=== PATIENT | male | born 1950 | race Caucasian/White ===

== ENCOUNTER 2019-11-08 23:13 | Emergency (ER) | payer OTHER, BC ==
--- OUTSIDE RECORDS SUMMARY | 2019-11-08 23:17 | XMS REPORT | Summary of Care ---
:1950 Author Name SUNI CORCORAN N.P. Address Unavailable Unavailable , Care Team Providers Name Role Phone SUNI CORCORAN N.P. 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 Refills: 0 Active Allopurinol 100 MG Oral Tablet TAKE 1 TABLET TWICE DAILY. Refills: 0 Active AmLODIPine Besylate 10 MG Oral Tablet TAKE 1 TABLET DAILY FOR BLOOD PRESSURE. Refills: 0 Active 30 Tablet Bottle Fenofibrate 160 MG Oral Tablet TAKE 1 TABLET DAILY. Refills: 0 Active Flecainide Acetate 50 MG Oral Tablet TAKE 1 TABLET TWICE DAILY. Refills: 0 Active Furosemide 40 MG Oral Tablet TAKE 1 TABLET DAILY DIRECTED. Refills: 0 Active Losartan Potassium 100 MG Oral Tablet TAKE 1 TABLET ONCE DAILY. Refills: 0 Active 30 Tablet Bottle MetFORMIN HCl - 500 MG Oral Tablet TAKE 1 TABLET DAILY DIRECTED. Refills: 0 Active Pantoprazole Sodium 40 MG Oral Tablet Delayed Release TAKE 1 TABLET DAILY. Refills: 0 Active 7 Tablet Bottle Potassium Chloride 20 MEQ TBCR TAKE 2 TABLETS DAILY. Refills: 0 Active Rosuvastatin Calcium 10 MG Oral Tablet TAKE 1 TABLET DAILY. Refills: 0 Active Verapamil HCl ER 180 MG Oral Capsule Extended Release 24 Hour TAKE 1 CAPSULE DAILY BEFORE EATING. Refills: 0 Active Xarelto 20 MG Oral Tablet TAKE 1 TABLET DAILY Refills: 0 Active Allergies and Adverse Reactions Name Dates Details No Known Drug Allergies (Allergy) Status: Active Past Medical History Name Dates Details History of diabetes mellitus (V12.29, Z86.39) Status: Resolved History of Excessive bleeding (459.0, R58) Status: Resolved History of gout (V12.29, Z87.39) Status: Resolved History of hypertension (V12.59, Z86.79) Status: Resolved History of kidney stones (V13.01, Z87.442) Status: Resolved Procedures Procedure Dates Details History of colon surgery Completed Immunization Name Dates Details Immunizations not documented Social History Name Dates Details - Status: Name Dates Details Never smoker Vital Signs Date Test Result Details [id number] BP Systolic 168 mm[Hg] Status: Comments: Location: LUE; Position: Sitting BP Diastolic 88 mm[Hg] Status: Comments: Location: LUE; Position: Sitting Height 68 in Status: Weight 314.5 lb Status: Body Mass Index Calculated 47.82 kg/m2 Status: Body Surface Area Calculated 2.48 m2 Status: Heart Rate 72 /min Status: Comments: Location: L Radial; Results Date Description Value Details [id number] [U] XRAY KNEE 3 VWS LEFT [id number] XR KNEE 3 VWS LEFT Images acquired, not reported on this accession number. Plan of Care Name Dates Details Planned Observations Planned Goals not documented Planned Encounters Appointment; SUNI CORCORAN NP On: 24-Jan-2018 9:30 Interventions Provided Labs/Procedures/Imaging[U] XRAY KNEE 3 VWS LEFT [id number]; Done: 25 Oct 2017PlanPatient Education/Instructions: Patient Education Provided Reassurance Counseling Provided - Discussed with Family/Patient Family/Patient given opportunity to ask questions. Family/Patient Verbalized Understanding. Patient/ Parent to call or return with any abnormal changes Orders: Physical Therapy Follow Up: Return to the clinic in 3 months or as needed. Will do PT and follow up in 2-3 months. Instructions Name Dates Details Instructions not documented Encounters Appointment; SUNI CORCORAN NP On: 25-Oct-2017 9:45 Encounter Diagnosis: Problem not documented
--- OUTSIDE RECORDS SUMMARY | 2019-11-08 23:17 | XMS REPORT | Summary of Care ---
:1950 Author Organization [facility] Address [address] [place] [address] Care Team Providers Name Role Phone Rodolfo Gacria Primary Care Provider Reason for Visit Reason Comments Follow-up urinary frequency Encounter Details Date Type Department Care Team Description 09/06/2019 Office Visit [facility] Urology- Angelica Ott Urinary frequency (Primary Dx); [facility] Screening PSA (prostate specific antigen); [address] OAB (overactive bladder) [address] [place] [phone] [place] [id number] Allergies No Known Allergiesdocumented as of this encounter (statuses as of 09/06/2019) Medications Medication Sig Dispensed Refills Start Date End Date Status allopurinol 100 mg Take 100 mg 0 Active tablet by mouth 2 (two) times daily. amlodipine Take 10 mg by 0 Active besylate/benazepri mouth. l (AMLODIPINE-BENAZE PRIL ORAL) Fenofibrate 160 mg Take 160 mg 0 Active tablet by mouth. flecainide 100 mg Take 100 mg 0 Active tablet by mouth 2 (two) times daily. potassium chloride Take 20 mEq 0 Active 10 mEq CR tablet by mouth 2 (two) times daily. rosuvastatin 10 mg Take 10 mg by 0 Active tablet mouth at bedtime. metoprolol Take 50 mg by 0 Active succinate XL 50 mg mouth daily. 24 hr tablet olmesartan 40 mg Take 40 mg by 0 Active tablet mouth daily. folic Take by 0 Active acid/multivit-min/ mouth. lutein (CENTRUM SILVER ORAL) aspirin 81 mg Take 81 mg by 0 Active chewable tablet mouth daily. furosemide 40 mg Take 40 mg by 0 Active tablet mouth daily. metFORMIN 500 mg Take 500 mg 0 Active tablet by mouth 2 (two) times daily with meals. Pantoprazole 40 mg Take 40 mg by 0 Active delayed-release mouth daily. suspension oxybutynin Take 1 tablet 60 tablet 11 09/06/2019 Active chloride 5 mg by mouth 2 tabletIndications: (two) times Urinary frequency, daily. OAB (overactive bladder) oxybutynin XL 5 mg Take 2 30 tablet 2 11/22/2018 Discontinued 24 hr tablets by 0 (Duplicate) tabletIndications: mouth daily. OAB (overactive bladder) documented as of this encounter (statuses as of 09/06/2019) Active Problems No known active problemsdocumented as of this encounter (statuses as of 2019) Social History Tobacco Use Types Packs/Day Years Used Date Former Smoker Quit: 1990 Smokeless Tobacco: Never Used Alcohol Use Drinks/Week oz/Week Comments Yes Sex Assigned at Date Recorded Not on file Job Start Date Occupation Industry Not on file Not on file Not on file Travel History Travel Start Travel End No recent travel history available. documented as of this encounter Last Filed Vital Signs Vital Sign Reading Time Taken Comments Blood Pressure 185/95 09/06/2019 9:26 AM HYDROMETEOROLOGICAL TECHNICIAN Pulse 54 09/06/2019 9:26 AM HYDROMETEOROLOGICAL TECHNICIAN Temperature 37.3 C (99.2 F) 09/06/2019 9:17 AM HYDROMETEOROLOGICAL TECHNICIAN Respiratory Rate 20 09/06/2019 9:17 AM HYDROMETEOROLOGICAL TECHNICIAN Oxygen Saturation 99% 09/06/2019 9:17 AM HYDROMETEOROLOGICAL TECHNICIAN Inhaled Oxygen Concentration - - Weight 107 kg (236 lb) 09/06/2019 9:17 AM HYDROMETEOROLOGICAL TECHNICIAN Height - - Body Mass Index 34.85 11/22/2018 8:46 AM CDT documented in this encounter Progress Notes Angelica Ott FNP - 09/06/2019 9:00 AM CST Visit Type: Clinic Note / History and Physical Referred by: established Chief Complaint: 6 month follow up HPI Bony Santos 68 year old male for 6 month follow up of UI and urgency. He is taking oxybutynin and his symptoms have improved. He is happy with the way he urinates. He had gastric bypass surgery last year and has lost 70 lbs. He needs refill on oxybutynin. PSA 11/2018 - 0.42 Histories Past Medical History: Diagnosis Date Allergic rhinitis Atrial fibrillation Diabetes mellitus Diverticulitis Esophageal reflux Hyperlipidemia Hypertension Kidney stone Past Surgical History: Procedure Laterality Date COLON SURGERY TONSILLECTOMY Family History Problem Relation Age of Onset High cholesterol Father Hypertension Father Heart Father Social History Socioeconomic History Marital status: Spouse name: Not on file Number of children: Not on file Years of education: Not on file Highest education level: Not on file Occupational History Not on file Social Needs Financial resource strain: Not on file Food insecurity: Worry: Not on file Inability: Not on file Transportation needs: Medical: Not on file Non-medical: Not on file Tobacco Use Smoking status: Former Smoker Last attempt to quit: 1990 Years since quittin.0 Smokeless tobacco: Never Used Substance and Sexual Activity Alcohol use: Yes Drug use: Not on file Sexual activity: Not on file Lifestyle Physical activity: Days per week: Not on file Minutes per session: Not on file Stress: Not on file Relationships Social connections: Talks on phone: Not on file Gets together: Not on file Attends pentecostal service: Not on file Active member of club or organization: Not on file Attends meetings of clubs or organizations: Not on file Relationship status: Not on file Intimate partner violence: Fear of current or ex partner: Not on file Emotionally abused: Not on file Physically abused: Not on file Forced sexual activity: Not on file Other Topics Concern Not on file Social History Narrative Not on file Review of Systems Respiratory: Negative. Cardiovascular: Negative. Genitourinary: Negative. Neurological: Negative. Psychiatric/Behavioral: Negative. Physical Exam Constitutional: He is oriented to person, place, and time. He appears well- developed and well-nourished. No distress. Genitourinary: Genitourinary Comments: MIGUEL: prostate normal, benign-chaperoned by Luis Fernando Wellington RN Neurological: He is alert and oriented to person, place, and time. Skin: Skin is warm and dry. Psychiatric: He has a normal mood and affect. BP (!) 187/89 (BP Location: Right arm, Patient Position: Sitting, BP CUFF SIZE: Adult Large) | Pulse 80 | Temp 37.3 C (99.2 F) (Oral) | Resp 20 | Wt 192 lb 3.2 oz (87.2 kg) | SpO2 99% | BMI 28.38 kg/m Laboratory No new labs Radiology No new Radiology Procedure Note None Assessment/Plan Bony Santos 68 year old male with UI and urgency Continue oxybutynin-refill sent to pharmacy PSA today RTC in one year or sooner if needed Surgical Intervention Not applicable. This visit did not involve counseling and coordination that comprised more than 50% of the visit time.Electronically signed by Angelica Ott FNP at 2019 9:32 AM Yue Rankin RN - 09/06/2019 9:00 AM CSTDabushra Santos is a 68 year old male comes to clinic independent in ambulation for follow up urinary frequency. Pt comes alone . Pt in NAD w/ pain reported 0/10. Pt preferred language is Welsh. Pt. denies fall in last 12 months. Allergies and medications reviewed and updated. Pt to monitor BP at home if it remains elevated or he is to become symptomatic he is to contact his PCP or go directly to the ER documented in this encounter Plan of Treatment Name Type Priority Associated Diagnoses Order Schedule PROSTATIC SPECIFIC LAB Routine Screening PSA (prostate Expected: 09/06/2019 , ANTIGEN SCREEN specific antigen) Expires: 09/06/2020 Health Maintenance Due Date Last Done Comments HEPATITIS C (HCV) SCREEN 1950 DTaP,Tdap,and Td Vaccines (1 - Tdap) 1960 COLONOSCOPY 10/29/1999 Zoster Recombinant Vaccine (SHINGRIX) (1 of 2) 10/29/1999 Medicare Wellness Visit 2014 PNEUMOCOCCAL VACCINES 65+ (1 of 2 - PCV13) 2014 INFLUENZA VACCINE (#1) 2019 documented as of this encounter Procedures Procedure Name Priority Date/Time Associated Comments Diagnosis POCT URINALYSIS AUTO Routine 09/06/2019 9:24 AM Urinary frequency Results for this HYDROMETEOROLOGICAL TECHNICIAN procedure are in the results section. documented in this encounter Results POCT URINALYSIS, INSTRUMENT (09/06/2019 9:24 AM HYDROMETEOROLOGICAL TECHNICIAN) POCT U SP GRAV 1.020 1.005 - 1.025 mg/dl POCT PH U 7.0 5 - 8 mg/dl POCT U LEUK EST Negative Negative - Negative POCT U NIT Negative Negative - Negative POCT U PROT 300 Negative - Negative POCT U GLU Negative Negative - Negative POCT U KETONE Trace Negative - Negative POCT U UROBILI 0.2 0.2 - 1 mg/dl POCT U BILI Negative Negative - Negative POCT U BLD Negative Negative - Negative POCT U COLOR yellow POCT U APPEAR clear Specimen Urine - URINE, CLEAN CATCH documented in this encounter Visit Diagnoses Diagnosis Urinary frequency - Primary Screening PSA (prostate specific antigen) Special screening for malignant neoplasm of prostate OAB (overactive bladder) Hypertonicity of bladder documented in this encounter Insurance Payer Benefit Plan / Subscriber ID Effective Phone Address Type Group Dates MEDICARE MEDICARE PART A xxxxxxxxxxx 2014-Pres [phone] [address] Medicare & B ent [id number] [id number] [place] [phone] BCBS OF BCBS [id number] 2014-Pres [phone] Medicare [place] [employer] [place] [phone] [place] [address] (Home) [place] [address] documented as of this encounter"
--- OUTSIDE RECORDS SUMMARY | 2019-11-08 23:17 | XMS REPORT | Summary of Care ---
:1950 Author Organization [facility] - Health Address [address] [place] [address] Care Team Providers Name Role Phone Carmeloheena Rodolfo Torres Primary Care Provider Encounter Details Date Type Department Care Team Description 03/03/2019 Orders Only [facility] Doctor Unassigned, No [address] [facility] [place] [address] [address] [place] [address] Allergies No Known Allergiesdocumented as of this encounter (statuses as of 03/03/2019) Medications Medication Sig Dispensed Refills Start Date End Date Status allopurinol 100 mg Take 100 mg by 0 Active tablet mouth 2 (two) times daily. amlodipine Take 10 mg by 0 Active besylate/benazepril mouth. (AMLODIPINE-BENAZEPRIL ORAL) Fenofibrate 160 mg Take 160 mg by 0 Active tablet mouth. flecainide 100 mg Take 100 mg by 0 Active tablet mouth 2 (two) times daily. potassium chloride 10 Take 20 mEq by 0 Active mEq CR tablet mouth 2 (two) times daily. rosuvastatin 10 mg Take 10 mg by 0 Active tablet mouth at bedtime. metoprolol succinate XL Take 50 mg by 0 Active 50 mg 24 hr tablet mouth daily. olmesartan 40 mg tablet Take 40 mg by 0 Active mouth daily. folic Take by mouth. 0 Active acid/multivit-min/lutei n (CENTRUM SILVER ORAL) aspirin 81 mg chewable Take 81 mg by 0 Active tablet mouth daily. furosemide 40 mg tablet Take 40 mg by 0 Active mouth daily. metFORMIN 500 mg tablet Take 500 mg by 0 Active mouth 2 (two) times daily with meals. Pantoprazole 40 mg Take 40 mg by 0 Active delayed-release mouth daily. suspension oxybutynin XL 5 mg 24 Take 2 tablets by 30 tablet 2 11/22/2018 Active hr tabletIndications: mouth daily. OAB (overactive bladder) documented as of this encounter (statuses as of 03/03/2019) Active Problems Not on filedocumented as of this encounter (statuses as of 03/03/2019) Social History Tobacco Use Types Packs/Day Years [...] of this encounter Last Filed Vital Signs Not on filedocumented in this encounter Plan of Treatment Health Maintenance Due Date Last Done Comments HEPATITIS C (HCV) SCREEN 1950 DTaP,Tdap,and Td Vaccines (1 - Tdap) 1968 COLONOSCOPY 10/29/1999 Zoster Recombinant Vaccine (SHINGRIX) (1 of 2) 10/29/1999 Medicare Wellness Visit 2014 PNEUMOCOCCAL VACCINES 65+ (1 of 2 - PCV13) 2014 INFLUENZA VACCINE 04/09/2019 documented as of this encounter Procedures Procedure Name Priority Date/Time Associated Diagnosis Comments [facility] PATIENT FINANCIAL Routine 03/03/2019 8:41 AM POLICY CDT NO SHOW OR MISSED Routine 03/03/2019 8:40 AM APPOINTMENT POLICY CDT ACKNOWLEDGEMENT documented in this encounter Results Not on filedocumented in this encounter Insurance Payer Benefit Plan / Subscriber ID Effective Phone Address Type Group Dates MEDICARE MEDICARE PART A xxxxxxxxxxx 2014-Pres [phone] [address] Medicare & B ent [id number] [place] [phone] BCBS [place] BCBS [id number] 2014-Pres [phone] Medicare [place] [id number] [place] [address] documented as of this encounter
--- OUTSIDE RECORDS SUMMARY | 2019-11-08 23:17 | XMS REPORT | Summary of Care ---
:1950 Author Organization [facility] Address [address] [place] [address] Care Team Providers Name Role Phone Rodolfo Garcia Primary Care Provider Reason for Visit Reason Comments Follow-up urine frequency (Routine) Status Reason Specialty Diagnoses / Referred By Referred To Procedures Contact Contact Closed URO-UROLOGY / Diagnoses 3 mfu; Poss Cysto Urology Service Julio Alvarado Urology Procedures [place] CYSTOURETHROSCOPY OUTPATIENT ESTB 25 MINUTES FOLLOW-UP VISIT [address] [place] MD Sachin [place] [address] [place] [phone] [place], [place] Phone: [phone] Phone: Encounter Details Date Type Department Care Team Description 03/03/2019 Office Visit [facility] Urology- Julio Alvarado, Urgency incontinence Barrie LERNER (Primary Dx) [facility] [address] [place] [phone] Allergies No Known Allergiesdocumented as of this [...] Sign Reading Time Taken Comments Blood Pressure 166/86 03/03/2019 9:18 AM CDT Pulse 59 03/03/2019 9:18 AM CDT Temperature 36.2 C (97.1 F) 03/03/2019 9:18 AM CDT Respiratory Rate 18 03/03/2019 9:18 AM CDT Oxygen Saturation - - Inhaled Oxygen Concentration - - Weight 141.3 kg (311 lb 8.6 oz) 03/03/2019 9:18 AM CDT Height - - Body Mass Index 46.01 11/22/2018 8:46 AM CDT documented in this encounter Progress Notes Julio Alvarado MD - 03/03/2019 8:30 AM CDT Visit Type: Clinic Note / History and Physical Referred by: established Chief Complaint: UI HPI Patient with UI and urgency but no outlet obstruction. Has had improvement in symptoms with ditropan. Happy with situation currently. Histories Past Medical History: Diagnosis Date Allergic [...] Last attempt to quit: 1990 Years since quittin.5 Smokeless tobacco: Never Used Substance and Sexual Activity Alcohol use: Yes Drug use: Not on file Sexual activity: Not on file Lifestyle Physical activity: Days per week: Not on file Minutes per session: Not on file Stress: Not on file Relationships Social connections: Talks on phone: Not on file Gets together: Not on file Attends synagogue service: Not on file Active member of [...] Narrative Not on file Review of Systems Physical Exam Constitutional: He appears well-developed and well-nourished. Skin: Skin is warm and dry. Nursing note and vitals reviewed. BP (!) 166/86 (BP Location: Left arm, Patient Position: Sitting, BP CUFF SIZE: Adult Large) | Pulse59 | Temp 36.2 C (97.1 F) (Oral) | Resp 18 | Wt 311 lb 8.6 oz (141.3 kg) | BMI 46.01 kg/m Laboratory Radiology No new Radiology Procedure Note Assessment/Plan Patient improved with anticholinergic RTC six months and continue ditropan Reports he is to undergo gastric bypass surgery soon Surgical Intervention Not applicable. This visit did not involve counseling and coordination that comprised more than 50% of the visit time.Electronically signed by Alvarado, Julio Sachin, MD at 2018 9:30 AM Ammy Aviles MA - 03/03/2019 8:30 AM CDTDabushra Santos is a 68 year old male comes to clinic independent in ambulation for urine frequency. Pt comes alone . Pt in NAD w/ pain reported 0/10. Pt preferred language is Venezuelan. Pt. denies fall in last 12 months. Patient denies any urinary issues at this time. Allergies and medications reviewed and updated. documented in this encounter Plan of Treatment Date Type Specialty Care Team Description 09/06/2019 Office Visit Urology Angelica Ott FNP [address] [place] [address] [phone] Health Maintenance Due Date Last Done Comments HEPATITIS C (HCV) SCREEN 1950 DTaP,Tdap,and Td Vaccines (1 - Tdap) 1968 COLONOSCOPY 10/29/1999 Zoster Recombinant Vaccine (SHINGRIX) (1 of 2) 10/29/1999 Medicare Wellness Visit 2014 PNEUMOCOCCAL VACCINES 65+ (1 of 2 - PCV13) 2014 INFLUENZA VACCINE 04/09/2019 documented as of this encounter Results Not on filedocumented in this encounter Visit Diagnoses Diagnosis Urgency incontinence - Primary Urge incontinence documented in this encounter Insurance Payer Benefit Plan / Subscriber ID Effective Phone Address Type Group Dates MEDICARE MEDICARE PART A xxxxxxxxxxx 2014-Pres [phone] [address] Medicare & B ent [phone] [id number] [place] [address] BCBS [place] BCBS [id number] 2014-Pres [phone] Medicare [place] [id number] [place] [address] (Home) [place] [address] documented as of this encounter"
--- OUTSIDE RECORDS SUMMARY | 2019-11-08 23:17 | XMS REPORT ---
:1950 [facility] Address [address] [place] [address] Dr. Jenkins [address] [place] [address] Care Team Providers Name Role Phone Unavailable Unavailable Unavailable Problems This patient has no known problems. Allergies, Adverse Reactions, Alerts This patient has no known allergies or adverse reactions. Medications This patient has no known medications. Encounters Start End Encounter Admission Attending Care Care Encounter Date/Time Date/Time Type Type Clinicians Facility Department ID 2019-06-06 Inpatient [facility] JUANI [id number] 09:39:00 2019-09-19 2019-09-19 Outpatient [facility] CAR [id number] 05:54:00 05:54:00 2019-03-01 2019-03-01 Outpatient [facility] CAR [id number] 06:18:00 06:18:00 2019-02-06 2019-02-06 [id number]:37:00 11:37:00 2019-01-22 2019-01-22 Inpatient E [facility] MED [id number] 11:48:00 09:48:00
--- OUTSIDE RECORDS SUMMARY | 2019-11-08 23:18 | XMS REPORT | Summary of Care ---
:1950 Author Organization [facility] Address [address] [place] [address] Care Team Providers Name Role Phone Rodolfo Garcia Primary Care Provider Reason for Visit Reason Comments Follow-up urinary frequency Encounter Details Date Type Department Care Team Description 09/06/2019 Office Visit [facility] Urology- Angelica Ott Urinary frequency (Primary Dx); [facility] Screening PSA (prostate specific antigen); [address] OAB (overactive bladder) [address] [place] [phone] [place] [id number] Allergies No Known Allergiesdocumented as of this [...] Comments Blood Pressure 185/95 09/06/2019 9:26 AM SENIOR CLINICAL PROJECT MANAGER Pulse 54 09/06/2019 9:26 AM SENIOR CLINICAL PROJECT MANAGER Temperature 37.3 C (99.2 F) 09/06/2019 9:17 AM SENIOR CLINICAL PROJECT MANAGER Respiratory Rate 20 09/06/2019 9:17 AM SENIOR CLINICAL PROJECT MANAGER Oxygen Saturation 99% 09/06/2019 9:17 AM SENIOR CLINICAL PROJECT MANAGER Inhaled Oxygen Concentration - - Weight 107 kg (236 lb) 09/06/2019 9:17 AM SENIOR CLINICAL PROJECT MANAGER Height - - Body Mass Index 34.85 [...] file Gets together: Not on file Attends protestant service: Not on file Active member of [...] pain reported 0/10. Pt preferred language is Serbian. Pt. denies fall in last 12 months. [...] 9:24 AM Urinary frequency Results for this SENIOR CLINICAL PROJECT MANAGER procedure are in the results section. documented in this encounter Results POCT URINALYSIS, INSTRUMENT (09/06/2019 9:24 AM SENIOR CLINICAL PROJECT MANAGER) POCT U SP GRAV 1.020 1.005 - [...] O. BOX Medicare & B ent [id number] [place] [phone] BCBS OF BCBS [id number] 2014-Pres [phone] Medicare [place] [id number] [place] [address] (Home) [place] [address] documented as of this encounter"
--- OUTSIDE RECORDS SUMMARY | 2019-11-08 23:18 | XMS REPORT | Summary of Care ---
:1950 Author Organization [facility] Address [address] [place] [address] Care Team Providers Name Role Phone Rodolfo Garcia Primary Care Provider Reason for Visit Reason Comments Follow-up urinary frequency Encounter Details Date Type Department Care Team Description 09/06/2019 Office Visit [facility] Urology- Angelica Ott Urinary frequency (Primary Dx); [facility] Screening PSA (prostate specific antigen); [address] OAB (overactive bladder) [address] [place] [id number] [place] [id number] Allergies No Known Allergiesdocumented as of this [...] Comments Blood Pressure 185/95 09/06/2019 9:26 AM [facility] Pulse 54 09/06/2019 9:26 AM [facility] Temperature 37.3 C (99.2 F) 09/06/2019 9:17 AM [facility] Respiratory Rate 20 09/06/2019 9:17 AM [facility] Oxygen Saturation 99% 09/06/2019 9:17 AM [facility] Inhaled Oxygen Concentration - - Weight 107 kg (236 lb) 09/06/2019 9:17 AM [facility] Height - - Body Mass Index 34.85 [...] file Gets together: Not on file Attends cheondoism service: Not on file Active member of [...] pain reported 0/10. Pt preferred language is Pashto. Pt. denies fall in last 12 months. Allergies and medications reviewed and updated. Pt to monitor BP at home if it remains elevated or he is to become symptomatic he is to contact his PCP or go directly to the ER documented in this encounter Plan of Treatment Health [...] 9:24 AM Urinary frequency Results for this [facility] procedure are in the results section. documented in this encounter Results PROSTATIC SPECIFIC ANTIGEN SCREEN (09/06/2019 9:47 AM [facility]) PSA 1.06 <=4.00 ng/mL [facility] Specimen Blood Narrative Performed At Biotin has been reported to cause a negative [facility] bias, interpret results relative to patient's use of biotin. Performing Organization Address City/State/Zipcode Phone Number [facility] CLIA: [id number], [address] [place] [address] POCT URINALYSIS, INSTRUMENT (09/06/2019 9:24 AM [facility]) POCT U SP GRAV 1.020 1.005 - [...] O. B[address] Medicare & B ent [id number] [place] [address] BCBS OF BCBS [id number] 2014-Pres [phone] Medicare [place] [employer] ent [phone] [place] [address] (Home) [place] [address] documented as of this encounter"
--- OUTSIDE RECORDS SUMMARY | 2019-11-08 23:18 | XMS REPORT | Summary of Care ---
:1950 Author Organization [facility] Address [address] [place] [address] Care Team Providers Name Role Phone Rodolfo Garcia Primary Care Provider Reason for Visit Reason Comments LAB Encounter Details Date Type Department Care Team Description 09/06/2019 Steaming Cabinet Tender Visit [facility] Angelica Ott FNP [address] [place] [address] Screening PSA Professional [facility], [facility] Lab (prostate specific Building Phlebotomy antigen) Lab Professional [facility] Building [address] [place] [address] [address] [place] [address] Allergies No Known Allergiesdocumented as of this encounter (statuses as of 09/06/2019) Medications Medication Sig Dispensed Refills Start Date End Date Status allopurinol 100 mg Take 100 mg by 0 Active tablet mouth 2 (two) times daily. amlodipine Take 10 mg by 0 Active besylate/benazepril mouth. (AMLODIPINE-BENAZEPRIL ORAL) Fenofibrate 160 mg Take 160 mg by 0 Active tablet mouth. flecainide 100 mg tablet Take 100 mg by 0 Active mouth 2 (two) times daily. potassium chloride [...] daily. folic Take by mouth. 0 Active acid/multivit-min/lutein (CENTRUM SILVER ORAL) aspirin 81 mg chewable Take 81 mg by 0 Active tablet mouth daily. furosemide 40 mg tablet Take 40 mg by 0 Active mouth daily. metFORMIN 500 mg tablet Take 500 mg by 0 Active mouth 2 (two) times daily with meals. Pantoprazole 40 mg Take 40 mg by 0 Active delayed-release mouth daily. suspension documented as of this encounter (statuses as [...] (#1) 2019 documented as of this encounter Results Not on filedocumented in this encounter Visit Diagnoses Diagnosis Screening PSA (prostate specific antigen) Special screening for malignant neoplasm of prostate documented in this encounter Insurance Payer Benefit Plan / Subscriber ID Effective Phone Address Type Group Dates MEDICARE MEDICARE PART A xxxxxxxxxxx 2014-Pres [phone] [address] Medicare & B ent [phone] [id number] [place] [phone] BCBS OF BCBS [id number] 2014-Pres [phone] Medicare [place] [employer] [phone] [place] [address] (Home) [place] [address] documented as of this encounter
[2019-11-09] MEDS ORDERED: LIDOCAINE 1% MPF 5 ML VIAL ONE (00:46)
--- NOTE | 2019-11-09 02:42 | ER ---
Nurse's Notes [facility] Name: Bony Santos Age: 69 yrs Sex: Male : 1950 Arrival Date: 11/08/2019 Time: 23:15 Bed 14 Private MD: Diagnosis: Penile Avulsion Presentation: 11/07 23:28 Chief complaint: Patient states: Reports he was having sex with his and started ea bleeding from his penis. Pt reports being on blood thinners. Coronavirus screen: Patient denies fever greater than 100.4F, cough, shortness of breath, or difficulty breathing. Ebola Screen: No symptoms or risks identified at this time. Initial Sepsis Screen: Does the patient meet any 2 criteria? No. Patient's initial sepsis screen is negative. Does the patient have a suspected source of infection? No. Patient's initial sepsis screen is negative. Risk Assessment: Do you want to hurt yourself or someone else? Patient reports no desire to harm self or others. 23:28 Method Of Arrival: Ambulatory ea 23:28 Acuity: MAVERICK 3 ea Historical: - Allergies: 23:36 No Known Allergies; ea - Home Meds: 23:36 allopurinol 100 mg Oral tab 1 tab 2 times per day [Active]; aspirin 81 mg Oral chew 1 ea tab once daily [Active]; clopidogrel 75 mg oral tab 1 tab once daily [Active]; amiodarone 200 mg Oral tab 1 tab once daily [Active]; olmesartan oral oral 1 tab [Active]; oxybutynin chloride 10 mg Oral tr24 1 tab once daily [Active]; pantoprazole 40 mg oral TbEC 1 tab once daily [Active]; rosuvastatin 10 mg oral tab 1 tab once daily [Active]; - PMHx: 23:36 Prediabetic; Hypertension; Gout; fluid retention; acid reflux; ea - PSHx: 23:36 colon resection; Tonsillectomy; ea - Immunization history:: Adult Immunizations up to date. - Social history:: Smoking status: Patient denies any tobacco usage or history of. Screenin:31 Abuse screen: Denies threats or abuse. Nutritional screening: No deficits noted. ea Tuberculosis screening: No symptoms or risk factors identified. Fall Risk None identified. Assessment: 23:30 General: Appears in no apparent distress. comfortable, Behavior is calm, cooperative, jb4 appropriate for age. Pain: Denies pain. Neuro: Level of Consciousness is awake, alert, obeys commands, Oriented to person, place, time, situation. Cardiovascular: Patient's skin is warm and dry. Respiratory: Airway is patent Respiratory effort is even, unlabored, Respiratory pattern is regular, symmetrical. GI: No signs and/or symptoms were reported involving the gastrointestinal system. : No signs and/or symptoms were reported regarding the genitourinary system. EENT: No signs and/or symptoms were reported regarding the EENT system. Derm: Skin has skin tears on below the head of the penis. Musculoskeletal: Circulation, motion, and sensation intact. Range of motion: intact in all extremities. 11/08 00:00 Reassessment: Patient appears in no apparent distress at this time. Patient and/or jb4 family updated on plan of care and expected duration. Pain level reassessed. Patient is alert, oriented x 3, equal unlabored respirations, skin warm/dry/pink. Surgicel and pressure applied to wound. 00:15 Reassessment: After applying pressure wound still bleeding, applied pressure for 15 jb4 more minutes. 00:30 Reassessment: site of injury continues to bleed after holding pressure provider jb4 notified. 01:00 Reassessment: Patient appears in no apparent distress at this time. Patient and/or jb4 family updated on plan of care and expected duration. Pain level reassessed. Patient is alert, oriented x 3, equal unlabored respirations, skin warm/dry/pink. Provider set up for laceration repair. 01:10 Reassessment: Laceration repair complete. Pt tolerated well, site slightly bleeding, jb4 pressure applied for 5 minutes per providers instructions. 01:15 Reassessment: site continues to slowly bleed. Provider notified. jb4 01:20 Reassessment: Surgicel dressing applied, bleeding has stopped. jb4 01:37 Reassessment: Pt began to bleed again after standing up to urinate. Provider notified, jb4 instructed to hold pressure for 15 minues. 02:29 Reassessment: Patient appears in no apparent distress at this time. Patient and/or jb4 family updated on plan of care and expected duration. Pain level reassessed. Patient is alert, oriented x 3, equal unlabored respirations, skin warm/dry/pink. pt is no longer bleeding provider notified. 02:57 Reassessment: Patient appears in no apparent distress at this time. Patient and/or jb4 family updated on plan of care and expected duration. Pain level reassessed. Patient is alert, oriented x 3, equal unlabored respirations, skin warm/dry/pink. Pt verbalized understanding of d/c and follow up instructions, is no longer bleeding, ambulated out of ED w/ steady gait. d/c'ed home with . Vital Signs: 11/07 23:28 Weight 96.62 kg; Height 5 ft. 8 in. (172.72 cm); ea 23:37 BP 170 / 88; Pulse 51; Resp 18; Temp 98.1(O); Pulse Ox 98% on R/A; Pain 0/10; jb4 11/08 00:30 BP 164 / 105; Pulse 56; Resp 18; Temp 98.8; Pulse Ox 100% ; Pain 5/10; jv1 00:30 BP 171 / 88; Pulse 50; Resp 18; Temp 98.8; Pulse Ox 99% on R/A; jv1 01:45 BP 170 / 106; Pulse 42; Resp 16; Pulse Ox 91% on R/A; jb4 02:30 BP 179 / 85; Pulse 42; Resp 16; Pulse Ox 97% on R/A; jb4 11/07 23:28 Body Mass Index 32.39 (96.62 kg, 172.72 cm) ea ED Course: 11/07 23:15 Patient arrived in ED. cl3 23:19 Wero Villalobos PA is PHCP. jmm 23:19 Miguel Mclean MD is Attending Physician. jmm 23:21 Mahendra Alvarenga RN is Primary Nurse. jd3 23:29 Triage completed. ea 23:31 Patient has correct armband on for positive identification. Bed in low position. Call ea light in reach. Side rails up X2. 23:31 Arm band placed on right wrist. Patient placed in an exam room, on a stretcher, on ea pulse oximetry. 11/08 01:00 Assist provider with laceration repair on head of penis that was 2.5 cm. or less using jb4 Steri-strips. Set up tray. Performed by Wero CASTRO Dressed with Surgicel Patient tolerated well. 02:40 Veronica Matute MD is Referral Physician. tw4 02:57 Patient did not have IV access during this emergency room visit. jb4 Administered Medications: 01:00 Drug: Lidocaine (1 %) 1 application Volume: 5 ml; Route: Infiltration; jb4 01:30 Follow up: Response: No adverse reaction jb4 Outcome: 02:40 Discharge ordered by MD. tw4 02:57 Discharged to home ambulatory, with family. jb4 02:57 Condition: stable 02:57 Discharge instructions given to patient, Instructed on discharge instructions, follow up and referral plans. wound care, Demonstrated understanding of instructions, follow-up care, medications, wound care. 03:00 Patient left the ED. jb4 Signatures: Weor Villalobos PA PA jmm Bryson, James RN RN jb4 Elisabeth Son RN RN Mahendra Byers RN RN jd3 Miguel Mclean MD MD tw4 Jessika Randle RN RN jv1 Justen Mendez cl3 Corrections: (The following items were deleted from the chart) 02:38 04/01 23:44 BP 170 / 88; Pulse 51bpm; Resp 18bpm; Pulse Ox 98% RA; Temp 98.1F Oral; jb4 Pain 0/10; jb4
--- NOTE | 2019-11-09 02:42 | EDPHYS ---
Physician Documentation [facility] Name: Bony Santos Age: 69 yrs Sex: Male : 1950 Arrival Date: 11/08/2019 Time: 23:15 Bed 14 Private MD: ED Physician Miguel Mclean HPI: 11/08 00:09 This 69 yrs old Male presents to ER via Ambulatory with complaints of Penile jmm Injury. 00:09 The patient presents with laceration, that is superficial, of the head of penis. Onset: jmm The symptoms/episode began/occurred acutely, just prior to arrival. Modifying factors: The symptoms are alleviated by nothing, the symptoms are aggravated by nothing. This is a 69 year old male with no chronic medical conditions that presents to the ED with complaints of penile bleeding which occurred just prior to arrival. Patient states this occurred while having intercourse. . Historical: - Allergies: 11/07 23:36 No Known Allergies; ea - Home Meds: 23:36 allopurinol 100 mg Oral tab 1 tab 2 times per day [Active]; aspirin 81 mg Oral chew 1 ea tab once daily [Active]; clopidogrel 75 mg oral tab 1 tab once daily [Active]; amiodarone 200 mg Oral tab 1 tab once daily [Active]; olmesartan oral oral 1 tab [Active]; oxybutynin chloride 10 mg Oral tr24 1 tab once daily [Active]; pantoprazole 40 mg oral TbEC 1 tab once daily [Active]; rosuvastatin 10 mg oral tab 1 tab once daily [Active]; - PMHx: 23:36 Prediabetic; Hypertension; Gout; fluid retention; acid reflux; ea - PSHx: 23:36 colon resection; Tonsillectomy; ea - Immunization history:: Adult Immunizations up to date. - Social history:: Smoking status: Patient denies any tobacco usage or history of. ROS: 11/08 00:09 Constitutional: Negative for fever, chills, and weight loss, Cardiovascular: Negative jmm for chest pain, palpitations, and edema, Respiratory: Negative for shortness of breath, cough, wheezing, and pleuritic chest pain. : Positive for injury, bleeding. All other systems are negative. Exam: 00:09 Constitutional: This is a well developed, well nourished patient who is awake, alert, jmm and in no acute distress. Head/Face: atraumatic. Eyes: EOMI, no conjunctival erythema appreciated ENT: Moist Mucus Membranes Neck: Trachea midline, Supple Chest/axilla: Normal chest wall appearance and motion. Cardiovascular: Regular rate and rhythm. No edema appreciated Respiratory: Normal respirations, no respiratory distress appreciated Abdomen/GI: Non distended, soft Back: Normal ROM 00:09 : a small avulsion is noted to the head of the penis, venous bleeding is appreciated. 00:09 Skin: a small avulsion is noted to the head of the penis. 00:09 Neuro: Orientation: is normal, Mentation: is normal, Memory: is normal. 00:09 Psych: Behavior/mood is pleasant, cooperative. Vital Signs: 11/07 23:28 Weight 96.62 kg; Height 5 ft. 8 in. (172.72 cm); ea 23:37 BP 170 / 88; Pulse 51; Resp 18; Temp 98.1(O); Pulse Ox 98% on R/A; Pain 0/10; jb4 11/08 00:30 BP 164 / 105; Pulse 56; Resp 18; Temp 98.8; Pulse Ox 100% ; Pain 5/10; jv1 00:30 BP 171 / 88; Pulse 50; Resp 18; Temp 98.8; Pulse Ox 99% on R/A; jv1 01:45 BP 170 / 106; Pulse 42; Resp 16; Pulse Ox 91% on R/A; jb4 02:30 BP 179 / 85; Pulse 42; Resp 16; Pulse Ox 97% on R/A; jb4 11/07 23:28 Body Mass Index 32.39 (96.62 kg, 172.72 cm) ea Laceration: 01:08 Wound Repair of .2cm ( 0.1in ) subcutaneous laceration to head of penis. Distal m neuro/vascular/tendon intact. Anesthesia: Local anesthetic administered with 1 mls of 1% lidocaine. Wound prep: Simple cleansing with betadine by me. Skin closed with 1 6-0 Prolene using figure 8. Patient tolerated well. MDM: 11/07 23:27 Patient medically screened. [facility] 11/08 01:19 Data reviewed: vital signs, nurses notes. Counseling: I had a detailed discussion with sachin the patient and/or guardian regarding: the historical points, exam findings, and any diagnostic results supporting the discharge/admit diagnosis, the need for outpatient follow up, to return to the emergency department if symptoms worsen or persist or if there are any questions or concerns that arise at home. Administered Medications: 01:00 Drug: Lidocaine (1 %) 1 application Volume: 5 ml; Route: Infiltration; jb4 01:30 Follow up: Response: No adverse reaction jb4 Disposition: 03:05 Co-signature as Attending Physician, Miguel Mclean MD I agree with the assessment and tw plan of care. Disposition: 11/09/19 02:40 Discharged to Home. Impression: Penile Avulsion. - Condition is Stable. - Discharge Instructions: Laceration Care, Adult. - Medication Reconciliation Form, Thank You Letter, Antibiotic Education, Prescription Opioid Use form. - Follow up: Veronica Matute; When: 2 - 3 days; Reason: Recheck today's complaints, Continuance of care, Re-evaluation by your physician. Signatures: Wero Villalobos PA PA jmm Bryson, James, RN RN jb4 Elisabeth Son RN RN ea Wadley, Terrence, MD MD tw4 Corrections: (The following items were deleted from the chart) 02:08 01:20 Urine Dipstick-Ancillary ordered. [facility] jb4 03:00 02:40 11/09/2019 02:40 Discharged to Home. Impression: Penile Avulsion. Condition is jb4 Stable. Discharge Instructions: Laceration Care, Adult. Forms are Medication Reconciliation Form, Thank You Letter, Antibiotic Education, Prescription Opioid Use. Follow up: Veronica Matute; When: 2 - 3 days; Reason: Recheck today's complaints, Continuance of care, Re-evaluation by your physician. tw4
[2019-11-09 03:09] VITALS: TEMP 98.8
[2019-11-09 03:12] VITALS: BP 179/85; O2SAT 97
== END 2019-11-09 03:00 | disposition home or self-care (01) ==
LOC: ER 23:13
PROC: 0HQAXZZ Repair Inguinal Skin, External Approach (ICD-10-PCS; principal; 2019-11-09)
DX: S31.21XA Laceration without foreign body of penis, initial encounter (principal); I10 Essential (primary) hypertension; R73.03 Prediabetes; Z79.82 Long term (current) use of aspirin
CPT/HCPCS: 99284

== ENCOUNTER 2020-07-05 08:27 | Emergency (ER) | payer OTHER, BC ==
--- OUTSIDE RECORDS SUMMARY | 2020-07-05 08:33 | XMS REPORT | Continuity of Care Document ---
:1950 Author Organization [facility] [employer] Care Team Providers Name Role Phone [facility] [employer] Unavailable Un available Problems Problem Status Onset Classification Date Comments Sourc e Date Reported CAD - PCI CIRCUMFLEX Active MH 020 [facility] [id number], MORBID OBESITY Active MH 019 [facility] DX;ABN STRESS TEST Active M H 019 [facility] RIGHT FOOT PAIN Active MH 019 [facility] SHORTNESS OF BREATH Active MH 019 [facility] NEW ONSET AFIB/FLUTTER Active MH 017 [facility] AFIB W/RVR Active MH 017 [facility] CAD-I25.10 Active MH 015 [facility] Hypertension Active Problem 08/26/2018 [facility] Morbid obesity Active Problem 08/26/2018 Comp Heart Care Coronary Active Problem 08/26/2018 Comp Hear t atherosclerosis of C are [place] vessel Cardiomegaly Active Problem 08/26/2018 [facility] Malignant hypertension Active Problem 09/24/2018 [facility] Peripheral edema Active Problem 09/24/2018 Co mp Heart Care Coronary Active Problem 09/24/2018 Comp Hear t atherosclerosis of C are [place] coronary artery Personal history of Active Problem 09/24/2018 Comp Heart nicotine dependence Care Venous (peripheral) Active Problem 08/26/2018 Comp Heart insufficiency, Care unspecified Venous insufficiency Active Problem 09/24/2018 Comp Heart Care Morbid (severe) Active Problem 09/24/2018 Com p Heart obesity due to excess Care calories Hyperlipidemia, Active Problem 09/24/2018 Com p Heart unspecified Care Essential (primary) Active Problem 09/24/2018 Comp Heart hypertension Care Atherosclerotic heart Active Problem 09/24/2018 Comp Heart disease of [place] Ca re coronary artery with unspecified angina pectoris Cardiac arrhythmia, Active Problem 09/24/2018 Comp Heart unspecified cardiac Care arrhythmia type Chronic diastolic Active Diagnosis 09/24/2018 C omp Heart (congestive) heart C are failure Paroxysmal atrial Active Problem 09/24/2018 C omp Heart fibrillation Care Hypertension Active Problem 09/24/2018 Comp H eart Care Arteriosclerosis of Active Problem 09/24/2018 Comp Heart both carotid arteries Care Hypercholesteremia Active Problem 09/24/2018 Comp Heart Care Body mass index (BMI) Active Problem 09/24/2018 Comp Heart of 40.0-44.9 in adult Care Body mass index (BMI) Active Diagnosis 09/24/2018 Comp Heart of 45.0-49.9 in adult Care Atherosclerotic heart Active Problem 11/07/2015 Comp Heart disease of [place] Ca re coronary artery without angina pectoris Venous insufficiency Active Diagnosis 03/12/2016 Comp Heart (chronic) (peripheral) Care Varicose veins of Active Diagnosis 03/12/2016 C omp Heart unspecified lower Ca re extremities with other complications Edema Active Diagnosis 03/12/2016 Comp Hear t Care Final: Atherosclerotic 05/24/2015 heart disease of [facility] andreafski coronary artery City without angina pectoris Edema of extremity Resolved Problem 06/16/2020 Medical (finding) Group,[facility] Gastroesophageal Resolved Problem 06/16/2020 Medical reflux disease Group , (disorder) [facility] Gout (disorder) Resolved Problem 06/16/2020 Medical Group,[facility] Hypercholesterolemia Resolved Problem 06/16/2020 Medical (disorder) Group,[facility] Hypertensive disorder, Active Problem 06/16/2020 Medical systemic arterial Gr oup, (disorder) [facility] Male urinary stress Resolved Problem 06/16/2020 Medical incontinence (finding) Group,[facility] Morbid obesity Active Problem 06/16/2020 [facility] edical (disorder) Group,[facility] Atrial fibrillation Active Problem 06/16/2020 Medical (disorder) Group,[facility] Bleeds profusely Active Problem 06/16/2020 Medical (finding) Group,[facility] Congestive heart Resolved Problem 06/16/2020 Medical failure (disorder) G co[place],[facility] Coronary Active Problem 06/16/2020 Medica l arteriosclerosis Froylan up, (disorder) [facility] Diastolic heart Active Problem 06/16/2020 Medical failure (disorder) [place],[facility] Prediabetes (finding) Active Problem 06/16/2020 Medical Group,[facility] Sleep apnea (finding) Active Problem 06/16/2020 Medical Group,[facility] ATHSCL HEART DISEASE Active MH OF [place] CORONARY [facility] PAROXYSMAL ATRIAL Active FIBRILLATION [facility] UNSPECIFIED ATRIAL Active M H FIBRILLATION [facility] HEART FAILURE, Active UNSPECIFIED [facility] ILLNESS, UNSPECIFIED Active [facility] Medications Medication Details Route Status Patient Ordering Order Source Instructions Provider Date rivaroxaban 20 See Active MG Oral Tablet Instructions, 2019 [facility] ical [Xarelto] TAKE 1 TABLET BY Group MOUTH EVERY DAY, # 30 tab, 5 Refill(s), Pharmacy: [facility] #[id number], 175.26, cm, 12/11/19 9:38:00 CDT, Height, 93.409, kg, 01/04/20 11:14:00 CDT, Weight olmesartan 20 mg 20 mg = 1 tab, Active oral tablet PO, BID, # 180 2020 Medic al tab, 4 Group Refill(s), Pharmacy: [facility] #[id number] amLODIPine 5 mg 5 mg = 1 tab, Active oral tablet PO, Daily, # [address] [facility] cady tab, 4 Group Refill(s), Pharmacy: [facility] #[id number] rosuvastatin 10 See Active mg oral tablet Instructions, # 2020 M edical 30 tab, Group Refill(s) 5, TAKE 1 TABLET BY MOUTH EVERY DAY, Pharmacy: [facility] #[id number] AMIODarone 200 See Active 10/04/ mg oral tablet Instructions, # 2020 M edical 30 tab, Group Refill(s) 2, TAKE 1 TABLET BY MOUTH EVERY DAY, Pharmacy: [facility] #[id number] clopidogrel 75 75 mg = 1 tab, Active mg oral tablet PO, Daily, # 90 2020 [facility] tab, 3 City Refill(s), Pharmacy: [facility] #[id number] Hydralazine 10 mg, Route: Inactive IVP, Q4H, Dosing 2019 [facility] Weight 107.727, City kg, PRN, Start date: 09/19/19 9:11:00 [employer], Duration: 30 day, Stop date: 10/19/19 9:10:00 CDT, systolic 170 Nitroglycerin 0.4 mg, Route: Inactive SL, Drug form: 2019 [facility], Q5Min, City Dosing Weight 107.727, kg, PRN Chest Pain, Start date: 09/19/19 9:08:00 [employer], Duration: 3 doses or times, Stop date: Limited # of times Bariatric Bariatric Active Multivitamin Multivitamin, 3 2019 Mem orial tab, PO, Daily [facility] ursodiol 300 mg 300 mg = 1 cap, Active oral capsule PO, BID, 0 2019 Medical Refill(s) Group olmesartan 20 mg = 1 tab, PO, Active oral tablet Daily, # 30 tab, 2019 Med ical 0 Refill(s), Group [facility][id number], THE PATIENT NEEDS AN APPOINTMENT WITH DR GRAVES olmesartan 20 mg 20 mg = 1 tab, No Longer oral tablet PO, Daily, # 30 Active 2019 Medi cady tab, 0 Group Refill(s), other carvedilol 6.25 6.25 mg = 1 tab, Active mg oral tablet PO, BID, # 180 2019 [place] dical tab, 0 Group Refill(s), Pharmacy: [facility] #[id number] olmesartan 20 mg 20 mg = 1 tab, No Longer oral tablet PO, Daily, # 30 Active 2019 Medi cady tab, 0 Group Refill(s), [facility][id number] Centrum Silver PO, Daily, 0 Active Men's Refill(s) 2019 Medical Group Vitamin D3 Daily, 0 Active Refill(s) 2019 Medical Group Acetaminophen Notes: Do not Inactive exceed 4 gm/day. 2019 Memoria l (Same as: [facility] Tylenol) Fenofibrate 160 160 mg, 1 tab, No Longer MG Oral Tablet Route: PO, Drug Active 2018 M [facility]orial form: TAB, [facility] Daily, Dosing Weight 129.091, kg, Start date: 06/07/19 9:00:00 CDT, Duration: 30 day, Stop date: 07/06/19 9:00:00 [employer] oxybutynin Notes: (Same as: Inactive Ditropan XL) 2018 [facility] "Do Not Crush" [facility] fenofibrate Notes: (Same as: Inactive Tricor) 2019 [facility] Protonix Notes: For IV Inactive push 2019 [facility] with 10 ml 0.9% sodium chloride and push over 2 minutes. (Same as: Protonix) carvedilol Notes: Give with No Longer food. (Same As: Active 2019 [facility]) [facility] rosuvastatin Notes: (Same As: No Longer Crestor) Active 2019 [facility] Ofirmev Notes: Max No Longer acetaminophen Active 2019 [facility] 4000 mg/day (4 [facility] gm/day). (Same as: Tylenol Extra Strength) Allopurinol Notes: (Same as: No Longer H Zyloprim) Active 2019 [facility] Amiodarone Notes: (Same as: No Longer Cordarone) Active 2019 [facility] Lovenox Notes: (Same as: No Longer Lovenox) Active 2019 [facility] 72 HR Notes: Change No Longer Scopolamine patch every 72 [facility] hours (Same [facility] Transdermal as: Patch Transderm-Scop) pantoprazole 40 40 mg = 1 tab, Active H mg oral enteric PO, Daily, # 30 2019 [facility] coated tablet tab, 1 Refill(s) C ity tramadol 50 mg, PO, Q4H, No Longer hydrochloride 50 PRN Pain Score Active 2019 [facility] MG Oral Tablet 4-6, X 3 day, # C ity 18 tab, 0 Refill(s) Sucralfate 1000 1 gm = 1 tab, Active MG Oral Tablet PO, QID-Before 2019 Me morial [Carafate] Meals, crush and City mix with 5-10mL water, # 56 tab, 0 Refill(s) ondansetron Route: IV, Drug Inactive (ANES) form: INJ, ONCE, 2018 Memoria l Stop date: [facility] 06/06/19 16:07:00 CDT sugammadex Route: IV, Drug Inactive (ANES) form: SOLN, 2018 [facility] ONCE, Stop date: [facility] 06/06/19 16:07:00 CDT Calcium Chloride 1,000 mL, Rate: No Longer 06/06 0.0014 MEQ/ML / 150 ml/hr, Active 2018 Memor ial Potassium Infuse over: 6.7 [facility] Chloride 0.004 hr, Route: IV, MEQ/ML / Sodium Dosing Weight Chloride 0.103 129.091 kg, MEQ/ML / Sodium Total Volume: Lactate 0.028 1,000, Start MEQ/ML date: 06/06/19 Injectable 16:07:00 CDT, Solution Duration: 30 day, Stop date: 07/06/19 16:06:00 [employer], 2.51, m2, 0 tramadol Notes: Not to No Longer hydrochloride 50 exceed Active 2018 Memoria l MG Oral Tablet 400mg/day. (Same City As: [facility]) Dilaudid Notes: Same as No Longer Dilaudid Active 2018 [facility] Labetalol Notes: (Same as: No Longer Normodyne, Active 2018 [facility] Trandate) Push [facility] over 2 minutes Give bolus over 2-3 minutes. Hydralazine Notes: (Same as: No Longer Apresoline) Push Active 2018 Memoria l over 5 minutes [facility] Insulin regular Notes: (Same as: No Longer 06/06 Humulin R) Roll Active 2018 Memoria l in palms of [facility] hands gently; Do not shake vigorously. WASTE: F/P - Black; E - Municipal Trash Bin Stable for 31 days at room temperature Expires in days from Da te Ondansetron Notes: (Same as: No Longer Zofran) Active 2018 [facility] MEDICATION WASTE [facility] Product Size: 4 mg Product Wasted: ___ mg fentaNYL (ANES) Route: IV, Drug Inactive form: INJ, ONCE, 2018 Memoria l Stop date: [facility] 06/06/19 15:32:00 CDT rocuronium Route: IV, Drug Inactive (ANES) form: INJ, ONCE, 2018 Memoria l Stop date: [facility] 06/06/19 15:32:00 CDT ePHEDrine (ANES) Route: IV, Drug Inactive form: INJ, ONCE, 2018 Memoria l Stop date: [facility] 06/06/19 14:36:00 CDT fentaNYL (ANES) Route: IV, Drug Inactive form: INJ, ONCE, 2018 Memoria l Stop date: [facility] 06/06/19 14:25:00 CDT lidocaine (ANES) Route: IV, Drug Inactive form: INJ, ONCE, 2018 Memoria l Stop date: [facility] 06/06/19 14:25:00 CDT propofol (ANES) Route: IV, Drug Inactive form: INJ, ONCE, 2018 Memoria l Stop date: [facility] 06/06/19 14:25:00 CDT rocuronium Route: IV, Drug Inactive (ANES) form: INJ, ONCE, 2018 Memoria l Stop date: [facility] 06/06/19 14:25:00 CDT ceFAZolin (ANES) Route: IV, Drug Inactive form: INJ, ONCE, 2018 Memoria l Stop date: [facility] 06/06/19 14:25:00 CDT acetaminophen Route: IV, Drug Inactive M H (ANES) form: INJ, ONCE, 2018 Memoria l Stop date: [facility] 06/06/19 14:25:00 CDT ondansetron Route: IV, Drug Inactive (ANES) form: INJ, ONCE, 2018 Memoria l Stop date: [facility] 06/06/19 14:25:00 CDT dexamethasone Route: IV, Drug Inactive M H (ANES) form: INJ, ONCE, 2018 Memoria l Stop date: [facility] 06/06/19 14:25:00 CDT famotidine Route: IV, Drug Inactive (ANES) form: INJ, ONCE, 2018 Memoria l Stop date: [facility] 06/06/19 14:25:00 CDT Sodium Chloride 500 mL, 1500 Inactive 0.9% (Bolus) IV ml/hr, Infuse 2018 [place] morial Over: 20 City minutes, Route: IV, 500, Drug form: INJ, ONCE, Dosing Weight 129.091 kg, Start date: 06/06/19 13:54:00 CDT, Stop date: 06/06/19 13:54:00 CDT, 0 Hydralazine Notes: (Same as: Inactive Apresoline) Push 2019 Memoria l over 5 minutes [facility] Labetalol Notes: (Same as: Inactive Normodyne, 2019 [facility] Trandate) Push [facility] over 2 minutes Give bolus over 2-3 minutes. Acetaminophen Notes: Max Inactive acetaminophen 2019 [facility] 4000 mg/day (4 City gm/day). (Same as: Tylenol Extra Strength) Morphine Notes: (Same Inactive as:MORPhine 2019 [facility] Sulfate) [facility] Hydromorphone Notes: Same as Inactive Dilaudid 2019 [facility] Flumazenil Notes: (Same as: Inactive Romazicon) 2019 [facility] Naloxone Notes: Same as Inactive Narcan 2019 [facility] Albuterol 0.83 Notes: SEE RT Inactive MG/ML Inhalant DOCUMENTATION 2019 [facility] orial Solution (Same as: [facility] Proventil) Diphenhydramine Notes: (Same as: Inactive Benadryl) 2019 [facility] Ondansetron Notes: (Same as: Inactive Zofran) 2019 [facility] MEDICATION WASTE City Product Size: 4 mg Product Wasted: ___ mg Promethazine Notes: Do not Inactive give IV push. 2018 [facility] (Same as: [facility] Phenergan) Sodium Chloride Route: IV, Total Inactive 0.9% IV (ANES) Volume: 1,000, 2019 Me morial 1000 mL Start date: [facility] 06/06/19 13:23:00 CDT, Stop date: 06/06/19 14:23:00 CDT ceFAZolin + Notes: (Same As: No Longer H sterile water 30 Ancef, Kefzol) Active 2018 [facility] mL MEDICATION [facility] WASTE Product Size: 1000 mg Product Wasted: ___ mg Nitroglycerin 0.4 mg, Route: Inactive SL, Drug form: 2019 [facility] TAB, Q5Min, [facility] Dosing Weight 136.364, kg, PRN Chest Pain, Start date: 03/01/19 10:37:00 CDT, Duration: 3 doses or times, Stop date: Limited # of times Allopurinol 100 mg, PO, BID, Active 0 Refill(s) 2018 [facility] AMIODarone 200 200 mg = 1 tab, Active H mg oral tablet PO, BID 2019 [facility] Hydralazine 25 mg = 1 tab, No Longer Hydrochloride 25 PO, TID Active 2018 Memoria l MG Oral Tablet [facility] carvedilol 12.5 12.5 mg = 1 tab, Active mg oral tablet PO, Q12H, # 60 2019 [place] morial tab, 0 City Refill(s), Pharmacy: [facility] [id number] amLODIPine 10 mg 10 mg = 1 tab, Active oral tablet PO, Daily, # 30 2019 Alexei rial tab, 0 City Refill(s), Pharmacy: [facility] [id number] AMIODarone 200 400 mg = 2 tab, Active H mg oral tablet PO, TID, # 180 2019 [place] morial tab, 0 City Refill(s), Pharmacy: [facility] [id number] Benzocaine 140 Notes: (Same As: Inactive MG/ML / butamben Cetacaine) 2018 Alexei rial 20 MG/ML / Cetacaine [facility] Tetracaine 20 (benzocaine-tetr MG/ML Mucosal acaine-butamben [place] 14-2-2%) [Cetacaine] Amiodarone 400 mg, Route: Inactive PO, Drug form: 2019 [facility], BID, Dosing [facility] Weight 142, kg, Start date: 01/23/19 17:00:00 CDT, Duration: 30 day, Stop date: 02/22/19 9:00:00 CDT Potassium Notes: (Same as: Inactive Chloride K-Dur 20) "Do 2018 [facility] Not Crush" Give City with food and full glass of water For patients unable to swallow tablet, dissolve in one half glass of water. Allow about 2 minutes for the tablets to disintegrate. Stir before giving to prepare slurry and administer. Please exclude Patient’s with feeding tube less than 14 [place] ([place], J-tube etc) and pediatric and patients. Amiodarone Notes: (Same as: No Longer Cordarone) Active 2019 [facility] carvedilol Notes: Give with Inactive food. (Same As: 2018 [facility]) [facility] Fenofibrate 160 160 mg, 1 tab, No Longer MG Oral Tablet Route: PO, Drug Active 2018 [facility] form: TAB, City Daily, Dosing Weight 144.091, kg, Start date: 01/23/19 9:00:00 CDT, Duration: 30 day, Stop date: 02/21/19 9:00:00 CDT Potassium 40 mEq, Route: Inactive Chloride PO, Drug form: 2018 [facility] ERTAB, Daily, [facility] Dosing Weight 142, kg, Start date: 01/23/19 9:00:00 CDT, Duration: 30 day, Stop date: 02/21/19 9:00:00 CDT Amlodipine Notes: (Same as: No Longer Norvasc) Active 2018 [facility] AMIODarone 900 2 mg/ml. No Longer mg in D5W 500 ml "Recommendation: Active 2018 [facility] IV 900 mg + Use an in-line [facility] Dextrose 5% in filter during Water IV 482 mL administration for continuous infusions to reduce the incidence of phlebitis" (Same as Codarone) MEDICATION WASTE Product Size: 150 mg Product Wasted: ___ mg Acetaminophen Notes: Max Inactive acetaminophen = 2018 [facility] 4000mg/day (4 [facility] gm/day). (Same as: Tylenol) Potassium Notes: Infuse at Inactive Chloride a rate of 10 2018 [facility] mEq/hr. (Same City as: KCL) Digoxin Notes: (Same as: No Longer Lanoxin) Active 2019 [facility] Saline Flush 10 ml, Route: Inactive 0.9% IVP, Drug Form: 2018 [facility] INJ, Dosing City Weight 144.091, kg, Q12H, Start date: 01/22/19 21:00:00 CDT, Duration: 30 day, Stop date: 02/21/19 9:00:00 CDT Furosemide Notes: (Same as: No Longer Lasix) Active 2018 [facility] MEDICATION WASTE City Product Size: 40 mg Product Wasted: ___ mg rosuvastatin Notes: (Same As: No Longer Crestor) Active 2018 [facility] Xarelto Notes: (Same as: No Longer Xarelto) Active 2018 [facility] Administer with [facility] food pantoprazole Notes: Tablet No Longer should not be Active 2018 [facility] chewed or City crushed. (Same as: Protonix) Digoxin Notes: (Same as: Inactive Lanoxin) 2019 [facility] fenofibrate Notes: (Same as: No Longer H Tricor) Active 2018 [facility] Aspirin 81 MG Notes: Do not Inactive Enteric Coated crush or chew. 2019 Me morial Tablet (Same As: [facility] Ecotrin) oxybutynin Notes: (Same as: No Longer Ditropan XL) Active 2018 [facility] "Do Not Crush" [facility] olmesartan 20 mg, 1 tab, No Longer Route: PO, Drug Active 2018 [facility] form: TAB, [facility] Daily, Dosing Weight 144.091, kg, Start date: 01/22/19 15:00:00 CDT, Duration: 30 day, Stop date: 02/21/19 9:00:00 CDT Centrum Notes: (Same No Longer as:Thera-M, Active 2018 [facility] Theragran-M) [facility] WASTE: F/P - Black; E - Municipal Trash Bin Give with food. 24 HR Metoprolol Notes: (Same as: No Longer 01/07 Tartrate 50 MG Toprol XL) May Active 2018 [facility] Extended Release split tab, but [facility] Tablet [Toprol] do not crush. Insulin Lispro Notes: (Same as: No Longer Humalog) Roll in Active 2018 Memoria l palms of hands [facility] gently; Do not shake vigorously. WASTE: F/P - Black; E - Municipal Trash Bin Stable for 28 days at room temperature. Expires in days from Da te Dextrose 50% 12.5 gm, 25 mL, No Longer H Syringe Route: IVP, Drug Active 2018 [facility] Form: INJ, [facility] Dosing Weight 144.091, kg, PRN, PRN Blood Glucose Results, Start date: 01/22/19 13:28:00 CDT, Duration: 30 day, Stop date: 02/21/19 13:27:00 CDT Glucagon 1 mg, Route: IM, No Longer Drug form: Active 2018 [facility] PDR/INJ, PRN, [facility] Dosing Weight 144.091, kg, PRN Blood Glucose Results, Start date: 01/22/19 13:28:00 CDT, Duration: 30 day, Stop date: 02/21/19 13:27:00 CDT Sodium Chloride 25 mL, Route: No Longer 0.9% IV IV, Start date: Active 2018 [facility] 01/22/19 [facility] 12:55:00 CDT, Duration: 30 day, Stop date: 02/21/19 12:54:00 CDT, PRN Line Flush BD Normal Saline Notes: (Same as: No Longer 01/07 Flush BD Posiflush) Active 2018 [facility] Saline Flush 10 ml, Route: Inactive 0.9% IVP, Drug Form: 2019 [facility] INJ, Dosing City Weight 144.091, kg, PRN, PRN Line Flush, Start date: 01/22/19 11:45:00 CDT, Duration: 30 day, Stop date: 02/21/19 11:44:00 CDT Aspirin 81 MG 81 mg = 1 tab, Active Enteric Coated PO, Daily 2018 [facility] Tablet [facility] oxybutynin 10 mg 10 mg = 1 tab, Active oral tablet, PO, Daily 2019 [facility] extended release [facility] Furosemide 40 MG 40 mg = 1 tab, Active Oral Tablet PO, Daily 2019 [facility] pantoprazole 40 40 mg = 1 tab, Active H mg oral enteric PO, Daily 2018 Memori al coated tablet [facility] Fenofibrate 160 160 mg = 1 tab, Active MG Oral Tablet PO, Daily 2019 [facility] olmesartan 40 mg 20 mg = 0.5 tab, Active oral tablet PO, Daily 2019 [facility] [facility] mEq = 1 tab, Active chloride 20 mEq PO, Daily 2019 Memori al oral tablet, [facility] extended release rivaroxaban 20 20 mg = 1 tab, Active MG Oral Tablet PO, QPM 2019 [facility] [Xarel] [facility] Metoprolol 50 mg = 1 tab, No Longer Succinate ER 50 PO, Daily Active 2018 [facility] al mg oral tablet, [facility] extended release rosuvastatin 10 10 mg = 1 tab, Active H mg oral tablet PO, Bedtime 2019 [facility] 500 mg = 1 tab, Active hydrochloride PO, Before 2019 Memoria l 500 MG Oral Dinner [facility] Tablet Lasix Notes: (Same as: Inactive Lasix) 2019 [facility] MEDICATION WASTE [facility] Product Size: 40 mg Product Wasted: ___ mg Diltiazem Notes: (Same as: No Longer Cardizem) Active 2018 [facility] Diltiazem 10 mg, Route: Inactive IVP, ONCE, 2019 [facility] Dosing Weight [facility] 144.091, kg, Priority: STAT, Start date: 01/22/19 11:27:00 CDT, Stop date: 01/22/19 11:27:00 CDT Diltiazem 10 mg, Route: Inactive IVP, ONCE, 2019 [facility] Dosing Weight [facility] 144.091, kg, Priority: STAT, Start date: 01/22/19 10:35:00 CDT, Stop date: 01/22/19 10:35:00 CDT Olmesartan 1 tab(s) orally Active 40 mg orally Woody 08/25/ Comp Medoxomil once a day 2019 [facility] Metoprolol 1 tab(s) orally Active 50 mg orally Woody 07/07/ Comp Succinate ER once a day 2018 [facility] Klor-Con M20 1 tab(s) orally Active 20 mEq orally Woody 04/21/ Comp 2 times a day 2018 [facility] verapamil 1 cap(s) orally Active 180 mg/24 Martin 11/09/ Comp hours orally 2018 [facility] once a day Care Crestor 1 tab(s) orally Active 10 mg orally Martin 06/24/ Comp once a day 2017 [facility] (at bedtime) Care Xarelto 1 tab orally Active 20mg orally Martin 06/16/ Comp with evening 2017 [facility] meal Care verapamil 1 tab(s) orally Active 180 mg/12 Woody 04/02/ Comp hours orally 2017 [facility] once a day Care verapamil 1 cap(s) orally Active 180 mg/24 Martin 04/02/ Comp hours orally 2017 [facility] once a day Care flecainide 1 tab(s) orally Active 50 mg orally Martin 03/15/ Comp every 12 2017 [facility] hours Care flecainide 1 tab(s) orally Active 100 mg orally Woody Comp every 12 2017 [facility] hours Care flecainide 1 tab(s) orally Active 50 mg orally Martin Comp every 12 2017 [facility] hours Care Xarelto 1 tab orally Active 20mg orally Martin Comp with evening 2017 [facility] meal Care verapamil 1 cap(s) orally Active 180 mg/24 Martin 01/05/ Comp hours orally 2017 Heart once a day Care verapamil 24 Notes: Do not Inactive hour extended crush or chew. 2017 Mem orial release (Same As: [place] SR, [employer] SR) "Avoid grapefruit and grapefruit juice" Xarelto Notes: (Same as: Inactive Xarelto) [address] [place] [address] Administer with [facility] food Protonix Notes: Tablet Inactive should not be 2017 [facility] chewed or [facility] crushed. (Same as: Protonix) rivaroxaban 20 20 mg, PO, QPM, Active 12/07/ H MG Oral Tablet # 30 tab, 0 2017 [facility]or ial [Xarelto] Refill(s) [facility] verapamil 180 mg 180 mg, PO, Active oral tablet, Bedtime, # 30 2017 [facility] ial extended release tab, 0 Refill(s) [facility] flecainide 50 mg 50 mg = 1 tab, Active oral tablet PO, Q12H, # 180 2017 Alexei rial tab, 0 Refill(s) [facility] Pravastatin Notes: (Same as: Inactive Pravachol) [address] [place] [address] potassium Notes: (Same as: Inactive chloride K-Dur 20) "Do 2016 [facility] Not Crush" With [facility] food and full glass of water Fenofibrate Notes: Inactive Non-Formulary [address] [place] [address] Drug (Same as: [facility] Tricor) Furosemide Notes: (Same as: Inactive Lasix) December 2016 [facility] cause GI upset. [facility] Give with food or milk. Esomeprazole 40 mg, Route: No Longer PO, Daily, Active 2016 [facility] Dosing Weight [facility] 138.002, kg, Start date: 12/07/16 9:00:00 CDT, Duration: 30 day, Stop date: 01/05/17 9:00:00 CDT Aspirin Notes: Take with Inactive food. 2016 [facility] Allopurinol Notes: (Same as: Inactive Zyloprim) 2016 [facility] Coreg Notes: Give with No Longer food. (Same As: Active 2016 [facility]) [facility] Sodium Chloride 25 mL, Route: No Longer 0.9% IV IV, Start date: Active 2016 [facility] 12/06/16 [facility] 13:02:00 CDT, Duration: 30 day, Stop date: 01/05/17 13:01:00 CDT, PRN Line Flush BD Normal Saline Notes: (Same as: No Longer 11/09 Flush BD Posiflush) Active 2016 [facility] Lovenox Notes: Nurse to No Longer ensure Active 2016 [facility] documentation of [facility] patient education per anticoagulation policy. (Same as: Lovenox) Cardizem Notes: (Same as: No Longer Cardizem) Active 2016 [facility] Before meals [facility] Saline Flush Notes: (Same as: Inactive H 0.9% BD Posiflush) 2016 [facility] pantoprazole Notes: For IV Inactive push 2016 [facility] with 10 ml 0.9% sodium chloride and push over 2 minutes. (Same as: Protonix) metoprolol Notes: (Same as: Inactive extended release Toprol XL) Do [facility] Tylenol Notes: Do not No Longer exceed 4 gm/day. Active 2016 Memoria l (Same as: [facility] Tylenol) Trazodone Notes: (Same As: No Longer Desyrel) Active 2016 [facility] Ondansetron Notes: (Same as: No Longer H Zofran) Active 2016 [facility] Saline Flush Notes: (Same as: Inactive 12/06/ H 0.9% BD Posiflush) 2017 [facility] Amlodipine 10 mg, PO, Active Daily, 0 2017 [facility] Refill(s) [facility] Esomeprazole 40 mg, PO, Active Daily, 0 2017 [facility] Refill(s) [facility] potassium 40 mEq, PO, Active chloride Daily, 0 2016 [facility] Refill(s) [facility] Losartan 100 mg, PO, Active Daily, 0 2017 [facility] Refill(s) [facility] Atenolol 50 mg, PO, No Longer Daily, 0 Active 2017 [facility] Refill(s) [facility] Metformin 500 mg, PO, Active Daily, 0 2016 [facility] Refill(s) [facility] Furosemide 40 mg, PO, Active Daily, 0 2016 [facility] Refill(s) [facility] Fenofibrate 160 mg, PO, Active Daily, 0 2016 [facility] Refill(s) [facility] Centrum PO, Daily, 0 Active Refill(s) 2017 [facility] Aspirin 81 mg, PO, No Longer Daily, 0 Active 2017 [facility] Refill(s) [facility] Allopurinol 200 mg, PO, Active Daily, 0 2017 [facility] Refill(s) [facility] Pravastatin 40 mg, PO, Active Daily, # 30 tab, 2017 Memoria l 0 Refill(s) [facility] fenofibrate 1 tab(s) orally Active 160 mg orally Martin 06/04/ Comp once a day 2016 [facility] K-Tab 1 tab(s) orally Active 20 mEq orally Martin 11/06/ Comp 2 times a day 2016 [facility] Amlodipine 1 tab(s) orally Active 10 mg orally Martin 11/06/ Comp Besylate once a day 2015 [facility] furosemide 1 tab(s) orally Active 40 mg orally Martin 11/06/ Comp once a day 2016 [facility] furosemide 1 tab(s) orally Active 40 mg orally Martin 11/06/ Comp once a day 2016 [facility] Cephalexin 1 cap(s) orally Active 500 mg orally Martin 11/06/ Comp Monohydrate bid 2016 [facility] K-Tab 1 tab(s) orally Active 20 mEq orally Martin 11/06/ Comp 2 times a day 2015 [facility] Amlodipine 1 tab(s) orally Active 10 mg orally Martin 11/06/ Comp Besylate once a day 2015 [facility] allopurinol 1 tab(s) orally Active 100 mg orally Martin 08/15/ Comp BID 2015 [facility] Edarbyclor 1 tab(s) orally Active 40 mg-25 mg Martin 01/10/ Comp orally once a 2014 [facility] day Care Sectral 1 cap(s) orally Active 400 mg orally Martin 06/11/ Comp bid 2013 [facility] NIFEdipine ER 1 tab(s) orally No Longer 60 mg orally Martin 06/11/ Co mp Active q 12 hours 2013 [facility] Pravachol 1 tab(s) orally Active 40 mg orally Martin 06/27/ Comp once a day 2012 [facility] (at bedtime) Care Pravachol 1 tab(s) orally Active 40 mg orally Martin 06/27/ Comp once a day 2012 [facility] (at bedtime) Care clonidine 1 tab(s) orally No Longer 0.1md orally Martin 05/02/ Comp Active tid 2011 [facility] Xarelto TAKE 1 TABLET BY NA Active 20 Martin Comp MOUTH EVERY Heart EVENING Care fenofibrate 1 tab(s) orally Active 160 mg orally Woody Comp once a day [facility] metformin 1 tab(s) orally Active 500 mg orally Woody Comp once a day [facility] aspirin 1 tab(s) orally Active 81 mg orally Woody Comp once a day [facility] losartan 1 tab(s) orally Active 100 mg orally Martin Comp once a day [facility] Nexium 1 cap(s) orally Active 40 mg orally Martin Comp once a day [facility] Centrum Silver 1 tab(s) orally Active Therapeutic Woody Comp Multiple Heart Vitamins with Care Minerals orally once a day allopurinol 1 tab(s) orally Active 100 orally Woody Comp BID [facility] Amlodipine 1 tab(s) orally Active 10 mg orally Woody Comp Besylate once a day [facility] losartan 1 tab(s) orally Active 100 mg orally Woody Comp once a day [facility] Crestor 1 tab(s) orally Active 10 orally Woody Comp once a day Heart (at bedtime) Care Xarelto 1 tab orally Active 20mg orally Woody Comp with evening Heart meal Care furosemide 1 tab(s) orally Active 40 mg orally Woody Comp once a day [facility] pantoprazole 1 tab(s) orally Active 40 mg orally Woody Comp once a day [facility] K-Tab 1 tab(s) orally Active 20 mEq orally Martin Comp 2 times a day [facility] Zyrtec 1 tab(s) orally Active 10 mg orally Martin Comp once a day [facility] Tricor 1 tab(s) orally No Longer 48 mg orally Martin Comp Active once a day [facility] Centrum Silver 1 tab(s) orally Active Therapeutic Martin Comp Multiple Heart Vitamins with Care Minerals orally once a day Tekturna HCT 1 tab(s) orally No Longer 300 mg-12.5 Martin Comp Active mg orally Heart once a day Care allopurinol 1 tab(s) orally Active 100 mg orally Martin Comp BID [facility] aspirin 1 tab(s) orally Active 81 mg orally Martin Comp once a day [facility] lansoprazole 1 tab(s) orally Active 30 mg orally Martin Comp once a day [facility] carvedilol 1 tab(s) orally No Longer 25 mg orally Martin Comp Active 2 times a day [facility] amlodipine 1 tab(s) orally No Longer 10 mg orally Martin Comp Active once a day [facility] Allergies, Adverse Reactions, Alerts Substance Category Reaction Severity Reaction Status Date Comments S ource type Reported N.K.D.A. Adverse Info Not Adverse Active Comp Reaction Available Reaction 9 [facility] Care No Known Assertion Drug MH Medication allergy Memor ial Allergies City Immunizations No Data Provided for This Section Results Order Name Results Value Reference Date Interpretation Comments Krysta rce Range CHEM PANEL Glucose Lvl 105 70 - 99 09/19 [facility] CHEM PANEL BUN 18 7 - 22 09/19 [facility] CHEM PANEL Creatinine 0.92 0.50 - 09/19 Lvl 1.40 /2019 [facility] CHEM PANEL Sodium Lvl 143 135 - 145 09/19 [facility] CHEM PANEL Potassium 3.5 3.5 - 5.1 09/19 Lvl [facility] CHEM PANEL Chloride Lvl 105 95 - 109 09/19 [facility] CHEM PANEL CO2 30 24 - 32 09/19 [facility] CHEM PANEL Calcium Lvl 9.9 8.5 - 10.5 09/19 [facility] CHEM PANEL AGAP 11.5 10.0 - 09/19 MH 20.0 [facility] CHEM PANEL eGFR 84 09/19 Result Comment: The [facility] eGFR is City calculated using the CKD-EPI formula. In most young, healthy individuals the eGFR will be >90 mL/min/1.73m2 . The eGFR declines with age. An eGFR of 60-89 may be normal in some populations, particularly the elderly, for whom the CKD-EPI formula has not been extensively validated. Use of the eGFR is not recommended in the following populations:< br/>
Susi viduals with unstable creatinine concentration s, including patients and those with serious co-morbid conditions.<b r/>
Patie nts with extremes in muscle mass or diet.

The data above are obtained from the National Kidney Disease Education Program (NKDEP) which additionally recommends that when the eGFR is used in patients with extremes of body mass index for purposes of drug dosing, the eGFR should be multiplied by the estimated BMI. HEMATOLOGY PT 13.6 12.0 - 09/19 MH 14.7 [facility] HEMATOLOGY INR 1.04 0.85 - 09/19 MH 1.17 [facility] HEMATOLOGY WBC 6.2 3.7 - 10.4 09/19 [facility] HEMATOLOGY RBC 4.82 4.70 - 09/19 MH 6.10 [facility] HEMATOLOGY Hgb 14.7 14.0 - 09/19 MH 18.0 [facility] HEMATOLOGY Hct 43.9 42.0 - 09/19 MH 54.0 [facility] HEMATOLOGY MCV 91.1 80.0 - 09/19 MH 94.0 [facility] HEMATOLOGY MCH 30.4 27.0 - 02 MH 31.0 [facility] HEMATOLOGY MCHC 33.4 32.0 - 09/19 MH 36.0 [facility] HEMATOLOGY RDW 15.8 11.5 - 09/19 MH 14.5 [facility] HEMATOLOGY Platelet 112 133 - 450 09/19 [facility] HEMATOLOGY MPV 10.1 7.4 - 10.4 09/19 [facility] ELECTROLYTE Sodium Lvl 142 135 - 145 06/07 MH S [facility] ELECTROLYTE Potassium 3.6 3.5 - 5.1 06/07 MH S Lvl /2018 [facility] ELECTROLYTE Chloride Lvl 104 95 - 109 06/07 S [facility] ELECTROLYTE Calcium Lvl 9.3 8.5 - 10.5 06/07 S [facility] ELECTROLYTE Glucose Lvl 103 70 - 99 06/07 [facility] ELECTROLYTE BUN 13 7 - 22 06/07 S [facility] ELECTROLYTE CO2 25 24 - 32 06/07 S [facility] ELECTROLYTE Creatinine 0.78 0.50 - 06/07 MH S Lvl 1.40 /2018 [facility] ELECTROLYTE eGFR 92 06/07 Result MH Comment: [facility] eGFR is City calculated using the CKD-EPI formula. In most young, healthy individuals the eGFR will be >90 mL/min/1.73m2 . The eGFR declines with age. An eGFR of 60-89 may be normal in some populations, particularly the elderly, for whom the CKD-EPI formula has not been extensively validated. Use of the eGFR is not recommended in the following populations:< br/>
Susi viduals with unstable creatinine concentration s, including patients and those with serious co-morbid conditions.<b r/>
Patie nts with extremes in muscle mass or diet.

The data above are obtained from the National Kidney Disease Education Program (NKDEP) which additionally recommends that when the eGFR is used in patients with extremes of body mass index for purposes of drug dosing, the eGFR should be multiplied by the estimated BMI. ELECTROLYTE AGAP 16.6 10.0 - 06/07 MH S 20.0 [facility] HEMATOLOGY WBC 9.5 3.7 - 10.4 06/07 [facility] HEMATOLOGY RBC 4.19 4.70 - 06/07 MH 6.10 [facility] HEMATOLOGY Hgb 13.1 14.0 - 06/07 MH 18.0 [facility] HEMATOLOGY Hct 38.6 42.0 - 06/07 MH 54.0 [facility] HEMATOLOGY MCV 92.0 80.0 - 06/07 MH 94.0 [facility] HEMATOLOGY MCH 31.3 27.0 - 06/07 MH 31.0 [facility] HEMATOLOGY MCHC 34.0 32.0 - 06/07 MH 36.0 [facility] HEMATOLOGY RDW 14.4 11.5 - 06/07 MH 14. [facility] HEMATOLOGY Platelet 145 133 - 450 06/07 [facility] HEMATOLOGY MPV 10.9 7.4 - 10.4 06/07 MH [facility] HEMATOLOGY Segs 88.2 45.0 - 06/07 MH 75.0 [facility] HEMATOLOGY Lymphocytes 6.0 20.0 - 06/07 MH 40.0 [facility] HEMATOLOGY Monocytes 5.7 2.0 - 12.0 06/07 [facility] HEMATOLOGY Basophils 0.1 0.0 - 1.0 06/07 MH [facility] HEMATOLOGY Neutrophils 8.3 1.5 - 8.1 06/07 MH # /2018 [facility] HEMATOLOGY Lymphocytes 0.6 1.0 - 5.5 06/07 MH # [facility] HEMATOLOGY Monocytes # 0.5 0.0 - 0.8 06/07 [facility] BLOOD BANK ABO/Rh O NEG 06/06 RESULTS /2018 [facility] BLOOD BANK Antibody Negative 06/06 RESULTS Scrn (06/06/19 10:38 AM) /[address] [facility] CHEM PANEL Vitamin D, 46.1 30.0 - 06/02 MH 25-OH, Total 100.0 [facility] CHEM PANEL VITAMIN B1 243.6 66.5 - 06/02 Result (THIAMINE) 200.0 Comment: This [facility] l WHOLE BLOOD test was City developed and its performance characteristi cs
determ ined by [facility]. It has not been cleared or
approv ed by the Food and Drug Administratio n.
Perfor med At: [facility] [place]
[address] [place], [place] [id number]<br/ >Kenji Oconnor MD Ph:[phone] ELECTROLYTE Sodium Lvl 142 135 - 145 06/02 S [facility] ELECTROLYTE Potassium 3.8 3.5 - 5.1 06/02 MH S Lvl [facility] ELECTROLYTE Chloride Lvl 106 95 - 109 06/02 S [facility] ELECTROLYTE Calcium Lvl 10.1 8.5 - 10.5 06/02 S [facility] ELECTROLYTE Glucose Lvl 101 70 - 99 06/02 S [facility] ELECTROLYTE BUN 21 7 - 22 06/02 S [facility] ELECTROLYTE CO2 29 24 - 32 06/02 S [facility] ELECTROLYTE Albumin Lvl 4.4 3.5 - 5.0 06/02 [facility] ELECTROLYTE Creatinine 0.97 0.50 - 06/02 S Lvl 1.40 /2018 [facility] ELECTROLYTE ALT 44 0 - 65 06/02 [facility] ELECTROLYTE AST 34 0 - 37 06/02 [facility] ELECTROLYTE eGFR 79 06/02 Comment: [facility] eGFR is City calculated using the CKD-EPI formula. In most young, healthy individuals the eGFR will be >90 mL/min/1.73m2 . The eGFR declines with age. An eGFR of 60-89 may be normal in some populations, particularly the elderly, for whom the CKD-EPI formula has not been extensively validated. Use of the eGFR is not recommended in the following populations:< br/>
Susi viduals with unstable creatinine concentration s, including patients and those with serious co-morbid conditions.<b r/>
Patie nts with extremes in muscle mass or diet.

The data above are obtained from the National Kidney Disease Education Program (NKDEP) which additionally recommends that when the eGFR is used in patients with extremes of body mass index for purposes of drug dosing, the eGFR should be multiplied by the estimated BMI. ELECTROLYTE Total 8.2 6.4 - 8.4 06/02 S [facility] ELECTROLYTE Bili Total 0.6 0.2 - 1.3 06/02 [facility] ELECTROLYTE Alk Phos 62 39 - 136 06/02 [facility] ELECTROLYTE AGAP 10.8 10.0 - 06/02 S 20.0 [facility] ELECTROLYTE B/C Ratio 22 6 - 25 06/02 [facility] ELECTROLYTE Globulin 3.8 2.7 - 4.2 06/02 [facility] ELECTROLYTE A/G Ratio 1.2 0.7 - 1.6 06/02 S [facility] HEMATOLOGY WBC 5.6 3.7 - 10.4 06/02 [facility] HEMATOLOGY RBC 4.59 4.70 - 06/02 MH 6. [facility] HEMATOLOGY Hgb 14.1 14.0 - 06/02 MH 18.0 [facility] HEMATOLOGY Hct 42.5 42.0 - 06/02 MH 54.0 [facility] HEMATOLOGY MCV 92.7 80.0 - 06/02 MH 94.0 /2018 [facility] HEMATOLOGY MCH 30.7 27.0 - 06/02 MH 31.0 /2018 [facility] HEMATOLOGY MCHC 33.1 32.0 - 06/02 MH 36.0 /2018 [facility] HEMATOLOGY RDW 15.1 11.5 - 06/02 MH 14.5 /2018 [facility] HEMATOLOGY Platelet 153 133 - 450 06/02 [facility] HEMATOLOGY MPV 10.5 7.4 - 10.4 06/02 [facility] HEMATOLOGY INR 1.11 0.85 - 06/02 MH 1.17 /2018 [facility] HEMATOLOGY PT 14.1 12.0 - 06/02 MH 14.7 [facility] HEMATOLOGY PTT 31.4 22.9 - 06/02 MH 35.8 [facility] HEMATOLOGY Segs 64.5 45.0 - 06/02 MH 75.0 /2018 [facility] HEMATOLOGY Lymphocytes 21.2 20.0 - 06/02 MH 40.0 [facility] HEMATOLOGY Monocytes 10.6 2.0 - 12.0 06/02 [facility] HEMATOLOGY Eosinophils 2.5 0.0 - 4.0 06/02 [facility] HEMATOLOGY Basophils 1.2 0.0 - 1.0 06/02 [facility] HEMATOLOGY Neutrophils 3.6 1.5 - 8.1 06/02 # /2018 [facility] HEMATOLOGY Lymphocytes 1.2 1.0 - 5.5 06/02 # /2018 [facility] HEMATOLOGY Monocytes # 0.6 0.0 - 0.8 06/02 [facility] HEMATOLOGY Eosinophils 0.1 0.0 - 0.5 06/02 # /2018 [facility] HEMATOLOGY Basophils # 0.1 0.0 - 0.2 06/02 [facility] URINE AND UA Color Yellow Yellow 06/02 STOOL *NA* /2018 [facility] (06/02/19 11:43 AM) [facility] URINE AND UA Turbidity Clear Clear 06/02 STOOL (06/02/19 11:43 AM) /[address] [facility] URINE AND UA Spec Grav 1.009 <=1.030 06/02 STOOL 2019 [facility] URINE AND UA pH 7.0 5.0 - 8.0 06/02 STOOL /2018 [facility] URINE AND UA Protein 30 mg/dL Negative 06/02 STOOL mg/dL /2018 [facility] URINE AND UA Glucose Negative Negative 06/02 STOOL mg/dL mg/dL [facility] URINE AND UA Bili Negative Negative 06/02 STOOL *NA* /2018 [facility] (06/02/19 11:43 AM) [facility] URINE AND UA Blood Negative Negative 06/02 STOOL (06/02/19 11:43 AM) [facility] URINE AND UA Nitrite Negative Negative 06/02 STOOL (06/02/19 11:43 AM) [facility] URINE AND UA Leuk Est Negative Negative 06/02 STOOL (06/02/19 11:43 AM) [facility] URINE AND UA WBC <1 0 - 5 06/02 STOOL [facility] URINE AND UA Bacteria Occasional None Seen 06/02 STOOL /HPF /HPF [facility] URINE AND Micro? Performed 06/02 STOOL *NA* /2018 [facility] (06/02/19 11:43 AM) [facility] URINE AND UA Ketones Negative 06/02 STOOL /2018 [facility] URINE AND UA <=1.0 0.1 - 1.0 06/02 STOOL Urobilinogen mg/dL [facility] ELECTROLYTE Sodium Lvl 143 135 - 145 03/01 S [facility] ELECTROLYTE Chloride Lvl 105 95 - 109 03/01 S [facility] ELECTROLYTE Potassium 4.0 3.5 - 5.1 03/01 S Lvl [facility] ELECTROLYTE Calcium Lvl 9.6 8.5 - 10.5 03/01 MH S [facility] ELECTROLYTE eGFR 70 03/01 Result Comment: [facility] eGFR is City calculated using the CKD-EPI formula. In most young, healthy individuals the eGFR will be >90 mL/min/1.73m2 . The eGFR declines with age. An eGFR of 60-89 may be normal in some populations, particularly the elderly, for whom the CKD-EPI formula has not been extensively validated. Use of the eGFR is not recommended in the following populations:< br/>
Susi viduals with unstable creatinine concentration s, including patients and those with serious co-morbid conditions.<b r/>
Patie nts with extremes in muscle mass or diet.

The data above are obtained from the National Kidney Disease Education Program (NKDEP) which additionally recommends that when the eGFR is used in patients with extremes of body mass index for purposes of drug dosing, the eGFR should be multiplied by the estimated BMI. ELECTROLYTE Creatinine 1.08 0.50 - 03/01 MH S Lvl 1.40 /2018 [facility] ELECTROLYTE Glucose Lvl 143 70 - 99 / MH S /2018 [facility] ELECTROLYTE CO2 29 24 - 32 03/01 MH S /2018 [facility] ELECTROLYTE BUN 16 7 - 22 03/01 MH S /2018 [facility] ELECTROLYTE AGAP 13.0 10.0 - 03/01 MH S 20.0 /2018 [facility] HEMATOLOGY WBC 7.4 3.7 - 10.4 03/01 [facility] HEMATOLOGY RBC 4.49 4.70 - 03/01 MH 6.10 [facility] HEMATOLOGY Hgb 13.4 14.0 - 03/01 MH 18.0 [facility] HEMATOLOGY Hct 41.0 42.0 - 03/01 MH 54.0 [facility] HEMATOLOGY MCHC 32.8 32.0 - 03/01 MH 36.0 [facility] HEMATOLOGY MCV 91.3 80.0 - 03/01 MH 94.0 [facility] HEMATOLOGY MCH 29.9 27.0 - 03/01 MH 31.0 [facility] HEMATOLOGY MPV 11.0 7.4 - 10.4 03/01 [facility] HEMATOLOGY RDW 15.5 11.5 - 03/01 MH 14.5 [facility] HEMATOLOGY Platelet 158 133 - 450 03/01 [facility] HEMATOLOGY PT 13.6 12.0 - 03/01 MH 14.7 [facility] HEMATOLOGY INR 1.06 0.85 - 03/01 MH 1.17 [facility] CHEM PANEL Phosphorus 3.7 2.5 - 4.5 01/24 [facility] CHEM PANEL B/C Ratio 18 6 - 25 01/24 [facility] CHEM PANEL A/G Ratio 0.8 0.7 - 1.6 01/24 [facility] CHEM PANEL Globulin 3.9 2.7 - 4.2 01/24 [facility] CHEM PANEL eGFR 70 01/24 Result Comment: [facility] eGFR is City calculated using the CKD-EPI formula. In most young, healthy individuals the eGFR will be >90 mL/min/1.73m2 . The eGFR declines with age. An eGFR of 60-89 may be normal in some populations, particularly the elderly, for whom the CKD-EPI formula has not been extensively validated. Use of the eGFR is not recommended in the following populations:< br/>
Susi viduals with unstable creatinine concentration s, including patients and those with serious co-morbid conditions.<b r/>
Patie nts with extremes in muscle mass or diet.

The data above are obtained from the National Kidney Disease Education Program (NKDEP) which additionally recommends that when the eGFR is used in patients with extremes of body mass index for purposes of drug dosing, the eGFR should be multiplied by the estimated BMI. CHEM PANEL ALT 41 0 - 65 01/24 [facility] CHEM PANEL Creatinine 1.08 0.50 - 01/24 MH Lvl 1.40 /2018 [facility] CHEM PANEL Alk Phos 54 39 - 136 01/24 [facility] CHEM PANEL AST 48 0 - 37 01/24 [facility] CHEM PANEL Total 7.2 6.4 - 8.4 01/24 MH Protein [facility] CHEM PANEL Bili Total 1.1 0.2 - 1.3 01/24 [facility] CHEM PANEL Sodium Lvl 140 135 - 145 01/24 [facility] CHEM PANEL AGAP 10.6 10.0 - 01/24 MH 20.0 [facility] CHEM PANEL Potassium 4.6 3.5 - 5.1 01/24 MH Lvl /2018 [facility] CHEM PANEL Chloride Lvl 102 95 - 109 01/24 [facility] CHEM PANEL Calcium Lvl 9.4 8.5 - 10.5 01/24 [facility] CHEM PANEL Albumin Lvl 3.3 3.5 - 5.0 01/24 [facility] CHEM PANEL CO2 32 24 - 32 01/24 [facility] CHEM PANEL BUN 19 7 - 22 01/24 [facility] CHEM PANEL Glucose Lvl 161 70 - 99 01/24 [facility] CHEM PANEL Magnesium 2.0 1.8 - 2.4 01/24 MH Lvl /2018 [facility] HEMATOLOGY MCHC 32.6 32.0 - 01/24 MH 36.0 [facility] HEMATOLOGY MCH 29.8 27.0 - 0618 31.0 [facility] HEMATOLOGY Platelet 171 133 - 450 01/24 /2018 [facility] HEMATOLOGY RDW 15.1 11.5 - 01/24 MH 14.5 /2018 [facility] HEMATOLOGY MCV 91.4 80.0 - 01/24 94.0 [facility] HEMATOLOGY MPV 10.3 7.4 - 10.4 01/24 [facility] HEMATOLOGY RBC 4.52 4.70 - 01/24 MH 6.10 [facility] HEMATOLOGY WBC 8.0 3.7 - 10.4 01/24 [facility] HEMATOLOGY Hct 41.3 42.0 - 01/24 MH 54.0 [facility] HEMATOLOGY Hgb 13.5 14.0 - 01/24 MH 18.0 [facility] HEMATOLOGY Neutrophils 5.2 1.5 - 8.1 01/24 /2018 [facility] HEMATOLOGY Basophils 0.9 0.0 - 1.0 01/24 [facility] HEMATOLOGY Eosinophils 4.4 0.0 - 4.0 01/24 [facility] HEMATOLOGY Monocytes 10.9 2.0 - 12.0 01/24 [facility] HEMATOLOGY Basophils # 0.1 0.0 - 0.2 01/24 [facility] HEMATOLOGY Lymphocytes 1.5 1.0 - 5.5 01/24 /2018 [facility] HEMATOLOGY Eosinophils 0.4 0.0 - 0.5 01/24 /2018 [facility] HEMATOLOGY Monocytes # 0.9 0.0 - 0.8 01/24 [facility] HEMATOLOGY Lymphocytes 18.4 20.0 - 01/24 40.0 [facility] HEMATOLOGY Segs 65.4 45.0 - 01/24 75.0 [facility] CHEM PANEL B/C Ratio 16 6 - 25 01/23 [facility] CHEM PANEL AGAP 11.4 10.0 - 01/23 MH 20.0 [facility] CHEM PANEL A/G Ratio 0.9 0.7 - 1.6 01/23 [facility] CHEM PANEL Globulin 3.8 2.7 - 4.2 01/23 [facility] CHEM PANEL BUN 15 7 - 22 01/23 [facility] CHEM PANEL Albumin Lvl 3.5 3.5 - 5.0 01/23 [facility] CHEM PANEL Calcium Lvl 9.0 8.5 - 10.5 01/23 [facility] CHEM PANEL eGFR 83 01/23 Result Comment: [facility] eGFR is City calculated using the CKD-EPI formula. In most young, healthy individuals the eGFR will be >90 mL/min/1.73m2 . The eGFR declines with age. An eGFR of 60-89 may be normal in some populations, particularly the elderly, for whom the CKD-EPI formula has not been extensively validated. Use of the eGFR is not recommended in the following populations:< br/>
Susi viduals with unstable creatinine concentration s, including patients and those with serious co-morbid conditions.<b r/>
Patie nts with extremes in muscle mass or diet.

The data above are obtained from the National Kidney Disease Education Program (NKDEP) which additionally recommends that when the eGFR is used in patients with extremes of body mass index for purposes of drug dosing, the eGFR should be multiplied by the estimated BMI. CHEM PANEL Bili Total 1.0 0.2 - 1.3 01/23 [facility] CHEM PANEL Creatinine 0.94 0.50 - 01/23 Lvl 1.40 [facility] CHEM PANEL Sodium Lvl 143 135 - 145 01/23 [facility] CHEM PANEL Potassium 3.4 3.5 - 5.1 01/23 MH Lvl /2018 [facility] CHEM PANEL Chloride Lvl 103 95 - 109 01/23 [facility] CHEM PANEL Glucose Lvl 125 70 - 99 01/23 [facility] CHEM PANEL CO2 32 24 - 32 01/23 [facility] CHEM PANEL ALT 41 0 - 65 01/23 [facility] CHEM PANEL AST 45 0 - 37 01/23 [facility] CHEM PANEL Alk Phos 56 39 - 136 01/23 [facility] CHEM PANEL Total 7.3 6.4 - 8.4 01/23 [facility] CHEM PANEL Magnesium 1.8 1.8 - 2.4 01/23 MH Lvl /2018 [facility] CHEM PANEL Phosphorus 2.8 2.5 - 4.5 01/23 [facility] HEMATOLOGY WBC 8.0 3.7 - 10.4 01/23 [facility] HEMATOLOGY Hgb 13.2 14.0 - 01/23 MH 18.0 /2018 [facility] HEMATOLOGY MCV 91.4 80.0 - 01/23 MH 94.0 [facility] HEMATOLOGY RBC 4.42 4.70 - 01/23 MH 6.10 [facility] HEMATOLOGY Hct 40.4 42.0 - 01/23 MH 54.0 /2018 [facility] HEMATOLOGY MCH 29.9 27.0 - 01/23 MH 31.0 [facility] HEMATOLOGY Platelet 156 133 - 450 01/23 /2018 [facility] HEMATOLOGY RDW 14.6 11.5 - 01/23 MH 14.5 /2018 [facility] HEMATOLOGY MCHC 32.7 32.0 - 01/23 MH 36.0 [facility] HEMATOLOGY MPV 11.5 7.4 - 10.4 01/23 /2018 [facility] HEMATOLOGY Monocytes 10.0 2.0 - 12.0 01/23 /2018 [facility] HEMATOLOGY Basophils 0.5 0.0 - 1.0 01/23 /2018 [facility] HEMATOLOGY Eosinophils 3.5 0.0 - 4.0 01/23 /2018 [facility] HEMATOLOGY Neutrophils 5.4 1.5 - 8.1 01/23 # /2018 [facility] HEMATOLOGY Monocytes # 0.8 0.0 - 0.8 01/23 /2018 [facility] HEMATOLOGY Lymphocytes 1.5 1.0 - 5.5 01/23 # /2018 [facility] HEMATOLOGY Eosinophils 0.3 0.0 - 0.5 01/23 # /2019 [facility] HEMATOLOGY Lymphocytes 18.7 20.0 - 01/23 40.0 [facility] HEMATOLOGY Segs 67.3 45.0 - 01/23 75.0 [facility] CARDIAC BNP 322 <=100 01/22 ENZYMES pg/mL /2018 [facility] CARDIAC Troponin-I 0.02 0.00 - 01/22 ENZYMES 0.40 [facility] CHEM PANEL Procalcitoni <0.05 0.00 - 01/22 n Lvl ng/mL 0.10 [facility] SPECIAL Hgb A1C 7.6 <=5.6 % 01/22 CHEMISTRY /2018 [facility] CARDIAC BNP 433 <=100 01/22 ENZYMES pg/mL /2018 [facility] CARDIAC Troponin-I 0.02 0.00 - 01/22 ENZYMES 0.40 [facility] CARDIAC Total CK 154 12 - 191 01/22 [facility] CHEM PANEL ALT 42 0 - 65 01/22 [facility] CHEM PANEL Alk Phos 63 39 - 136 01/22 [facility] CHEM PANEL eGFR 78 01/22 [facility] Comment: [facility] eGFR is City calculated using the CKD-EPI formula. In most young, healthy individuals the eGFR will be >90 mL/min/1.73m2 . The eGFR declines with age. An eGFR of 60-89 may be normal in some populations, particularly the elderly, for whom the CKD-EPI formula has not been extensively validated. Use of the eGFR is not recommended in the following populations:< br/>
Susi viduals with unstable creatinine concentration s, including patients and those with serious co-morbid conditions.<b r/>
Patie nts with extremes in muscle mass or diet.

The data above are obtained from the National Kidney Disease Education Program (NKDEP) which additionally recommends that when the eGFR is used in patients with extremes of body mass index for purposes of drug dosing, the eGFR should be multiplied by the estimated BMI. CHEM PANEL Creatinine 0.99 0.50 - 01/22 Lvl 1.40 /2018 [facility] CHEM PANEL AST 42 0 - 37 01/22 [facility] CHEM PANEL Bili Total 0.7 0.2 - 1.3 01/22 [facility] CHEM PANEL Total 7.7 6.4 - 8.4 01/22 [facility] CHEM PANEL BUN 17 7 - 22 01/22 [facility] CHEM PANEL CO2 29 24 - 32 01/22 [facility] CHEM PANEL Calcium Lvl 9.2 8.5 - 10.5 01/22 [facility] CHEM PANEL Albumin Lvl 3.7 3.5 - 5.0 01/22 [facility] CHEM PANEL Sodium Lvl 144 135 - 145 01/22 [facility] CHEM PANEL Chloride Lvl 109 95 - 109 01/22 [facility] CHEM PANEL Potassium 4.3 3.5 - 5.1 01/22 Lvl /2018 [facility] CHEM PANEL Glucose Lvl 151 70 - 99 01/22 [facility] CHEM PANEL B/C Ratio 17 6 - 25 01/22 [facility] CHEM PANEL A/G Ratio 0.9 0.7 - 1.6 01/22 /2018 [facility] CHEM PANEL Globulin 4.0 2.7 - 4.2 01/22 /2018 [facility] CHEM PANEL AGAP 10.3 10.0 - 01/22 MH 20.0 /2018 [facility] HEMATOLOGY PTT 36.9 22.9 - 01/22 MH 35.8 /2019 [facility] HEMATOLOGY PT 18.6 12.0 - 01/22 MH 14.7 /2018 [facility] HEMATOLOGY INR 1.59 0.85 - 01/22 MH 1.17 /2018 [facility] HEMATOLOGY MCH 29.7 27.0 - 01/22 MH 31.0 /2018 [facility] HEMATOLOGY MCHC 32.5 32.0 - 01/22 MH 36.0 /2018 [facility] HEMATOLOGY MCV 91.3 80.0 - 01/22 MH 94.0 /2018 [facility] HEMATOLOGY Hct 41.4 42.0 - 01/22 MH 54.0 /2018 [facility] HEMATOLOGY RBC 4.53 4.70 - 01/22 MH 6.10 /2018 [facility] HEMATOLOGY Hgb 13.5 14.0 - 01/22 MH 18.0 /2018 [facility] HEMATOLOGY WBC 7.7 3.7 - 10.4 01/22 /2018 [facility] HEMATOLOGY Platelet 167 133 - 450 01/22 /2018 [facility] MPV 11.2 7.4 - 10.4 01/22 [facility] HEMATOLOGY RDW 14.9 11.5 - 01/22 MH 14.5 [facility] Lymphocytes 1.2 1.0 - 5.5 01/22 MH # /2019 [facility] HEMATOLOGY Basophils # 0.1 0.0 - 0.2 01/22 [facility] HEMATOLOGY Monocytes # 0.8 0.0 - 0.8 01/22 [facility] HEMATOLOGY Eosinophils 0.1 0.0 - 0.5 01/22 # /2019 [facility] HEMATOLOGY Neutrophils 5.5 1.5 - 8.1 01/22 # /2018 [facility] HEMATOLOGY Basophils 1.1 0.0 - 1.0 01/22 [facility] HEMATOLOGY Eosinophils 1.6 0.0 - 4.0 01/22 [facility] HEMATOLOGY Lymphocytes 15.0 20.0 - 01/22 MH 40.0 /2019 [facility] HEMATOLOGY Monocytes 10.3 2.0 - 12.0 01/22 [facility] HEMATOLOGY Segs 72.0 45.0 - 06 MH 75.0 /2019 [facility] CARDIAC CK MB 2.3 0.5 - 3.6 30 MH ENZYMES /2016 [facility] CARDIAC CK MB Index 1.0 0.0 - 2.5 30 MH ENZYMES /2016 [facility] CARDIAC Troponin-I 0.02 0.00 - 30 MH ENZYMES 0.40 [facility] CARDIAC Total CK 232 12 - 191 12/06 MH ENZYMES /2016 [facility] CARDIAC CK MB Index 0.8 0.0 - 2.5 0430 MH ENZYMES /2017 [facility] CARDIAC CK MB 2.0 0.5 - 3.6 30 MH ENZYMES /2016 [facility] CARDIAC Troponin-I 0.02 0.00 - 12/06 MH ENZYMES 0.40 [facility] CARDIAC Total CK 255 12 - 191 12/06 MH ENZYMES /2016 [facility] CHEM PANEL Magnesium 2.2 1.8 - 2.4 12/06 MH Lvl /2016 [facility] CHEM PANEL Phosphorus 2.8 2.5 - 4.5 12/06 [facility] ELECTROLYTE AGAP 13.3 10.0 - 12/06 MH S 20.0 [facility] ELECTROLYTE eGFR 92 12/06 Result MH S Comment: [facility] eGFR is City calculated using the CKD-EPI formula. In most young, healthy individuals the eGFR will be >90 mL/min/1.73m2 . The eGFR declines with age. An eGFR of 60-89 may be normal in some populations, particularly the elderly, for whom the CKD-EPI formula has not been extensively validated. Use of the eGFR is not recommended in the following populations:< br/>
Susi viduals with unstable creatinine concentration s, including patients and those with serious co-morbid conditions.<b r/>
Patie nts with extremes in muscle mass or diet.

The data above are obtained from the National Kidney Disease Education Program (NKDEP) which additionally recommends that when the eGFR is used in patients with extremes of body mass index for purposes of drug dosing, the eGFR should be multiplied by the estimated BMI. ELECTROLYTE Creatinine 0.80 0.50 - 0430 MH S Lvl 1.40 [facility] ELECTROLYTE Glucose Lvl 102 70 - 99 04/30 MH S [facility] ELECTROLYTE BUN 15 7 - 22 12/06 MH S [facility] ELECTROLYTE Sodium Lvl 145 135 - 145 12/06 MH S [facility] ELECTROLYTE Chloride Lvl 107 95 - 109 12/06 MH S [facility] ELECTROLYTE Potassium 4.3 3.5 - 5.1 12/06 MH S Lv /2016 [facility] ELECTROLYTE Calcium Lvl 9.3 8.5 - 10.5 12/06 MH S [facility] ELECTROLYTE CO2 29 24 - 32 12/06 MH S [facility] HEMATOLOGY WBC 6.9 3.7 - 10.4 12/06 [facility] HEMATOLOGY RBC 4.50 4.70 - 12/06 MH 6.10 [facility] HEMATOLOGY RDW 14.5 11.5 - 12/06 MH 14. [facility] HEMATOLOGY Hgb 13.8 14.0 - 12/06 MH 18.0 [facility] HEMATOLOGY Platelet 137 133 - 450 12/06 [facility] HEMATOLOGY MPV 10.9 7.4 - 10.4 12/06 [facility] HEMATOLOGY Hct 41.3 42.0 - 12/06 MH 54.0 /2016 [facility] HEMATOLOGY MCV 91.8 80.0 - 12/06 MH 94.0 /2016 [facility] HEMATOLOGY MCH 30.6 27.0 - 12/06 MH 31.0 [facility] HEMATOLOGY MCHC 33.3 32.0 - 12/06 MH 36.0 /2016 [facility] HEMATOLOGY INR 1.03 0.85 - 12/06 MH 1.17 /2016 [facility] HEMATOLOGY PTT 34.0 22.9 - 12/06 MH 35.8 /2016 [facility] HEMATOLOGY PT 13.7 12.0 - 12/06 MH 14.7 [facility] HEMATOLOGY Segs 50.4 45.0 - 12/06 MH 75.0 /2016 [facility] HEMATOLOGY Lymphocytes 34.5 20.0 - 12/06 MH 40.0 [facility] HEMATOLOGY Lymphocytes 2.4 1.0 - 5.5 12/06 MH # /2016 [facility] HEMATOLOGY Eosinophils 4.1 0.0 - 4.0 12/06 [facility] HEMATOLOGY Basophils 0.9 0.0 - 1.0 12/06 [facility] HEMATOLOGY Segs-Bands # 3.5 1.5 - 8.1 12/06 [facility] HEMATOLOGY Monocytes 10.1 2.0 - 12.0 12/06 [facility] HEMATOLOGY Basophils # 0.1 0.0 - 0.2 12/06 [facility] HEMATOLOGY Monocytes # 0.7 0.0 - 0.8 12/06 [facility] HEMATOLOGY Eosinophils 0.3 0.0 - 0.5 12/06 MH # /2017 [facility] LIPIDS HDL 31 >=61 mg/dL 12/06 [facility] LIPIDS Chol 196 <=199 12/06 mg/dL [facility] LIPIDS Trig 220 <=149 12/06 mg/dL [facility] LIPIDS VLDL 44 12/06 [facility] LIPIDS LDL 121 <=99 mg/dL 12/06 (Calculated) [facility] LIPIDS CHD Risk 6.32 4.00 - 12/06 MH 7. [facility] Pathology Reports No Data Provided for This Section Diagnostic Reports Report Value Date Source Chest 2 views DX EXAMINATION: Chest, 2 view, frontal and lateral 06/02/2019 [facility] HISTORY: Cough; FINDINGS: Frontal and latera l views of the chest are submitted for interpretation compared to 01/22/2019. The cardiomediastinal silhou ette is within normal limits. There are no pleural effusions or pneumothorax. The lungs are clear without focal pneumonic consolidation or pulmonary edema. 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 IMPRESSION: 1. No radiographic evidence of acute cardiopulmo nary disease. Foot series DX EXAM: Ankle 3 views DX, Foot series DX 9 [facility] DATE: 02/06/2019 12:20 CDT. INDICATION: Pain and swelling. COMPARISON: None available. TECHNIQUE: 3 views of the right ankle and foot. FINDINGS: * The bones appear demineralized. * No acute fracture or malalignment is identifi ed. * The ankle mortise is congruent. * * Moderate plantar and Achilles calcaneal enthe sophytes. * Mild degenerative changes about the 1st TMT a nd 1st MTP joints. * Diffuse soft tissue swelling is present. * No subcutaneous gas or radiopaque foreign bod y is detected. IMPRESSION: 1. RIGHT ankle and foot sof t tissue swelling without acute fracture or malalignment. 2. Suspected osteopenia. Ankle 3 views DX EXAM: Ankle 3 views DX, Foot series DX 02/07/20 19 [facility] DATE: 02/06/2019 12:20 CDT. INDICATION: Pain and swelling. COMPARISON: None available. TECHNIQUE: 3 views of the right ankle and foot. FINDINGS: * The bones appear demineralized. * No acute fracture or malalignment is identifi ed. * The ankle mortise is congruent. * * Moderate plantar and Achilles calcaneal enthe sophytes. * Mild degenerative changes about the 1st TMT a nd 1st MTP joints. * Diffuse soft tissue swelling is present. * No subcutaneous gas or radiopaque foreign bod y is detected. IMPRESSION: 1. RIGHT ankle and foot sof t tissue swelling without acute fracture or malalignment. 2. Suspected osteopenia. Ext Lower Venous Ext Lower Venous Doppler Unilat US 2018 12:16 CDT 02/06/2019 [facility] Doppler Unilat US HISTORY/INDICATIONS:68 years Male - pain and swelling worse in the last 10 days TECHNIQUE: Grayscale and Dop pler ultrasound with color and waveform analysis of the venous system of the right lower extremity was performed with compression and augmentation. COMPARISON: None FINDINGS: The deep veins are compressi ble and show good augmentation of flow and no evidence of acute or chronic clot. IMPRESSION: No evidence of deep venous thrombosis. [id number] Chest 2 views DX EXAM: 01/22/2019 [facility] y Chest x-ray, 2 view(s). CLINICAL HX: Shortness of breath. Age: 68 years. Gender: Male. COMPARISON: Chest x-ray: 12/06/2016. FINDINGS: Support apparatus: None. Cardiac silhouette: Borderline enlarged. Mediastinum: -- Isabella: Bronchial wall thickening. -- Other: None. Lungs: -- Consolidation: Negative. -- Pleural effusion: Mild right pleural effusio n. -- Pneumothorax: Negative. -- Other: Mild right lower lung interstitial th ickening. Bones: Osteopenia. Thoracic kyphosis. Other: None. IMPRESSION: 1. Bronchial wall thickening which can be seen with bronchitis/bronchiolitis, scarring, and mild interstitial edema. 2. Mild right lower lung int erstitial thickening. This may relate to the above process or represent superimposed atypical infectious process. 3. Mild right pleural effusion. Chest 2 views DX Exam: Chest X-ray 2 views : 12/06/2016 [facility] CLINICAL HISTORY: Chest pain. Comparison: None. Findings: PA and lateral views of the chest are obtained. The heart size is normal. Ca lcification is noted in the aortic arch.. The lungs are clear without consolidation or effusion. No acute bony abnormality. Pulmonary vascularity is normal. Impression: No active disease . Consultation Notes No Data Provided for This Section Discharge Summaries No Data Provided for This Section History and Physicals No Data Provided for This Section Vital Signs Vital Sign Value Date Comments Source Systolic (mm Hg) 136 06/13/2020 [facility] Diastolic (mm Hg) 78 06/13/[facility] Heart Rate 48 06/13/2020 [facility] Height 175.26 cm 06/13/2020 [facility] Weight 87.727 06/13/2020 [facility] BMI Calculated 28.56 06/13/[facility] Systolic (mm Hg) 136 01/04/2020 [facility] Diastolic (mm Hg) 84 01/04/2020 [facility] Weight 93.409 01/04/2020 [facility] Height 175.26 cm 12/08/2019 [facility] Weight 93.636 12/08/2019 [facility] BMI Calculated 30.48 12/08/2019 [facility] Systolic (mm Hg) 152 10/05/2019 [facility] Diastolic (mm Hg) 84 10/05[facility] Heart Rate 52 10/05/2019 [facility] Height 175.26 cm 10/05/2019 [facility] Weight 102.784 10/05/2019 [facility] BMI Calculated 33.46 10/05/2019 [facility] Height 175.26 cm 09[facility] Weight 107.727 [facility] BMI Calculated 35.07 [facility] Systolic (mm Hg) 162 09/11/2019 [facility] Diastolic (mm Hg) 95 09/11/[facility] Heart Rate 50 09/11/2019 [facility] Height 175.26 cm 09/11/2019 [facility] Weight 107.727 09/11/2019 [facility] BMI Calculated 35.07 09/11/2019 [facility] Systolic (mm Hg) 152 09/07/2019 [facility] Diastolic (mm Hg) 84 09/07/2019 [facility] Weight 107.841 09/07/2019 [facility] Systolic (mm Hg) 170 07/26/2019 [facility] Diastolic (mm Hg) 88 07/26/[facility] Heart Rate 50 07/26/2019 [facility] Height 175.26 cm 07/26/2019 [facility] Weight 113.352 07/26/2019 [facility] BMI Calculated 36.9 07/26/2019 [facility] Temperature Oral (F) 98.3 F 06/07/2019 [facility] Heart Rate 56 06/07[facility]2019 [facility] Respitory Rate 18 06/07/2019 [facility] Systolic (mm Hg) 159 06/07/2019 [facility] Diastolic (mm Hg) 77 06/07/2019 [facility] Temperature Oral (F) 97.5 F 06/07/2019 [facility] Heart Rate 54 06/07/2019 [facility] Respitory Rate 18 06/07/2019 [facility] Systolic (mm Hg) 160 06/07/2019 [facility] Diastolic (mm Hg) 75 06/07/2019 [facility] Temperature Oral (F) 98.0 F 06/07/2019 [facility] Heart Rate 61 06/07/2019 [facility] Respitory Rate 18 06/07/2019 [facility] Systolic (mm Hg) 159 06/07/2019 [facility] Diastolic (mm Hg) 69 06/07/2019 [facility] Height 170.18 cm 06/02/2019 [facility] Weight 129.091 06/02[facility]2019 [facility] BMI Calculated 44.57 06/02/2019 [facility] BMI Calculated 44.4 02/27/2019 [facility] Weight 136.364 02[facility]27/2019 [facility] Height 175.26 cm 02/27/2019 [facility] Height 175.26 cm 02/06/2019 [facility] Temperature Oral (F) 98.2 F 02/06/2019 [facility] Respitory Rate 19 02/06/2019 [facility] Heart Rate 58 02/06/2019 [facility] Weight 137.727 02/06/2019 [facility] BMI Calculated 44.84 02/06/2019 [facility] Systolic (mm Hg) 187 02/06/2019 [facility] Diastolic (mm Hg) 90 02/06/2019 [facility] Respitory Rate 21 01/24/2019 [facility] Systolic (mm Hg) 117 01/24/2019 [facility] Diastolic (mm Hg) 95 01/24/2019 [facility] Systolic (mm Hg) 133 01/24/2019 [facility] Diastolic (mm Hg) 81 01/24/2019 [facility] Respitory Rate 17 01/24/2019 [facility] Respitory Rate 16 01/24/2019 [facility] Systolic (mm Hg) 140 01/24/2019 [facility] Diastolic (mm Hg) 74 01/24/2019 [facility] Temperature Oral (F) 98.3 F 01/23/2019 [facility] Temperature Oral (F) 97.6 F 01/23/2019 [facility] Temperature Oral (F) 98.3 F 01/23/2019 [facility] BMI Calculated 47.6 01/22/2019 [facility] Weight 142 01/22/[facility] Height 172.72 cm 01/22/2019 [facility] Weight 144.091 01/22/2019 [facility] Height 172.72 cm 01/22/2019 [facility] BMI Calculated 48.3 01/22/2019 [facility] Heart Rate 74 01/22/2019 [facility] Diastolic (mm Hg) 80 08/25/2018 [facility] Systolic (mm Hg) 150 08/25/2018 [facility] Weight 309.4 08/25/2018 [facility] Height 69 08/25/2018 [facility] Diastolic (mm Hg) 82 07/07/2018 [facility] Systolic (mm Hg) 158 07/07/2018 [facility] Weight 316.6 07/07/2018 [facility] Height 69 07/07/2018 [facility] Diastolic (mm Hg) 90 01/10/2018 [facility] Systolic (mm Hg) 140 01/10/2018 [facility] Weight 312 01/10/2018 [facility] Height 69 01/10/2018 [facility] Diastolic (mm Hg) 88 12/16/2017 [facility] Systolic (mm Hg) 134 12/16/2017 [facility] Weight 313.0 12/16/2017 [facility] Height 69 12/16/2017 [facility] Diastolic (mm Hg) 90 06/17/2017 [facility] Systolic (mm Hg) 140 06/17/2017 [facility] Weight 301.0 06/17/2017 [facility] Height 69 06/17/2017 [facility] Systolic (mm Hg) 136 12/07/2016 [facility] Diastolic (mm Hg) 77 12/07/2016 [facility] Respitory Rate 19 12/07/2016 [facility] Temperature Oral (F) 97.9 F 12/07/2016 [facility] Heart Rate 64 12/07/2016 [facility] Heart Rate 60 12/07/2016 [facility] Respitory Rate 19 12/07/2016 [facility] Systolic (mm Hg) 152 12/07/2016 [facility] Diastolic (mm Hg) 87 12/07/2016 [facility] Temperature Oral (F) 98 F 12/07/2016 [facility] Respitory Rate 18 12/07/2016 [facility] Systolic (mm Hg) 137 12/07/2016 [facility] Diastolic (mm Hg) 80 12/07/2016 [facility] Heart Rate 60 12/07/2016 [facility] Temperature Oral (F) 97.5 F 12/07/2016 [facility] BMI Calculated 44.93 12/06/2016 [facility] Weight 138.002 12/06/2016 [facility] Height 175.26 cm 12/06/2016 [facility] Diastolic (mm Hg) 80 06/11/2016 [facility] Systolic (mm Hg) 130 06/11/2016 [facility] Weight 310 06/11/2016 [facility] Height 69 06/11/2016 [facility] Diastolic (mm Hg) 80 12/12/2015 [facility] Systolic (mm Hg) 120 12/12/2015 [facility] Weight 317.4 12/12/2015 [facility] Height 69 12/12/2015 [facility] Diastolic (mm Hg) 80 11/18/2015 [facility] Systolic (mm Hg) 138 11/18/2015 [facility] Weight 314.8 11/18/2015 [facility] Height 69 11/18/2015 [facility] Diastolic (mm Hg) 72 11/07/2015 [facility] Systolic (mm Hg) 122 11/07/2015 [facility] Weight 322.4 11/07/2015 [facility] Height 69 11/07/2015 [facility] Height 175.26 cm 05/21/2015 [facility] Weight 143.182 [facility] BMI Calculated 46.61 05/21/2015 [facility] Diastolic (mm Hg) 98 01/10/2015 [facility] Systolic (mm Hg) 150 01/10/2015 [facility] Weight 311.6 01/10/2015 [facility] Height 69 01/10/2015 [facility] Diastolic (mm Hg) 88 06/11/2014 [facility] Systolic (mm Hg) 160 06/11/2014 [facility] Weight 313.4 06/11/2014 [facility] Height 69 06/11/2014 [facility] Encounters Location Location Encounter Encounter Reason Attending ADM [place] Stat us Source Details Type Number For Provider Date Date Visit Comprehensi Unknown [id number] 06/11 06/11 [id number]-[id number] Care 17b Comprehensi Unknown [id number] 06/11 06/11 [facility] 58-5n4w-v39 [facility] 7-28f6r6m92 Care 1fa Comprehensi Unknown [id number] 06/11 06/11 [facility] 14-40ae-929 /2013 [facility] 3-480f778p3 Care a74 Comprehensi Unknown [id number] 06/11 06/11 [facility] 04-4649-a25 /2013 [facility] 2-i44w05dk4 Care ba8 Comprehensi Unknown [id number] 06/11 06/11 [facility] 1d-4254-8e3 /2013 [facility] b-f7a6elw34 Care 529 Comprehensi Unknown [id number] 06/11 06/11 [facility] 06-5n83-mfm /2013 [facility] 9-3kd5e7728 Care dcc Comprehensi Unknown [id number] 06/11 06/11 [facility] e2-9u3s-172 /2013 [facility] e-g3w4039op Care 2a6 Comprehensi Unknown [id number] 06/11 06/11 [facility] 62-42fa-a51 /2013 [facility] 1-84ytv1b9b Care 677 Comprehensi Unknown [id number] 06/11 06/11 [facility] dc-433c-873 /2013 [facility] c-7hodo5yf1 Care 668 Comprehensi Unknown [id number] 06/11 06/11 [facility] fd-485b-be4 /2013 [facility] 7-0tmm0x512 Care 723 Comprehensi Unknown [id number] 06/11 06/11 [facility] 21-4788-890 /2013 [facility] 6-8l3aa26x3 Care 332 Comprehensi Unknown [id number] 06/11 06/11 [facility] 06-25l2-f54 /2013 [facility] 6-u0e026w5w Care 6d0 Comprehensi Unknown [id number] 06/11 06/11 [facility] 6a-09w7-j4u /2013 [facility] a-7q250qu56 Care 866 Comprehensi Unknown [id number] 06/11 06/11 [facility] 76-424c-987 /2013 [facility] a-55037a7mq Care 7f7 Comprehensi Unknown [id number] 06/11 06/11 [facility] 25-46ff-9fb /2013 [facility] b-0aad842a1 Care 5ba Comprehensi Unknown [id number] 06/11 06/11 [facility] 2c-46eb-b4e /2013 [facility] a-9933sv9g7 Care cf6 Comprehensi Unknown [id number] 06/11 06/11 [facility] d7-3gg0-wp0 /2013 [facility] 9-26m679i60 Care 906 Comprehensi Unknown [id number] 06/11 06/11 [facility] 43-47u4-63z /2013 [facility] d-4158n341r Care 4bd Comprehensi 2013 [facility] [id number] 07/10 07/10 [facility] 05-4300-b2d /2013 [facility] 6-ht2qv8794 Care 88f Comprehensi 2013 [facility] [id number] 07/10 07/10 [facility] c3-75g8-19h /2013 [facility] 7-8qj2p3973 Care 4ca Comprehensi 2013 [facility] [id number] 07/10 07/10 [facility] 41-4936-94a /2013 [facility] 2-5i2k4u2j5 Care 308 Comprehensi 2013 [facility] [id number] 07/10 07/10 [facility] 60-00v3-8uw /2013 [facility] c-ck683427u Care 62b Comprehensi 2013 [facility] [id number] 07/10 07/10 [facility] 88-18n0-756 /2013 [facility] e-[id number] Care 6da Comprehensi 2013 [facility] [id number] 07/10 07/10 [facility] 3e-4854-af3 /2013 [facility] 8-jw23i00l4 Care bf4 Comprehensi 2013 [facility] [id number] 07/10 07/10 [facility] e7-49ab-a4c /2013 [facility] c-7je21q1u5 Care 9d6 Comprehensi 2013 [facility] [id number] 07/10 07/10 [facility] 4e-3z8b-d7g /2013 [facility] 2-u9ul4y5or Care dominic Comprehensi 2013 [facility] [id number] 07/10 07/10 [facility] 05-486c-82a /2013 [facility] f-uy60yb198 Care ecb Comprehensi 2013 [facility] [id number] 07/10 07/10 [facility] ad-77j3-w75 /2013 [facility] 4-q4s6n7g1t Care 720 Comprehensi 2013 [facility] [id number] 07/10 07/10 [facility] 43-4aad-800 /2013 [facility] 8-3ie4ev24v Care 948 Comprehensi 2013 [facility] [id number] 07/10 07/10 [facility] 8e-416b-a56 [facility] 0-13p562lug Care e93 Comprehensi 2013 [facility] [id number] 07/10 07/10 [facility] b1-2d4b-039 [facility] 9-71o4n0719 Care 722 Comprehensi 2013 [facility] [id number] 07/10 07/10 [facility] 99-60m3-7t3 [facility] 0-[id number] Care f94 Comprehensi 2013 [facility] [id number] 07/10 07/10 [facility] 7b-477d-a87 [facility] 6-5zw4ocw1a Care e0f Comprehensi 2013 [facility] [id number] 07/10 07/10 [facility] 42-4s03-d73 [facility] c-5121451g0 Care b07 Comprehensi 2013 [facility] [id number] 07/10 07/10 [facility] ac-45bd-969 /2013 [facility] 5-e8xzf6m57 Care 6e0 Comprehensi 2013 [facility] [id number] 07/10 07/10 [facility] 6f-4145-845 /2013 [facility] c-99qd8r0pr Care 967 Comprehensi 2013 [facility] [id number] 07/10 07/10 [facility] f3-476b-95b /2013 [facility] 3-20v1mmmc1 Care 7ae Comprehensi 1 month [id number] 07/11 07/11 [facility] follow up 3a-4132-8dd /2013 [facility] 7-m7u1ya60z Care 5d6 Comprehensi 1 month [id number] 07/11 07/11 [facility] 20-89v6-0t9 /2013 [facility] 9-60u2ili8x Care c31 Comprehensi 1 month [id number] 07/11 07/11 [facility] 60-5qn4-wm5 [facility] 9-3u2634g7m Care 510 Comprehensi 1 month [id number] 07/11 07/11 [facility] e2-0m66-t19 [facility] 9-e3678a539 Care 3a7 Comprehensi 1 month [id number] 07/11 07/11 [facility] follow [facility] 08-40ea-885 [facility] 9-12rhl4cfw Care aziza Comprehensi 1 month [id number] 07/11 07/11 [facility] follow [facility] 22-5z68-1o5 [facility] e-745q9y3s7 Care 110 Comprehensi 1 month [id number] 07/11 07/11 [facility] follow [facility] 9e-4cad-aad [facility] 9-694332goz Care 74e Comprehensi 1 month [id number] 07/11 07/11 [facility] 88-469e-bc5 [facility] 8-6174g8a8s Care bf0 Comprehensi 1 month [id number] 07/11 07/11 [facility] 20-68a4-hn2 [facility] 8-69l628093 Care 453 Comprehensi 1 month [id number] 07/11 07/11 [facility] 13-42ca-84e /2013 [facility] 1-6rv6911de Care 263 Comprehensi 1 month [id number] 07/11 07/11 [facility] follow [facility] 7d-6vg2-e83 [facility] 8-30a993347 Care 391 Comprehensi 1 month [id number] 07/11 07/11 [facility] 7d-409c-9e1 [facility] 1-5f0yg689g Care c70 Comprehensi 1 month [id number] 07/11 07/11 [facility] follow [facility] a2-465f-a06 /2013 [facility] 7-pb55mvew6 Care c36 Comprehensi 1 month [id number] 07/11 07/11 [facility] follow [facility] db-4961-8bd /2013 [facility] 7-5z583055w Care 6e2 Comprehensi 1 month [id number] 07/11 07/11 [facility] b1-79h9-qh4 /2013 [facility] 9-ef8oitf3x Care 8dd Comprehensi 1 month [id number] 07/11 07/11 [facility] 8c-1m75-kf7 [facility] 5-9x483l281 Care 14c Comprehensi 1 month [id number] 07/11 07/11 [facility] c8-8t3h-300 /2013 [facility] 9-5pn153zg0 Care 80b Comprehensi Refills [id number] 12/18 12/18 [facility] f2-418c-b08 /2014 [facility] 7-3e26pj333 Care 708 Comprehensi Refills [id number] 12/18 12/18 [facility] 6b-402b-9d1 /2014 [facility] 1-01365139q Care 1ff Comprehensi Refills [id number] 12/18 12/18 [facility] 2b-4n7i-d98 /2014 [facility] 4-6b985jk42 Care b6f Comprehensi Refills [id number] 12/18 12/18 [facility] f3-4833-8d8 /2014 [facility] 1-6xoe2v712 Care 42c Comprehensi Refills [id number]-ad 12/18 12/18 [facility] 0e-4536-b0c /2014 [facility] 3-cz53spj76 Care eca Comprehensi Refills [id number] 12/18 12/18 [facility] bc-48bb-990 /2014 [facility] d-68nz6g721 Care 699 Comprehensi Refills [id number] 12/18 12/18 [facility] 82-97s6-nb7 /2014 [facility] 7-22279k605 Care d11 Comprehensi Refills [id number] 12/18 12/18 [facility] a8-44ce-95e /2014 [facility] 3-5qlfr2v70 Care 13e Comprehensi Refills [id number] 12/18 12/18 [facility] 5b-4465-845 /2014 [facility] e-1ba7ju5y5 Care 961 Comprehensi Refills [id number] 12/18 12/18 [facility] aa-2ty1-922 /2014 [facility] 6-78877mae6 Care fff Comprehensi Refills [id number] 12/18 12/18 [facility] 2c-4524-90a /2014 [facility] e-51067h58q Care 06b Comprehensi Refills [id number] 12/18 12/18 [facility] b4-14o8-k90 /2014 [facility] f-15whfh537 Care b95 Comprehensi Refills [id number] 12/18 12/18 [facility] 31-4baf-bdd /2014 [facility] 7-3z301894z Care 4b0 Comprehensi Refills [id number] 12/18 12/18 [facility] 6d-2i14-s92 /2014 [facility] 7-853tq533z Care f7f Comprehensi Refills [id number] 12/18 12/18 [facility] 9f-445e-b22 /2014 [facility] d-63uw2i5fy Care c25 Comprehensi Refills [id number] 12/18 12/18 [facility] 0c-1bm3-578 /2014 [facility] 2-770062q94 Care 7af Comprehensi Refills [id number] 12/18 12/18 [facility] 09-413b-8a0 /2014 [facility] 7-3o13k517n Care e52 Comprehensi Unknown [id number] 01/10 01/10 [facility] c4-1l48-jb1 /2014 [facility] 2-29b0rm3rx Care bd5 Comprehensi Unknown [id number] 01/10 01/10 [facility] a8-39o4-e1q /2014 [facility] f-925k8738n Care c6a Comprehensi Unknown [id number] 01/10 01/10 [facility] 7d-5y17-hsm /2014 [facility] 9-4320ww923 Care 36b Comprehensi Unknown [id number] 01/10 01/10 [facility] ed-4053-b8e /2014 [facility] 9-n13x86057 Care 254 Comprehensi Unknown [id number] 01/10 01/10 [facility] 5a-5b95-tg1 /2014 [facility] 9-26357jj94 Care 1f7 Comprehensi Unknown [id number] 01/10 01/10 [facility] 82-9w5y-6g8 /2014 [facility] 6-k150pl6th Care 84f Comprehensi Unknown [id number] 01/10 01/10 [facility] ee-36a8-76y /2014 [facility] d-9m1555su3 Care ddd Comprehensi Unknown [id number] 01/10 01/10 [facility] de-4acb-b06 /2014 [facility] c-lmmh7684f Care bbb Comprehensi Unknown [id number] 01/10 01/10 [facility] 9a-5tm4-w46 /2014 [facility] e-4647zp81o Care 690 Comprehensi Unknown [id number] 01/10 01/10 [facility] 8e-22d8-v2q /2014 [facility] 5-5119lt997 Care f7f Comprehensi Unknown [id number] 06/04 06/04 [facility] aa-5d08-t68 /2014 [facility] 4-2pb7j23g7 Care 0b9 Comprehensi Unknown [id number] 01/10 01/10 [facility] f3-41ad-897 /2014 [facility] 2-3441w24s8 Care 225 Comprehensi Unknown [id number] 01/10 01/10 [facility] 30-482b-ad8 /2014 [facility] 9-8fes25919 Care 419 Comprehensi Unknown [id number] 01/10 01/10 [facility] 5c-4811-a3f /2014 [facility] 9-8r793j34z Care 951 Comprehensi Labs [id number] 01/16 01/16 [facility] 79-460a-8a /2014 [facility] 6-nz7593b86 Care e97 Comprehensi Labs [id number] 01/16 01/16 [facility] a8-8t0o-4z5 /2014 [facility] 9-r3cky0079 Care 58b Comprehensi Labs [id number] 01/16 01/16 [facility] 8c-4411-bfe /2014 [facility] 3-96r399dl1 Care ayanna Comprehensi Labs [id number]-36 01/16 01/16 [facility] 61-4275-896 /2014 [facility] 8-5zuh68ts3 Care 458 Comprehensi Labs [id number] 01/16 01/16 [facility] f1-481c-803 /2014 [facility] f-79b882t16 Care 38a Comprehensi Labs [id number] 01/16 01/16 [facility] af-422a-af /2014 [facility] 8-d33lk9029 Care edf Comprehensi Labs [id number] 01/16 01/16 [facility] 4d-6bf5-699 /2014 [facility] 6-40sb785a9 Care 715 Comprehensi Labs [id number]-k8 01/16 01/16 [facility] dc-56z3-434 /2014 [facility] 3-996322dn5 Care adb Comprehensi Labs [id number]-05 01/16 01/16 [facility] aa-42de-b57 /2014 [facility] 4-6488bc0u7 Care 9f1 Comprehensi Labs [id number] 01/16 01/16 [facility] b1-4152-a44 /2014 [facility] f-6k7mme3yg Care 6e0 Comprehensi Labs [id number] 01/16 01/16 [facility] 0c-4196-83f /2014 [facility] 9-0t3415tdy Care f13 Comprehensi Labs [id number] 01/16 01/16 [facility] 75-1ez9-v37 [facility] 1-apow4751e Care 5c8 Comprehensi Labs [id number] 01/16 01/16 [facility] 51-2o7g-6b6 [facility] e-xgn30662a Care 68a Comprehensi Unknown [id number] 01/16 01/16 [facility] d6-17g6-43m /2014 [facility] 3-0400lo764 Care e6a Comprehensi Unknown [id number] 01/16 01/16 [facility] 8d-41de-a8b /2014 [facility] 3-382z44f0c Care 5e0 Comprehensi Unknown [id number] 01/16 01/16 [facility] 6e-7bq9-fnt /2014 [facility] 2-b7987i72c Care ea3 Comprehensi Unknown [id number] 01/16 01/16 [facility] f2-41ca-854 /2014 [facility] f-ki71154lj Care a2c Comprehensi Unknown [id number] 01/16 01/16 [facility] ec-49bd-b3d /2014 [facility] 7-q3zg6sk20 Care f98 Comprehensi Unknown [id number] 01/16 01/16 [facility] 53-3p2j-ha6 /2014 [facility] 3-72r1jlg40 Care 7e9 Comprehensi Unknown [id number]-qt 01/16 01/16 [facility] 63-2g83-p21 /2014 [facility] e-k19uc121j Care 34a Comprehensi Unknown [id number] 01/16 01/16 [facility] c0-47de-aef /2014 [facility] 3-auobyw6p5 Care 13f Comprehensi Unknown [id number] 01/16 01/16 [facility] 6a-8q17-cy8 /2014 [facility] 9-71qq675a4 Care 470 Comprehensi Unknown [id number] 01/16 01/16 [facility] 75-5kf2-t09 /2014 [facility] 4-j2ix9336m Care 080 Comprehensi Unknown [id number] 01/16 01/16 [facility] 6a-48r7-85u /2014 [facility] 7-9147a7a68 Care e13 Comprehensi Unknown [id number] 01/16 01/16 [facility] 86-8za5-7h3 /2014 [facility] 6-8d7583jf2 Care 170 Comprehensi Unknown [id number] 01/16 01/16 [facility] c4-4435-9c7 /2014 [facility] 5-2980xs392 Care f23 Comprehensi Labs [id number] 01/16 01/16 [facility] e0-1o56-43y /2014 [facility] 6-3v98z1a3c Care cbe Comprehensi Labs [id number]-8i 01/16 01/16 [facility] e2-6c72-nuc /2014 [facility] a-0q7795720 Care 6b5 Comprehensi Labs [id number] 01/16 01/16 [facility] 52-4ddd-a4e /2014 [facility] 6-g8630m221 Care 6f3 Comprehensi Labs [id number]-9w 01/16 01/16 [facility] 6e-5j9f-i0z /2014 [facility] d-ak34c9049 Care cbb Comprehensi Unknown [id number] 01/17 01/17 [facility] 9e-43ca-9c3 /2014 [facility] f-0qt0l5549 Care 3b6 Comprehensi Unknown [id number] 01/17 01/17 [facility] 19-4bbd-9fd /2014 [facility] 9-775r86i9j Care 68a Comprehensi Unknown [id number] 01/17 01/17 [facility] 39-4097-b2e /2014 [facility] 7-zq7c3a7es Care d77 Comprehensi Unknown [id number] 01/17 01/17 [facility] bf-5xb7-3l5 /2014 [facility] a-72575nn6c Care 23c Comprehensi Unknown [id number] 01/18 01/18 [facility] db-6rv2-n5x /2014 [facility] 8-48id07955 Care 7f7 Comprehensi Unknown [id number] 01/18 01/18 [facility] 08-435c-abd /2014 [facility] f-5b8c5c944 Care c65 Comprehensi Unknown [id number] 01/18 01/18 [facility] 4e-08k0-6cu /2014 [facility] 0-g55917s0i Care 545 Comprehensi Unknown [id number] 01/18 01/18 [facility] 39-4311-911 /2014 [facility] 0-ro555q6bc Care 7e3 Comprehensi Unknown [id number]-28 01/18 01/18 [facility] 89-4635-90d /2014 [facility] e-n8q9n3234 Care 803 Comprehensi Unknown [id number] 01/18 01/18 [facility] 9c-0a77-eqz /2014 [facility] 8-[id number] Care 479 Comprehensi Unknown [id number] 01/18 01/18 [facility] a8-87d0-625 /2014 [facility] b-opi481wao Care 90f Comprehensi Unknown [id number] 01/18 01/18 [facility] e6-46dd-bf7 /2014 [facility] 5-576zv54w6 Care f2d Comprehensi Unknown [id number] 01/18 01/18 [facility] 89-45bd-b8c /2014 [facility] a-gbp12bunj Care add Comprehensi Unknown [id number] 01/18 01/18 [facility] 72-22l9-s57 /2014 [facility] 5-951j3xqsz Care 649 Comprehensi Unknown [id number] 01/18 01/18 [facility] 43-4758-99f /2014 [facility] e-94dn80gg2 Care 1a4 Comprehensi Unknown [id number] 01/18 01/18 [facility] d1-41ab-9bb /2014 [facility] a-52701s0y0 Care b77 Comprehensi Unknown [id number] 01/18 01/18 [facility] e3-46fe-846 /2014 [facility] f-9z2523l1v Care 713 Comprehensi Unknown [id number] 01/18 01/18 [facility] 92-4764-91e /2014 [facility] 0-pafw13e57 Care 160 Comprehensi Unknown [id number] 01/18 01/18 [facility] 9c-4324-b50 /2014 [facility] 7-p11p7wa4q Care 08b Comprehensi Unknown [id number] 01/18 01/18 [facility] af-4002-a48 /2014 [facility] 3-062914o2c Care c0b Comprehensi Unknown [id number] 01/18 01/18 [facility] 6e-25i6-2l6 [facility] b-g8v34qq22 Care 515 Comprehensi Echo [id number] 01/24 01/24 [facility] 9b-6e7f-4ps /2014 [facility] 3-b062oa85y Care 840 Comprehensi Echo [id number]-bf 01/24 01/24 [facility] 20-4344-a6f /2014 [facility] f-2hw623o0y Care 9b0 Comprehensi Echo [id number] 01/24 01/24 [facility] fd-2lv2-bc5 /2014 [facility] c-517d0ax95 Care 461 Comprehensi Echo [id number] 01/24 01/24 [facility] c8-498b-95a /2014 [facility] 1-d5y03l1y4 Care cf4 Comprehensi Echo [id number] 01/24 01/24 [facility] d7-4854-87c /2014 [facility] [id number] Care 430 Comprehensi Echo [id number] 01/24 01/24 [facility] 34-4ddf-b9f /2014 [facility] 7-8t2o088g2 Care b84 Comprehensi Echo [id number] 01/24 01/24 [facility] e4-4bda-858 /2014 [facility] 3-e4xb34164 Care 850 Comprehensi Echo [id number] 01/24 01/24 [facility] 91-49db-manpreet /2014 [facility] e-n7h5p9eqb Care a9c Comprehensi Echo [id number] 01/24 01/24 [facility] b2-0f3o-mv5 /2014 [facility] e-6j2e4073b Care 9a0 Comprehensi Echo [id number] 01/24 01/24 [facility] 48-46ba-908 /2014 [facility] a-2m026uhy9 Care 2e7 Comprehensi Echo [id number] 01/24 01/24 [facility] 30-4255-b6c /2014 [facility] 0-165oyry5g Care aa4 Comprehensi Echo [id number] 01/24 01/24 [facility] fc-4747-967 /2014 [facility] 5-9qyv516h7 Care d57 Comprehensi Echo [id number] 01/24 01/24 [facility] 17-3w2t-72v /2014 [facility] 5-72bddbacc Care 091 Comprehensi Echo [id number]-f7 01/24 01/24 [facility] ve [facility] d8-4m91-h7b /2014 [facility]-ln00eem88 Care f36 Comprehensi Echo [id number] 01/24 01/24 [facility] ve [facility] 6c-423d-a64 /2014 [facility] 0-9h0e1k208 Care 534 Comprehensi Unknown [id number]-70 05/09 05/09 [facility] 5e-4bdb-a2e /2014 [facility] 3-818f83n64 Care 0ad Comprehensi Unknown sd83q78z-0z 05/09 05/09 [facility] 85-47dd-8ee /2014 [facility] 1-2s38a62l4 Care 8d1 Comprehensi Unknown [id number]-iw 05/09 05/09 [facility] 5b-4k59-5qx /2014 [facility] 1-c4xd32152 Care 34b Comprehensi Unknown 66g218p7-1y 05/09 05/09 [facility] e2-4r93-h4m /2014 [facility] 3-81zr36gz2 Care 73d Comprehensi Unknown v65rpu43-93 05/09 05/09 [facility] 39-429c-8d7 /2014 [facility] 9-43792q1u8 Care 42b Comprehensi Unknown 4393w8y2-td 05/09 05/09 [facility] 7e-431c-bb1 /2014 [facility] 5-9710f1z6m Care a49 Comprehensi Unknown [id number] 05/09 05/09 [facility] d6-5d16-bs6 /2014 [facility] 9-g4r074433 Care b2f Comprehensi Unknown t04ti0w2-ea 05/09 05/09 [facility] 14-4266-92b /2014 [facility] e-4791452k7 Care 717 Comprehensi Unknown d9872wtj-29 05/09 05/09 [facility] 23-4fbe-b68 /2014 [facility] 8-83r30s4ye Care 4e3 Comprehensi Unknown 8z5i009t-25 05/09 05/09 [facility] 74-4efe-bf8 /2014 [facility] 5-3m394sq95 Care 548 Comprehensi Unknown [id number] 05/09 05/09 [facility] cf-00f8-372 /2014 [facility] 5-559492a72 Care 8ea Comprehensi Unknown [id number] 05/09 05/09 [facility] 99-8l2b-0m1 /2014 [facility] 1-98ghvg8la Care 00c Comprehensi Unknown 15pz7r77-34 05/09 05/09 [facility] f6-4792-95d /2014 [facility] 5-6a36pr7b4 Care d1c Comprehensi Nuc 6045j022-3g 05/17 05/17 [facility] 0c-19e0-8oe /2014 [facility] 3-1402a48g5 Care ac1 Comprehensi Nuc h68n167f-4g 05/17 05/17 [facility] e8-4def-8ce /2014 [facility] c-o7xx456mq Care 142 Comprehensi Nuc f116ol10-hn 05/17 05/17 [facility] d5-43aa-8dc /2014 [facility] b-d1h68in4b Care 8f9 Comprehensi Nuc m7247n48-83 05/17 05/17 [facility] 24-4764-b89 /2014 [facility] 1-ouq483wi9 Care 45f Comprehensi Nuc d3x5c478-j1 05/17 05/17 [facility] 10-3ys8-179 /2014 [facility] 9-5o5c89884 Care 68b Comprehensi Nuc 5w26s851-qd 05/17 05/17 [facility] 45-4774-b8b /2014 [facility] f-aa6072479 Care 0db Comprehensi Nuc 09y5xi76-9j 05/17 05/17 [facility] 5f-4914-852 /2014 [facility] 0-sv5z116at Care 690 Comprehensi Nuc 1959447p-8c 05/17 05/17 [facility] 94-4619-aae /2014 [facility] 8-h9k4pva5q Care 3ad Comprehensi Nuc 11o8ty59-80 05/17 05/17 [facility] 00-3bq7-818 /2014 [facility] 6-aorvx4129 Care 78c Comprehensi Nuc 44805k1w-65 05/17 05/17 [facility] 03-434c-a6c /2014 [facility] c-f487yscy2 Care e1d Comprehensi Nuc c6882481-8l 05/17 05/17 [facility] 78-0ct7-j2v /2014 [facility] b-88g1jr435 Care b25 Comprehensi Nuc twim9kz3-wu 05/17 05/17 [facility] c9-4492-a80 /2014 [facility] 3-b8nvos61y Care 49f Comprehensi Nuc 426b535c-9c 05/17 05/17 [facility] 52-4476-907 /2014 [facility] 3-d4i428wos Care 134 [facility] Outpatient [id number] Saji Martin 05/21 05/22 Jun 0 /2014 [facility] Comprehensi Re: 395d8r65-1b 05/24 05/24 [facility] Cardiolite c5-40ca-afb /2014 [facility] 3-29wul50va Care b7f Comprehensi Re: p3mp0b08-47 05/24 05/24 [facility] Cardiolite af-4607-935 /2014 [facility] 1-r5i319j01 Care 3f6 Comprehensi Re: [id number]-j7 05/24 05/24 [facility] Cardiolite f5-4tb5-5j2 /2014 [facility] a-78a055l84 Care 3b0 Comprehensi Re: 1m41o77p-77 05/24 05/24 [facility] Cardiolite fe-49bc-97d /2014 [facility] 9-330m449c2 Care 24c Comprehensi Re: v761v2ib-o9 05/24 05/24 [facility] Cardiolite ef-51d0-vax /2014 [facility] 1-820izi1uj Care 323 Comprehensi Re: l121kg29-5w 05/24 05/24 [facility] Cardiolite 19-0k5b-n6q /2014 [facility] 1-05lpt7930 Care 6ea Comprehensi Re: 56304f08-77 05/24 05/24 [facility] Cardiolite 88-4504-9d5 /2014 [facility] b-zkup2n0g3 Care c5d Comprehensi Re: 5u17382l-13 05/24 05/24 [facility] Cardiolite 0a-4128-8e9 /2014 [facility] b-0177aaffc Care e52 Comprehensi Re: 0he1x5ci-01 05/24 05/24 [facility] Cardiolite cd-2bw2-p7s /2014 [facility] 2-td778l92q Care d6b Comprehensi Re: 45e70a45-n8 05/24 05/24 [facility] Cardiolite 80-4653-a4d /2014 [facility] 9-672fi709b Care 9f2 Comprehensi Re: ev21766e-u6 05/24 05/24 [facility] Cardiolite 4d-45bd-a70 /2014 [facility] 0-637a51c34 Care 415 Comprehensi Re: 7x68928b-s2 05/24 05/24 [facility] Cardiolite 76-80h4-b16 /2014 [facility] 0-i5kohi96o Care 505 Comprehensi Re: 0868a68g-70 05/24 05/24 [facility] Cardiolite 07-5x03-657 /2014 [facility] 4-r23f7085o Care bdd Comprehensi Acebutatolo 4a50tcf0-b3 07/25 07/25 [facility] l refill 2b-4bdd-8d0 /2014 [facility] 2-65140lu3h Care ffe Comprehensi Acebutatolo 977g98o8-0b 07/25 07/25 [facility] ve [facility] l refill 33-4092-a5e /2014 [facility] 0-074c49200 Care b5b Comprehensi Acebutatolo j496b810-v6 07/25 07/25 [facility] ve [facility] l refill 0e-49d3-o8t /2014 [facility] a-pv283218g Care dc0 Comprehensi Acebutatolo f9c476n1-56 07/25 07/25 Comp ve [facility] l refill ed-7es4-c0u /2014 [facility] 7-ap556g096 Care 396 Comprehensi Acebutatolo o8295c84-16 07/25 07/25 [facility] ve [facility] l refill 16-35v9-95k /2014 [facility] 5-082973332 Care 727 Comprehensi Acebutatolo 97tx8lh5-uu 07/25 07/25 Comp ve Heart l refill 8b-4190-a53 /2014 [facility] 2-5f747v506 Care 678 Comprehensi Acebutatolo 2zuiw096-77 07/25 07/25 Comp ve [facility] l refill 82-4714-805 /2014 [facility] 7-9x8h77qn3 Care 926 Comprehensi Acebutatolo 2yx4oo18-it 07/25 07/25 Comp ve [facility] l refill 01-4ecf-aea /2014 [facility] 0-s5eq22039 Care bf2 Comprehensi Acebutatolo ml7x4r45-91 07/25 07/25 [facility] ve [facility] l refill 1d-4b1n-a60 /2014 [facility] 9-1y36j38c6 Care 9f9 Comprehensi Acebutatolo 111p1s4i-01 07/25 07/25 [facility] ve [facility] l refill fd-0s7f-r80 /2014 [facility] 8-e2sgww0f0 Care 4cd Comprehensi Acebutatolo l02615d1-r9 07/25 07/25 Comp ve [facility] l refill a5-493e-8ba /2014 [facility] e-y2s17517e Care d8e Comprehensi Acebutatolo 14o0xge4-6x 07/25 07/25 Comp ve [facility] l refill ad-38f8-y0j /2014 [facility] d-35543542l Care 0a1 Comprehensi Acebutatolo 4x274e45-38 07/25 07/25 Comp ve Heart l refill 0f-1y5s-z00 /2014 [facility] d-ap0z48m49 Care dbe Comprehensi MEDICARE 9x0re8bk-81 11/05 11/05 [facility] 2016 75-438f-a9b /2015 [facility] b-1d22r4157 Care 899 Comprehensi MEDICARE 83r43l59-71 11/05 11/05 [facility] 2016 30-6rb3-57z /2015 [facility] b-m313z8hb1 Care 894 Comprehensi MEDICARE [id number] 11/05 11/05 [facility] 2016 f3-18o0-sf9 /2015 [facility] e-0wuwf1432 Care f42 Comprehensi MEDICARE 2196g31x-an 11/05 11/05 [facility] 2016 30-4517-93d /2015 [facility] f-94oc397ac Care a13 Comprehensi MEDICARE a5on7p65-0b 11/05 11/05 [facility] 2016 da-431f-8ba /2015 [facility] e-32x27cw6r Care ceb Comprehensi MEDICARE [id number] 11/05 11/05 [facility] 2016 5a-2q35-ihr /2015 [facility] 2-p97li5068 Care 613 Comprehensi MEDICARE [id number] 11/05 11/05 [facility] 2016 73-496b-b2b /2015 [facility] c-29nm7624h Care 9bd Comprehensi MEDICARE [id number] 11/05 11/05 [facility] 2016 59-4ecf-b39 /2015 [facility] d-50go7g7os Care 5ba Comprehensi MEDICARE [id number] 11/05 11/05 [facility] 2016 8f-9e60-i08 /2015 [facility] 1-k3t3n567m Care abf Comprehensi MEDICARE [id number] 11/05 11/05 [facility] ve [facility] 2016 ad-5vi9-sc2 /2015 [facility] c-3cvz25030 Care 9fc Comprehensi MEDICARE [id number]-x1 11/05 11/05 [facility] 2016 32-442a-80b /2015 [facility] 3-14609x77z Care cb4 Comprehensi MEDICARE [id number] 11/05 11/05 [facility] 2016 fe-4767-91a /2015 [facility] 8-k4l2579oc Care 405 Comprehensi Unknown a566u3s0-p6 11/06 11/06 [facility] ad-3q08-z20 /2015 [facility] 1-428v85q14 Care ac3 Comprehensi Unknown 887s27f1-a4 11/06 11/06 [facility] a8-8q84-z7l /2015 [facility] 5-7bpw5g5dz Care 4d2 Comprehensi Unknown w337v67p-av 11/06 11/06 [facility] 8e-427f-8cf /2015 [facility] 1-e9h370t39 Care b17 Comprehensi Unknown 84p8s6a7-81 11/06 11/06 [facility] 54-3r40-4e9 /2015 [facility] 4-825f876w0 Care 22b Comprehensi Unknown ak53l74b-15 11/06 11/06 [facility] 3a-484e-bb0 /2015 [facility] a-17r782500 Care e94 Comprehensi Unknown 5jx9b1q6-27 11/06 11/06 [facility] 10-99w8-y1k /2015 [facility] 2-219824yjx Care 98a Comprehensi Unknown zx495d18-t6 11/06 11/06 [facility] b0-4bad-9a9 /2015 [facility] 6-8tm3j80ra Care 732 Comprehensi Unknown 8ytz62hh-t6 11/06 11/06 [facility] 2d-406e-8e5 /2015 [facility] f-x4qr3wog5 Care 2d4 Comprehensi Unknown 1c6749ph-o4 11/06 11/06 [facility] ve [facility] 53-45ba-93a /2015 [facility] c-jbg507o63 Care d64 Comprehensi Unknown 8v5g504x-17 11/06 11/06 [facility] dd-24g1-t8z /2015 [facility] 2-52o4yezy9 Care d56 Comprehensi BCBS a677zb36-57 11/14 11/14 [facility] SECONDARY cf-8r8m-y29 /2015 [facility] TO MEDICARE 9-8qo883bkc Care PLAN F 0ef Comprehensi BCBS 77un75hv-l2 11/14 11/14 [facility] SECONDARY 30-49fa-a70 /2015 [facility] TO [facility]ICARE 7-126xc042k Care PLAN F bf2 Comprehensi BCBS 3i1b8397-83 11/14 11/14 [facility] SECONDARY b7-0e4y-84u /2015 [facility] TO MEDICARE a-c8t2o844u Care PLAN F b70 Comprehensi BCBS 6q7303m0-2u 11/14 11/14 [facility] SECONDARY 1a-4532-89d /2015 [facility] TO MEDICARE 1-n0t41411n Care PLAN F 7e8 Comprehensi BCBS 7vok0f49-r3 11/14 11/14 [facility] SECONDARY 28-44ed-84a /2015 [facility] TO MEDICARE 7-1v208b72j Care PLAN F a6d Comprehensi BCBS x5od08la-d1 11/14 11/14 [facility] SECONDARY 52-417a-a0a /2015 [facility] TO MEDICARE 5-2d2w5233x Care PLAN F 082 Comprehensi BCBS v7j354e1-d4 11/14 11/14 [facility] SECONDARY bb-4bdb-a3f /2015 [facility] TO MEDICARE 7-26pm6n886 Care PLAN F 34c Comprehensi BCBS 882695m8-10 11/14 11/14 [facility] SECONDARY e6-1cz8-ws6 /2015 [facility] TO MEDICARE f-87h63l8cr Care PLAN F 5bd Comprehensi BCBS [id number] 11/14 11/14 [facility] SECONDARY 59-47ca-a1a /2015 [facility] TO MEDICARE b-dyd3btk2q Care PLAN F a72 Comprehensi BCBS 34v05766-t1 11/14 11/14 [facility] SECONDARY 5c-495e-9ea /2015 [facility] TO MEDICARE 3-c1pz2t780 Care PLAN F 6a3 Comprehensi BCBS 3d65dr2r-37 11/14 11/14 [facility] SECONDARY ea-3j6v-925 /2015 [facility] TO MEDICARE e-z2115q27z Care PLAN F 6a8 Comprehensi Unknown 1qp2t8o7-61 11/17 11/17 [facility] d0-4162-81e /2015 [facility] 4-4x115d2j0 Care dc6 Comprehensi Unknown 71r76cqk-k0 11/17 11/17 [facility] 3c-0j08-4z9 /2015 [facility] a-i6774s10e Care 74c Comprehensi Unknown 71t113rl-6o 11/17 11/17 [facility] b9-1k7w-a97 /2015 [facility] d-65jh56wmk Care a11 Comprehensi Unknown 945j4055-71 11/17 11/17 [facility] b0-30u4-0j1 /2015 [facility] 5-f4m2mk586 Care 173 Comprehensi Unknown j04gz064-b5 11/17 11/17 [facility] 52-436f-8d1 [facility] c-bs288y505 Care d02 Comprehensi Unknown 406n94j2-tm 11/17 11/17 [facility] 5d-49de-8e6 /2015 [facility] 1-z5ali6y21 Care 8ac Comprehensi re: labs 655n8s23-w3 12/02 12/02 [facility] ve [facility] b0-4add-bc1 /2015 [facility] f-7kl3i069o Care 479 Comprehensi re: labs zbrcb2t0-z0 12/02 12/02 [facility] ve [facility] 71-418a-947 /2015 [facility] a-7cy91829m Care e37 Comprehensi re: labs n39k4i6l-f3 12/02 12/02 [facility] 02-8q29-6i3 /2015 [facility] b-e72548261 Care 142 Comprehensi re: labs o0684bp0-b3 12/02 12/02 [facility] ve [facility] f2-0pa8-672 /2015 [facility] 7-ptc4862ob Care 64c Comprehensi re: labs 0963735m-64 12/02 12/02 [facility] 8d-6z83-209 /2015 [facility] 0-xg5jfs563 Care d34 Comprehensi re: labs 08u667k3-8o 12/02 12/02 [facility] ve [facility] c6-40bc-8b0 /2015 [facility] 7-48a0y851c Care f8e Comprehensi re: labs o67896l8-1j 12/02 12/02 [facility] 08-18i2-b9a /2015 [facility] 8-c2801nja9 Care 355 Comprehensi re: labs 52c715r5-97 12/02 12/02 [facility] ve [facility] bd-4785-aeb /2015 [facility] b-ih865169d Care 4a1 Comprehensi re: labs 64ah6603-06 12/02 12/02 [facility] 6a-484a-995 /2015 [facility] d-329426o4p Care e36 Comprehensi 2015 215w3s3a-37 12/10 12/10 [facility] MEDICARE e1-430a-9ab /2015 [facility] 2-46d62gc28 Care 02c Comprehensi 2015 b5p27436-6v 12/10 12/10 [facility] MEDICARE db-401f-950 /2015 [facility] 1-0z9j2y343 Care 74c Comprehensi 2015 dik9v9a6-04 12/10 12/10 [facility] MEDICARE d6-436a-8d4 /2015 [facility] f-a80pw8294 Care e7e Comprehensi 2015 32rm0043-05 12/10 12/10 [facility] MEDICARE 98-1rb9-n12 /2015 [facility] e-766k1n9iq Care 5a2 Comprehensi 2015 i0313j31-06 12/10 12/10 [facility] MEDICARE d5-4bfa-8ff /2015 [facility] e-3339x3x31 Care 3b2 Comprehensi 2015 418z9379-5p 12/10 12/10 [facility] MEDICARE 92-6n2l-5g7 /2015 [facility] a-ngm6j3gn5 Care 54f Comprehensi 2015 168ih1cr-02 12/10 12/10 [facility] MEDICARE ab-400e-841 /2015 [facility] 3-20mqjeo2m Care 66a Comprehensi 2015 8nk36wlb-2x 12/10 12/10 [facility] MEDICARE 1e-4748-85c /2015 [facility] 1-07y90de91 Care 6e6 Comprehensi Unknown 4zp2sh86-gk 12/11 12/11 [facility] 3e-449c-822 /2015 [facility] c-060umc1cd Care f98 Comprehensi Unknown xl52mb7n-44 12/11 12/11 [facility] 04-4k68-n50 /2015 [facility] e-8k3u7po98 Care 83a Comprehensi Unknown zv3kn083-w5 12/11 12/11 [facility] ae-47bd-ae2 /2015 [facility] 5-l3j96068f Care 78b Comprehensi Unknown 2zx7a33o-0g 12/11 12/11 [facility] 66-7w67-isn /2015 [facility] 2-592ikpj93 Care 8df Comprehensi Unknown 905a78n7-38 12/11 12/11 [facility] 53-45ad-8b5 /2015 [facility] b-t3o7ra2ii Care 7c4 Comprehensi Unknown 77c9892w-i9 12/11 12/11 [facility] e5-4314-a23 /2015 [facility] c-65ep29dv4 Care 8b7 Comprehensi Unknown 74o42793-12 12/11 12/11 [facility] f4-03x7-2j6 [facility] 3-tdd469366 Care fec Comprehensi Unknown 3ihiea3g-1i 06/04 06/04 [facility] 18-4394-8a [facility] f-vh1sdi95t Care f9b Comprehensi Unknown u8ep72td-3n 06/04 06/04 [facility] ae-64x4-831 /2015 [facility] 1-3m6rck59u Care 948 Comprehensi Unknown xp2io77f-j4 06/04 06/04 [facility] 39-49db-94d /2015 [facility] 5-la6r70254 Care 173 Comprehensi Unknown 71133dv7-nz 06/04 06/04 [facility] 5f-80u1-1qr /2015 [facility] 5-7405489f5 Care e95 Comprehensi Unknown 96ff2n5r-x6 06/04 06/04 [facility] 31-4599-bfe /2015 [facility] c-f44z41a7w Care 60e Comprehensi 2015 o715r74y-w0 06/10 06/10 [facility] MEDICARE 8a-412f-995 /2015 [facility] 1-95j8fp3q8 Care f98 Comprehensi 2015 v14116s5-w4 06/10 06/10 [facility] MEDICARE fb-3s94-16j /2015 [facility] 7-7vc1528z1 Care 4dd Comprehensi 2015 57984c5c-66 06/10 06/10 [facility] MEDICARE e4-4013-900 /2015 [facility] 2-343n5v0lb Care ee3 Comprehensi 2015 7959p724-28 06/10 06/10 [facility] MEDICARE 4d-405f-88a /2015 [facility] 2-m85864tji Care 7bb Comprehensi Unknown 1m009384-8r 06/11 06/11 [facility] ve [facility] 7f-460d-a63 /2015 [facility] 4-096s5t905 Care a3c Comprehensi Unknown c0k44090-1w 06/11 06/11 [facility] b0-47eb-930 /2015 [facility] 0-t50631on0 Care 466 Comprehensi Unknown k331t9q3-i6 06/11 06/11 [facility] 1b-4097-a7a /2015 [facility] b-jcc83c44s Care c74 Comprehensi Refills 7z872z62-9r 08/07 08/07 [facility] 9c-6cf9-7gx /2015 [facility] 8-93479pwry Care 2fb Comprehensi Refills h92ula46-75 08/07 08/07 [facility] fe-1j19-6u9 /2015 [facility] c-6d46s548s Care c1e Comprehensi RE: high 1159084f-83 08/25 08/25 Comp ve Heart calcium/med 7a-410d-989 /2016 [facility] ication 0-620810t8u Car e 854 [facility] Inpatient [id number] Jennifer 12/06 12/07 AXEL [place] 9 Saravia /[address] [facility] Inpatient [id number] Juan 01/22 01/24 AXEL Rodriguez /2018 [facility] Emergency [id number] Ebelechukwu 02/06 02/06 AXEL [place] 2 Nelida /2018 [facility] Bedded [id number] Jass 03/01 03/01 AXEL [place] Outpatient 3 Woody /2018 [facility] Outpatient [id number] Luis 03/13 [facility] 1 [facility] [id number] Luis 03/13 [facility] 0 Prim [facility] Outpatient [id number] Jass 03/13 Active [facility] 3 Woody [facility] Ambulatory [id number] Domo 03/13 03/13 MH Comprehensi Pre-Reg 2 Brown /2018 [facility] Outpatient [id number] Jass 03/13 03/14 M H Comprehensi 3 Woody /[address] 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 DINING 03/15 [facility] e [facility] 4 VISIT [facility] Outpatient [id number] Luis 05/10 [facility] 5 Prim [facility] Outpatient [id number] Luis 05/15 [facility] 6 Prim [facility] Outpatient [id number] Luis 06/02 Active M [facility] 7 Prim [facility] Inpatient [id number] Luis 06/06 06/08 [facility] 4 Prim [facility] Outpatient [id number] Luis 06/12 Active [facility] 8 Prim [facility] Outpatient [id number] Jass 07/26 Active M [facility] 1 Woody [facility] Outpatient [id number] Jass 07/26 07/27 M H Comprehensi 1 Woody /[address] [facility] cady ve Heart Group [facility] Outpatient [id number] 08/15 Active M [facility] Outpatient [id number] 08/15 08/16 [facility] Outpatient [id number] Jass 09/07 Active [facility] 2 Woody [facility] Outpatient [id number] Jass 09/07 09/08 M H Comprehensi 2 Woody /2019 Medi cady ve Heart Group [facility] Outpatient [id number] Luis 09/11 Active M [facility] 0 Prim Jun Outpatient [id number] Luis 09/11 09/12 M [facility] 0 Primomo /2020 [id number] Jass 09/19 09/19 Jun Outpatient 5 Woody /2019 [facility] Between [id number] 10/04 10/05 MH Comprehensi Visit Medic al ve Heart Group Care [facility] Outpatient [id number] Jass 10/05 Active M [facility] 4 Woody /2020 [facility] Outpatient [id number] Jass 10/05 10/06 M H Comprehensi 4 Woody /2019 Medi cady ve Heart Group Care [facility] Between [id number] 11/06 11/07 MH Comprehensi Visit Medic al ve Heart Group Care [facility] Outpatient [id number] Luis 12/10 Active M [facility] 6 Primomo /2019 [facility] Outpatient [id number] Luis 12/10 Active M [facility] 3 Primomo /2019 Jun Outpatient [id number] Luis 12/10 12/11 M H Physicians 6 Primomo /2019 Medic al Bariatric Group Surgery Ambulatory [id number] Luis 12/10 12/10 M [facility]icians Pre-Reg 3 Primomo /2019 Medi cady Bariatric Group Surgery Between [id number] 12/21 12/22 Physicians Visit Medica l Bariatric Group Surgery Outpatient [id number] Jass 01/03 [facility] [id number] Jass 01/03 01/04 M H Comprehensi 5 Woody /2019 Medi cady ve Heart Group Care [facility] Between [id number] 03/18 03/19 Comprehensi Visit Medic al ve Heart Group Care [facility] Outpatient [id number] Jass 06/13 Active M [facility] 7 Woody /2019 [facility] Outpatient [id number] Jass 06/13 06/14 M H Comprehensi 7 Woody /2019 Medi cady ve Heart Group Care [facility] Outpatient [id number] Jass 12/10 Active M [facility] 8 Woody /2020 Jun Procedures Procedure Code Date Perfomer Comments Source Cardiac [id number] Medical catheterization, left Froylan up, heart [facility] Cardioversion [id number] Medical Group,[facility] Colon operation [id number] Medica l Group,[facility] Tonsillectomy [id number] Medical Group,[facility]es[id number] Gastric [id number] Dr. Ohara Medical bypass<sup>1</sup> Group, [facility] Lithotripsy [id number] Medical Group,[facility] Assessment and Plan Assessment and Plan Date Source Extracted from:Title: PCI Note 09/19/2019 [facility] Author: Jass Graves MD Date: 09/19/19 Coronary Angiogram with Percutaneous Coronary Intervention Patient name: HEIDI RUELAS Patient : 1950 Pre-Procedure Diagnosis: known severe di sease of the mid segment of the left circumflex coronary artery Post-Procedure Diagnosis: same, s/p successful PCI Procedure performed: - Percutaneous coronary intervention of the mid LCX Reset Merchandiser: Jass Lopes M.D. Family Lawyer: none Anesthesia: local lidocaine Sedation: moderate sedation Duration of Sedation: 60 minutes Reversal Agents Used: none Other Medications: none Specimens: none Estimated Blood Loss: 50 cc Grafts/Implants: Synergy 4.0x20 mm, mid LCX Contrast volume: 150 cc Complications: none Patient Condition: stable Procedure Narrative: The patient was evaluated and examined p rior to the procedure. The indications and rationale for the procedure were reviewed, and expected outcomes, benefits, and risks were discussed in detail. All que stions were answered to the satisfaction of the patient and any attendant family members, who agreed to proceed with coronary angiography and intervention. After transfer to the cardiac screedman/laborer, the patient was prepared and draped in the usual sterile fashion. Local anesthesia with 2% lidocaine was administered over the planned vascular access site, the r ight radial artery. Arterial access was obtained using the modified Seldinger technique, and a 6 [place] sheath was placed without difficulty. A cocktail of verapamil 2.5 mg and nitroglycerin 300 mcg was administered through the sheath. Hepari n 8000 units were given IV. He had already been administered chewable aspirin 325 mg and clopidogrel 600 mg. A 6 Fr XB3.5 guiding catheter was advanc ed over the 0.035" wire into the ascending aorta. This wire was removed and the catheter was aspirated to ensure no air was in the system. The catheter was t hen flushed in the usual manner. The tacos ding catheter was then seated into the left main ostium. Then a 0.014" Choice Floppy coronary wir e was inserted into the guiding catheter and advanced into the coronary artery and across the target lesion. Angiography revealed no significant trauma or co mplication from wire crossing. Then an E merge 3.0x20 mm balloon was advanced over the wire to the LCX, but there was a sharp bend in the proximal LCX, that prevented the balloon from advancing to the ta rget lesion, and started to kick the tacos de catheter out. Thus, a 6 FR Guideliner was advanced over the balloon to the proximal LCX. With this additional support, the balloon was able to reach the target lesion, where it was inflated. The ball oon was then removed from the body over the wire and a Synergy 4.0x20 mm stent was advanced to the lesion and deployed uneventfully. Post PCI angiography revealed adequate s tent expansion with no evidence of dissection or distal embolization. There was RADHA III flow distally. At this point the intervention was deemed successful and t he procedure completed. The wire and bal loon were removed from the coronary artery. The catheter was disengaged from the left main and removed from the body over a J wire. The sheath was aspirated and f lushed. A TR band was applied while the sheath was removed to achieve hemostasis. The patient was transferred to the holding area in stable condition. Post Procedure Findings: - Excellent results of PCI of the mid LCX - No evidence of complications Pre-Op RADHA Flow Grade: III Post-Op RADHA Flow Grade: III Plan: - triple therapy for at least one month with aspirin, plavix , Xarelto - will back off to plavix, Xarelto thereafter - home later today Extracted from:Title: Surgery Note 06/08/2019 [facility] Author: Dwight Reaagn (Fellow) DO Date: 06/07/19 69M s/p laparoscopic lizzy-en-y g astric bypass, intraoperative endoscopy; POD1 - advance to full liquids, monitor for toleration - continue IV hydration - convert to PO pain medication regimen: Tylenol and PRN Tr amadol - Zofran, Phenergan PRN - pertinent home meds resumed - continue OOB, ambulation and incentive spirometry - VTE ppx: Lovenox, SCDs; continue to h old home Xarelto, ASA 81 for one more day Anticipate discharge to home later today pending diet carlos ation Discussed with attending, Dr. Ohara Addendum by Luis Ohara MD on 06/07/2019 11:04 CDT No events. Tolerating diet Pain controll ed. Ambulating well. Abd soft, ND, appr TTP, wounds c/d/i. Cont protocol. Extracted from:Title: Coronary Angiography 03/01/2019 [facility] Author: Jass Graves MD Date: 03/01/19 Coronary Angiogram with FFR Patient name: HEIDI RUELAS Pre-Procedure Diagnosis: positive nuclea r stress test; multiple CAD risk factors - hypertension, hyperlipidemia, diabetes, family history of CAD; pre-operative evaluation prior to bariatric surgery Post-Procedure Diagnosis: severe two ves loulou coronary artery disease of the left circumflex coronary artery and right coronary artery; intermediate CAD of the left anterior descending coronary artery, negative by FFR Procedure performed: - Selective coronary angiogram of the left and right coronar y arteries - FFR of the proximal LAD Reset Merchandiser: Jass Lopes M.D. Family Lawyer: none Anesthesia: local lidocaine Sedation: moderate sedation (versed 3 mg) Specimens: none Estimated Blood Loss: 50 cc Grafts/Implants: none Constrast volume: 150 cc Complications: none Patient Condition: stable Procedure Narrative: The patient was evaluated and examined p rior to the procedure. The indications and rationale for the procedure were reviewed, and expected outcomes, benefits, and risks were discussed in detail. All que stions were answered to the satisfaction of the patient and any attendant family members, who agreed to proceed with coronary angiography and intervention. After transfer to the cardiac screedman/laborer, the patient was prepared and draped in the usual sterile fashion. Local anesthesia with 2% lidocaine was administered over the planned vascular access site, the r ight radial artery. Anatomic landmarks w ere evaluated using palpation and fluoroscopy. Arterial access was obtained using the modified Seldinger technique, and a 6 [place] sheath was placed without difficulty. A 5 Fr Augusta catheter was advanced over a soft-tip guide wire to the level of the ascending aorta where it was used to engage the left main coronary artery (LMCA). Contrast injections in multiple angula jessica views demonstrated the anatomy of th e left coronary artery (LCA) to our satisfaction. This catheter was then disengaged from the left main and used to engage the ostium of the right coronary artery (RCA). Contrast injections in multiple a ngulated views demonstrated the RCA anatomy to our satisfaction. This catheter was then withdrawn over the soft-tip guide wire, and removed from the body. Coronary Anatomy Left main: mild plaquing LAD: 40% proximal stenosis LCX: 80% mid LCX stenosis; large 4.0 mm, dominant RCA: small non-dominant vessel with a tu bular 80% stenosis of the proximal RCA, and a 90% stenosis of the mid RCA just beyond the RV marginal branch; the RCA distal to marginal is a 2.0 mm vessel, and is non-dominant, supplying a small territory After carefully reviewing the images and critically considering them within the context of the patient's medical presentation as well as alternative approaches for therapy including surgical revasc ularization and medical therapy, the dec ision was made to proceed with FFR of the LAD. Anticoagulation with heparin was initiated. A 6 Fr XB3.5 guiding catheter was advanc ed over the 0.035" wire into the ascending aorta. This wire was removed and the catheter was aspirated to ensure no air was in the system. The catheter was t hen flushed in the usual manner. The tacos ding catheter was then seated into the left main ostium. Then a 0.014" [place] pressure wi re was inserted into the guiding catheter and into the left main coronary artery where equalization of pressures was performed. The was then advanced beyond the lesion of interest in the LAD. An ad enosine infusion was begun at 140 mcg/kg/min. The infusion was continued for three minutes. The quyen FFR value was recorded at 0.94. A pullback confirmed no drif t. The wire was removed from the cathete r. The catheter was then removed from the body over a J wire. The sheath was aspirated and flushed. A TR band was applied as the sheath was removed, to achieve hemostasis. Post Procedure Findings: Coronary Anatomy Left main: mild plaquing LAD: 40% proximal stenosis; FFR 0.94 LCX: 80% mid LCX stenosis; large 4.0 mm, dominant RCA: small non-dominant vessel with a tu bular 80% stenosis of the proximal RCA, and a 90% stenosis of the mid RCA just beyond the RV marginal branch; the RCA distal to marginal is a 2.0 mm vessel, and is non-dominant, supplying a small territory Plan: - will discuss case with the patient's b ariatric surgeon; his coronary disease is stable in appearance, with no critical lesions, and is not located in a proximal location, that would make me concerned for his safety to undergo surgery - I will plan on staging his PCI of the left circumflex coronary artery until his bariatric surgery evaluation has been completed; if he is a candidate, I will plan on doing it after his operation; if lito chan is not felt to be a candidate for surg alecia, I will move forward with staged PCI Extracted from:Title: Cardiology Progress Note 01/24/2019 [facility] Author: Jass Graves MD Date: 01/24/19 Cardiology Progress Note Date of Visit: 01/24/2019 08:20 Patient Name: HEIDI RUELAS Date of : 1950 00:00 Admit Date: 01/22/2019 09:48 Chief Complaint: Follow-up for AF, HF, HTN Interval History: remains in rate controlled AF on amio drip ; BP improved Review of Systems: CV: no chest pain, no edema, + palpitations Resp: + shortness of breath, no coughing, no wheezing Vitals Tmp(F) Pulse BP RR SpO2 FIO2 01/24 06:00 ---- 60 137/97 14 92 --- 01/24 05:33 ---- 76 134/72 20 94 --- 01/24 04:00 97.7 57 134/86 14 94 --- 01/24 03:00 ---- 68 136/76 18 94 --- 01/24 02:00 ---- 62 136/87 15 91 --- 24 Hr Tmax: 98.3F (36.83c) at 01/23 16:0 0 Vital Signs are the last 5 in the past 48 hours. Physical Exam: General appearance: no acute distress Neck: no JVD Lungs: clear to auscultation bilaterally; no use of accessor y muscles CV: irregularly irregular rhythm; no murmurs, rubs or gallop s Abd: soft, no tenderness or masses Ext: no edema Laboratory Data: Labs (Last four charted values) WBC 8.0 (JESUS 18) 8.0 (JESUS 17) 7.7 (JESUS 16) Hgb L 13.5 (JESUS 1 8) L 13.2 (JESUS 17) L 13.5 (JESUS 16) Hct L 41.3 (JESUS 1 8) L 40.4 (JESUS 17) L 41.4 (JESUS 16) Plt 171 (JESUS 18) 156 (JESUS 17) 167 (JESUS 16) Na 140 (JESUS 18) 143 (JESUS 17) 144 (JESUS 16) K 4.6 (JESUS 18) L 3.4 (J UN 17) 4.3 (JESUS 16) CO2 32 (JESUS 18) 32 (JESUS 17) 29 (JESUS 16) Cl 102 (JESUS 18) 103 (JESUS 17) 109 (JESUS 16) Cr 1.08 (JESUS 18) 0.94 (JESUS 17) 0.99 (JESUS 16) BUN 19 (JESUS 18) 15 (JESUS 17) 17 (JESUS 16) Glucose Random H 161 (JU N 18) H 125 (JESUS 17) H 151 (JESUS 16) Mg 2.0 (JESUS 18) 1.8 (JESUS 17) Phos 3.7 (JESUS 18) 2.8 (JESUS 17) Ca 9.4 (JESUS 18) 9.0 (JESUS 17) 9.2 (JESUS 16) PT H 18.6 (JESUS 16) INR H 1.59 (JESUS 16) PTT H 36.9 (JESUS 16) Troponin 0.02 (JESUS 16) 0.02 (JESUS 16) Total CK 154 (JESUS 16) ASSESSMENT/PLAN: 68 YO M with morbid obesity, paroxysmal atrial fibrillation, diastolic heart failure and hypertension, who is admitted with atrial fibrillation with rapid ventricular response and resultant decompensation of diastolic heart failure # AF with RVR - transition to PO amiodarone tonight; continue amio drip to day - DAYRON/DCCV this AM - appreciate input from Dr. Schuler # Diastolic HF - continue IV lasix, aggressive KCl repletion # Hypertension - continue olmesartan, amlodipine, carvedilol - will add hydralazine if BP remains uncontrolled Extracted from:Title: HPI18 Author: Bry Dubois MD Date: 01/22/19 Impression and Plan CHF exacerbation possibly secondary to f rom diastolic dysfunction due to A. fib with RVR A. fib with RVR Rule out infectious process, less likely, check procalcitoni n History of gout Hypertension Hypercholesterolemia Diabetes Obesity Check procalcitonin level Try to wean off Cardizem drip Continue his home metoprolol, consider increasing it at this point Continue Xarelto for anticoagulation Monitor ins and outs closely Daily weights Cardiology consultation Echocardiogram Repeat x-ray after diuresis Continue IV diuresis with 40 mg IV Lasix every 12 hours Monitor electro lites and renal function DVT prophylaxis patient is already on Xarelto Extracted from:Title: History and Physical 12/07/2016 [facility] Author: Francois Galdamez MD Date: 12/06/16 Assessment/Plan Atrial fibrillation with rapid ventricular response Admit to telemetry Informatics Analyst- Dr. Sarkar Beta blockers Monitor BP and rhythm Cardiac enzymes Hypercholesteremia Hypertension Plan of Care No Data Provided for This Section Social History Social History Date Source Social History TypeResponse 01/04/2020 [facility] Alcohol Past, Type margaritas. Frequency: 1-2 t imes per month. 1 Drinks/Episode average. 1.00 Drinks/Episode maximum. Last use: December 2018. Started age 17 Years. Previous treatment: None. Alcohol use inte rferes with work or home: No. Drinks mo re than intended: No. Others hurt by drinking: No. Ready to change: No. Household alcohol concerns: No. Substance Abuse Use: None. Smoking Status Former smoker; Ready to change: Yes; Con cerns about tobacco use in household: No; Exposure to Tobacco Smoke None; Cigarette Smoking Last 365 Days No; Reg Smoking Cessation Counseling Yes entered on: 06/13/20 Social History TypeResponse 09/07/2019 [facility] Alcohol Current, Type margaritas. Frequency: 1- 2 times per month. 1 Drinks/Episode average. 1.00 Drinks/Episode maximum. Last use: December 2018. Started age 17 Years. Previous treatment: None. Alcohol use i nterferes with work or home: No. Drinks more than intended: No. Others hurt by drinking: No. Ready to change: No. Household alcohol concerns: No. Substance Abuse Use: None. Smoking Status Former smoker; Ready to change: Yes; Con cerns about tobacco use in household: No; Exposure to Tobacco Smoke None; Cigarette Smoking Last 365 Days No; Reg Smoking Cessation Counseling Yes entered on: 09/15/19 Social History ElementQualifiersDate Reported 06/11/2016 [facility] Caffeine: yes. frequency: 6 cups per day Jun 11, 2016 Tobacco Use: no. Smoking Status: former smoker Jun 11, 2016 Alcohol: socially. Jun 11, 2016 Family History No Data Provided for This Section Advance Directives No Data Provided for This Section Functional Status No Data Provided for This Section
--- OUTSIDE RECORDS SUMMARY | 2020-07-05 08:34 | XMS REPORT | Summary of Care ---
:1950 Author Organization [facility] Address [address] [place] [address] [address] [place] [address]- Encounter [facility] [employer]_[id number](FIN) [id number] Date(s): 06/13/20 - 06/13/[address], [address] [place] [address]- [phone] Discharge Disposition: Home or Self Care Attending Physician: Jass Ramírez MD Vital Signs Most recent to oldest [Reference Range]: 1 Height 175.26 cm (06/13/20 10:49 AM) Blood Pressure [90-140/60-90 mmHg] 136/78 mmHg (06/13/20 10:49 AM) Peripheral Pulse Rate [60-100 bpm] 48 bpm *LOW* (06/13/20 10:49 AM) Weight 87.727 kg (06/13/20 10:49 AM) Body Mass Index 28.56 m2 (06/13/20 10:49 AM) Problem List Condition Effective Dates Status Health Status Informant Atrial fibrillation(Confirmed) Active Excessive bleeding(Confirmed) Active CHF (congestive heart Resolved failure)(Confirmed) CAD (coronary artery Active disease)(Confirmed) Diastolic heart failure(Confirmed) Active Edema extremities(Confirmed) Resolved GERD (gastroesophageal reflux Resolved disease)(Confirmed) Gout(Confirmed) Resolved Hypercholesteremia(Confirmed) Resolved Hypertension(Confirmed) Active Urinary incontinence, male, Resolved stress(Confirmed) Morbid obesity due to excess Active calories(Confirmed) Morbid obesity(Confirmed) Active Prediabetes(Confirmed) Active Sleep apnea(Confirmed) Active Allergies, Adverse Reactions, Alerts No Known Allergies Medications No Known Medications Results No data available for this section Immunizations No data available for this section Procedures Procedure Date Related Diagnosis Body Site Status Cardiac catheterization, left heart Completed Cardioversion Completed Colon operation Completed Gastric bypass1 Completed Lithotripsy Completed Tonsillectomy Completed Transesophageal echocardiogram Completed 1Dr. Primomo Social History Social History Type Response Alcohol Past, Type margaritas. Freq uency: 1-2 times per month. 1 Drinks/Episode average. 1.0 0 Drinks/Episode maximum. Last use: December 2018. Started age 17 Y ears. Previous treatment: None. Alcohol use interferes with work or home: No. Drinks more than intended: No. Others hurt b y drinking: No. Ready to change: No. Household alcohol concerns: No. Substance Abuse Use: None. Smoking Status Former smoker; Ready to reddy ge: Yes; Concerns about tobacco use in household: No; Exposure to Tobacco Smoke None; Cigarette Smoking Last 365 Days No; Reg Smoking Cessation Counseling Yes entered on: 06/13/20 Assessment and Plan No data available for this section
--- OUTSIDE RECORDS SUMMARY | 2020-07-05 08:37 | XMS REPORT | Continuity of Care Document ---
:1950 Author Organization [facility] t Address [address] [place] [address] Care Team Providers Name Role Phone Ashley Graves Attending Clinician Javier Ohara Attending Clinician Tayler LERNER Attending Clinician Ene Avalos Attending Clinician Ap Og Attending Clinician Raman Krause Attending Clinician Luiz Rodriguez Attending Clinician NILO Attending Clinician Unavailable Manjit Attending Clinician Ene Martin Attending Clinician Javier Ohara Admitting Clinician Luiz Rodriguez Admitting Clinician Manjit Admitting Clinician Problems Condition Condition Condition Status Onset Resolution Last Treating Co mments Source Name Details Category Date Date Treatment Clinician Date CAD - PCI Diagnosis Active 2019-09-19 Memoria CIRCUMFLEX 1-30 05:54:00 l CAD - 00:00: Jun PCI 00 CIRCUMFLEX Active 09/07/2019 [facility] [id number], Diagnosis Active 2018-082019-06-16 Mem oria MORBID 0-22 22:12:00 l OBESITY [id number], 00:00: [place] MORBID 00 OBESITY Active 05/30/2019 [facility] DX;ABN Diagnosis Active 2019-03-01 Mem oria STRESS 7-19 06:29:00 l TEST DX;ABN 00:00: [place] STRESS 00 TEST Active 02/24/2019 [facility] RIGHT FOOT Diagnosis Active 2019-03-22 Memoria PAIN 7-01 15:14:00 l RIGHT 00:00: Jun FOOT PAIN 00 Active 02/06/2019 [facility] SHORTNESS Diagnosis Active 2019-01-24 Memoria OF BREATH 6-16 09:31:00 l 00:00: Jun SHORTNESS 00 OF BREATH Active 01/22/2019 [facility] NEW ONSET Diagnosis Active 2016-12-05 Memoria AFIB/FLUTT - 23:52:00 l ER NEW 00:00: [place] ONSET 00 AFIB/FLUTT ER Active 7 [facility] AFIB W/RVR Diagnosis Active 2016-12-16 Memoria 4 21:56:00 l AFIB 00:00: [place] W/RVR 00 Active 12/05/2016 [facility] CAD-I25.10 Diagnosis Active 2014-082015-05-21 Memoria 0-02 09:19:00 l 00:00: Jun CAD-I25.10 00 Active 05/10/2015 [facility] History of History of Problem Resolve [facility] diabetes diabetes d ity of mellitus mellitus [place] [facility] History of History of Problem Resolve [facility] Excessive Excessive d ity of bleeding bleeding [place] [facility] History of History of Problem Resolve [facility] gout gout d ity of [place] [facility] History of History of Problem Resolve [facility] hypertensi hypertensi d it y of on on [place] [facility] History of History of Problem Resolve [facility] kidney kidney d ity of stones stones [place] [facility] Left knee Left knee Problem Active Uni vers pain pain ity of [place] [facility] Chondromal Chondromal Problem Active U nivers acia of acia of ity of knee, left knee, left [place] [facility] BMI BMI Problem Active [facility] 45.0-49.9, 45.0-49.9, it y of adult adult [place] [facility] Patellofem Patellofem Problem Active U nivers oral oral [place] of disorder, [place] [facility] Final: Problem 2015-05-24 Memor ia Atheroscle 04:22:07 l rotic Final: Jun heart Athe[place] disease of rotic [place] heart coronary disease of artery [place] without coronary angina artery pectoris without angina pectoris 05/24/2015 [facility] Edema of Problem Resolve 2020-06-16 Me moria extremity d 01:06:19 l (finding) Edema of Her patel extremity (finding) Resolved Problem 06/16/2020 [facility] Gastroesop Problem Resolve 2020-06-16 Memoria hageal d 01:06:19 l reflux Jun disease Gastroesop (disorder) hageal reflux disease (disorder) Resolved Problem 06/16/2020 [facility] Gout Problem Resolve 2020-06-16 Alexei elmira (disorder) d 01:06:19 l Gout Jun (disorder) Resolved Problem 06/16/2020 [facility] Hyperchole Problem Resolve 2020-06-16 Memoria sterolemia d 01:06:19 l (disorder) Tobias n Hyperchole sterolemia (disorder) Resolved Problem 06/16/2020 [facility] Male Problem Resolve 2020-06-16 Alexei elmira urinary d 01:06:19 l stress Male Jun incontinen urinary ce stress (finding) incontinen ce (finding) Resolved Problem 06/16/2020 [facility] Congestive Problem Resolve 2020-06-16 Memoria heart d 01:06:19 l failure [place] (disorder) Congestive heart failure (disorder) Resolved Problem 06/16/2020 [facility] Hypertensi Problem Active 2018-08-26 M emoria on 03:07:19 l Jun Hypertensi on Active Problem 9 [facility] Morbid Problem Active 2018-08-26 Memor ia obesity 03:07:19 l Morbid Jun obesity Active Problem 08/26/2018 [facility] Coronary Problem Active 2018-08-26 Mem oria atheroscle 03:07:19 l rosis of Coronary Herm melinda [place] atheroscle vessel rosis of [place] vessel Active Problem 08/26/2018 [facility] Cardiomega Problem Active 2018-08-26 M emoria ly 03:07:19 l Jun Cardiomega ly Active Problem 9 [facility] Malignant Problem Active 2018-09-24 Me moria hypertensi 03:03:14 l on Jun Malignant hypertensi on Active Problem 9 [facility] Peripheral Problem Active 2018-09-24 M emoria edema 03:03:14 l [place] Peripheral edema Active Problem 09/24/2018 [facility] Coronary Problem Active 2018-09-24 Mem oria atheroscle 03:03:14 l rosis of Coronary Herm melinda [place] atheroscle coronary rosis of artery [place] coronary artery Active Problem 09/24/2018 [facility] Personal Problem Active 2018-09-24 Mem oria history of 03:03:14 l nicotine Personal Herm melinda dependence history of nicotine dependence Active Problem 09/24/2018 [facility] Venous Problem Active 2018-08-26 Memor ia (periphera 03:07:19 l l) Venous Jun insufficie (periphera ncy, l) unspecifie insufficie d ncy, unspecifie d Active Problem 08/26/2018 [facility] Venous Problem Active 2018-09-24 Memor ia insufficie 03:03:14 l ncy Venous Jun insufficie ncy Active Problem 09/24/2018 [facility] Morbid Problem Active 2018-09-24 Memor ia (severe) 03:03:14 l obesity Morbid Jun due to (severe) excess obesity calories due to excess calories Active Problem 09/24/2018 [facility] Hyperlipid Problem Active 2018-09-24 M emoriene emia, 03:03:14 l unspecifie Tboias n d Hyperlipid emia, unspecifie d Active Problem 09/24/2018 [facility] Atheroscle Problem Active 2018-09-24 M geeriene rotic 03:03:14 l heart [place] disease of Atheroscle [place] rotic coronary heart artery disease of with [place] unspecifie coronary d angina artery pectoris with unspecifie d angina pectoris Active Problem 09/24/2018 [facility] Cardiac Problem Active 2018-09-24 Alexei elmira arrhythmia 03:03:14 l , Cardiac [place] unspecifie arrhythmia d cardiac , arrhythmia unspecifie type d cardiac arrhythmia type Active Problem 09/24/2018 [facility] Chronic Diagnosis Active 2018-09-24 Me moria diastolic 03:03:14 l (congestiv Chronic Her patel e) heart diastolic failure (congestiv e) heart failure Active Diagnosis 09/24/2018 [facility] Paroxysmal Problem Active 2018-09-24 M emoria atrial 03:03:14 l fibrillati Tobias n on Paroxysmal atrial fibrillati on Active Problem 9 [facility] Arterioscl Problem Active 2018-09-24 M emoria erosis of 03:03:14 l both Jun carotid Arterioscl arteries erosis of both carotid arteries Active Problem 09/24/2018 [facility] Hyperchole Problem Active 2018-09-24 M emoria steremia 03:03:14 l [place] Hyperchole steremia Active Problem 09/24/2018 [facility] Body mass Problem Active 2018-09-24 Me moria index 03:03:14 l (BMI) of Body [place] 40.0-44.9 mass index in adult (BMI) of 40.0-44.9 in adult Active Problem 09/24/2018 [facility] Body mass Diagnosis Active 2018-09-24 Memoria index 03:03:14 l (BMI) of Body Jun 45.0-49.9 mass index in adult (BMI) of 45.0-49.9 in adult Active Diagnosis 09/24/2018 [facility] Atheroscle Problem Active 2015-11-07 M emoria rotic 03:20:51 l heart [place] disease of Atheroscle [place] rotic coronary heart artery disease of without [place] angina coronary pectoris artery without angina pectoris Active Problem 11/07/2015 [facility] Venous Diagnosis Active 2016-03-12 Mem oria insufficie 02:41:46 l ncy Venous [place] (chronic) insufficie (periphera ncy l) (chronic) (periphera l) Active Diagnosis 03/12/2016 [facility] Varicose Diagnosis Active 2016-03-12 M emoria veins of 02:41:46 l unspecifie Varicose He rmann d lower veins of extremitie unspecifie s with d lower other extremitie complicati s with ons other complicati ons Active Diagnosis 03/12/2016 [facility] Edema Diagnosis Active 2016-03-12 Mem oria 02:41:46 l Edema [place] Active Diagnosis 03/12/2016 [facility] Hypertensi Problem Active 2020-06-16 M emoria ve 01:06:19 l disorder, Jun systemic Hypertensi arterial ve (disorder) disorder, systemic arterial (disorder) Active Problem 06/16/2020 [facility] Morbid Problem Active 2020-06-16 Memor ia obesity 01:06:19 l (disorder) Morbid Herm melinda obesity (disorder) Active Problem 06/16/2020 [facility] Atrial Problem Active 2020-06-16 Memor ia fibrillati 01:06:19 l on Atrial Jun (disorder) fibrillati on (disorder) Active Problem 06/16/2020 [facility] Bleeds Problem Active 2020-06-16 Memor ia profusely 01:06:19 l (finding) Bleeds Terri nn profusely (finding) Active Problem 06/16/2020 [facility] Coronary Problem Active 2020-06-16 Mem oria arterioscl 01:06:19 l erosis Coronary Tobias n (disorder) arterioscl erosis (disorder) Active Problem 06/16/2020 [facility] Diastolic Problem Active 2020-06-16 Me moria heart 01:06:19 l failure Jun (disorder) Diastolic heart failure (disorder) Active Problem 06/16/2020 [facility] Prediabete Problem Active 2020-06-16 M emoria s 01:06:19 l (finding) [place] Prediabete s (finding) Active Problem 06/16/2020 [facility] Sleep Problem Active 2020-06-16 Memor ia apnea 01:06:19 l (finding) Sleep Tobias n apnea (finding) Active Problem 06/16/2020 [facility] ATHSCL Diagnosis Active 2015-05-21 Mem oria HEART 09:19:00 l DISEASE OF ATHSCL Herm melinda [place] [facility] CORONARY DISEASE OF [place] CORONARY Active [facility] PAROXYSMAL Diagnosis Active 2016-12-16 Memoria ATRIAL 21:56:00 l FIBRILLATI Tobias n ON PAROXYSMAL ATRIAL FIBRILLATI ON Active [facility] UNSPECIFIE Diagnosis Active 2019-01-24 Memoria D ATRIAL 09:31:00 l FIBRILLATI Tobias n ON UNSPECIFIE D ATRIAL FIBRILLATI ON Active [facility] HEART Diagnosis Active 2019-01-24 Mem oria FAILURE, 09:31:00 l UNSPECIFIE HEART Terri nn D FAILURE, UNSPECIFIE D Active [facility] ILLNESS, Diagnosis Active 2019-06-16 M emoria UNSPECIFIE 22:12:00 l D ILLNESS, Tobias n UNSPECIFIE D Active [facility] Allergies, Adverse Reactions, Alerts Allergy Allergy Status Severity Reaction(s) Onset Inactive Treating Comm ents Source Name Type Date Date Clinician Jas Mark Active Info Not Alexei emlira Available 1-17 l 00:00: Jun 00 No Known No Known Active Memori a Medicati Medicati l on on Jun Allergangelica Petersen s s Social History Social Habit Start Date Stop Date Quantity Comments Source Social History 2019-09-07 2019-09-07 [facility] H ermann 17:27:55 17:27:55 Caffeine: 2016-06-11 2016-06-11 [facility] Terri nn 00:00:00 00:00:00 Smoking Status Start Date Stop Date Source Never smoker [facility] Medications Ordered Filled Start Stop Current Ordering Indication Dosage Frequency Signature Comments Components Source Medication Medication Date Date Medication? Clinician (SIG) Name Name rivaroxaban Yes See Memori a 20 MG Oral 8-10 Instructio l Tablet 17:56: ns, TAKE 1 Terri nn [Xarelto] 00 TABLET BY MOUTH EVERY DAY, # 30 tab, 5 Refill(s), Pharmacy: [facility] #[id number], 175.26, cm, 12/11/19 9:38:00 CDT, Height, 93.409, kg, 01/04/20 11:14:00 CDT, Weight olmesartan 2019-0 Yes 20 mg = 1 Me moria 20 mg oral 5-28 tab, PO, l tablet 19:39: BID, # 180 Terri nn 00 tab, 4 Refill(s), Pharmacy: [facility] #[id number] amLODIPine 2019-0 Yes 5 mg = 1 Mem oria 5 mg oral 5-28 tab, PO, l tablet 19:39: Daily, # [place] 00 90 tab, 4 Refill(s), Pharmacy: [facility] #[id number] rosuvastati 2019- Yes See Memori a n 10 mg 3-31 Instructio l oral tablet 17:51: ns, # 30 He rmann 41 tab, Refill(s) 5, TAKE 1 TABLET BY MOUTH EVERY DAY, Pharmacy: [facility] #[id number] AMIODarone 2019-0 Yes See Memoria 200 mg oral 2-26 Instructio l tablet 17:46: ns, # 30 [place] 58 tab, Refill(s) 2, TAKE 1 TABLET BY MOUTH EVERY DAY, Pharmacy: [facility][id number] clopidogrel 2019- Yes 75 mg = 1 M emoria 75 mg oral 2-11 tab, PO, l tablet 17:41: Daily, # [place] 00 90 tab, 3 Refill(s), [id number] Hydralazine 2019- No 10 mg, Alexei elmira 09-19 Route: l 15:11: IVP, Q4H, [place] 00 Dosing Weight 107.727, kg, PRN, Start date: 09/19/19 9:11:00 RADIOLOGY TECHNICIAN, Duration: 30 day, Stop date: 10/19/19 9:10:00 CDT, systolic 170 Nitroglycer No 0.4 mg, Mem oria in 09-19 Route: SL, l 15:08: Drug form: Jun 00 TAB, Q5Min, Dosing Weight 107.727, kg, PRN Chest Pain, Start date: 09/19/19 9:08:00 RADIOLOGY TECHNICIAN, Duration: 3 doses or times, Stop date: Limited # of times Bariatric 2019-0 Yes Bariatric Mem oria Multivitami 2-07 Multivitam l n 18:16: in, 3 tab, Jun 00 PO, Daily ursodiol Yes 300 mg = 1 Mem oria 300 mg oral 1-30 cap, PO, l capsule 17:21: BID, 0 Jun 00 Refill(s) olmesartan 2018-08 Yes = 1 tab, Mem oria 20 mg oral 2-19 PO, Daily, l tablet 23:01: # 30 tab, Tobias n 12 0 Refill(s), [id number], THE PATIENT NEEDS AN APPOINTMEN T WITH DR GRAVES olmesartan 2018- No 20 mg = 1 Me moria 20 mg oral 2-19 tab, PO, l tablet 01:28: Daily, # [place] 00 30 tab, 0 Refill(s), other carvedilol 2018-08 Yes 6.25 mg = Me moria 6.25 mg 2-19 1 tab, PO, l oral tablet 00:32: BID, # 180 00 tab, 0 Refill(s), [id number] olmesartan 2018-08 No 20 mg = 1 Me moria 20 mg oral 2-19 tab, PO, l tablet 00:32: Daily, # [place] 00 30 tab, 0 Refill(s), Pharmacy: [facility] #[id number] Centrum 2018-08 Yes PO, Daily, Alexei elmira Silver 2-18 0 l Men's 20:29: Refill(s) Vitamin D3 2018-08 Yes Daily, 0 Mem oria 2-18 Refill(s) l 20:29: Acetaminoph 2018-08 No Notes: Do M emoria en 0-30 not exceed l 21:07: 4 gm/day. (Same as: Tylenol) Fenofibrate 2018-08 No 160 mg, 1 M emoria 160 MG Oral 0-30 tab, l Tablet 14:00: Route: PO, Terri Drug form: TAB, Daily, Dosing Weight 129.091, kg, Start date: 06/07/19 9:00:00 CDT, Duration: 30 day, Stop date: 07/06/19 9:00:00 RADIOLOGY TECHNICIAN oxybutynin 2018-08 No Notes: Memor ia 0-30 (Same as: l 14:00: Ditropan XL) "Do Not Crush" fenofibrate 2018-08 No Notes: Alexei elmira 0-30 (Same as: l 14:00: Tricor) Protonix 2018-08 No Notes: For Mem oria 0-30 IV push l 14:00: reconstitu te with 10 ml 0.9% sodium chloride and push over 2 minutes. (Same as: Protonix) carvedilol 2018-08 No Notes: Memor ia 0-30 Give with l 02:00: food. (Same As: Coreg) rosuvastati 2018-08 No Notes: Alexei elmira n 0-30 (Same As: l 02:00: Crestor) Ofirmev 2018-08 No Notes: Max Alexei elmira 0-29 acetaminop l 23:00: hen 4000 00 mg/day (4 gm/day). (Same as: Tylenol Extra Strength) Allopurinol 2018-08 No Notes: Alexei elmira 0-29 (Same as: l 22:00: Zyloprim) Amiodarone 2018-08 No Notes: Memor ia 0-29 (Same as: l 22:00: Cordarone) Lovenox 2018-08 No Notes: Memoria 0-29 (Same as: l 22:00: Lovenox) 72 HR 2018-08 No Notes: Memoria Scopolamine 0-29 Change l 0.0139 22:00: patch Jun MG/HR 00 every 72 Transdermal hours Patch (Same as: Transderm- Scop) pantoprazol 2018-08 Yes 40 mg = 1 M emoria e 40 mg 0-29 tab, PO, l oral 21:10: Daily, # Jun enteric 00 30 tab, 1 coated Refill(s) tablet tramadol 2018-08 No 50 mg, PO, Mem oria hydrochlori 0-29 Q4H, PRN l de 50 MG 21:10: Pain Score Her patel Oral Tablet 00 4-6, X 3 day, # 18 tab, 0 Refill(s) Sucralfate 2018-08 Yes 1 gm = 1 Mem oria 1000 MG 0-29 tab, PO, l Oral Tablet 21:10: QID-Before Jun [Carafate] 00 Meals, crush and mix with 5-10mL water, # 56 tab, 0 Refill(s) ondansetron 2018-08 No Route: IV, Memoria (ANES) 0-29 Drug form: l 21:07: INJ, ONCE, Jun 00 Stop date: 06/06/19 16:07:00 CDT sugammadex 2018-08 No Route: IV, M emoria (ANES) 0-29 Drug form: l 21:07: SOLN, Jun 00 ONCE, Stop date: 06/06/19 16:07:00 CDT Calcium 2018-08 No 1,000 mL, Memor ia Chloride 0-29 Rate: 150 l 0.0014 21:07: ml/hr, MEQ/ML / 00 Infuse Potassium over: 6.7 Chloride hr, Route: 0.004 IV, Dosing MEQ/ML / Weight Sodium 129.091 Chloride kg, Total 0.103 Volume: MEQ/ML / 1,000, Sodium Start Lactate date: 0.028 06/06/19 MEQ/ML 16:07:00 Injectable CDT, Solution Duration: 30 day, Stop date: 07/06/19 16:06:00 RADIOLOGY TECHNICIAN, 2.51, m2, 0 tramadol 2018-08 No Notes: Not Mem oria hydrochlori 0-29 to exceed l de 50 MG 21:07: 400mg/day. Her patel Oral Tablet 00 (Same As: Ultram) Dilaudid 2018-08 No Notes: Memoria 0-29 Same as l 21:07: Dilaudid Jun 00 Labetalol 2018-08 No Notes: Memori a 0-29 (Same as: l 21:07: Normodyne, [place] 00 Trandate) Push over 2 minutes Give bolus over 2-3 minutes. Hydralazine 2018-08 No Notes: Alexei elmira 0-29 (Same as: l 21:07: Apresoline [place] 00 ) Push over 5 minutes Insulin 2018-08 No Notes: Memoria regular 0-29 (Same as: l 21:07: Humulin R) Roll in palms of hands gently; Do not shake vigorously . WASTE: F/P - Black; E - Municipal Trash Bin Stable for 31 days at room temperatur e Expires in days from ____Date Ondansetron 2018-08 No Notes: Alexei elmira 0-29 (Same as: l 21:07: Zofran) MEDICATION WASTE Product Size: 4 mg Product Wasted: ___ mg fentaNYL 2018-08 No Route: IV, Mem oria (ANES) 0-29 Drug form: l 20:32: INJ, ONCE, Stop date: 06/06/19 15:32:00 CDT rocuronium 2018-08 No Route: IV, M emoria (ANES) 0-29 Drug form: l 20:32: INJ, ONCE, Stop date: 06/06/19 15:32:00 CDT ePHEDrine 2018-08 No Route: IV, Me moria (ANES) 0-29 Drug form: l 19:36: INJ, ONCE, Stop date: 06/06/19 14:36:00 CDT fentaNYL 2018-08 No Route: IV, Mem oria (ANES) 0-29 Drug form: l 19:25: INJ, ONCE, Stop date: 06/06/19 14:25:00 CDT lidocaine 2018-08 No Route: IV, Me moria (ANES) 0-29 Drug form: l 19:25: INJ, ONCE, Stop date: 06/06/19 14:25:00 CDT propofol 2018-08 No Route: IV, Mem oria (ANES) 0-29 Drug form: l 19:25: INJ, ONCE, Stop date: 06/06/19 14:25:00 CDT rocuronium 2018-08 No Route: IV, M emoria (ANES) 0-29 Drug form: l 19:25: INJ, ONCE, Stop date: 06/06/19 14:25:00 CDT ceFAZolin 2018-08 No Route: IV, Me moria (ANES) 0-29 Drug form: l 19:25: INJ, ONCE, Stop date: 06/06/19 14:25:00 CDT acetaminoph 2018-08 No Route: IV, Memoria en (ANES) 0- Drug form: l 19:25: INJ, ONCE, Stop date: 06/06/19 14:25:00 CDT ondansetron 2018-08 No Route: IV, Memoria (ANES) 0-29 Drug form: l 19:25: INJ, ONCE, Stop date: 06/06/19 14:25:00 CDT dexamethaso 2018-08 No Route: IV, Memoria ne (ANES) 0-29 Drug form: l 19:25: INJ, ONCE, Stop date: 06/06/19 14:25:00 CDT famotidine 2018-08 No Route: IV, M emoria (ANES) 0-29 Drug form: l 19:25: INJ, ONCE, Stop date: 06/06/19 14:25:00 CDT Sodium 2018-08 No 500 mL, Memoria Chloride 0-29 1500 l 0.9% 18:54: ml/hr, Jun (Bolus) IV 00 Infuse Over: 20 minutes, Route: IV, 500, Drug form: INJ, ONCE, Dosing Weight 129.091 kg, Start date: 06/06/19 13:54:00 CDT, Stop date: 06/06/19 13:54:00 CDT, 0 Hydralazine 2018-08 No Notes: Alexei elmira 0-29 (Same as: l 18:54: Apresoline Ujn ) Push over 5 minutes Labetalol 2018-08 No Notes: Memori a 0-29 (Same as: l 18:54: Normodyne, Jun Trandate) Push over 2 minutes Give bolus over 2-3 minutes. Acetaminoph 2018-08 No Notes: Max Memoria en 0-29 acetaminop l 18:54: hen 4000 Jun 00 mg/day (4 gm/day). (Same as: Tylenol Extra Strength) Morphine 2018-08 No Notes: Memoria 0-29 (Same l 18:54: as:MORPhin Jun 00 e Sulfate) Hydromorpho 2018-08 No Notes: Alexei elmira ne 0-29 Same as l 18:54: Dilaudid [place] 00 Flumazenil 2018-08 No Notes: Memor ia 0-29 (Same as: l 18:54: Romazicon) Naloxone 2018-08 No Notes: Memoria 0-29 Same as l 18:54: Narcan Albuterol 2018-08 No Notes: SEE Me moria 0.83 MG/ML 0-29 RT l Inhalant 18:54: DOCUMENTAT Her patel Solution 00 ION (Same as: Proventil) Diphenhydra 2018-08 No Notes: Alexei elmira mine 0-29 (Same as: l 18:54: Benadryl) [place] 00 Ondansetron 2018-08 No Notes: Alexei elmira 0-29 (Same as: l 18:54: Zofran) MEDICATION WASTE Product Size: 4 mg Product Wasted: ___ mg Promethazin 2018-08 No Notes: Do M emoria e 0-29 not give l 18:54: IV push. Jun 00 (Same as: Phenergan) Sodium 2018-08 No Route: IV, Memor ia Chloride 0-29 Total l 0.9% IV 18:23: Volume: Jun (ANES) 1000 00 1,000, mL Start date: 06/06/19 13:23:00 CDT, Stop date: 06/06/19 14:23:00 CDT ceFAZolin + 2018-08 No Notes: Alexei elmira sterile 0-29 (Same As: l water 30 mL 03:00: Ancef, Herm melinda 00 Kefzol) MEDICATION WASTE Product Size: 1000 mg Product Wasted: ___ mg Nitroglycer No 0.4 mg, Mem oria in 03-01 Route: SL, l 15:37: Drug form: [place] 00 TAB, Q5Min, Dosing Weight 136.364, kg, PRN Chest Pain, Start date: 03/01/19 10:37:00 CDT, Duration: 3 doses or times, Stop date: Limited # of times Allopurinol Yes 100 mg, Mem oria 24 PO, BID, 0 l 12:22: Refill(s) [place] 00 AMIODarone Yes 200 mg = 1 M emoria 200 mg oral 7-22 tab, PO, l tablet 18:03: BID [place] 00 Hydralazine No 25 mg = 1 M emoria Hydrochlori 7-22 tab, PO, l de 25 MG 16:46: TID [place] Oral Tablet 00 carvedilol Yes 12.5 mg = Me moria 12.5 mg 6-18 1 tab, PO, l oral tablet 19:34: Q12H, # 60 [place] 00 tab, 0 Refill(s), [facility] amLODIPine Yes 10 mg = 1 Me moria 10 mg oral 6-18 tab, PO, l tablet 19:34: Daily, # [place] 00 30 tab, 0 Refill(s), [facility] AMIODarone Yes 400 mg = 2 M emoria 200 mg oral 6-18 tab, PO, l tablet 19:34: TID, # 180 Terri nn 00 tab, 0 Refill(s), [facility] Benzocaine No Notes: Memor ia 140 MG/ML / 18 (Same As: l butamben 20 16:00: Cetacaine) MG/ML / 00 Cetacaine Tetracaine (benzocain 20 MG/ML e-tetracai Mucosal ne-butambe [place] n 14-2-2%) [Cetacaine] Amiodarone No 400 mg, Alexei elmira 6-17 Route: PO, l 22:00: Drug form: TAB, BID, Dosing Weight 142, kg, Start date: 01/23/19 17:00:00 CDT, Duration: 30 day, Stop date: 02/22/19 9:00:00 CDT Potassium No Notes: Memori a Chloride 01-23 (Same as: l 21:56: K-Dur 20) "Do Not Crush" Give with food and full glass of water For patients unable to swallow tablet, dissolve in one half glass of water. Allow about 2 minutes for the tablets to disintegra te. Stir before giving to prepare slurry and administer . Please exclude Patient s with feeding tube less than 14 [place] (Dobhoff, J-tube etc) and pediatric and patients. Amiodarone No Notes: Memor ia 6-17 (Same as: l 14:16: Cordarone) carvedilol No Notes: Memor ia 6-17 Give with l 14:00: food. (Same As: Coreg) Fenofibrate No 160 mg, 1 M emoria 160 MG Oral -17 tab, l Tablet 14:00: Route: PO, Terri Drug form: TAB, Daily, Dosing Weight 144.091, kg, Start date: 01/23/19 9:00:00 CDT, Duration: 30 day, Stop date: 02/21/19 9:00:00 CDT Potassium No 40 mEq, Memor ia Chloride 01-23 Route: PO, l 14:00: Drug form: ERTAB, Daily, Dosing Weight 142, kg, Start date: 01/23/19 9:00:00 CDT, Duration: 30 day, Stop date: 02/21/19 9:00:00 CDT Amlodipine No Notes: Memor ia 6-17 (Same as: l 14:00: Norvasc) AMIODarone No 2 mg/ml. Me moria 900 mg in 01-23 "Recommend l D5W 500 ml 13:22: ation: Use H ermann IV 900 mg + 00 an in-line Dextrose 5% filter in Water IV during 482 mL administra tion for continuous infusions to reduce the incidence of phlebitis" (Same as Codarone) MEDICATION WASTE Product Size: 150 mg Product Wasted: ___ mg Acetaminoph No Notes: Max Memoria en 01-23 acetaminop l 11:32: hen = [place] 00 4000mg/day (4 gm/day). (Same as: Tylenol) Potassium No Notes: Memori a Chloride 01-23 Infuse at l 11:00: a rate of 10 mEq/hr. (Same as: KCL) Digoxin No Notes: Memoria -17 (Same as: l 04:00: Lanoxin) Saline No 10 ml, Memoria Flush 0.9% 01-23 Route: l 02:00: IVP, Drug Form: INJ, Dosing Weight 144.091, kg, Q12H, Start date: 01/22/19 21:00:00 CDT, Duration: 30 day, Stop date: 02/21/19 9:00:00 CDT Furosemide No Notes: Memor ia 01-23 (Same as: l 02:00: Lasix) MEDICATION WASTE Product Size: 40 mg Product Wasted: ___ mg rosuvastati No Notes: Alexei elmira n -17 (Same As: l 02:00: Crestor) Xarelto No Notes: Memoria 6-16 (Same as: l 22:00: Xarelto) Administer with food pantoprazol No Notes: Alexei elmira e 6-16 Tablet l 21:30: should not Jun 00 be chewed or crushed. (Same as: Protonix) Digoxin No Notes: Memoria 6-16 (Same as: l 21:27: Lanoxin) [place] 00 fenofibrate No Notes: Alexei elmira 6-16 (Same as: l 20:00: Tricor) [place] 00 Aspirin 81 No Notes: Do Me moria MG Enteric 6-16 not crush l Coated 20:00: or chew. [place] Tablet 00 (Same As: Ecotrin) oxybutynin No Notes: Memor ia 6-16 (Same as: l 20:00: Ditropan [place] 00 XL) "Do Not Crush" olmesartan No 20 mg, 1 Mem oria 6-16 tab, l 20:00: Route: PO, Jun 00 Drug form: TAB, Daily, Dosing Weight 144.091, kg, Start date: 01/22/19 15:00:00 CDT, Duration: 30 day, Stop date: 02/21/19 9:00:00 CDT Centrum No Notes: Memoria 6-16 (Same l 20:00: as:Thera-M Jun 00 , Theragran- M) WASTE: F/P - Black; E - Municipal Trash Bin Give with food. 24 HR No Notes: Memoria Metoprolol 6-16 (Same as: l Tartrate 50 20:00: Toprol XL) Jun MG Extended May split Release tab, but Tablet do not [Toprol] crush. Insulin No Notes: [facility]oria Lispro 6-16 (Same as: l 18:28: Humalog) 00 Roll in palms of hands gently; Do not shake vigorously . WASTE: F/P - Black; E - Municipal Trash Bin Stable for 28 days at room temperatur e. Expires in days from ____Date Dextrose 2018- No 12.5 gm, Memor ia 50% Syringe 6-16 25 mL, l 18:28: Route: [place] 00 IVP, Drug Form: INJ, Dosing Weight 144.091, kg, PRN, PRN Blood Glucose Results, Start date: 01/22/19 13:28:00 CDT, Duration: 30 day, Stop date: 02/21/19 13:27:00 CDT Glucagon No 1 mg, Memoria 6-16 Route: IM, l 18:28: Drug form: PDR/INJ, PRN, Dosing Weight 144.091, kg, PRN Blood Glucose Results, Start date: 01/22/19 13:28:00 CDT, Duration: 30 day, Stop date: 02/21/19 13:27:00 CDT Sodium 2019-0 No 25 mL, Memoria Chloride 01-22 Route: IV, l 0.9% IV 17:55: Start date: 01/22/19 12:55:00 CDT, Duration: 30 day, Stop date: 02/21/19 12:54:00 CDT, PRN Line Flush BD Normal No Notes: Memori a Saline 01-22 (Same as: l Flush 17:55: BD Posiflush) Saline No 10 ml, [facility] Flush 0.9% 01-22 Route: l 16:45: IVP, Drug Form: INJ, Dosing Weight 144.091, kg, PRN, PRN Line Flush, Start date: 01/22/19 11:45:00 CDT, Duration: 30 day, Stop date: 02/21/19 11:44:00 CDT Aspirin 81 2018-0 Yes 81 mg = 1 Me moria MG Enteric 6-16 tab, PO, l Coated 16:37: Daily [place] Tablet 00 oxybutynin Yes 10 mg = 1 Me moria 10 mg oral 6-16 tab, PO, l tablet, 16:37: Daily Jun extended 00 release Furosemide Yes 40 mg = 1 Me moria 40 MG Oral 6-16 tab, PO, l Tablet 16:37: Daily Jun 00 pantoprazol 0 Yes 40 mg = 1 M emoria e 40 mg 6-16 tab, PO, l oral 16:37: Daily [place] enteric 00 coated tablet Fenofibrate Yes 160 mg = 1 Memoria 160 MG Oral 6-16 tab, PO, l Tablet 16:37: Daily Jun 00 olmesartan 0 Yes 20 mg = Alexei elmira 40 mg oral 6-16 0.5 tab, l tablet 16:36: PO, Daily Tobias n 00 potassium Yes 20 mEq = 1 Me moria chloride 20 6-16 tab, PO, l mEq oral 16:36: Daily Jun tablet, 00 extended release rivaroxaban Yes 20 mg = 1 M emoria 20 MG Oral 6-16 tab, PO, l Tablet 16:35: QPM [Xarelto] Metoprolol No 50 mg = 1 Me moria Succinate 6-16 tab, PO, l ER 50 mg 16:35: Daily [place] oral 00 tablet, extended release rosuvastati Yes 10 mg = 1 M emoria n 10 mg 6-16 tab, PO, l oral tablet 16:35: Bedtime Her patel Metformin Yes 500 mg = 1 Me moria hydrochlori 6-16 tab, PO, l de 500 MG 16:35: Before Tobias n Oral Tablet 00 Dinner Lasix No Notes: Memoria -16 (Same as: l 16:28: Lasix) MEDICATION WASTE Product Size: 40 mg Product Wasted: ___ mg Diltiazem No Notes: Memori a 16 (Same as: l 16:28: Cardizem) Diltiazem No 10 mg, Memori a 6-16 Route: l 16:27: IVP, ONCE, Dosing Weight 144.091, kg, Priority: STAT, Start date: 01/22/19 11:27:00 CDT, Stop date: 01/22/19 11:27:00 CDT Diltiazem No 10 mg, Memori a 16 Route: l 15:35: IVP, ONCE, Dosing Weight 144.091, kg, Priority: STAT, Start date: 01/22/19 10:35:00 CDT, Stop date: 01/22/19 10:35:00 CDT fenofibrate Yes Jass 1 tab(s) M emoria 2-16 [place] l 03:03: metformin Yes Jass 1 tab(s) Mem oria 2-16 [place] l 03:03: aspirin 0 Yes Jass 1 tab(s) [facility] ia 2-16 [place] l 03:03: Jun 14 Centrum 2019-0 Yes Jass 1 tab(s) [facility] ia Silver 2-16 [place] l 03:03: 14 Amlodipine 2019-0 Yes Jass 1 tab(s) Me moria Besylate 2-16 [place] l 03:03: Jun 14 losartan 2019-0 Yes Jass 1 tab(s) Alexei elmira 2-16 [place] l 03:03: 14 Crestor 2019-0 Yes Jass 1 tab(s) [facility] ia 2-16 [place] l 03:03: 14 Xarelto 2019-0 Yes Jass 1 tab Memoria 2-16 [place] l 03:03: 14 furosemide 2019-0 Yes Jass 1 tab(s) Me moria 2-16 [place] l 03:03: pantoprazol 2019-0 Yes Jass 1 tab(s) M emoria e 2-16 [place] l 03:03: Olmesartan 2019-0 Yes Jass 1 tab(s) Me moria Medoxomil 1-17 [place] l 00:00: [place] 00 allopurinol 2018- Yes Jass 1 tab(s) M emoria 2-07 [place] l 03:14: 11 Metoprolol 2017-08 Yes Jass 1 tab(s) Me moria Succinate 1-29 [place] l ER 00:00: [place] 00 K-Tab 2018-0 Yes Saji 1 tab(s) Memoria 9-14 [place] l 02:04: Jun 20 Klor-Con 20180 Yes Jass 1 tab(s) Alexei elmira M20 9-13 [place] l 00:00: [place] 00 verapamil 2018-0 Yes Saji 1 cap(s) Alexei elmira 4-03 Martin l 00:00: Jun 00 losartan 2017 Yes Saji 1 tab(s) Memor ia 1-18 [place] l 03:04: Jun 35 Nexium 2017 Yes Saji 1 cap(s) Memoria 1-18 [place] l 03:04: Jun 35 Crestor 2016-08 Yes Saji 1 tab(s) Memori a 1-16 [place] l 00:00: Jun 00 Xarelto 2016-08 Yes Saji 1 tab Memoria 1-08 [place] l 00:00: Jun 00 verapamil Yes Jass 1 tab(s) Mem oria 8-25 [place] l 00:00: verapamil Yes Saji 1 cap(s) Alexei elmira 8-25 [place] l 00:00: [place] 00 Xarelto Yes Saji TAKE 1 Memoria 8-08 [place] TABLET BY l 02:02: MOUTH [place] 59 EVERY EVENING flecainide Yes Saji 1 tab(s) Mem oria 8-07 [place] l 00:00: Jun 00 flecainide Yes Jass 1 tab(s) Me moria 8-07 [place] l 00:00: flecainide Yes Saji 1 tab(s) Mem oria 8-07 [place] l 00:00: [place] 00 Xarelto Yes Saji 1 tab Memoria 5-30 Martin l 00:00: verapamil Yes Saji 1 cap(s) Alexei elmira 5-30 Martin l 00:00: verapamil No Notes: Do Mem oria 24 hour 02 not crush l extended 02:00: or chew. Terri nn release 00 (Same As: Calan SR, Isoptin SR) "Avoid grapefruit and grapefruit juice" Xarelto No Notes: Memoria 5-01 (Same as: l 22:00: Xarelto) Jun 00 Administer with food Protonix No Notes: Memoria 5-01 Tablet l 21:30: should not [place] 00 be chewed or crushed. (Same as: Protonix) rivaroxaban Yes 20 mg, PO, Memoria 20 MG Oral 5-01 QPM, # 30 l Tablet 14:35: tab, 0 Jun [Xarelto] 00 Refill(s) verapamil Yes 180 mg, Memor ia 180 mg oral 5-01 PO, l tablet, 14:35: Bedtime, # Herm melinda extended 00 30 tab, 0 release Refill(s) flecainide Yes 50 mg = 1 Me moria 50 mg oral 5-01 tab, PO, l tablet 14:35: Q12H, # Jun 00 180 tab, 0 Refill(s) Pravastatin No Notes: Alexei elmira 5-01 (Same as: l 14:00: Pravachol) potassium No Notes: Memori a chloride 5-01 (Same as: l 14:00: K-Dur 20) "Do Not Crush" With food and full glass of water Fenofibrate No Notes: Alexei elmira 5-01 Non-Formul l 14:00: elise [facility] (Same as: Tricor) Furosemide No Notes: Memor ia - (Same as: l 14:00: Lasix) May cause GI upset. Give with food or milk. Esomeprazol No 40 mg, Alexei elmira e 5- Route: PO, l 14:00: Daily, Dosing Weight 138.002, kg, Start date: 12/07/16 9:00:00 CDT, Duration: 30 day, Stop date: 01/05/17 9:00:00 CDT Aspirin No Notes: Memoria 5-01 Take with l 14:00: food. Allopurinol No Notes: Alexei elmira 5- (Same as: l 14:00: Zyloprim) Coreg No Notes: Memoria 5-01 Give with l 02:00: food. (Same As: Coreg) Sodium No 25 mL, Memoria Chloride 30 Route: IV, l 0.9% IV 18:02: Start date: 12/06/16 13:02:00 CDT, Duration: 30 day, Stop date: 01/05/17 13:01:00 CDT, PRN Line Flush BD Normal No Notes: Memori a Saline -30 (Same as: l Flush 18:02: BD Posiflush) Lovenox No Notes: Memoria 4-30 Nurse to l 17:00: ensure documentat ion of patient education per anticoagul ation policy. (Same as: Lovenox) Cardizem No Notes: Memoria 4-30 (Same as: l 17:00: Cardizem) Before meals Saline No Notes: Memoria Flush 0.9% 4-30 (Same as: l 14:00: BD Posiflush) pantoprazol No Notes: For Memoria e 4-30 IV push l 14:00: reconstitu te with 10 ml 0.9% sodium chloride and push over 2 minutes. (Same as: Protonix) metoprolol No Notes: Memor ia extended 4-30 (Same as: l release 14:00: Toprol XL) Do Not Crush Tylenol No Notes: Do Memor ia 4-30 not exceed l 06:09: 4 gm/day. (Same as: Tylenol) Trazodone No Notes: Memori a 4-30 (Same As: l 06:08: Desyrel) Ondansetron No Notes: Alexei elmira 4-30 (Same as: l 06:07: Zofran) Saline No Notes: Memoria Flush 0.9% 4-30 (Same as: l 06:07: BD Posiflush) Amlodipine Yes 10 mg, PO, M emoria 4-30 Daily, 0 l 03:48: Refill(s) Esomeprazol Yes 40 mg, PO, Memoria e 4-30 Daily, 0 l 03:48: Refill(s) potassium Yes 40 mEq, Memor ia chloride 4-30 PO, Daily, l 03:48: 0 Refill(s) Losartan Yes 100 mg, Memori a 4-30 PO, Daily, l 03:48: 0 Refill(s) Atenolol No 50 mg, PO, Mem oria 4-30 Daily, 0 l 03:48: Refill(s) Metformin Yes 500 mg, Memor ia 4-30 PO, Daily, l 03:48: 0 Refill(s) Furosemide Yes 40 mg, PO, M emoria 4-30 Daily, 0 l 03:48: Refill(s) Fenofibrate 20170 Yes 160 mg, Mem oria 4-30 PO, Daily, l 03:48: 0 Refill(s) Centrum 20170 Yes PO, Daily, Alexei elmira 4-30 0 l 03:48: Refill(s) Aspirin 0 No 81 mg, PO, Alexei elmira 4-30 Daily, 0 l 03:48: Refill(s) Allopurinol Yes 200 mg, Mem oria 4-30 PO, Daily, l 03:48: 0 Refill(s) Pravastatin 2017 Yes 40 mg, PO, Memoria 4-30 Daily, # l 03:48: 30 tab, 0 Refill(s) Zyrtec 2015-08 Yes Saji 1 tab(s) Memoria 1-08 Martin l 03:24: Centrum 2015-08 Yes Saji 1 tab(s) Memori a Silver 1-08 Martin l 03:24: aspirin 2015-08 Yes Saji 1 tab(s) Memori a 1-08 Martin l 03:24: lansoprazol 2015-08 Yes Saji 1 tab(s) Me moria e 1-08 Martin l 03:24: fenofibrate 2015-08 Yes Saji 1 tab(s) Me moria 0-27 Martin l 00:00: K-Tab 2016-0 Yes Saji 1 tab(s) Memoria 3-31 Martin l 00:00: Amlodipine 2016-0 Yes Saji 1 tab(s) Mem oria Besylate 3-31 Martin l 00:00: furosemide 2016-0 Yes Saji 1 tab(s) Mem oria 3-31 Martin l 00:00: furosemide 2016-0 Yes Saji 1 tab(s) Mem oria 3-31 [place] l 00:00: Cephalexin 2016-0 Yes Saji 1 cap(s) Mem oria Monohydrate 3-31 Martin l 00:00: K-Tab 2016-0 Yes Saji 1 tab(s) Memoria 3-31 [place] l 00:00: [place] 00 Amlodipine 2016-0 Yes Saji 1 tab(s) Mem oria Besylate 3-31 Martin l 00:00: allopurinol Yes Saji 1 tab(s) Me moria 1-07 Martin l 00:00: Tricor 0 No Saji 1 tab(s) Memoria 7-15 Martin l 02:25: Tekturna No Saji 1 tab(s) Memor ia HCT 7-15 Martin l 02:25: allopurinol Yes Saji 1 tab(s) Me moria 7-15 Martin l 02:25: Edarbyclor Yes Saji 1 tab(s) Mem oria 6-04 Martin l 00:00: carvedilol 2013-08 No Saji 1 tab(s) Mem oria 2-25 Martin l 03:34: amlodipine 2013-08 No Saji 1 tab(s) Mem oria 2-25 Martin l 03:34: Sectral 2013-08 Yes [place] 1 cap(s) Memor ia 1-03 Martin l 00:00: NIFEdipine 2013-08 No Saji 1 tab(s) Mem oria ER 1-03 Martin l 00:00: Pravachol 2012-08 Yes Saji 1 tab(s) Alexei elmira 1-19 Martin l 00:00: Pravachol 2012-08 Yes Saji 1 tab(s) Alexei elmira 1-19 Martin l 00:00: clonidine 0 No Saji 1 tab(s) Alexei elmira 9-24 Martin l 00:00: Aspirin Aspirin Yes QD TAKE 1 [facility] Adult Low Adult Low TABLET ity of Strength 81 Strength 81 DAILY [place] MG Oral MG Oral DIRECTED. Phys ici Tablet Tablet ans Delayed Delayed Release Release Allopurinol Allopurinol Yes Q0.5D TAKE 1 [facility] 100 MG Oral 100 MG Oral TABLET ity of Tablet Tablet TWICE [place] DAILY. Physici ans AmLODIPine AmLODIPine Yes QD TAKE 1 U nivers Besylate 10 Besylate 10 TABLET ity of MG Oral MG Oral DAILY [place] Tablet Tablet BLOOD Physici PRESSURE. ans Fenofibrate Fenofibrate Yes 1 QD TAKE 1 [facility] 160 MG Oral 160 MG Oral TABLET ity of Tablet Tablet DAILY. [place] [facility] ans Flecainide Flecainide Yes Q0.5D TAKE 1 [facility] Acetate 50 Acetate 50 TABLET i ty of MG Oral MG Oral TWICE [place] Tablet Tablet DAILY. Physici ans Furosemide Furosemide Yes QD TAKE 1 U nivers 40 MG Oral 40 MG Oral TABLET i ty of Tablet Tablet DAILY [place] DIRECTED. Physici ans Losartan Losartan Yes QD TAKE 1 Unive rs Potassium Potassium TABLET ity of 100 MG Oral 100 MG Oral ONCE [place] Tablet Tablet DAILY. Physici ans MetFORMIN MetFORMIN Yes QD TAKE 1 Uni vers HCl - 500 HCl - 500 TABLET ity of MG Oral MG Oral DAILY [place] Tablet Tablet DIRECTED. Physic i ans Pantoprazol Pantoprazol Yes 1 QD TAKE 1 Univers e Sodium 40 e Sodium 40 TABLET ity of MG Oral MG Oral DAILY. [place] Tablet Tablet Physici Delayed Delayed ans Release Release Potassium Potassium Yes QD TAKE 2 Uni vers Chloride 20 Chloride 20 TABLETS ity of MEQ TBCR MEQ TBCR DAILY. [place] [facility] ans Rosuvastati Rosuvastati Yes 1 QD TAKE 1 [facility] n Calcium n Calcium TABLET ity of 10 MG Oral 10 MG Oral DAILY. [place] Tablet Tablet Physici ans Verapamil Verapamil Yes 1 QD TAKE 1 Uni vers HCl ER 180 HCl ER 180 CAPSULE ity of MG Oral MG Oral DAILY [place] Capsule Capsule BEFORE Physici Extended Extended EATING. ans Release 24 Release 24 Hour Hour Xarelto 20 Xarelto 20 Yes 1 QD TAKE 1 U nivers MG Oral MG Oral TABLET ity of Tablet Tablet DAILY [place] Physici ans Vital Signs Vital Name Observation Time Observation Value Comments Source Systolic (mm Hg) 2020-06-13 [facility] rmann 16:49:00 Diastolic (mm Hg) 2020-06-13 [facility] 16:49:00 [facility]13 [facility] Weight 2020-06-13 [facility] n 16:49:00 BMI Calculated 2020-06-13 [facility] 16:49:00 Systolic (mm Hg) 2020-01-04 [facility] rmann 16:14:00 Diastolic (mm Hg) 2020-01-04 [place] ermann 16:14:00 [facility] Height 2019-12-08 175.26 cm [facility] n 20:40:00 Weight 2019-12-08 [facility] 20:40:00 BMI Calculated 2019-12-08 [facility] 20:40:00 Systolic (mm Hg) 2019-10-05 [facility] 18:06:00 Diastolic (mm Hg) 2019-10-05 [facility] 18:06:00 Heart Rate 2019-10-05 [facility] n 18:06:00 Height 2019-10-05 175.26 cm [facility] n 18:06:00 Weight 2019-10-05 [facility] n 18:06:00 BMI Calculated 2019-10-05 [facility] 18:06:00 Height 2019-09-15 175.26 cm [facility] n 19:39:00 Weight 2019-09-15 [facility] n 19:39:00 BMI Calculated 2019-09-15 [facility] 19:39:00 Systolic (mm Hg) 2019-09-11 [facility] 15:34:00 Diastolic (mm Hg) 2019-09-11 [facility] 15:34:00 Heart Rate 2019-09-11 [facility] n 15:34:00 Height 2019-09-11 175.26 cm [facility] n 15:34:00 Weight 2019-09-11 [facility] n 15:34:00 BMI Calculated 2019-09-11 [facility] 15:34:00 Systolic (mm Hg) 2019-09-07 [facility] 17:08:00 Diastolic (mm Hg) 2019-09-07 [facility] 17:08:00 Weight 2019-09-07 [facility] n 17:08:00 Systolic (mm Hg) 2019-07-26 [facility] 20:23:00 Diastolic (mm Hg) 2019-07-26 [facility] 20:23:00 Heart Rate 2019-07-26 [facility] n 20:23:00 Height 2019-07-26 175.26 cm [facility] n 20:23:00 Weight 2019-07-26 [facility] n 20:23:00 BMI Calculated 2019-07-26 [facility] 20:23:00 Temperature Oral 2019-06-07 98.3 F [facility] (F) 21:18:00 Heart Rate 2019-06-07 [facility] n 21:18:00 Respitory Rate 2019-06-07 [facility] 21:18:00 Systolic (mm Hg) 2019-06-07 [facility] 21:18:00 Diastolic (mm Hg) 2019-06-07 [facility] 21:18:00 Temperature Oral 2019-06-07 97.5 F [facility] (F) 17:18:00 Heart Rate 2019-06-07 [facility] n 17:18:00 Respitory Rate 2019-06-07 [facility] 17:18:00 Systolic (mm Hg) 2019-06-07 [facility] 17:18:00 Diastolic (mm Hg) 2019-06-07 [facility] 17:18:00 Temperature Oral 2019-06-07 98.0 F [facility] (F) 11:18:00 Heart Rate 2019-06-07 [facility] n 11:18:00 Respitory Rate 2019-06-07 [facility] 11:18:00 Systolic (mm Hg) 2019-06-07 [facility] 11:18:00 Diastolic (mm Hg) 2019-06-07 [facility] 11:18:00 Height 2019-06-02 170.18 cm [facility] n 16:22:00 Weight 2019-06-02 [facility] 16:22:00 BMI Calculated 2019-06-02 [facility] 16:22:00 BMI Calculated 2019-02-27 [facility] 19:21:00 Weight 2019-02-27 [facility] n 19:21:00 Height 2019-02-27 175.26 cm [facility] n 19:21:00 Height 2019-02-06 175.26 cm [facility] n 17:12:00 Temperature Oral 2019-02-06 98.2 F [facility] rmann (F) 17:12:00 Respitory Rate 2019-02-06 [facility] 17:12:00 Heart Rate 2019-02-06 [facility] n 17:12:00 Weight 2019-02-06 [facility] n 17:12:00 BMI Calculated 2019-02-06 [facility] 17:12:00 Systolic (mm Hg) 2019-02-06 [facility] 17:12:00 Diastolic (mm Hg) 2019-02-06 [facility] 17:12:00 Respitory Rate 2019-01-24 [facility] 17:00:00 Systolic (mm Hg) 2019-01-24 [facility] 17:00:00 Diastolic (mm Hg) 2019-01-24 [facility] 17:00:00 Systolic (mm Hg) 2019-01-24 [facility] 15:00:00 Diastolic (mm Hg) 2019-01-24 [facility] 15:00:00 Respitory Rate 2019-01-24 [facility] 15:00:00 Respitory Rate 2019-01-24 [facility] 13:00:00 Systolic (mm Hg) 2019-01-24 [facility] 13:00:00 Diastolic (mm Hg) 2019-01-24 [facility] 13:00:00 Temperature Oral 2019-01-23 98.3 F [facility] (F) 21:00:00 Temperature Oral 2019-01-23 97.6 F [facility] (F) 17:00:00 Temperature Oral 2019-01-23 98.3 F [facility] (F) 13:00:00 BMI Calculated 2019-01-22 [facility] 18:34:00 Weight 2019-01-22 [facility] n 18:34:00 Height 2019-01-22 172.72 cm [facility] n 18:34:00 Weight 2019-01-22 [facility] n 14:54:00 Height 2019-01-22 172.72 cm [facility] n 14:54:00 BMI Calculated 2019-01-22 [facility] 14:54:00 Heart Rate 2019-01-22 [facility] n 14:54:00 Diastolic (mm Hg) 2018-08-25 [facility] 16:30:00 Systolic (mm Hg) 2018-08-25 [facility] 16:30:00 Weight 2018-08-25 [facility] n 16:30:00 Height 2018-08-25 [facility] 16:30:00 Diastolic (mm Hg) 2018-07-07 [facility] 16:30:00 Systolic (mm Hg) 2018-07-07 [facility] 16:30:00 Weight 2018-07-07 [facility] n 16:30:00 Height 2018-07-07 [facility] n 16:30:00 Diastolic (mm Hg) 2018-01-10 [facility] 19:40:00 Systolic (mm Hg) 2018-01-10 [facility] 19:40:00 Weight 2018-01-10 [facility] n 19:40:00 Height 2018-01-10 [facility] 19:40:00 Diastolic (mm Hg) 2017-12-16 [facility] 15:20:00 Systolic (mm Hg) 2017-12-16 [facility] 15:20:00 Weight 2017-12-16 [facility] n 15:20:00 Height 2017-12-16 [facility] 15:20:00 BP Systolic 2017-10-25 168 mm[Hg] Location: [facility] 10:09:00 Position: [place] [facility] Sitting BP Diastolic 2017-10-25 88 mm[Hg] Location: [facility] 10:09:00 Position: [place] [facility] Sitting Height 2017-10-25 68 [in_us] [facility] 10:09:00 [place] Physician s Weight 2017-10-25 314.5 [lb_av] [facility] 10:09:00 [place] Physician s Body Mass Index 2017-10-25 47.82 kg/m2 [facility] Calculated 10:09:00 [place] Physician s Heart Rate 2017-10-25 72 /min Location: [facility] [place] 10:09:00 Radial; [place] [facility]ician s Diastolic (mm Hg) 2017-06-17 [facility] 16:30:00 Systolic (mm Hg) 2017-06-17 [facility] 16:30:00 Weight 2017-06-17 [facility] n 16:30:00 Height 2017-06-17 [facility] 16:30:00 Systolic (mm Hg) 2016-12-07 [facility] 16:50:00 Diastolic (mm Hg) 2016-12-07 [facility] 16:50:00 Respitory Rate 2016-12-07 [facility] 16:50:00 Temperature Oral 2016-12-07 97.9 F [facility] (F) 16:50:00 Heart Rate 2016-12-07 [facility] n 16:50:00 Heart Rate 2016-12-07 [facility] n 12:47:00 Respitory Rate 2016-12-07 [facility] 12:47:00 Systolic (mm Hg) 2016-12-07 [facility] 12:47:00 Diastolic (mm Hg) 2016-12-07 [facility] 12:47:00 Temperature Oral 2016-12-07 98 F [facility] (F) 12:47:00 Respitory Rate 2016-12-07 [facility] 09:18:00 Systolic (mm Hg) 2016-12-07 [facility] 09:18:00 Diastolic (mm Hg) 2016-12-07 [facility] 09:18:00 Heart Rate 2016-12-07 [facility] n 09:18:00 Temperature Oral 2016-12-07 97.5 F [facility] (F) 09:18:00 BMI Calculated 2016-12-06 [facility] 03:50:00 Weight 2016-12-06 [facility] n 03:50:00 Height 2016-12-06 175.26 cm [facility] n 03:50:00 Diastolic (mm Hg) 2016-06-11 [facility] 15:30:00 Systolic (mm Hg) 2016-06-11 [facility] 15:30:00 Weight 2016-06-11 [facility] n 15:30:00 Height 2016-06-11 [facility] 15:30:00 Diastolic (mm Hg) 2015-12-12 [facility] 14:00:00 Systolic (mm Hg) 2015-12-12 [facility] 14:00:00 Weight 2015-12-12 [facility] n 14:00:00 Height 2015-12-12 [facility] 14:00:00 Diastolic (mm Hg) 2015-11-18 [facility] 16:30:00 Systolic (mm Hg) 2015-11-18 [facility] 16:30:00 Weight 2015-11-18 [facility] n 16:30:00 Height 2015-11-18 [facility] 16:30:00 Diastolic (mm Hg) 2015-11-07 [facility] 15:00:00 Systolic (mm Hg) 2015-11-07 [facility] 15:00:00 Weight 2015-11-07 [facility] n 15:00:00 Height 2015-11-07 [facility] n 15:00:00 Height 2015-05-21 175.26 cm [facility] n 18:26:00 Weight 2015-05-21 [facility] 18:26:00 BMI Calculated 2015-05-21 [facility] 18:26:00 Diastolic (mm Hg) 2015-01-10 [facility] 15:00:00 Systolic (mm Hg) 2015-01-10 [facility] 15:00:00 Weight 2015-01-10 [facility] 15:00:00 Height 2015-01-10 [facility] 15:00:00 Diastolic (mm Hg) 2014-06-11 [facility] 21:30:00 Systolic (mm Hg) 2014-06-11 [facility] 21:30:00 Weight 2014-06-11 [facility] 21:30:00 Height 2014-06-11 [facility] 21:30:00 Procedures Procedure Date / Time Performing Clinician Source Performed [U] XRAY KNEE 3 VWS LEFT 2017-10-25 00:00:00 [facility] [id number] Physicians Cardiac catheterization, [facility] [place] left heart Cardioversion [facility] [place] [facility] T[facility] Transesophageal [facility] echocardiogram Gastric bypass<sup>1</sup> [facility] Lithotripsy [facility] Jun Encounters Start End Encounter Admission Attending Care Care Encounter Source Date/Time Date/Time Type Type Clinicians Facility Department ID 2019-06-[address] [facility] [id number] [facility] 09:39:00 l [facility] 2020-06-13 2020-06-13 [facility] [place], [facility] [id number] 11:00:00 23:59:59 Jass Ramirez 17 2020-03-18 2020-03-19 Outpatient [facility] [id number] 12:56:18 12:56:18 11 2020-01-04 2020-01-04 Out[facility] [place], [facility] [id number] 11:00:00 23:59:59 Jass Ramirez 15 2019-12-22 2019-12-23 Outpatient [facility] [id number] 08:48:13 08:48:13 10 2019-12-11 2019-12-11 Outpatient [place], [facility] [id number] 10:45:00 23:59:59 Luis Herrera 2019-12-11 2019-12-11 Outpatient Primomo, [facility] [id number] 13:00:00 13:00:00 Luis Herrear 2019-11-13 2019-11-13 Telemedici Tayler, [facility] [id number] 07:56:08 08:26:08 ne Visit Oscar Sood [id number] [place] [id number] [id number] [address] 2019-11-07 2019-11-08 Outpatient [facility] [id number] 12:51:38 12:51:38 09 2019-10-05 2019-10-05 Outpatient [place], [facility] [id number] 10:45:00 23:59:59 Jass Schwab 2019-10-04 2019-10-05 Outpatient [facility] [id number] 11:46:50 11:46:50 08 2019-09-19 2019-09-19 Outpatient [place], [facility] [id number] 05:54:00 15:25:00 Jass Ramirez 2019-09-19 2019-09-[address] [facility] [id number] Memoria 05:54:00 05:54:[address] [facility] 2019-09-11 2019-09-11 Outpatient Primomo, [facility] [id number] 10:00:00 23:59:59 Luis Herrera 2019-09-07 2019-09-07 Outpatient [place], [facility] [id number] 11:15:00 23:59:59 Jass Ramirez 2019-09-06 2019-09-06 Office [facility], [facility] [id number] 08:51:33 09:26:49 Visit Angelica Romo [place] [id number] [place] [id number] [facility] [phone] [address] 2019-08-15 2019-08-15 Outpatient [facility] [id number] 09:00:00 23:59:59 09 2019-07-26 2019-07-26 Outpatient [place], [facility] [id number] 14:30:00 23:59:59 Jass Ramirez 2019-06-06 2019-06-07 Outpatient Primomo, [facility] [id number] 09:39:00 20:00:00 Luis Herrera 2019-03-13 2019-03-13 Outpatient [place], [facility] [id number] 14:00:00 23:59:59 Jass Stephen 2019-03-13 2019-03-13 Outpatient Brown, [facility] [id number] 14:00:00 14:00:00 Domo De Souza 2019-03-01 2019-03-01 Outpatient Darrell, [facility] [id number] 06:18:00 13:29:00 Jass Stephen 2019-03-01 2019-03-[address] [facility] [id number] Mem[facility] 06:18:00 06:18:00 [facility] 2019-02-06 2019-02-06 Outpatient Nelida, [facility] [id number] 11:37:42 17:49:00 Ebelechukwu 02 Raman 2019-02-06 2019-02-06 Emergency E [facility] [id number] Memoria 11:37:00 11:37:00 [facility] 2019-01-22 2019-01-24 Outpatient Jennifer, [facility] [id number] 09:48:29 16:41:00 Juanfélix Dee 2019-01-22 2019-01-[address] [facility] [id number] Mem[facility] 11:48:00 09:48:00 [facility] 2018-08-29 2018-08-29 Outpatient Comprehen Comprehensi 7 [id number] eClinic 11:41:00 11:41:00 [facility] 2018-08-26 2018-08-26 Outpatient Comprehen Comprehensi 7 [id number] eClinic 13:50:00 13:50:00 [facility] 2018-08-25 2018-08-25 Outpatient Comprehen Comprehensi 7 [id number] eClinic 10:30:00 10:30:00 [facility] 2018-07-22 2018-07-22 Outpatient Comprehen Comprehensi 7 [id number] eClinic 13:22:00 13:22:00 [facility] 2018-07-07 2018-07-07 Outpatient Comprehen Comprehensi 7 [id number] eClinic 10:30:00 10:30:00 [facility] 2018-06-03 2018-06-03 Outpatient Comprehen Comprehensi 7 [id number] eClinic 13:00:00 13:00:00 [facility] 2018-04-13 2018-04-13 Outpatient Comprehen Comprehensi 7 [id number] eClinic 17:46:00 17:46:00 [facility] 2018-01-10 2018-01-10 Outpatient Comprehen Comprehensi 6 [id number] eClinic 14:40:00 14:40:00 [facility] 2017-12-21 2017-12-21 Outpatient Comprehen Comprehensi 6 [id number] eClinic 09:55:00 09:55:00 [facility] 2017-12-16 2017-12-16 Outpatient Comprehen Comprehensi 6 [id number] eClinic 10:20:00 10:20:00 [facility] 2017-12-13 2017-12-13 Outpatient Comprehen Comprehensi 6 [id number] eClinic 16:53:00 16:53:00 [facility] 2017-11-29 2017-11-29 Outpatient Comprehen Comprehensi 6 [id number] eClinic 13:34:00 13:34:00 [facility] 2017-11-09 2017-11-09 Outpatient Comprehen Comprehensi 6 [id number] eClinic 16:33:00 16:33:00 [facility] or [facility] 2017-10-25 2017-10-25 [facility] [id number] [facility] 09:45:00 09:45:00 t; [facility] Physi ci ans 2017-08-27 2017-08-27 Outpatient Comprehen Comprehensi 6 [id number] eClinic 08:24:00 08:24:00 [facility] 2017-07-21 2017-07-21 Outpatient Comprehen Comprehensi 6 [id number] eClinic 17:22:00 17:22:00 [facility] 2017-06-24 2017-06-24 Outpatient Comprehen Comprehensi 6 [id number] eClinic 13:33:00 13:33:00 [facility] 2017-06-17 2017-06-17 Outpatient Comprehen Comprehensi 5 [id number] eClinic 10:30:00 10:30:00 [facility] 2017-06-16 2017-06-16 Outpatient Comprehen Comprehensi 6 [id number] eClinic 16:07:00 16:07:00 [facility] 2017-03-15 2017-03-15 Outpatient Comprehen Comprehensi 5 [id number] eClinic 17:18:00 17:18:00 [facility] 2017-03-04 2017-03-04 Outpatient Comprehen Comprehensi 5 [id number] eClinic 09:19:00 09:19:00 [facility] 2017-01-08 2017-01-08 Out[place] [id number] eClinic 08:23:00 08:23:00 [facility] 2017-01-07 2017-01-07 Outpatient [place] [id number] eClinic 17:59:00 17:59:00 [facility] 2016-12-31 2016-12-31 Outpatient Comprehen Comprehensi 5 [id number] eClinic 16:50:00 16:50:00 [facility] 2016-12-15 2016-12-15 Outpatient Comprehen Comprehensi 5 [id number] eClinic 15:29:00 15:29:00 [facility] 2016-12-07 2016-12-07 Outpatient Comprehen Comprehensi 5 [id number] eClinic 13:57:00 13:57:00 [facility] 2016-12-06 2016-12-07 Outpatient Saravia, [facility] [id number] 11:01:00 12:42:00 Jennifer 19 2016-12-07 2016-12-07 Outpatient Comprehen Comprehensi 5 [id number] eClinic 10:39:00 10:39:00 [facility] 2016-08-25 2016-08-25 Outpatient Comprehen Comprehensi 5 [id number] eClinic 15:44:00 15:44:00 [facility] PA Care PA 2016-08-07 2016-08-07 Outpatient Comprehen Comprehensi 5 [id number] eClinic 13:32:00 13:32:00 [facility] PA Care PA 2016-06-11 2016-06-11 Outpatient Comprehen Comprehensi 4 [id number] eClinic 09:30:00 09:30:00 [facility] Care PA 2016-06-10 2016-06-10 Outpatient Comprehen Comprehensi 5 [id number] eClinic 08:56:00 08:56:00 [facility] Care PA 2016-06-04 2016-06-04 Outpatient Comprehen Comprehensi 5 [id number] eClinic 16:45:00 16:45:00 [facility] Care PA 2015-12-12 2015-12-12 Outpatient Comprehen Comprehensi [id number] eClinic 09:00:00 09:00:00 [facility] Care PA 2015-12-11 2015-12-11 Outpatient Comprehen Comprehensi 4 [id number] eClinic 13:33:00 13:33:00 [facility] Care PA 2015-12-03 2015-12-03 Outpatient Comprehen Comprehensi 4 [id number] eClinic 09:48:00 09:48:00 [facility] Care PA 2015-11-18 2015-11-18 Outpatient Comprehen Comprehensi 4 [id number] eClinic 11:30:00 11:30:00 [facility] Care PA 2015-11-15 2015-11-15 Outpatient Comprehen Comprehensi 4 [id number] eClinic 10:48:00 10:48:00 [facility] PA Care PA 2015-11-07 2015-11-07 Outpatient Comprehen Comprehensi 3 [id number] eClinic 10:00:00 10:00:00 [facility] PA Care PA 2015-11-06 2015-11-06 Outpatient Comprehen Comprehensi 4 [id number] eClinic 17:20:00 17:20:00 [facility] PA Care PA 2015-07-25 2015-07-25 Outpatient Comprehen Comprehensi 4 [id number] eClinic 16:32:00 16:32:00 [facility] Care PA 2015-05-21 2015-05-21 Outpatient Mario, [facility] [id number] 08:40:00 23:59:00 Demarcus 00 2015-01-18 2015-01-18 Outpatient Comprehen Comprehensi 3 [id number] eClinic 09:58:00 09:58:00 [facility] PA Care PA 2015-01-16 2015-01-16 Outpatient Comprehen Comprehensi 3 [id number] eClinic 18:09:00 18:09:00 [facility] PA Care PA 2015-01-16 2015-01-16 Outpatient Comprehen Comprehensi 3 [id number] eClinic 17:20:00 17:20:00 [facility] PA Care PA 2015-01-10 2015-01-10 Outpatient Comprehen Comprehensi 3 [id number] eClinic 10:00:00 10:00:00 [facility] Care PA 2014-07-10 2014-07-10 Outpatient Comprehen Comprehensi 3 [id number] eClinic 15:21:00 15:21:00 [facility] Care PA 2014-06-11 2014-06-11 Outpatient Comprehen Comprehensi 3 [id number] eClinic 15:30:00 15:30:00 [facility] Care PA Results Test Description Test Time Test Comments Results Result Comments Source CHEM PANEL 2019-09-19 105 [facility] 12:[facility]:00 CHEM PANEL 2019-09-19 18 [facility] 12:25:00 CHEM PANEL 2019-09-19 0.92 [facility] 12:25:00 CHEM PANEL 2019-09-19 143 [facility] 12:25:00 CHEM PANEL 2019-09-19 3.5 [facility] 12:25:00 CHEM PANEL 2019-09-19 105 [facility] 12:25:00 CHEM PANEL 2019-09-19 30 [facility] 12:25:00 CHEM PANEL 2019-09-19 9.9 [facility] 12:25:00 CHEM PANEL 2019-09-19 11.5 [facility] 12:25:00 CHEM PANEL 2019-09-19 84 [facility] 12:25:00 HEMATOLOGY 2019-09-19 12:25:00 Test Item Value Reference Range Interpretation Comme nts PT (test code = PT) 13.6 s 12.0-14.7 [facility] EhjvkzbFXKYPRTQKO1872-51-92 12:25:00 Test Item Value Reference Range Interpretation Comments INR (test code = INR) 1.04 1 0.85-1.17 [facility] CwvuwuwQKLGMFQZTY0693-72-45 12:25:006.2[facility] 2019-09-19 12:25:004.82[facility] NudndntMQIEAVVWGP8332-25-50 12:25:0014.7[facility] XwmtktrHZGERYLWPW9940-85-04 12:25:0043.9[facility] AvrydsiCGLMLBHJUH8537-93-07 12:25:0091.1[facility] AkfleiaFVGHWLPQVZ6418-33-13 12:25:00 Test Item Value Reference Range Interpretation Comments MCH (test code = MCH) 30.4 pg 27.0-31.0 [facility] TqmzjeuEXZYBTSUPR3937-74-57 12:25:0033.4[facility]annHEMATOLOGY 2019-09-19 12:25:0015.8[facility] MjnjfuqGUPWYZXCWJ9537-27-32 12:25:75335Dkygyfsy LdyqpbqVLIFGTMDXQ9465-48-47 12:25:0010.1[facility] NkxckyuFCYZCTMSITJE8834-69-13 09:35:53784Qpsuxybp WgivksvZSVCQNRBSIDF3466-39-62 09:35:003.6[facility] Jun RLDZKKCQUXBP8334-96-47 09:35:71198Ruggnhcv TmzhfteLTTGYDCMPJUI7218-85-20 09:35:009.3[facility] IozpuuqQELQYENMFWJS2374-71-68 09:35:48310Vroyjrgw [place] WFFMXEATNUED4645-73-27 09:35:0013[facility] MmrjijzMFOBEKCILELN0706-08-23 09:35:00 25[facility] EjhoyilSYYEHQNBTOQK2814-67-67 09:35:000.78[facility] Jun TEPHUEWSFEEO0164-90-80 09:35:0092[facility] TmoqjfdGLYYKQXRIOXF8775-41-99 09:35:00 16.6[facility] RywnblwDGLMDDDDSG2657-31-52 09:35:009.5[facility]annHEMATOLOGY 2019-06-07 09:35:004.19[facility] WjdixigPHIAEHLQTM1106-82-96 09:35:0013.1[facility] SgoutirQKSCKUTGAK2080-24-17 09:35:0038.6[facility] TtirsupCPBPMAGFYX7124-57-31 09:35:0092.0[facility] YuinvpxNDZGWQHACV2987-22-03 09:35:00 Test Item Value Reference Range Interpretation Comments MCH (test code = MCH) 31.3 pg 27.0-31.0 [facility] UdjutkbLVDWVQACAE9191-63-41 09:35:0034.0[facility]annHEMATOLOGY 2019-06-07 09:35:0014.4[facility] AibksjrVYQZYTXLKI2973-98-55 09:35:33765Azndjurs KeitbekNSYXQXJOJA4278-93-16 09:35:0010.9[facility] RbxdsepGWWNHZLHAA1089-03-01 09:35:0088.2[facility] UcqxscbQZEFDHMHGA4004-97-18 09:35:006.0[facility] Jun KFYLTRRZWS6480-57-70 09:35:005.7[facility] UnojcctYMNWIBGQUZ1115-31-66 09:35:000.1 [facility] PzpbdkrGHQJNTWUGN0659-81-29 09:35:008.3[facility]annHEMATOLOGY 2019-06-07 09:35:000.6[facility] UvwlvslUHEDJQTDBN2148-58-19 09:35:000.5[facility]annBLOOD BANK NAMZPDP8731-27-82 15:38:00Negative (06/06/19 10:38 AM)[facility]annCHEM BENDW0800-39-51 16:43:0046.1[facility] HermannCHEM ZCBQO6124-68-90 16:43:43514.6[facility] QnrbejxJFXUKDIVEPHS4466-90-90 16:43:60611Taqavles Jun DDJLFPITOBNC7972-28-83 16:43:003.8[facility] CilkqsmLVGPNZRBSWYY4194-22-07 16:43:34025Eezxcfzw KvxawfwALUGLYWUDBLQ3945-61-66 16:43:0010.1[facility] Jun FTTDZUPXQRKV6506-18-47 16:43:23794Dsrknbnt XqcrjnxLKPNIPYGNQGW6150-49-86 16:43:0021[facility] PajtddeNKGNXOZBIYMK5387-24-46 16:43:0029[facility] Jun TWKIKNVKZBQM8819-37-66 16:43:004.4[facility] IwpdugvUFEVYFASYTDP8326-67-37 16:43:000.97[facility] HfgxghoQJPPILTHSVKB8022-55-01 16:43:0044[facility] [place] XMNOEAYEMPFZ7653-85-26 16:43:0034[facility] ExohcmiPWGUPVVDKXTA8196-11-43 16:43:00 79[facility] JswgcvcHTRJKZUAGSPE0457-92-26 16:43:008.2[facility] HermannELECTROLYTES 2019-06-02 16:43:000.6[facility] UliukywNTUACJPCSKVC1908-02-55 16:43:0062[facility] JpymdptEPSNIGVSMEYY6657-17-71 16:43:0010.8[facility] VuaemntDAKIDNMGNNUV1327-92-68 16:43:00 Test Item Value Reference Range Interpretation Comments B/C Ratio (test code = B/C Ratio) 22 1 01-31 [facility] PhoegvdSHWTINEXJZSN4182-46-16 16:43:003.8[facility] HermannELECTROLYTES 2019-06-02 16:43:00 Test Item Value Reference Range Interpretation Comments A/G Ratio (test code = A/G Ratio) 1.2 1 0.7-1.6 [facility] IjxsjlfLMAENRQOHH2151-10-75 16:43:005.6[facility]annHEMATOLOGY 2019-06-02 16:43:004.59[facility] XvvsfesPQSEMQHCIS2488-85-09 16:43:0014.1[facility] DeztrrmRRNYKWWYPD6040-97-01 16:43:0042.5[facility] EvyarsjRTXVHXVIIB4211-10-30 16:43:0092.7[facility] EvsggyxUOREZRNRTJ5929-60-15 16:43:00 Test Item Value Reference Range Interpretation Comments MCH (test code = MCH) 30.7 pg 27.0-31.0 [facility] FrdqwpiZTKOYRXITQ2138-72-12 16:43:0033.1[facility]annHEMATOLOGY 2019-06-02 16:43:0015.1[facility] EfuazzfEFIRWZMGLJ7883-05-59 16:43:66443Bvilpzvg JtunrtxURAKWOKOTN6963-06-78 16:43:0010.5[facility] WdwtuucNMBSSXBKAJ1966-94-22 16:43:00 Test Item Value Reference Range Interpretation Comments INR (test code = INR) 1.11 1 0.85-1.17 [facility] EbypelwIUYVSBMKYG8997-50-08 16:43:00 Test Item Value Reference Range Interpretation Comments PT (test code = PT) 14.1 s 12.0-14.7 [facility] KqmpmatVMUIKOTZYA2369-29-16 16:43:00 Test Item Value Reference Range Interpretation Comments PTT (test code = PTT) 31.4 s 22.9-35.8 [facility] VawfxvdJFHUFJQDAS2925-06-58 16:43:0064.5[facility]annHEMATOLOGY 2019-06-02 16:43:0021.2[facility] JyvcfanOQGRYQFXHT7497-86-07 16:43:0010.6[facility] SazlvomXZWAMEWIVF7554-88-43 16:43:002.5[facility] PefpesiRJAPWWJQBO7923-55-26 16:43:001.2[facility] AyptidqYNIDVYQJKM8657-90-08 16:43:003.6[facility] [place] GUOSHPFLSD1739-41-68 16:43:001.2[facility] PtftjjvGAUJTEWUTZ4805-47-02 16:43:000.6 [facility] TbrajodEPOOMHTAEB8653-02-39 16:43:000.1[facility]annHEMATOLOGY 2019-06-02 16:43:000.1[facility]annURINE AND MKZRN2054-39-89 16:43:00Yellow *NA*(06/02/19 11:43 AM)[facility] KUARC0584-31-03 16:43:00Clear (06/02/19 11:43 AM)[facility] BOYXM9540-48-02 16:43:00 Test Item Value Reference Range Interpretation Comments UA Spec Grav (test code = UA Spec 1.009 1 Grav) [facility] SHWYR5656-50-64 16:43:00 Test Item Value Reference Range Interpretation Comments UA pH (test code = UA pH) 7.0 1 5.0-8.0 [facility] AWIJP5217-48-98 16:43:00Negative *NA*(06/02/19 11:43 AM)[facility] JOMYC3729-31-85 16:43:00Negative (06/02/19 11:43 AM)[facility] DLPUB2654-38-55 16:43:00Negative (06/02/19 11:43 AM)[facility] FXDDC1153-02-01 16:43:00Negative (06/02/19 11:43 AM)[facility] CQBEE2585-69-00 16:43:00<1[facility] UBSZS7844-93-90 16:43:00Performed *NA*(06/02/19 11:43 AM)[facility] Jun ESWUWLLYSFEZ7820-92-74 11:45:00705Fqqywcmi JgkyacjFEALWIFZHWYP2572-17-14 11:45:44356Ucwmphnk UsgotdkCTPBFNWVDFGF5993-18-75 11:45:004.0[facility] Jun EYRRMDHPOFLN7843-48-91 11:45:009.6[facility] LacwlbzIZDYQXIIGVTY1258-17-21 11:45:0070[facility] YyicdfaSOLPPACEYRAP6045-30-51 11:45:001.08[facility] [place] WXFHUMLCGIRP2993-18-62 11:45:87767Eweqtuua QzvnpdgYLKRGMGNVZCN8012-01-92 11:45:0029[facility] WkljgxcYSCEWNESCZKK6663-72-48 11:45:0016[facility] [place] UXYXBSBSCUFV3314-19-61 11:45:0013.0[facility] BrbbsjyZAASFUCQRV3082-44-55 11:45:00 7.4[facility] ZuplitkVGEZTWZVSS8855-18-72 11:45:004.49[facility]annHEMATOLOGY 2019-03-01 11:45:0013.4[facility] BuoyzkrWHBEFGXHZS0759-78-18 11:45:0041.0[facility] NcfpbtzBVJQXLFILY7471-51-23 11:45:0032.8[facility] YhvjjdgFSYKVSWEGC1763-74-44 11:45:0091.3[facility] NbfqddaGGGRGKCNOA2542-45-35 11:45:00 Test Item Value Reference Range Interpretation Comments MCH (test code = MCH) 29.9 pg 27.0-31.0 [facility] KazwniiGSCKGBQZZK3957-76-36 11:45:0011.0[facility]annHEMATOLOGY 2019-03-01 11:45:0015.5[facility] FirrcpoBNDOACNRMY9228-78-38 11:45:69723Pancovgz LueapukLJTDMYVCXD1748-71-07 11:45:00 Test Item Value Reference Range Interpretation Comments PT (test code = PT) 13.6 s 12.0-14.7 [facility] MqqntqeZIIWCNHIHL8829-66-89 11:45:00 Test Item Value Reference Range Interpretation Comments INR (test code = INR) 1.06 1 0.85-1.17 [facility] HermannCHEM OLBZM7590-62-12 08:00:003.7[facility] HermannCHEM PANEL 2019-01-24 08:00:00 Test Item Value Reference Range Interpretation Comments B/C Ratio (test code = B/C Ratio) 18 1 6-25 [facility] HermannCHEM ECNKL6635-75-86 08:00:00 Test Item Value Reference Range Interpretation Comments A/G Ratio (test code = A/G Ratio) 0.8 1 0.7-1.6 [facility]annCHEM GQRLF9831-03-88 08:00:003.9[facility] HermannCHEM PANEL 2019-01-24 08:00:0070[facility] HermannCHEM SSGNF2104-04-88 08:00:0041[facility] HermannCHEM FBBRI9295-74-58 08:00:001.08[facility] HermannCHEM ZSTVQ3563-13-56 08:00:0054[facility] HermannCHEM VTYRA5747-04-71 08:00:0048[facility] HermannCHEM ROSCN0397-40-96 08:00:007.2[facility] HermannCHEM WRRXE0166-30-32 08:00:001.1 [facility]annCHEM YQKQK1209-39-74 08:00:54276Lflnjwem HermannCHEM PANEL 2019-01-24 08:00:0010.6[facility] HermannCHEM DLFNU0325-22-53 08:00:004.6[facility] HermannCHEM QVPZN5519-53-15 08:00:76031Wtfqmqfu HermannCHEM HNIPK3473-12-73 08:00:009.4[facility] HermannCHEM APOWY5895-97-34 08:00:003.3[facility] HermannCHEM XVQPO1377-24-09 08:00:0032[facility] HermannCHEM NWNDA1017-14-61 08:00:0019 [facility] HermannCHEM BJNCY1610-70-68 08:00:53759Pinycvru HermannCHEM PANEL 2019-01-24 08:00:002.0[facility] HohknlsUURKNLQESK7616-24-01 08:00:0032.6[facility] FrtdpnzXKLUOVSXNW0281-12-06 08:00:00 Test Item Value Reference Range Interpretation Comments MCH (test code = MCH) 29.8 pg 27.0-31.0 [facility] LxdtlysCZCDKLENLT6815-65-37 08:00:23780Ljblxqdx HermannHEMATOLOGY 2019-01-24 08:00:0015.1[facility] FbdijtuAVFGHEYXLS5877-18-90 08:00:0091.4[facility] LzwknxvZNRKGLZPNN8510-61-94 08:00:0010.3[facility] LfzklanDTPMFTCMHF1976-93-78 08:00:004.52[facility] XyfktovECHXCZMQKX6284-05-23 08:00:008.0[facility] Jun TVCRYPQGHC7428-75-55 08:00:0041.3[facility] VkksyzrUCUEAQILUL4384-46-23 08:00:00 13.5[facility] SnwsnpmAWKYTBHTGH2155-46-19 08:00:005.2[facility] HermannHEMATOLOGY 2019-01-24 08:00:000.9[facility] MedpvhzKRRZTYXAPU0015-92-75 08:00:004.4[facility] JdaumqfQXCFQVBAGW3026-10-12 08:00:0010.9[facility] WkdmfajBDUKUIZVPT1530-27-09 08:00:000.1[facility] YmdaxihUDZTMWEHDY7382-70-17 08:00:001.5[facility] Jun BEGRTTYMME3393-19-11 08:00:000.4[facility] DwwrnlzFCTIVVJWNO2705-67-73 08:00:000.9 [facility] NkhcevkIRTUPFNUMA4876-83-63 08:00:0018.4[facility] HermannHEMATOLOGY 2019-01-24 08:00:0065.4[facility] HermannCHEM GFBOM6437-68-80 08:47:00 Test Item Value Reference Range Interpretation Comments B/C Ratio (test code = B/C Ratio) 16 1 6-25 [facility] HermannCHEM LZYEG9890-49-27 08:47:0011.4[facility] HermannCHEM PANEL 2019-01-23 08:47:00 Test Item Value Reference Range Interpretation Comments A/G Ratio (test code = A/G Ratio) 0.9 1 0.7-1.6 [facility] HermannCHEM ZZXGZ5734-35-43 08:47:003.8[facility] HermannCHEM PANEL 2019-01-23 08:47:0015[facility] HermannCHEM BUNOA0091-07-32 08:47:003.5[facility] HermannCHEM QVYXV1409-54-13 08:47:009.0[facility] HermannCHEM QDUVI2927-63-25 08:47:0083[facility] HermannCHEM BIKNY3544-75-76 08:47:001.0[facility] HermannCHEM BECJF5730-59-53 08:47:000.94[facility]annCHEM VEJPQ0490-26-98 08:47:72237 [facility] XBGBL1890-91-99 08:47:003.4[facility]annCHEM PANEL 2019-01-23 08:47:79220Ukumjotm HermannCHEM PBIGQ0467-45-12 08:47:10838Gmbswtye HermannCHEM FZVKZ5012-31-57 08:47:0032[facility]annCHEM BBVTF7014-91-04 08:47:0041[facility]annCHEM FHYZW3076-07-29 08:47:0045[facility]annCHEM EXVIQ3339-36-27 08:47:0056[facility]annCHEM BRZNF6645-81-61 08:47:007.3 [facility]CHE[facility] RBSPB2778-19-58 08:47:001.8[facility]annCHEM PANEL 2019-01-23 08:47:002.8[facility] VvvdrhbXNQBJAVWPM0609-26-01 08:47:008.0[facility] KfvhzctQKQMWZZCKK0583-61-59 08:47:0013.2[facility] RyruojfZZHHKKVJHJ9273-14-92 08:47:0091.4[facility] SzywuiwJODLBMOJYS0622-75-21 08:47:004.42[facility] Jun BWNMRINTGY6879-04-17 08:47:0040.4[facility] MtavnpkJTWWJZGPBR5006-22-84 08:47:00 Test Item Value Reference Range Interpretation Comments MCH (test code = MCH) 29.9 pg 27.0-31.0 [facility] HujuxdjQENGEASAZB4442-28-25 08:47:90958Jmvknhwg HermannHEMATOLOGY 2019-01-23 08:47:0014.6[facility] SdlexslOUJXZBTALO7684-45-60 08:47:0032.7[facility] OmydqhzWDVHUDRGIU9799-97-85 08:47:0011.5[facility] LystuzoWUFTNDZLDR2670-03-91 08:47:0010.0[facility] FlujohrMCGYYROGWE2509-00-17 08:47:000.5[facility] Jun YTXKLVOZNL0570-17-37 08:47:003.5[facility] CowssfhZJQXRSOJMP9777-97-44 08:47:005.4 [facility] FowbdziLXJBWFEJRY5942-10-19 08:47:000.8[facility] HermannHEMATOLOGY 2019-01-23 08:47:001.5[facility] TnciiogNDVFSNEDEA9125-52-84 08:47:000.3[facility] UotzqmsWTXXQSMVSS7443-61-88 08:47:0018.7[facility] HgagxkbIYCKDMKMJZ0852-61-58 08:47:0067.3[facility] HermannCARDIAC GWBVTVB3262-45-58 20:17:08431Garywvgx HermannCARDIAC ZUNQGRD2954-26-67 20:15:000.02[facility] HermannSPECIAL CHEMISTRY 2019-01-22 15:47:007.6[facility] HermannCARDIAC SHDRNCD0636-20-08 15:44:35183 [facility]annCARDIAC GZUDYAN1235-36-87 15:44:000.02[facility] HermannCARDIAC CYOTQAN6331-79-61 15:44:02706Zcgtytmf HermannCHEM KOYWS6416-62-79 15:44:0042 [facility]annCHEM EDLAQ9552-12-75 15:44:0063[facility]annCHEM PANEL 2019-01-22 15:44:0078[facility]annCHEM LRYCR8223-34-93 15:44:000.99[facility]annCHEM VPCWD6739-65-85 15:44:0042[facility]annCHEM QERJO3622-15-88 15:44:000.7[facility]annCHEM QQSND4260-88-95 15:44:007.7[facility]annCHEM YEARW1764-12-40 15:44:0017[facility]annCHEM KAUHR1172-29-38 15:44:0029 [facility]annCHE[facility] CWWIT4090-70-34 15:44:009.2[facility]annCHEM PANEL 2019-01-22 15:44:003.7[facility]annCHEM AGQJZ2744-54-17 15:44:48798Oyrolgcy HermannCHEM ABMOD9999-64-09 15:44:70181Vzcygznl HermannCHEM GCHMP2905-52-46 15:44:004.3[facility]annCHEM ASOTU5507-31-03 15:44:08744Sjapyrrd HermannCHEM IDJRX5290-04-55 15:44:00 Test Item Value Reference Range Interpretation Comments B/C Ratio (test code = B/C Ratio) 17 1 6-25 [facility] HermannCHEM EPRWX1453-95-02 15:44:00 Test Item Value Reference Range Interpretation Comments A/G Ratio (test code = A/G Ratio) 0.9 1 0.7-1.6 [facility] HermannCHEM DGTIB6690-21-75 15:44:004.0[facility]annCHEM PANEL 2019-01-22 15:44:0010.3[facility] AcphgywNKHFSUMNDR8602-83-00 15:44:00 Test Item Value Reference Range Interpretation Comments PTT (test code = PTT) 36.9 s 22.9-35.8 [facility] XuchujrHGWHTLZEAZ8325-81-16 15:44:00 Test Item Value Reference Range Interpretation Comments PT (test code = PT) 18.6 s 12.0-14.7 [facility] QzwokmrQYSUNEJRLZ5570-78-60 15:44:00 Test Item Value Reference Range Interpretation Comments INR (test code = INR) 1.59 1 0.85-1.17 [facility] ZszkqblQKYQVWXDRY0899-16-32 15:44:00 Test Item Value Reference Range Interpretation Comments MCH (test code = MCH) 29.7 pg 27.0-31.0 [facility] SsbvtirDBLAMCLTKO5631-34-81 15:44:0032.5[facility] HermannHEMATOLOGY 2019-01-22 15:44:0091.3[facility] YoimniwKIKBTQJJLJ0931-14-93 15:44:0041.4[facility] KgzqchtINXMTNIPZR7059-25-62 15:44:004.53[facility] StsgduhPKIZXQRENQ7463-60-03 15:44:0013.5[facility] DqclvaoJOFWYKOYAE5833-00-28 15:44:007.7[facility] KCAIPMBUQQ1429-89-96 15:44:47075Rggpdnpe SlvuweeGTHZNODIIJ4202-23-99 15:44:00 11.2[facility] XzvskoeZDSOXHIKOB2122-10-81 15:44:0014.9[facility] HermannHEMATOLOGY 2019-01-22 15:44:001.2[facility] QdzomfcKAEIHZFRIB1220-76-07 15:44:000.1[facility] QjolaxmAWIXONJQGU4779-82-18 15:44:000.8[facility] ArqiwstZUXPKUQSYX1000-11-06 15:44:000.1[facility] FypdetlMXCNTSPFKC1950-49-04 15:44:005.5[facility] ZOSTIZOEAH4436-37-94 15:44:001.1[facility] ZwketlaPRNBWEKQVP0710-02-90 15:44:001.6 [facility] DnqpgojMKXUCCWYYF5409-00-10 15:44:0015.0[facility]ann[facility]MATOLOGY 2019-01-22 15:44:0010.3[facility] YjxmlgdQAMBHNGDCP9997-62-80 15:44:0072.0[facility][U] XRAY KNEE 3 VWS LEFT [id number] 10:12:00Images acquired, not reported on this accession number.[facility] ENZYMES 2016-12-06 10:14:002.3[facility]annCARDIAC YOEVMDE6751-41-62 10:14:001.0 [facility]annCARD[facility]AC WPHOQUL1017-66-33 10:14:000.02[facility]annCARDIAC BKLGQOI5461-70-83 10:14:94112Tygouajp HermannCARDIAC PQLKWKJ1194-94-68 07:00:00 0.8[facility]annCARDIAC KWYICXO8706-41-41 07:00:002.0[facility]annCARDIAC CSNBMXT5586-23-89 07:00:000.02[facility]annCARDIAC PGXODLI2043-15-06 07:00:00 255[facility] HermannCHEM PXUKN0983-62-27 07:00:002.2[facility]annCHEM PANEL 2016-12-06 07:00:002.8[facility] UjfpzicAOSHWRZDYQNN6480-96-81 07:00:0013.3 [facility] OoppyqrMGFWZUIVZPMX7709-02-74 07:00:0092[facility]annELECTROLYTES 2016-12-06 07:00:000.80[facility] OkevbrxDUFFTAEWMOAL4958-65-86 07:00:37991 [facility] VmohoedAQUOVVEPEJOX6833-43-72 07:00:0015[facility]annELECTROLYTES 2016-12-06 07:00:11978Pliyxpao IcychgoIQRFVTLRIWJQ7390-82-36 07:00:46231Ktvgovtz TrryatvNLDUGFVFXQVR0361-82-13 07:00:004.3[facility] VylytngIDGNRGUKWKRN4885-38-01 07:00:009.3[facility] HxekromBBSEPWPQDVAR8591-88-20 07:00:0029[facility] Jun SLVEWQKYPZ1154-96-04 07:00:006.9[facility] GttshydJYYCOFHLEW0834-17-77 07:00:00 4.50[facility] NtaszyoKMSVOMZPJM4830-55-69 07:00:0014.5[facility]annHEMATOLOGY 2016-12-06 07:00:0013.8[facility] VbsrysfXCBUSHQTOZ5543-11-49 07:00:65662Ihuripos EforspmIICOAYIWNJ8718-16-11 07:00:0010.9[facility] UstcxjnXTUIKNRFQH2798-21-50 07:00:0041.3[facility] XeinbasYOUHAXPDMJ8364-70-88 07:00:0091.8[facility] TFXIGOUEXV3225-01-83 07:00:00 Test Item Value Reference Range Interpretation Comments MCH (test code = MCH) 30.6 pg 27.0-31.0 [facility] LcztcfoYMVGMPGBOF9753-25-81 07:00:0033.3[facility]annHEMATOLOGY 2016-12-06 07:00:001.03[facility] OculfpxQQXNFHHQIU0229-69-50 07:00:00 Test Item Value Reference Range Interpretation Comments PTT (test code = PTT) 34.0 s 22.9-35.8 [facility] MqcrabzPCQTIFIGJV5064-19-09 07:00:00 Test Item Value Reference Range Interpretation Comments PT (test code = PT) 13.7 s 12.0-14.7 [facility] XfjatvjJZVGRRXHWV0612-63-88 07:00:0050.4[facility]annHEMATOLOGY 2016-12-06 07:00:0034.5[facility] BfepgsnLJUCMHRPPB6982-75-52 07:00:002.4[facility] XuuudtnCSKFTIEIFP5894-39-18 07:00:004.1[facility] UqlqilfIJMTMECOKG3411-01-51 07:00:000.9[facility] NslbbpdEVXSUKVFIE0293-22-78 07:00:003.5[facility] Jun FURWPDWPGZ1736-90-55 07:00:0010.1[facility] CbgoxqaBLGQKPACWO4810-93-77 07:00:00 0.1[facility] PebljlsIPJJFHLOVX8843-82-59 07:00:000.7[facility]annHEMATOLOGY 2016-12-06 07:00:000.3[facility] IwscmdmXVEKNI9439-92-97 07:00:0031[facility] KpfhhauWSDIDT9329-00-36 07:00:68668Easnboft ZcxutkqRIFCID8946-06-72 07:00:97933 [facility] AnqnhzqDALKNQ2955-93-96 07:00:0044[facility] TyunryyUTXSKW5664-88-67 07:00:89191Ymortyke BbcuygoUZIISA9830-41-60 07:00:006.32[facility]
[2020-07-05] MEDS ORDERED: TETANUS & DIPHTHERIA TOX,ADULT 0.5 ML VIAL ONE (09:17)
--- NOTE | 2020-07-05 09:26 | EDPHYS ---
Physician Documentation [facility] Name: Bony Santos Age: 69 yrs Sex: Male : 1950 Arrival Date: 07/05/2020 Time: 08:28 Bed 5 Private MD: ED Physician Sharmaine Morejon HPI: 07/05 09:22 This 69 yrs old Male presents to ER via Ambulatory with complaints of Fall ma2 Injury, Laceration. 09:22 Details of fall: The patient fell from an upright position. Onset: The symptoms/episode ma2 began/occurred suddenly, gradually, 1 hour(s) ago. Severity of symptoms: At their worst the symptoms were mild, in the emergency department the symptoms are unchanged. The patient has not experienced similar symptoms in the past. Historical: - Allergies: 08:48 No Known Allergies; iw - PMHx: 08:48 acid reflux; fluid retention; Hypertension; Gout; Prediabetic; Atrial Fib; iw - PSHx: 08:48 colon resection; Tonsillectomy; Knee surgery; bariatric surgery; Heart stents; iw - Immunization history:: Adult Immunizations Last tetanus immunization: unknown. - Social history:: Smoking status: Patient/guardian denies using tobacco, but has a distant history of tobacco abuse, Patient/guardian denies using alcohol, street drugs, The patient lives with family. - Family history:: not pertinent. ROS: 09:22 Constitutional: Negative for fever, chills, and weight loss. ma2 09:22 All other systems are negative. Exam: 09:22 Constitutional: This is a well developed, well nourished patient who is awake, alert, ma2 and in no acute distress. Head/Face: Normocephalic, atraumatic. Eyes: Pupils equal round and reactive to light, extra-ocular motions intact. Lids and lashes normal. Conjunctiva and sclera are non-icteric and not injected. Cornea within normal limits. Periorbital areas with no swelling, redness, or edema. ENT: Nares patent. No nasal discharge, no septal abnormalities noted. Tympanic membranes are normal and external auditory canals are clear. Oropharynx with no redness, swelling, or masses, exudates, or evidence of obstruction, uvula midline. Mucous membranes moist. Neck: Trachea midline, no thyromegaly or masses palpated, and no cervical lymphadenopathy. Supple, full range of motion without nuchal rigidity, or vertebral point tenderness. No Meningismus. Chest/axilla: Normal chest wall appearance and motion. Nontender with no deformity. No lesions are appreciated. Cardiovascular: Regular rate and rhythm with a normal S1 and S2. No gallops, murmurs, or rubs. Normal PMI, no JVD. No pulse deficits. Respiratory: Lungs have equal breath sounds bilaterally, clear to auscultation and percussion. No rales, rhonchi or wheezes noted. No increased work of breathing, no retractions or nasal flaring. Abdomen/GI: Soft, non-tender, with normal bowel sounds. No distension or tympany. No guarding or rebound. No evidence of tenderness throughout. Back: No spinal tenderness. No costovertebral tenderness. Full range of motion. Skin: Warm, dry with normal turgor. Normal color with no rashes, no lesions, and no evidence of cellulitis. MS/ Extremity: has left elbow abrasion and right wrist abrasions, no active bleeding all joints are wnl, able to fully range it. Pulses equal, no cyanosis. Neurovascular intact. Full, normal range of motion. Neuro: Awake and alert, GCS 15, oriented to person, place, time, and situation. Cranial nerves II-XII grossly intact. Motor strength 5/5 in all extremities. Sensory grossly intact. Cerebellar exam normal. Normal gait. Vital Signs: 08:45 BP 154 / 74; Pulse 54; Resp 16; Temp 98.3; Pulse Ox 99% on R/A; Weight 86.18 kg; Height iw 5 ft. 9 in. (175.26 cm); Pain 3/10; 09:46 BP 135 / 71; Pulse 47; Resp 16 S; Pulse Ox 99% on R/A; ec1 08:45 Body Mass Index 28.06 (86.18 kg, 175.26 cm) iw MDM: 08:45 Patient medically screened. ma2 09:22 Differential diagnosis: abrasion, contusion, sprain, strain. Data reviewed: vital dc2 signs, nurses notes. Counseling: I had a detailed discussion with the patient and/or guardian regarding: the historical points, exam findings, and any diagnostic results supporting the discharge/admit diagnosis, the presence of at least one elevated blood pressure reading (>120/80) during this emergency department visit, the need for outpatient follow up. Response to treatment: the patient's symptoms have markedly improved after treatment. 07/05 08:48 Order name: Dressing - Wound; Complete Time: 08:50 ma2 Administered Medications: 09:08 Drug: Tetanus-Diphtheria Toxoid Adult 0.5 ml {Encoding Clerk: JoinMe@. Exp: ec1 09/28/2022. Lot #: [id number]. } Route: IM; Site: right deltoid; 09:46 Follow up: Response: No adverse reaction ec1 Disposition: 07/05/20 09:25 Discharged to Home. Impression: Abrasion of forearm, Abrasion of right wrist. - Condition is Stable. - Discharge Instructions: Abrasion, Cehc-gj-Invj, How to Change Your Dressing, Mouv-to-Qjxx. - Medication Reconciliation Form, Thank You Letter, Antibiotic Education, Prescription Opioid Use form. - Follow up: Private Physician; When: Tomorrow; Reason: Continuance of care. Signatures: Lizy Denton, RN RN iw Sharmaine Morejon MD MD dc2 Dulce Gomez RN RN ec1 Corrections: (The following items were deleted from the chart) 09:48 09:25 07/05/2020 09:25 Discharged to Home. Impression: Abrasion of forearm; Abrasion of ec1 right wrist. Condition is Stable. Forms are Medication Reconciliation Form, Thank You Letter, Antibiotic Education, Prescription Opioid Use. Follow up: Private Physician; When: Tomorrow; Reason: Continuance of care. ma2
--- NOTE | 2020-07-05 09:26 | ER ---
Nurse's Notes [facility] Name: Bony Santos Age: 69 yrs Sex: Male : 1950 Arrival Date: 07/05/2020 Time: 08:28 Bed 5 Private MD: Diagnosis: Abrasion of forearm;Abrasion of right wrist Presentation: 07/05 08:45 Chief complaint: Patient states: tri[place], skin tear iw to left elbow and right palm of hand, did not hit head, is on xarelto , was worried about having the wound cleaned, bleeding has stopped. Coronavirus screen: At this time, the client does not indicate any symptoms associated with coronavirus-19. Ebola Screen: Patient negative for fever greater than or equal to 101.5 degrees Fahrenheit, and additional compatible Ebola Virus Disease symptoms Patient denies exposure to infectious person. Patient denies travel to an Ebola-affected area in the 21 days before illness onset. No symptoms or risks identified at this time. Initial Sepsis Screen: Does the patient meet any 2 criteria? No. Patient's initial sepsis screen is negative. Does the patient have a suspected source of infection? No. Patient's initial sepsis screen is negative. Risk Assessment: Do you want to hurt yourself or someone else? Patient reports no desire to harm self or others. Onset of symptoms was July 05, 2020. 08:45 Method Of Arrival: Ambulatory iw 08:45 Acuity: MAVERICK 4 iw Historical: - Allergies: 08:48 No Known Allergies; iw - PMHx: 08:48 acid reflux; fluid retention; Hypertension; Gout; Prediabetic; Atrial Fib; iw - PSHx: 08:48 colon resection; Tonsillectomy; Knee surgery; bariatric surgery; Heart stents; iw - Immunization history:: Adult Immunizations Last tetanus immunization: unknown. - Social history:: Smoking status: Patient/guardian denies using tobacco, but has a distant history of tobacco abuse, Patient/guardian denies using alcohol, street drugs, The patient lives with family. - Family history:: not pertinent. Screenin:12 Abuse screen: Denies threats or abuse. Denies injuries from another. Nutritional ec1 screening: No deficits noted. Tuberculosis screening: No symptoms or risk factors identified. Fall Risk Assessment: 09:09 General: Appears in no apparent distress. comfortable, Behavior is calm, cooperative. ec1 Pain: Complains of pain in right wrist, left elbow Pain does not radiate. Pain currently is 1 out of 10 on a pain scale. Pain began 30 min ago. Is intermittent. Neuro: No deficits noted. Cardiovascular: Patient's skin is warm and dry. Respiratory: Airway is patent Respiratory effort is even, unlabored. GI: No deficits noted. : No deficits noted. EENT: No deficits noted. Derm: Skin is thin, has skin tears on noted approx 1 cm by 1 cm irregular abrasion to right wrist. Noted approx 6 cm by 2.5 cm skin tear to left forearm/ elbow area. Bleeding controlled and dressings applied. Musculoskeletal: Range of motion: intact in all extremities. Vital Signs: 08:45 BP 154 / 74; Pulse 54; Resp 16; Temp 98.3; Pulse Ox 99% on R/A; Weight 86.18 kg; Height iw 5 ft. 9 in. (175.26 cm); Pain 3/10; 09:46 BP 135 / 71; Pulse 47; Resp 16 S; Pulse Ox 99% on R/A; ec1 08:45 Body Mass Index 28.06 (86.18 kg, 175.26 cm) iw ED Course: 08:28 Patient arrived in ED. ds1 08:45 Sharmaine Morejon MD is Attending Physician. ma2 08:47 Triage completed. iw 08:48 Arm band placed on. iw 08:49 Emely Batista, RN is Primary Nurse. hb 09:13 Patient has correct armband on for positive identification. ec1 09:46 No provider procedures requiring assistance completed. Patient did not have IV access ec1 during this emergency room visit. Administered Medications: 09:08 Drug: Tetanus-Diphtheria Toxoid Adult 0.5 ml {Double Cutter: [employer]. Exp: ec1 09/28/2022. Lot #: [id number]. } Route: IM; Site: right deltoid; 09:46 Follow up: Response: No adverse reaction ec1 Outcome: 09:25 Discharge ordered by . ma2 09:46 Discharged to home ambulatory, with family. ec1 09:46 Condition: good 09:46 Discharge instructions given to patient, family, Instructed on discharge instructions, follow up and referral plans. wound care, s/s of infection Demonstrated understanding of instructions, follow-up care, medications, wound care. 09:48 Patient left the ED. ec1 Signatures: Aretha Jarrett ds1 Lizy Denton RN RN iw Emely Batista RN RN Sharmaine Hamilton MD MD wi2 Dulce Gomez RN RN ec1
== END 2020-07-05 09:48 | disposition home or self-care (01) ==
LOC: ER 08:27
DX: S60.811A Abrasion of right wrist, initial encounter (principal); W01.0XXA Fall on same level from slipping, tripping and stumbling without subsequent striking against object, initial encounter; Y93.01 Activity, walking, marching and hiking; Y92.59 Other trade areas as the place of occurrence of the external cause; Z23 Encounter for immunization; I10 Essential (primary) hypertension; I48.91 Unspecified atrial fibrillation; Z79.01 Long term (current) use of anticoagulants; Z95.818 Presence of other cardiac implants and grafts
CPT/HCPCS: 90471; 90714; 99283

== ENCOUNTER 2020-10-10 15:36 | Emergency (ER) | payer BC, OTHER ==
--- OUTSIDE RECORDS SUMMARY | 2020-10-10 15:42 | XMS REPORT | Continuity of Care Document ---
:1950 Author Organization [facility] t Address [address] [place] [address] Care Team Providers Name Role Phone CO19 Attending Clinician Unavailable 2, Lab Attending Clinician Unavailable Clarissa Avalos Attending Clinician Ashley Graves Attending Clinician Javier Ohara Attending Clinician Ap Og Attending Clinician Raman Krause Attending Clinician Luiz Rodriguez Attending Clinician NILO Attending Clinician Unavailable Manjit Attending Clinician Clarissa Martin Attending Clinician Javier Ohara Admitting Clinician Luiz Rodriguez Admitting Clinician Manjit Admitting Clinician Problems Condition Condition Condition Status Onset Resolution Last Treating Co mments Source Name Details Category Date Date Treatment Clinician Date CAD - PCI Diagnosis Active 2019-09-19 Memoria CIRCUMFLEX 1-30 05:54:00 l CAD - 00:00: Hyder PCI 00 CIRCUMFLEX Active 09/07/2019 [facility] [id number], Diagnosis Active 2018-082019-06-16 Mem oria MORBID 0- 22:12:00 l OBESITY [id number], 00:00: Jun MORBID 00 OBESITY Active 05/30/2019 [facility] DX;ABN Diagnosis Active 2019-03-01 Mem oria STRESS - 06:29:00 l TEST DX;ABN 00:00: Hyder STRESS 00 TEST Active 02/24/2019 [facility] RIGHT FOOT Diagnosis Active 2019-03-22 Memoria PAIN 7- 15:14:00 l RIGHT 00:00: Hyder FOOT PAIN 00 Active 02/06/2019 [facility] SHORTNESS Diagnosis Active 2019-01-24 Memoria OF BREATH 6-16 09:31:00 l 00:00: Hyder SHORTNESS 00 OF BREATH Active 01/22/2019 [facility] NEW ONSET Diagnosis Active 2016-12-05 Memoria AFIB/FLUTT 12-05 23:52:00 l ER NEW 00:00: Jun ONSET 00 AFIB/FLUTT ER Active 7 [facility] AFIB W/RVR Diagnosis Active 2016-12-16 Memoria 12-05 21:56:00 l AFIB 00:00: Hyder W/RVR 00 Active 12/05/2016 [facility] CAD-I25.10 Diagnosis Active 2014-082015-05-21 Memoria 0-02 09:19:00 l 00:00: Hyder CAD-I25.10 00 Active 05/10/2015 [facility] Final: Problem 2015-05-24 Memor ia Atheroscle 04:22:07 l rotic Final: Jun heart Atheroscle disease of rotic [place] heart coronary disease of artery [place] without coronary angina artery pectoris without angina pectoris 05/24/2015 [facility] Edema of Problem Resolve 2020-09-05 Me moria extremity d 22:38:49 l (finding) Edema of Her patel extremity (finding) Resolved Problem 09/05/2020 [facility] Gastroesop Problem Resolve 2020-09-05 Memoria hageal d 22:38:49 l reflux Jun disease Gastroesop (disorder) hageal reflux disease (disorder) Resolved Problem 09/05/2020 [facility] Gout Problem Resolve 2020-09-05 Alexei elmira (disorder) d 22:38:49 l Gout Hyder (disorder) Resolved Problem 09/05/2020 [facility] Hyperchole Problem Resolve 2020-09-05 Memoria sterolemia d 22:38:49 l (disorder) Tobias n Hyperchole sterolemia (disorder) Resolved Problem 09/05/2020 [facility] Male Problem Resolve 2020-09-05 Alexei elmira urinary d 22:38:49 l stress Male Jun incontinen urinary ce stress (finding) incontinen ce (finding) Resolved Problem 09/05/2020 [facility] Congestive Problem Resolve 2020-09-05 Memoria heart d 22:38:49 l failure Hyder (disorder) Congestive heart failure (disorder) Resolved Problem 09/05/2020 [facility] Hypertensi Problem Active 2018-08-26 M emoria on 03:07:19 l Jun Hypertensi on Active Problem 9 [facility] Morbid Problem Active 2018-08-26 Memor ia obesity 03:07:19 l Morbid Jun obesity Active Problem 08/26/2018 [facility] Coronary Problem Active 2018-08-26 Mem oria atheroscle 03:07:19 l rosis of Coronary Herm melinda [place] atheroscle vessel rosis of [place] vessel Active Problem 08/26/2018 [facility] Cardiomega Problem Active 2018-08-26 M emoria ly 03:07:19 l Jun Cardiomega ly Active Problem 9 [facility] Malignant Problem Active 2018-09-24 Me moria hypertensi 03:03:14 l on Jun Malignant hypertensi on Active Problem 9 [facility] Peripheral Problem Active 2018-09-24 M emoria edema 03:03:14 l Hyder Peripheral edema Active Problem 09/24/2018 [facility] Coronary Problem Active 2018-09-24 Mem oria atheroscle 03:03:14 l rosis of Coronary Herm melinda [place] atheroscle coronary rosis of artery [place] coronary artery Active Problem 09/24/2018 [facility] [...] Memor ia insufficie 03:03:14 l ncy Venous Hyder insufficie ncy Active Problem 09/24/2018 [facility] Hyperlipid Problem Active 2018-09-24 M emoria emia, 03:03:14 l unspecifie Tobias n d Hyperlipid emia, unspecifie d Active Problem 09/24/2018 [facility] Atheroscle Problem Active 2018-09-24 M emoria rotic 03:03:14 l heart Jun disease of Atheroscle [place] rotic coronary heart artery disease of with [place] unspecifie coronary d angina artery pectoris with unspecifie d angina pectoris Active Problem 09/24/2018 [facility] Cardiac Problem Active 2018-09-24 Alexei elmira arrhythmia 03:03:14 l , Cardiac Hyder unspecifie arrhythmia d cardiac , arrhythmia unspecifie [...] M emoria erosis of 03:03:14 l both Hyder carotid Arterioscl arteries erosis of both carotid arteries Active Problem 09/24/2018 [facility] Hyperchole Problem Active 2018-09-24 M emoria steremia 03:03:14 l Hyder Hyperchole steremia Active Problem 09/24/2018 [facility] Body mass Problem Active 2018-09-24 Me moria index 03:03:14 l (BMI) of Body Hyder 40.0-44.9 mass index in adult (BMI) of 40.0-44.9 in adult Active Problem 09/24/2018 [facility] Atheroscle Problem Active 2015-11-07 M emoria rotic 03:20:51 l heart Jun disease of Atheroscle [place] rotic coronary heart artery disease of without [place] angina coronary pectoris artery without angina pectoris Active Problem 11/07/2015 [facility] Venous Diagnosis Active 2016-03-12 Mem oria insufficie 02:41:46 l ncy Venous Hyder (chronic) insufficie (periphera ncy l) (chronic) (periphera l) Active Diagnosis 03/12/2016 [facility] Varicose Diagnosis Active 2016-03-12 M emoria veins of 02:41:46 l unspecifie Varicose He rmann d lower veins of extremitie unspecifie s with d lower other extremitie complicati s with ons other complicati ons Active Diagnosis 03/12/2016 [facility] Edema Diagnosis Active 2016-03-12 Mem oria 02:41:46 l Edema Hyder Active Diagnosis 03/12/2016 [facility] Hypertensi Problem Active 2020-09-05 M emoria ve 22:38:49 l disorder, Hyder systemic Hypertensi arterial ve (disorder) disorder, systemic arterial (disorder) Active Problem 09/05/2020 [facility] Morbid Problem Active 2020-09-05 Memor ia obesity 22:38:49 l (disorder) Morbid Herm melinda obesity (disorder) Active Problem 09/05/2020 [facility] Atrial Problem Active 2020-09-05 Memor ia fibrillati 22:38:49 l on Atrial Hyder (disorder) fibrillati on (disorder) Active Problem 09/05/2020 [facility] Bleeds Problem Active 2020-09-05 Memor ia profusely 22:38:49 l (finding) Bleeds Terri nn profusely (finding) Active Problem 09/05/2020 [facility] Coronary Problem Active 2020-09-05 Mem oria arterioscl 22:38:49 l erosis Coronary Tobias n (disorder) arterioscl erosis (disorder) Active Problem 09/05/2020 [facility] Diastolic Problem Active 2020-09-05 Me moria heart 22:38:49 l failure Jun (disorder) Diastolic heart failure (disorder) Active Problem 09/05/2020 [facility] Prediabete Problem Active 2020-09-05 M emoria s 22:38:49 l (finding) Hyder Prediabete s (finding) Active Problem 09/05/2020 [facility] Sleep Problem Active 2020-09-05 Memor ia apnea 22:38:49 l (finding) Sleep Tobias n apnea (finding) Active Problem 09/05/2020 [facility] ATHSCL Diagnosis Active 2015-05-21 Mem oria HEART 09:19:00 l DISEASE OF ATHSCL Herm melinda [place] HEART CORONARY DISEASE OF [place] CORONARY Active [facility] PAROXYSMAL Diagnosis Active 2016-12-16 Memoria ATRIAL 21:56:00 l FIBRILLATI Tobias n ON PAROXYSMAL ATRIAL FIBRILLATI ON Active [facility] UNSPECIFIE Diagnosis Active 2019-01-24 Memoria D ATRIAL 09:31:00 l FIBRILLATI Tobias n ON UNSPECIFIE D ATRIAL FIBRILLATI ON Active [facility] HEART Diagnosis Active 2019-01-24 Mem oria FAILURE, 09:31:00 l UNSPECIFIE HEART Terri nn D FAILURE, UNSPECIFIE D Active [facility] ILLNESS, Diagnosis Active 2019-06-16 M emoria UNSPECIFIE 22:12:00 l D ILLNESS, Tobias n UNSPECIFIE D Active [facility] BMI BMI Problem Active Univers 45.0-49.9, 45.0-49.9, it y of adult adult [place] [facility] Obesity, Obesity, Problem Active Unive rs morbid morbid ity of [place] [facility] Patellofem Patellofem Problem Active U nivers oral oral [place], [place] ans Encounter Encounter Problem Active Uni vers for for [place] administ[place] tion of tion of Physici COVID-19 COVID-19 ans vaccine vaccine History of History of Problem Resolve Univers [...] left knee[place] [facility] Allergies, Adverse Reactions, Alerts Allergy Allergy Status Severity Reaction(s) Onset Inactive Treating Comm ents Source Name Type Date Date Clinician Jas NCm Active Info Not Alexei elmira Available 1-17 l 00:00: Hyder 00 No Known No Known Active Memori a Medicati Medicati l on on Jun Allergie Allergie s s Social History Social Habit Start Date Stop Date Quantity Comments Source Social History 2020-01-04 2020-01-04 [facility] H ermann 16:19:38 16:19:38 Caffeine: 2016-06-11 2016-06-11 [facility] Terri nn 00:00:00 00:00:00 Smoking Status Start Date Stop Date Source Never smoked tobacco (finding) [facility] Medications Ordered Filled Start Stop Current Ordering Indication Dosage Frequency Signature Comments Components Source Medication Medication Date Date Medication? Clinician (SIG) Name Name clopidogrel Yes See Memori a 75 mg oral 1-25 Instructio l tablet 16:34: ns, TAKE 1 Terri nn 00 TABLET BY MOUTH DAILY, # 90 tab, 3 Refill(s), Pharmacy: [facility] #[id number], 175.26, cm, 06/13/20 10:49:00 [employer], Height, 87.727, kg, 06/13/20 10:49:00 [employer], Weight rivaroxaban Yes See Memori a 20 MG Oral 8-10 Instructio l Tablet 17:56: ns, TAKE 1 Terri nn [Xarelto] 00 TABLET BY MOUTH EVERY DAY, # 30 tab, 5 Refill(s), Pharmacy: [facility] #[id number], 175.26, cm, 12/11/19 9:38:00 CDT, Height, 93.409, kg, 01/04/20 11:14:00 CDT, Weight olmesartan 2019-0 Yes 20 mg = 1 Me moria 20 mg oral 5-28 tab, PO, l tablet 19:39: BID, # 180 Terri nn 00 tab, 4 Refill(s), Pharmacy: [facility] #[id number] amLODIPine 2019-0 Yes 5 mg = 1 Mem oria 5 mg oral 5-28 tab, PO, l tablet 19:39: Daily, # Jun 00 90 tab, 4 Refill(s), Pharmacy: [facility] #[id number] rosuvastati 2019- Yes See Memori a n 10 mg 3-31 Instructio l oral tablet 17:51: ns, # 30 He rmann 41 tab, Refill(s) 5, TAKE 1 TABLET BY MOUTH EVERY DAY, Pharmacy: [facility] #[id number] AMIODarone 2019- Yes See Memoria 200 mg oral 2- Instructio l tablet 17:46: ns, # 30 Jun 58 tab, Refill(s) 2, TAKE 1 TABLET BY MOUTH EVERY DAY, Pharmacy: [facility] #[id number] clopidogrel Yes 75 mg = 1 M emoria 75 mg oral 2-11 tab, PO, l tablet 17:41: Daily, # Hyder 00 90 tab, 3 Refill(s), Pharmacy: [facility] #[id number] Hydralazine No 10 mg, Alexei elmira 09-19 Route: l 15:11: IVP, Q4H, Jun 00 Dosing Weight 107.727, kg, PRN, Start date: 09/19/19 9:11:00 [employer], Duration: 30 day, Stop date: 10/19/19 9:10:00 CDT, systolic 170 Nitroglycer No 0.4 mg, Mem oria in 09-19 Route: SL, l 15:08: Drug form: Hyder 00 TAB, Q5Min, Dosing Weight 107.727, kg, PRN Chest Pain, Start date: 09/19/19 9:08:00 [employer], Duration: 3 doses or times, Stop date: Limited # of times Bariatric 2019-0 Yes Bariatric Mem oria Multivitami 2-07 Multivitam l n 18:16: in, 3 tab, Jun 00 PO, Daily ursodiol 2019-0 Yes 300 mg = 1 Mem oria 300 mg oral 1-30 cap, PO, l capsule 17:21: BID, 0 Jun 00 Refill(s) olmesartan 2018-08 Yes = 1 tab, Mem oria 20 mg oral 2-19 PO, Daily, l tablet 23:01: # 30 tab, Tobias n 12 0 Refill(s), [id number], THE PATIENT NEEDS AN APPOINTMEN T WITH DR GRAVES olmesartan 2018-08 No 20 mg = 1 Me moria 20 mg oral 2-19 tab, PO, l tablet 01:28: Daily, # Jun 00 30 tab, 0 Refill(s), other carvedilol 2018-08 Yes 6.25 mg = Me moria 6.25 mg 2-19 1 tab, PO, l oral tablet 00:32: BID, # 180 00 tab, 0 Refill(s), Pharmacy: [facility] #[id number] olmesartan 2018-08 No 20 mg = 1 Me moria 20 mg oral 2-19 tab, PO, l tablet 00:32: Daily, # Hyder 00 30 tab, 0 Refill(s), Pharmacy: [facility] #[id number] Centrum 2018-08 Yes PO, Daily, Alexei elmira Silver 2-18 0 l Men's 20:29: Refill(s) Vitamin D3 2018-08 Yes Daily, 0 Mem oria 2-18 Refill(s) l 20:29: Acetaminoph 2018-08 No Notes: Do M emoria en 0-30 not exceed l 21:07: 4 gm/day. (Same as: Tylenol) Fenofibrate 2018-08 No 160 mg, 1 M emoria 160 MG Oral 0-30 tab, l Tablet 14:00: Route: PO, Drug form: TAB, Daily, Dosing Weight 129.091, kg, Start date: 06/07/19 9:00:00 CDT, Duration: 30 day, Stop date: 07/06/19 9:00:00 [employer] oxybutynin 2018-08 No Notes: Memor ia 0-30 [...] ia 0-30 Give with l 02:00: food. Jun 00 (Same As: Coreg) rosuvastati 2018-08 No Notes: Alexei elmira n 0-30 (Same As: l 02:00: Crestor) Jun 00 Ofirmev 2018-08 No Notes: Max Alexei elmira 0-29 acetaminop l 23:00: hen 4000 Hyder 00 mg/day (4 gm/day). (Same as: Tylenol Extra Strength) Allopurinol 2018-08 No Notes: Alexei elmira 0-29 (Same as: l 22:00: Zyloprim) Hyder 00 Amiodarone 2018-08 No Notes: Memor ia 0-29 (Same as: l 22:00: Cordarone) Hyder 00 Lovenox 2018-08 No Notes: Memoria 0-29 (Same as: l 22:00: Lovenox) Jun 00 72 HR 2018-08 No Notes: Memoria Scopolamine [...] 0-29 Drug form: l 21:07: INJ, ONCE, 00 Stop date: 06/06/19 16:07:00 CDT sugammadex 2018-08 No Route: IV, M emoria (ANES) 0-29 Drug form: l 21:07: SOLN, Hyder 00 ONCE, Stop date: 06/06/19 16:07:00 CDT [...] Duration: 30 day, Stop date: 07/06/19 16:06:00 [employer], 2.51, m2, 0 tramadol 2018-08 No Notes: Not Mem oria hydrochlori 0-29 to exceed l de 50 MG 21:07: 400mg/day. Her patel Oral Tablet 00 (Same As: Ultram) Dilaudid 2018-08 No Notes: Memoria 0-29 Same as l 21:07: Dilaudid Hyder 00 Labetalol 2018-08 No Notes: Memori a 0-29 (Same as: l 21:07: Normodyne, Hyder 00 Trandate) Push over 2 minutes Give bolus over 2-3 minutes. Hydralazine 2018-08 No Notes: Alexei elmira 0-29 (Same as: l 21:07: Apresoline Hyder ) Push over 5 minutes Insulin 2018-08 No Notes: Memoria regular 0-29 (Same as: l 21:07: Humulin R) Jun 00 Roll in palms of hands gently; Do not shake vigorously . WASTE: F/P - Black; E - Municipal Trash Bin Stable for 31 days at room temperatur e Expires in days from ____Date Ondansetron 2018-08 No Notes: Alexei elmira 0-29 (Same as: l 21:07: Zofran) Jun MEDICATION WASTE Product Size: 4 mg Product Wasted: ___ mg fentaNYL 2018-08 No Route: IV, Mem oria (ANES) 0-29 Drug form: l 20:32: INJ, ONCE, Jun 00 Stop date: 06/06/19 15:32:00 CDT rocuronium 2018-08 [...] 2018-08 No Route: IV, Memoria en (ANES) 0-29 Drug form: l 19:25: INJ, ONCE, Stop date: 06/06/19 14:25:00 CDT ondansetron 2018-08 No Route: IV, Memoria (ANES) 0-29 Drug form: l 19:25: INJ, ONCE, Stop date: 06/06/19 14:25:00 CDT dexamethaso 2018-08 No Route: IV, Memoria ne (ANES) 0- Drug form: l 19:25: INJ, ONCE, Stop date: 06/06/19 14:25:00 CDT famotidine 2018-08 No Route: IV, M emoria (ANES) 0-29 Drug form: l 19:25: INJ, ONCE, Jun 00 Stop date: 06/06/19 14:25:00 CDT Sodium 2018-08 No 500 mL, Memoria Chloride 0-29 1500 l 0.9% 18:54: ml/hr, Jun (Bolus) IV 00 Infuse Over: 20 minutes, Route: IV, 500, Drug form: INJ, ONCE, Dosing Weight 129.091 kg, Start date: 06/06/19 13:54:00 CDT, Stop date: 06/06/19 13:54:00 CDT, 0 Hydralazine 2018-08 No Notes: Alexei elmira 0-29 (Same as: l 18:54: Apresoline Jun 00 ) Push over 5 minutes Labetalol 2018-08 No Notes: Memori a 0-29 (Same as: l 18:54: Normodyne, Hyder 00 Trandate) Push over 2 minutes Give bolus over 2-3 minutes. Acetaminoph 2018-08 No Notes: Max Memoria en 0-29 acetaminop l 18:54: hen 4000 Hyder 00 mg/day (4 gm/day). (Same as: Tylenol Extra Strength) Morphine 2018-08 No Notes: Memoria 0-29 (Same l 18:54: as:MORPhin Jun 00 e Sulfate) Hydromorpho 2018-08 No Notes: Alexei elmira ne 0-29 Same as l 18:54: Dilaudid Flumazenil 2018-08 No Notes: Memor ia 0-29 (Same as: l 18:54: Romazicon) Naloxone 2018-08 No Notes: Memoria 0-29 Same as l 18:54: Narcan Jun 00 Albuterol 2018-08 No Notes: SEE Me moria 0.83 MG/ML 0-29 RT l Inhalant 18:54: DOCUMENTAT Her patel Solution 00 ION (Same as: Proventil) Diphenhydra 2018-08 No Notes: Alexei elmira mine 0-29 (Same as: l 18:54: Benadryl) Ondansetron 2018-08 No Notes: Alexei elmira 0-29 (Same as: l 18:54: Zofran) MEDICATION WASTE Product Size: 4 mg Product Wasted: ___ mg Promethazin 2018-08 No Notes: Do M emoria e 0-29 not give l 18:54: IV push. Hyder 00 (Same as: Phenergan) Sodium 2018-08 No Route: IV, Memor ia Chloride 0-29 Total l 0.9% IV 18:23: Volume: Hyder (ANES) 1000 00 1,000, mL Start date: 06/06/19 13:23:00 CDT, Stop date: 06/06/19 14:23:00 CDT ceFAZolin + 2018-08 No Notes: Alexei elmira sterile 0-29 (Same As: l water 30 mL 03:00: Ancef, Herm melinda 00 Kefzol) MEDICATION WASTE Product Size: 1000 mg Product Wasted: ___ mg Nitroglycer No 0.4 mg, Mem oria in 03-01 Route: SL, l 15:37: Drug form: Jun 00 TAB, Q5Min, Dosing Weight 136.364, kg, PRN Chest Pain, Start date: 03/01/19 10:37:00 CDT, Duration: 3 doses or times, Stop date: Limited # of times Allopurinol Yes 100 mg, Mem oria 724 PO, BID, 0 l 12:22: Refill(s) AMIODarone Yes 200 mg = 1 M emoria 200 mg oral 7-22 tab, PO, l tablet 18:03: BID Hyder 00 Hydralazine No 25 mg = 1 M emoria Hydrochlori 7-22 tab, PO, l de 25 MG 16:46: TID Jun Oral Tablet 00 carvedilol Yes 12.5 mg = Me moria 12.5 mg 6-18 1 tab, PO, l oral tablet 19:34: Q12H, # 60 Hyder 00 tab, 0 Refill(s), Pharmacy: [facility] amLODIPine Yes 10 mg = 1 Me moria 10 mg oral 6-18 tab, PO, l tablet 19:34: Daily, # Jun 00 30 tab, 0 Refill(s), Pharmacy: [facility] [id number] AMIODarone Yes 400 mg = 2 M emoria 200 mg oral 6-18 tab, PO, l tablet 19:34: TID, # 180 Terri tab, 0 Refill(s), Pharmacy: [facility] [id number] Benzocaine No Notes: Memor ia 140 MG/ML / -18 (Same As: l butamben 20 16:00: Cetacaine) Hyder MG/ML / 00 Cetacaine Tetracaine (benzocain 20 MG/ML e-tetracai Mucosal ne-butambe [place] n 14-2-2%) [Cetacaine] Amiodarone No 400 mg, Alexei elmira 6-17 Route: PO, l 22:00: Drug form: Jun 00 TAB, BID, Dosing Weight 142, kg, Start date: 01/23/19 17:00:00 CDT, Duration: 30 day, Stop date: 02/22/19 9:00:00 CDT Potassium No Notes: Memori a Chloride -17 (Same as: l 21:56: K-Dur 20) "Do Not Crush" Give with food and full glass of water For patients unable to swallow tablet, dissolve in one half glass of water. Allow about 2 minutes for the tablets to disintegra te. Stir before giving to prepare slurry and administer . Please exclude Patient s with feeding tube less than 14 Tamazight (Dobhoff, J-tube etc) and pediatric and patients. Amiodarone No Notes: Memor ia 6-17 (Same as: l 14:16: Cordarone) carvedilol No Notes: Memor ia 6-17 Give with l 14:00: food. (Same As: Coreg) Fenofibrate No 160 mg, 1 M emoria 160 MG Oral 6-17 tab, l Tablet 14:00: Route: PO, Terri 00 Drug form: TAB, Daily, Dosing Weight 144.091, kg, Start date: 01/23/19 9:00:00 CDT, Duration: 30 day, Stop date: 02/21/19 9:00:00 CDT Potassium No 40 mEq, Memor ia Chloride 6-17 Route: PO, l 14:00: Drug form: ERTAB, Daily, Dosing Weight 142, kg, Start date: 01/23/19 9:00:00 CDT, Duration: 30 day, Stop date: 02/21/19 9:00:00 CDT Amlodipine No Notes: Memor ia 01-23 (Same as: l 14:00: Norvasc) AMIODarone No [...] en 01-23 acetaminop l 11:32: hen = 4000mg/day (4 gm/day). (Same as: Tylenol) Potassium No Notes: Memori a Chloride 01-23 Infuse at l 11:00: a rate of Hyder 00 10 mEq/hr. (Same as: KCL) Digoxin No Notes: Memoria 01-23 (Same as: l 04:00: Lanoxin) Saline No [...] mg rosuvastati No Notes: Alexei elmira n 01-23 (Same As: l 02:00: Crestor) Xarelto No Notes: Memoria 6-16 (Same as: l 22:00: Xarelto) Administer with food pantoprazol No Notes: Alexei elmira e 6-16 Tablet l 21:30: should not 00 be chewed or crushed. (Same as: Protonix) Digoxin No Notes: Memoria 6-16 (Same as: l 21:27: Lanoxin) fenofibrate No Notes: Alexei elmira 6-16 (Same as: l 20:00: Tricor) Aspirin 81 No Notes: Do Me moria MG Enteric 6-16 not crush l Coated 20:00: or chew. Jun Tablet 00 (Same As: Ecotrin) oxybutynin No Notes: Memor ia 6-16 (Same as: l 20:00: Ditropan 00 XL) "Do Not Crush" olmesartan No 20 mg, 1 Mem oria 6-16 tab, l 20:00: Route: PO, Drug form: TAB, Daily, Dosing Weight 144.091, kg, Start date: 01/22/19 15:00:00 CDT, Duration: 30 day, Stop date: 02/21/19 9:00:00 CDT Centrum No Notes: Memoria 6-16 (Same l 20:00: as:Thera-M , Theragran- M) WASTE: F/P - Black; E - Municipal Trash Bin Give with food. 24 HR No Notes: Memoria Metoprolol 6-16 (Same as: l Tartrate 50 20:00: Toprol XL) Jun MG Extended May split Release tab, but Tablet do not [Toprol] crush. Insulin No Notes: Memoria Lispro 6-16 (Same as: l 18:28: Humalog) Roll in palms of hands gently; Do not shake vigorously . WASTE: F/P - Black; E - Municipal Trash Bin Stable for 28 days at room temperatur e. Expires in days from ____Date Dextrose No 12.5 gm, Memor ia 50% Syringe 6-16 25 mL, l 18:28: Route: IVP, Drug Form: INJ, Dosing Weight 144.091, kg, PRN, PRN Blood Glucose Results, Start date: 01/22/19 13:28:00 CDT, Duration: 30 day, Stop date: 02/21/19 13:27:00 CDT Glucagon 2019-0 No 1 mg, Memoria 6-16 Route: IM, [...] 12:54:00 CDT, PRN Line Flush BD Normal 2018-0 No Notes: Memori a Saline -16 (Same as: l Flush 17:55: BD Posiflush) Saline 2018-0 No 10 ml, Memoria Flush 0.9% 16 Route: l 16:45: IVP, Drug Form: INJ, Dosing Weight 144.091, kg, PRN, PRN Line Flush, Start date: 01/22/19 11:45:00 CDT, Duration: 30 day, Stop date: 02/21/19 11:44:00 CDT Aspirin 81 2019-0 Yes 81 mg = 1 Me moria MG Enteric 6-16 tab, PO, l Coated 16:37: Daily Jun Tablet 00 oxybutynin 2018-0 Yes 10 mg = 1 Me moria 10 mg oral 6-16 tab, PO, l tablet, 16:37: Daily Hyder extended 00 release Furosemide 2018-0 Yes 40 mg = 1 Me moria 40 MG Oral 6-16 tab, PO, l Tablet 16:37: Daily Hyder 00 pantoprazol 2018-0 Yes 40 mg = 1 M emoria e 40 mg 6-16 tab, PO, l oral 16:37: Daily Hyder enteric 00 coated tablet Fenofibrate 2018-0 Yes 160 mg = 1 Memoria 160 MG Oral 6-16 tab, PO, l Tablet 16:37: Daily Jun 00 olmesartan Yes 20 mg = Alexei elmira 40 mg oral 6-16 0.5 tab, l tablet 16:36: PO, Daily Tobias n 00 potassium Yes 20 mEq = 1 Me moria chloride 20 6-16 tab, PO, l mEq oral 16:36: Daily Hyder tablet, 00 extended release rivaroxaban Yes 20 mg = 1 M emoria 20 MG Oral 6-16 tab, PO, l Tablet 16:35: QPM Hyder [Xarelto] Metoprolol No 50 mg = 1 Me moria Succinate 6-16 tab, PO, l ER 50 mg 16:35: Daily Jun oral 00 tablet, extended release rosuvastati Yes 10 mg = 1 M emoria n 10 mg 6-16 tab, PO, l oral tablet 16:35: Bedtime Her patel Metformin Yes 500 mg = 1 Me moria hydrochlori 6-16 tab, PO, l de 500 MG 16:35: Before Tobias n Oral Tablet 00 Dinner Lasix No Notes: Memoria 6-16 (Same as: l 16:28: Lasix) MEDICATION WASTE Product Size: 40 mg Product Wasted: ___ mg Diltiazem No Notes: Memori a 6-16 (Same as: l 16:28: Cardizem) Diltiazem No 10 mg, Memori a 6-16 Route: l 16:27: IVP, ONCE, Dosing Weight 144.091, kg, Priority: STAT, Start date: 01/22/19 11:27:00 CDT, Stop date: 01/22/19 11:27:00 CDT Diltiazem No 10 mg, Memori a 6-16 Route: l 15:35: IVP, ONCE, Dosing Weight 144.091, kg, Priority: STAT, Start date: 01/22/19 10:35:00 CDT, Stop date: 01/22/19 10:35:00 CDT fenofibrate Yes Jass 1 tab(s) M emoria 2-16 [place] l 03:03: Jun 14 metformin 2019-0 Yes Jass 1 tab(s) Mem oria 2-16 [place] l 03:03: Jun 14 aspirin 2019-0 Yes Jass 1 tab(s) Memor ia 2-16 [place] l 03:03: Hyder 14 Centrum 2019-0 Yes Jass 1 tab(s) Memor ia Silver 2-16 [place] l 03:03: Jun 14 Amlodipine 2019-0 Yes Jass 1 tab(s) Me moria Besylate 2-16 [place] l 03:03: Jun 14 losartan 2019-0 Yes Jass 1 tab(s) Alexei elmira 2-16 [place] l 03:03: Jun Crestor 2019-0 Yes Jass 1 tab(s) Memor ia 2-16 [place] l 03:03: Jun Xarelto 2019-0 Yes Jass 1 tab Memoria 2-16 [place] l 03:03: Jun furosemide 2019-0 Yes Jass 1 tab(s) Me moria 2-16 [place] l 03:03: Jun pantoprazol 2019-0 Yes Jass 1 tab(s) M emoria e 2-16 [place] l 03:03: Jun Olmesartan 2019-0 Yes Jass 1 tab(s) Me moria Medoxomil 1-17 [place] l 00:00: Hyder 00 allopurinol 2018- Yes Jass 1 tab(s) M emoria 2-07 [place] l 03:14: Jun 11 Metoprolol 2018- Yes Jass 1 tab(s) Me moria Succinate 1-29 [place] l ER 00:00: Hyder 00 K-Tab 2018-0 Yes Saji 1 tab(s) Memoria 9-14 [place] l 02:04: Jun 20 Klor-Con 2018-0 Yes Jass 1 tab(s) Alexei elmira M20 9-13 [place] l 00:00: Jun 00 verapamil 2018-0 Yes Saji 1 cap(s) Alexei elmira 4-03 [place] l 00:00: Hyder 00 losartan 2017- Yes Saji 1 tab(s) Memor ia 1-18 [place] l 03:04: 35 Nexium 2017- Yes Saji 1 cap(s) Memoria 1-18 [place] l 03:04: 35 Crestor 2017- Yes Saji 1 tab(s) Memori a 1-16 [place] l 00:00: Xarelto 2017-1 Yes Saji 1 tab Memoria 1-08 [place] l 00:00: verapamil 2017-0 Yes Jass 1 tab(s) Mem oria 8-25 [place] l 00:00: verapamil 2017-0 Yes Saji 1 cap(s) Alexei elmira 8-25 [place] l 00:00: Xarelto 0 Yes Saji TAKE 1 Memoria 8-08 [place] TABLET BY l 02:02: MOUTH Hyder 59 EVERY EVENING flecainide 0 Yes Saji 1 tab(s) Mem oria 8-07 [place] l 00:00: flecainide 2017-0 Yes Jass 1 tab(s) Me moria 8-07 [place] l 00:00: flecainide 2017-0 Yes Saji 1 tab(s) Mem oria 8-07 [place] l 00:00: Xarelto 0 Yes Saji 1 tab Memoria 5-30 [place] l 00:00: verapamil 2017-0 Yes Saji 1 cap(s) Alexei elmira 5-30 [place] l 00:00: verapamil 20170 No Notes: Do Mem oria 24 hour 02 not crush l extended 02:00: or chew. Terri nn 00 (Same As: Calan SR, Isoptin SR) "Avoid grapefruit and grapefruit juice" Xarelto No Notes: Memoria 5-01 (Same as: l 22:00: Xarelto) Hyder 00 Administer with food Protonix No Notes: Memoria 5-01 Tablet l 21:30: should not be chewed or crushed. (Same as: Protonix) rivaroxaban 2017 Yes 20 mg, PO, Memoria 20 MG Oral 5-01 QPM, # 30 l Tablet 14:35: tab, 0 Hyder [Xarelto] 00 Refill(s) verapamil 2017-0 Yes 180 mg, Memor ia 180 mg oral 5-01 PO, l tablet, 14:35: Bedtime, # Herm melinda extended 00 30 tab, 0 release Refill(s) flecainide Yes 50 mg = 1 Me moria 50 mg oral 5-01 tab, PO, l tablet 14:35: Q12H, # Jun 00 180 tab, 0 Refill(s) Pravastatin No Notes: Alexei elmira 5- (Same as: l 14:00: Pravachol) potassium No Notes: Memori a chloride 5- (Same as: l 14:00: K-Dur 20) "Do [...] Coreg) Sodium No 25 mL, Memoria Chloride 12-06 Route: IV, l 0.9% IV 18:02: Start date: 12/06/16 13:02:00 CDT, Duration: 30 day, Stop date: 01/05/17 13:01:00 CDT, PRN Line Flush BD Normal No Notes: Memori a Saline 30 (Same as: l Flush 18:02: BD Posiflush) [...] 4-30 Daily, 0 l 03:48: Refill(s) Metformin 2017-0 Yes 500 mg, Memor ia 4-30 PO, Daily, l 03:48: 0 Refill(s) Furosemide 20170 Yes 40 mg, PO, M emoria 4-30 Daily, 0 l 03:48: Refill(s) Fenofibrate 20170 Yes 160 mg, Mem oria 4-30 PO, Daily, l 03:48: 0 Refill(s) Centrum 20170 Yes PO, Daily, Alexei elmira 4-30 0 l 03:48: Refill(s) Aspirin 20170 No 81 mg, PO, Alexei elmira 4-30 Daily, 0 l 03:48: Refill(s) Allopurinol 0 Yes 200 mg, Mem oria 4-30 PO, Daily, l 03:48: 0 Refill(s) Pravastatin 20170 Yes 40 mg, PO, Memoria 4-30 Daily, [...] moria e 1-08 [place] l 03:24: fenofibrate 1 Yes Saji 1 tab(s) Me moria 0-27 [place] l 00:00: K-Tab 2016-0 Yes Saji 1 tab(s) Memoria 3-31 [place] l 00:00: Amlodipine 2016-0 Yes Saji 1 tab(s) Mem oria Besylate 3-31 [place] l 00:00: furosemide 2016-0 Yes Saji 1 tab(s) Mem oria 3-31 [place] l 00:00: furosemide 2016-0 Yes Saji 1 tab(s) Mem oria 3-31 [place] l 00:00: Cephalexin 0 Yes Saji 1 cap(s) Mem oria Monohydrate 3-31 [place] l 00:00: K-Tab 0 Yes Saji 1 tab(s) Memoria 3-31 [place] l 00:00: Amlodipine Yes Saji 1 tab(s) Mem oria Besylate [...] Oral TABLET ity of Tablet Tablet TWICE [place] DAILY. Physici ans amLODIPine amLODIPine Yes QD TAKE 1 U nivers Besylate 10 Besylate 10 TABLET ity of MG Oral MG Oral DAILY [place] Tablet Tablet BLOOD Physici PRESSURE. ans Fenofibrate Fenofibrate Yes 1 QD TAKE 1 Univers 160 MG Oral 160 MG Oral TABLET ity of Tablet Tablet DAILY. [place] Physici ans Flecainide Flecainide Yes Q0.5D TAKE 1 Univers Acetate 50 Acetate 50 TABLET i ty of MG Oral MG Oral TWICE [place] Tablet Tablet DAILY. Physici ans Furosemide Furosemide Yes QD TAKE 1 U nivers 40 MG Oral 40 MG Oral TABLET i ty of Tablet Tablet DAILY [place] DIRECTED. Physici ans Losartan Losartan Yes QD TAKE 1 Unive rs Potassium Potassium TABLET ity of 100 MG Oral 100 MG Oral ONCE [place] Tablet Tablet DAILY. Physici ans metFORMIN metFORMIN Yes QD TAKE 1 Uni vers HCl - 500 HCl - 500 TABLET ity of MG Oral MG Oral DAILY [place] Tablet Tablet DIRECTED. Physic i ans Pantoprazol Pantoprazol Yes 1 QD TAKE 1 Univers e Sodium 40 e Sodium 40 TABLET ity of MG Oral MG Oral DAILY. [place] Tablet Tablet Physici Delayed Delayed ans Release Release Potassium Potassium Yes QD TAKE 2 Uni vers Chloride 20 Chloride 20 TABLETS ity of MEQ TBCR MEQ TBCR DAILY. [place] Physici ans Rosuvastati Rosuvastati Yes 1 QD TAKE 1 Univers n Calcium n Calcium TABLET ity of 10 MG Oral 10 MG Oral DAILY. [place] Tablet Tablet Physici ans Verapamil Verapamil Yes QD TAKE 1 Uni vers HCl ER 180 HCl ER 180 CAPSULE ity of MG Oral MG Oral DAILY [place] Capsule Capsule BEFORE Physici Extended Extended EATING. ans Release 24 Release 24 Hour Hour Xarelto 20 Xarelto 20 Yes QD TAKE 1 U nivers MG Oral MG Oral TABLET ity of Tablet Tablet DAILY [place] Physici ans Immunizations Ordered Immunization Filled Immunization Date Status Commen ts Source Name Name [facility] 2020-10-03 Completed [facility]it y of COVID-19 Vacc 30 09:26:00 [place] [facility] MCG/0.3ML Intramuscular Suspension Vital Signs Vital Name Observation Time Observation Value Comments Source Systolic (mm Hg) 2020-06-13 [facility] rmann 16:49:00 Diastolic (mm Hg) 2020-06-13 [facility] ermann 16:49:00 Heart Rate 2020-06-13 [facility] n 16:49:00 Height 2020-06-13 175.26 cm [facility] Tobias n 16:49:00 Weight 2020-06-13 [facility]ias n 16:49:00 BMI Calculated 2020-06-13 [facility] melinda 16:49:00 Systolic (mm Hg) 2020-01-04 [facility] 16:14:00 Diastolic (mm Hg) 2020-01-04 [facility] ermann 16:14:00 Weight 2020-01-04 [facility] Tobias n 16:14:00 Height 2019-12-08 175.26 cm [facility] [...] 17:18:00 Temperature Oral 2019-06-07 98.0 F [facility] Jayden rmann (F) 11:18:00 Heart Rate 2019-06-07 [facility] [...] 17:12:00 Temperature Oral 2019-02-06 98.2 F [facility] (F) 17:12:00 Respitory Rate 2019-02-06 [facility] [...] rmann 13:00:00 Diastolic (mm Hg) 2019-01-24 [facility] ermann 13:00:00 Temperature Oral 2019-01-23 98.3 F [facility] rmann (F) 21:00:00 Temperature Oral 2019-01-23 97.6 F [facility] rmann (F) 17:00:00 Temperature Oral 2019-01-23 98.3 F [facility] rmann (F) 13:00:00 BMI Calculated 2019-01-22 [facility] [...] 19:40:00 Height 2018-01-10 [facility] Tobias n 19:40:00 Weight 2017-12-16 [facility] Tob[facility] n 15:20:00 Height 2017-12-16 [facility] Tobias n 15:20:00 Diastolic (mm Hg) 2017-12-16 [facility] ermann 15:20:00 Systolic (mm Hg) 2017-12-16 [facility] 15:20:00 BP Systolic 2017-10-25 168 mm[Hg] Location: [facility] 10:09:00 Position: [place] Physician s Sitting BP Diastolic 2017-10-25 88 mm[Hg] Location: [facility] 10:09:00 Position: [place] Physician s Sitting Height 2017-10-25 68 [in_us] [facility] 10:09:00 [place] [facility]ician s Weight 2017-10-25 314.5 [lb_av] [facility] 10:09:00 [place] [facility]ician s Body Mass Index 2017-10-25 47.82 kg/m2 University o f Calculated 10:09:00 [place] [facility] s Heart Rate 2017-10-25 72 /min Location: [facility] 10:09:00 Radial; [place] Physician s Diastolic (mm [...] XRAY KNEE 3 VWS LEFT 2017-10-25 00:00:00 Uni [facility] [id number] Physicians Cardiac catheterization, Memoria l [place] left heart Cardioversion [facility] Colon operation [facility] Tonsillectomy [facility] Transesophageal [facility] echocardiogram Gastric bypass<sup>1</sup> Memor ial Jun Lithotripsy [facility] Encounters Start End Encounter Admission Attending Care Care Encounter Source Date/Time Date/Time Type Type Clinicians Facility Department ID 2019-06-06 Inpatient [facility] JUANI [id number] Mem oria 09:39:00 [facility] 2020-10-03 2020-10-03 Appointmen CO19, UTP UTP [id number] Univers 13:40:00 13:40:00 t; CO19, NURSE-COOLE i ty of NURSE-COOL Y [place] EY Physici ans 2020-09-08 2020-09-08 Appointmen CO19, UTP UTP [id number] Univers 14:50:00 14:50:00 t; CO19, NURSE-COOLE i ty of NURSE-COOL Y [place] EY Physici ans 2020-09-02 2020-09-03 Outpatient [facility] [id number] 10:34:38 10:34:38 12 2020-08-28 2020-08-28 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 2, Adc Lab [facility] [id number] 09:24:39 09:39:39 Visit Barrie [id number] [place] [id number] Professio [phone] [facility] 353 [facility] 2020-08-28 2020-08-28 Office Gramm, [facility] [id number] 08:48:10 09:19:30 Visit Angelica Sood [id number] [place] [id number] Professio [phone] nal 204 [facility] 2020-06-13 2020-06-13 Outpatient [place], [facility] [id number] 11:00:00 23:59:59 Jass Allen 2020-03-18 2020-03-19 Outpatient [facility] [id number] 12:56:18 12:56:18 11 2020-01-04 2020-01-04 Outpatient [place], [facility] [id number] 11:00:00 23:59:59 Jass Torres 2019-12-22 2019-12-23 Outpatient [facility] [id number] 08:48:13 08:48:13 10 2019-12-11 2019-12-11 Outpatient [place], [facility] [id number] 10:45:00 23:59:59 Luis Herrera 2019-12-11 2019-12-11 Outpatient [place], [facility] [id number] 13:00:00 13:00:00 Luis Herrera 2019-11-07 2019-11-08 Outpatient [facility] [id number] 12:51:38 12:51:38 09 2019-10-05 2019-10-05 Outpatient [place], [facility] [id number] 10:45:00 23:59:59 Jass Schwab 2019-10-04 2019-10-05 Outpatient [facility] [id number] 11:46:50 11:46:50 08 2019-09-19 2019-09-19 Outpatient [place], [facility] [id number] 05:54:00 15:25:00 Jass Reyna 2019-09-19 2019-09-19 Outpatient [facility] CAR [id number] Memoria 05:54:00 05:54:00 [facility]eli [facility] 2019-09-11 2019-09-11 Outpatient Primjuanpablo, MH[facility] MG [id number] 10:00:00 23:59:59 Luis Herrera 2019-09-07 2019-09-07 Outpatient [place], MH[facility] MG [id number] 11:15:00 23:59:59 Jass Ashley 2019-08-15 2019-08-15 Outpatient [facility] [id number] 09:00:00 23:59:59 09 2019-07-26 2019-07-26 Outpatient [place], MH[facility] MG [id number] 14:30:00 23:59:59 Jass Kumar 2019-06-06 2019-06-07 Outpatient Primjuanpablo, [facility] [id number] 09:39:00 20:00:00 Luis Herrera 2019-03-13 2019-03-13 Outpatient [place], MG MG [id number] 14:00:00 23:59:59 Jass Ashley Stephen 2019-03-13 2019-03-13 Outpatient Earle [facility] [id number] 14:00:00 14:00:00 Domo De Souza 2019-03-01 2019-03-01 Outpatient [place], [facility] [id number] 06:18:00 13:29:00 Jass Ashley Stephen 2019-03-01 2019-03-01 Outpatient [facility] CAR [id number] Memoria 06:18:00 06:18:00 [facility]eli [facility] 2019-02-06 2019-02-06 Outpatient Nelida, [facility] [id number] 11:37:42 17:49:00 Ebelechukwu 02 Raman 2019-02-06 2019-02-06 Emergency E [facility] [id number] Memoria 11:37:00 11:37:00 araceli [facility] 2019-01-22 2019-01-24 Outpatient Jennifer, [facility] [id number] 09:48:29 16:41:00 Juan Dee 2019-01-22 2019-01-22 Inpatient E [facility] MED [id number] Memoria 11:48:00 09:48:00 l Hyder [facility] 2018-08-29 2018-08-29 Outpatient Comprehen Comprehensi 7 [id number] eClinic 11:41:00 11:41:00 [facility] 2018-08-26 2018-08-26 Outpatient Comprehen Comprehensi 7 [id number] eClinic 13:50:00 13:50:00 [facility] 2018-08-25 2018-08-25 Outpatient Comprehen Comprehensi [id number] eClinic 10:30:00 10:30:00 [facility] 2018-07-22 2018-07-22 Outpatient Comprehen Comprehensi 7 [id number] eClinic 13:22:00 13:22:00 [facility] 2018-07-07 2018-07-07 Outpatient Comprehen Comprehensi 7 [id number] eClinic 10:30:00 10:30:00 [facility] 2018-06-03 2018-06-03 Outpatient Comprehen Comprehensi 7 [id number] eClinic 13:00:00 13:00:00 [facility] 2018-04-13 2018-04-13 Outpatient Comprehen Comprehensi 7 [id number] eClinic 17:46:00 17:46:00 [facility] 2018-01-10 2018-01-10 Outpatient Comprehen Comprehensi [id number] eClinic 14:40:00 14:40:00 [facility] 2017-12-21 2017-12-21 Outpatient Comprehen Comprehensi [id number] eClinic 09:55:00 09:55:00 [facility] 2017-12-16 2017-12-16 Outpatient Comprehen Comprehensi 6 [id number] eClinic 10:20:00 10:20:00 [facility] 2017-12-13 2017-12-13 Outpatient Comprehen Comprehensi [id number] eClinic 16:53:00 16:53:00 [facility] 2017-11-29 2017-11-29 Outpatient Comprehen Comprehensi [id number] eClinic 13:34:00 13:34:00 [facility] 2017-11-09 2017-11-09 Outpatient Comprehen Comprehensi [id number] eClinic 16:33:00 16:33:00 [facility] 2017-10-25 2017-10-25 [place] [id number] [place] [address] 09:45:00 09:45:00 t; ISAMAR CULP [facility]opedics ity of [facility] ISAMAR CULP Physi ci ans 2017-08-27 2017-08-27 Outpatient Comprehen Comprehensi [id number] eClinic 08:24:00 08:24:00 [facility] 2017-07-21 2017-07-21 Outpatient Comprehen Comprehensi [id number] eClinic 17:22:00 17:22:00 [facility] 2017-06-24 2017-06-24 Outpatient Comprehen Comprehensi 6 [id number] eClinic 13:33:00 13:33:00 [facility] 2017-06-17 2017-06-17 Outpatient Comprehen Comprehensi 5 [id number] eClinic 10:30:00 10:30:00 [facility] 2017-06-16 2017-06-16 Outpatient Comprehen Comprehensi 6 [id number] eClinic 16:07:00 16:07:00 [facility] 2017-03-15 2017-03-15 Outpatient Comprehen Comprehensi 5 [id number] eClinic 17:18:00 17:18:00 [facility] 2017-03-04 2017-03-04 Outpatient Comprehen Comprehensi 5 [id number] eClinic 09:19:00 09:19:00 [facility] 2017-01-08 2017-01-08 Outpatient [facility] [id number] eClinic 08:23:00 08:23:00 [facility] 2017-01-07 2017-01-07 Outpatient [facility] [id number] eClinic 17:59:00 17:59:00 [facility] 2016-12-31 2016-12-31 Outpatient Comprehen Comprehensi 5 [id number] eClinic 16:50:00 16:50:00 [facility] 2016-12-15 2016-12-15 Outpatient Comprehen Comprehensi 5 [id number] eClinic 15:29:00 15:29:00 [facility] 2016-12-07 2016-12-07 Outpatient Comprehen Comprehensi 5 [id number] eClinic 13:57:00 13:57:00 [facility] 2016-12-06 2016-12-07 Outpatient [place], [facility] [id number] 11:01:00 12:42:00 Jennifer 19 2016-12-07 2016-12-07 Outpatient Comprehen Comprehensi 5 [id number] eClinic 10:39:00 10:39:00 [facility] 2016-08-25 2016-08-25 Outpatient Comprehen Comprehensi 5 [id number] eClinic 15:44:00 15:44:00 [facility] PA Care PA 2016-08-07 2016-08-07 Outpatient Comprehen Comprehensi 5 [id number] eClinic 13:32:00 13:32:00 [facility] PA Care PA 2016-06-11 2016-06-11 Outpatient Comprehen Comprehensi [id number] eClinic 09:30:00 09:30:00 s[facility] PA Care PA 2016-06-10 2016-06-10 Outpatient Comprehen Comprehensi [id number] eClinic 08:56:00 08:56:00 [facility] PA Care PA 2016-06-04 2016-06-04 Outpatient Comprehen Comprehensi 5 [id number] eClinic 16:45:00 16:45:00 [facility] PA Care PA 2015-12-12 2015-12-12 Outpatient Comprehen Comprehensi [id number] eClinic 09:00:00 09:00:00 [facility] PA Care PA 2015-12-11 2015-12-11 Outpatient Comprehen Comprehensi [id number] eClinic 13:33:00 13:33:00 [facility] PA Care PA 2015-12-03 2015-12-03 Outpatient Comprehen Comprehensi [id number] eClinic 09:48:00 09:48:00 [facility] Care PA 2015-11-18 2015-11-18 Outpatient Comprehen Comprehensi [id number] eClinic 11:30:00 11:30:00 [facility] PA Care PA 2015-11-15 2015-11-15 Outpatient Comprehen Comprehensi [id number] eClinic 10:48:00 10:48:00 [facility] PA Care PA 2015-11-07 2015-11-07 Outpatient Comprehen Comprehensi [id number] eClinic 10:00:00 10:00:00 [facility] PA Care PA 2015-11-06 2015-11-06 Outpatient Comprehen Comprehensi [id number] eClinic 17:20:00 17:20:00 [facility] PA Care PA 2015-07-25 2015-07-25 Outpatient Comprehen Comprehensi [id number] eClinic 16:32:00 16:32:00 [facility] PA Care PA 2015-05-21 2015-05-21 Outpatient Martin, [facility] [id number] 08:40:00 23:59:00 Demarcus 00 2015-01-18 2015-01-18 Outpatient Comprehen Comprehensi [id number] eClinic 09:58:00 09:58:00 [facility] PA Care PA 2015-01-16 2015-01-16 Outpatient Comprehen Comprehensi [id number] eClinic 18:09:00 18:09:00 [facility] PA Care PA 2015-01-16 2015-01-16 Outpatient Comprehen Comprehensi [id number] eClinic 17:20:00 17:20:00 s[facility] PA Care PA 2015-01-10 2015-01-10 Outpatient Comprehen Comprehensi 3 [id number] eClinic 10:00:00 10:00:00 [facility] PA Care PA 2014-07-10 2014-07-10 Outpatient Comprehen Comprehensi [id number] eClinic 15:21:00 15:21:00 s[facility] PA Care PA 2014-06-11 2014-06-11 Outpatient Comprehen Comprehensi [id number] eClinic 15:30:00 15:30:00 [facility] PA Care PA Results Test Description Test Time Test Comments Results Result Comments Source CHEM PANEL 2019-09-19 105 [facility] 12:25:00 CHEM PANEL 2019-09-19 18 [facility] 12:25:00 CHEM PANEL 2019-09-19 0.92 [facility] nn 12:25:00 CHEM PANEL 2019-09-19 143 [facility] Terir nn 12:25:00 CHEM PANEL 2019-09-19 3.5 [facility] [...] code = PT) 13.6 s 12.0-14.7 Memorial [id number] 12:25:00 Test Item Value Reference Range Interpretation Comments INR (test code = INR) 1.04 1 0.85-1.17 [facility] WyhdwwvUKBBYWRNXR6607-86-65 12:25:006.2[facility] HermannHEMATOLOGY 2019-09-19 12:25:004.82[facility] BqmpzrvCXGHSDIPJT9651-35-73 12:25:0014.7[facility] GhmwedvQEIIOZLKGM1644-78-44 12:25:0043.9[facility] EigtqwhEWIMYRZGIJ5684-86-27 12:25:0091.1[facility] KvdryysSMOYFORPLS7899-15-90 12:25:00 Test Item Value Reference Range Interpretation Comments MCH (test code = MCH) 30.4 pg 27.0-31.0 Memorial WefehokPCZHSOFBZP5465-46-10 12:25:0033.4[facility] HermannHEMATOLOGY 2019-09-19 12:25:0015.8[facility] PbfmgvoUNGSOYZXJB0624-47-05 12:25:17828Bgttbekg RepttzhXBUMQIRJJW9794-44-24 12:25:0010.1[facility] IwraunrNZOFOTRFGQVT3769-65-59 09:35:14753Onhlpavt GffpgmlSUOJXQEBLNGD3351-89-97 09:35:003.6[facility] Jun XWGYQUVGQBPE7242-86-12 09:35:33423Wvmeqxtd UdewojwRLRILJRQUGTI2519-49-88 09:35:009.3[facility] ZdmztbiUANUCLVPDVAE8432-81-00 09:35:49866Yxvwlacv Jun DUBDLFCJMYSH8739-14-67 09:35:0013[facility] MfzautlXDYLVBQPORHP9731-46-09 09:35:00 25[facility] YedxvakVPYUOLCEAHTZ2979-92-36 09:35:000.78[facility] Jun HLIEZEWDFYFC3724-37-77 09:35:0092[facility] BxvsxtgUGYAXRYQHCAG7284-39-71 09:35:00 16.6[facility]orial NjsxgdwZJZBPQRJFJ0868-22-65 09:35:009.5[facility] HermannHEMATOLOGY 2019-06-07 09:35:004.19[facility] QytlrnqNKMHOFOMTJ1365-71-05 09:35:0013.1[facility] FkcxaqlHTPQHUVTFH2484-44-82 09:35:0038.6[facility] NtlwterKXMKUNPDCE5416-64-43 09:35:0092.0[facility] HdpokanYKLGAUQHET0188-26-10 09:35:00 Test Item Value Reference Range Interpretation Comments MCH (test code = MCH) 31.3 pg 27.0-31.0 [facility] ShjebjrCRYLAQGDYV5769-42-43 09:35:0034.0[facility] HermannHEMATOLOGY 2019-06-07 09:35:0014.4[facility] IqselvtOGGYYCXKAF4253-43-49 09:35:20429Ijmcphor GpvqvddIFQYOAGHRG7561-31-20 09:35:0010.9[facility] UzaycdrRNYGEAFPQV7712-16-98 09:35:0088.2[facility] QqvldjbDMDOPRCCJC5657-11-75 09:35:006.0[facility] Hyder YERWINIWIW8523-50-21 09:35:005.7[facility] ToenyeoLDBPXJXLVY1570-68-57 09:35:000.1 Memorial FbeukubLKHPHTGXOU2437-79-83 09:35:008.3[facility] HermannHEMATOLOGY 2019-06-07 09:35:000.6[facility] SfpubijIWMKYCBUBQ8466-34-05 09:35:000.5[facility] HermannBLOOD BANK RYOCKJH5660-76-51 15:38:00Negative (06/06/19 10:38 AM)[facility] HermannCHEM TKSRU6838-74-77 16:43:0046.1[facility] HermannCHEM JMAZM4130-45-34 16:43:83653.6[facility] JdykibiSARXXRCZNIBO5875-20-59 16:43:51101Rxskdkcu Jun CPHCDVPXJHIM5319-40-47 16:43:003.8[facility] FdbdnmdXCVNPRNBAERE9479-48-00 16:43:38317Kjokaapl EnrdfkvDVXNFLYBAZBM2453-64-58 16:43:0010.1[facility] TZQCPENYQATJ3054-01-56 16:43:46790Rjjeszsi SobvbhkJAAHQWONCZLU1805-21-50 16:43:0021[facility] LwbpqhyGEOHHFZTLTGV5057-48-19 16:43:0029[facility] AXMAWKNIEQJI3913-61-86 16:43:004.4[facility] KapyaraPFBOYHFQQSKP9274-18-73 16:43:000.97[facility] HfjqkgrJLZIHATTJQSR2195-92-26 16:43:0044[facility] VILUFCBZCMRD0222-69-57 16:43:0034[facility] SmzbiikSIYELYOUOSTI0781-06-61 16:43:00 79[facility] CignecmVQBKJWKXUDDV0554-01-43 16:43:008.2[facility]annELECTROLYTES 2019-06-02 16:43:000.6[facility] DqmswfzSPHOQWBBBOGZ9427-69-06 16:43:0062[facility] JggpxhvHVWZXXGMBEAR1337-87-48 16:43:0010.8[facility] PyjrczlFJQQAPWRMPDB4367-49-74 16:43:00 Test Item Value Reference Range Interpretation Comments B/C Ratio (test code = B/C Ratio) 22 1 01-31 [facility] XgcwsnpCXPKFVLATVVR8107-14-18 16:43:003.8[facility]annELECTROLYTES 2019-06-02 16:43:00 Test Item Value Reference Range Interpretation Comments A/G Ratio (test code = A/G Ratio) 1.2 1 0.7-1.6 [facility] QgycqyxCRSMZHWQNR3789-68-22 16:43:005.6[facility]ann[facility]MATOLOGY 2019-06-02 16:43:004.59[facility] VbutpsfDTFJGFZZLI8191-66-81 16:43:0014.1[facility] ImewfriVBNJPEENUD0890-42-08 16:43:0042.5[facility] LwmtzovKCJXDQVPOR5173-38-44 16:43:0092.7[facility] LpobwtvVWSJMODNSX4744-06-07 16:43:00 Test Item Value Reference Range Interpretation Comments MCH (test code = MCH) 30.7 pg 27.0-31.0 [facility]LbxljerFDCWWYDXEX1643-32-15 16:43:0033.1[facility]annHEMATOLOGY 2019-06-02 16:43:0015.1[facility] DerrcrvTFIXLGUXJQ2892-56-39 16:43:08346Xunapjsy XeuncvrCZLBPLMPOJ0520-73-70 16:43:0010.5[facility] KifykxxPLSKFSWFHA8223-45-29 16:43:00 Test Item Value Reference Range Interpretation Comments INR (test code = INR) 1.11 1 0.85-1.17 [facility]GVXSVHII6252-[facility]-90 16:43:00 Test Item Value Reference Range Interpretation Comments PT (test code = PT) 14.1 s 12.0-14.7 [facility] CampusJspfrvsNLLBLIYABS0920-67-28 16:43:00 Test Item Value Reference Range Interpretation Comments PTT (test code = PTT) 31.4 s 22.9-35.8 [facility] LaszdpeMTWLUTKEFU0846-62-87 16:43:0064.5[facility]annHEMATOLOGY 2019-06-02 16:43:0021.2[facility] HpprbkdKOHYXEVUAH5431-23-95 16:43:0010.6[facility] RjxzbfcUZHVXFOUWF7973-86-74 16:43:002.5[facility] DynoedfDVZXUBUDYH4275-10-97 16:43:001.2[facility] HkxzchdDYBIMUEZRD9484-58-67 16:43:003.6[facility] OMETVOVFIR0322-25-13 16:43:001.2[facility] FsnrtoyEBHPXVWAPB9619-32-63 16:43:000.6 [facility] UpergjtPYUEMPBWVQ8256-10-19 16:43:000.1[facility]annHEMATOLOGY 2019-06-02 16:43:000.1[facility] KNQLE0980-78-85 16:43:00Yellow *NA*(06/02/19 11:43 AM)[facility] NGODC7004-31-66 16:43:00Clear (06/02/19 11:43 AM)[facility] BGAJV1338-06-48 16:43:00 Test Item Value Reference Range Interpretation Comments UA Spec Grav (test code = UA Spec 1.009 1 Grav) [facility] HFDSA2153-06-79 16:43:00 Test Item Value Reference Range Interpretation Comments UA pH (test code = UA pH) 7.0 1 5.0-8.0 [facility] PVKQO3643-50-71 16:43:00Negative *NA*(06/02/19 11:43 AM)[facility] ZYXDB2668-74-21 16:43:00Negative (06/02/19 11:43 AM)[facility] TIPFK2286-17-60 16:43:00Negative (06/02/19 11:43 AM)[facility] SHPXA6134-86-31 16:43:00Negative (06/02/19 11:43 AM)[facility] GMDLG1789-75-00 16:43:00<1[facility] JBPQT4828-67-83 16:43:00Performed *NA*(06/02/19 11:43 AM)[facility] HWQZGTROJROZ2236-47-94 11:45:76677Vnyigzkf KfmziweNVSXGFLVULPZ9564-77-53 11:45:83665Jenajiob BcrleraOALOKSJTDSDF4788-49-40 11:45:004.0[facility] CPABZSIOEHDK7253-77-18 11:45:009.6[facility] DwjihgwZUBIJQSEZINH2987-14-71 11:45:0070[facility] QofydqmWWNYDKXHRFGW3532-37-54 11:45:001.08[facility] Jun NUIIEEKPTXDN0938-82-87 11:45:80189Qxhjtyqh AunhuouHZYPDUTVJRGG8602-68-02 11:45:0029[facility] ZwxztnrZCPYXUUVUWPA1174-69-72 11:45:0016[facility] KXJIMMDJXPKU9426-73-33 11:45:0013.0[facility] TeyhyfzCOPFCKNOTD9650-82-62 11:45:00 7.4[facility] DrapfdlOCHEATMQLF1350-77-20 11:45:004.49[facility]annHEMATOLOGY 2019-03-01 11:45:0013.4[facility] FuvminbVFNDAYFRCX7341-51-72 11:45:0041.0[facility] HewivmyNLUMVDEUAS3707-40-82 11:45:0032.8[facility] SdfgxtkHDXZZIVHKO4023-49-13 11:45:0091.3[facility] KfwtdxuIUAGLBULYB4049-58-60 11:45:00 Test Item Value Reference Range Interpretation Comments MCH (test code = MCH) 29.9 pg 27.0-31.0 [facility] YcbsdrfRAQTAOCPPZ2244-22-19 11:45:0011.0[facility]annHEMATOLOGY 2019-03-01 11:45:0015.5[facility] GpuiwrxJVAHFMFUXI0560-75-94 11:45:74460Qyksqbke WxxxaubKKMJLDQOOQ4773-24-38 11:45:00 Test Item Value Reference Range Interpretation Comments PT (test code = PT) 13.6 s 12.0-14.7 [facility] TforbikRTDCHZMZHU0029-74-35 11:45:00 Test Item Value Reference Range Interpretation Comments INR (test code = INR) 1.06 1 0.85-1.17 [facility]annCHE[facility] EVQAS8136-60-84 08:00:003.7[facility]annCHEM PANEL 2019-01-24 08:00:00 Test Item Value Reference Range Interpretation Comments B/C Ratio (test code = B/C Ratio) 18 1 6-25 [facility]ann[facility] KGNIL6596-99-60 08:00:00 Test Item Value Reference Range Interpretation Comments A/G Ratio (test code = A/G Ratio) 0.8 1 0.7-1.6 [facility]annCHE[facility] WCBJG3123-66-85 08:00:003.9[facility]annCHEM PANEL 2019-01-24 08:00:0070[facility]annCHEM EYZMA3026-43-61 08:00:0041[facility]annCHEM JXOGO8383-75-73 08:00:001.08[facility]annCHEM AYSQZ1851-06-00 08:00:0054[facility]annCHEM RUVVO8875-27-76 08:00:0048[facility]annCHEM RMLXM9338-11-46 08:00:007.2[facility]annCHEM LXCXL9708-89-42 08:00:001.1 [facility]annCHE[facility] ZNTEB7967-44-79 08:00:86509Sntlvcwy HermannCHEM PANEL 2019-01-24 08:00:0010.6[facility]annCHEM UIFAL3106-86-04 08:00:004.6[facility]annCHEM QXWJM6226-80-94 08:00:19349Qixwsgnp HermannCHEM IFLST2336-12-45 08:00:009.4[facility]annCHEM CHRMV6913-66-72 08:00:003.3[facility]annCHEM IMGPV3372-16-77 08:00:0032[facility]annCHEM AASBZ9762-55-86 08:00:0019 [facility]annCHE[facility] DOSQC9839-05-58 08:00:94538Siyihyfp HermannCHEM PANEL 2019-01-24 08:00:002.0[facility] TghzoweQNPULLDYXY5936-46-24 08:00:0032.6[facility] RdtfkkwTWWINDDTPI7049-81-43 08:00:00 Test Item Value Reference Range Interpretation Comments MCH (test code = MCH) 29.8 pg 27.0-31.0 [facility] MesbqlvOCBZBXHCKP7315-92-97 08:00:91843Qvamjcct HermannHEMATOLOGY 2019-01-24 08:00:0015.1[facility] VxccnueGIYKMYQDVQ4552-64-69 08:00:0091.4[facility] KokrmujORMITYKVHK0653-29-36 08:00:0010.3[facility] VvgbwsfUBDACDTTEG8749-83-17 08:00:004.52[facility] MlmxlhvASGJJKGSOJ5142-90-95 08:00:008.0[facility] BACIKEQAKE2097-24-57 08:00:0041.3[facility] SgdaxxfUJNBWXEFMW4027-11-44 08:00:00 13.5[facility] HxjmdorJAZYOXVYCG8501-42-26 08:00:005.2[facility]annHEMATOLOGY 2019-01-24 08:00:000.9[facility] BqftxawURPVOWSUIL4504-12-89 08:00:004.4[facility] ZvvcohvUSOVBKGOXU7986-99-03 08:00:0010.9[facility] AxambnqSRHIGKJYYA6189-83-44 08:00:000.1[facility] PsfbjnwTUWZLXSPOR6786-31-48 08:00:001.5[facility] HIHKGITSMQ5163-46-98 08:00:000.4[facility] XwcoxmoYDJFYFBLSQ1500-99-75 08:00:000.9 [facility] BefpnvhRPKVVOAHQY6886-34-95 08:00:0018.4[facility]annHEMATOLOGY 2019-01-24 08:00:0065.4[facility] HermannCHEM WKTIQ0204-58-94 08:47:00 Test Item Value Reference Range Interpretation Comments B/C Ratio (test code = B/C Ratio) 16 1 6-25 [facility]annCHE[facility] IRLRK1376-92-22 08:47:0011.4[facility] HermannCHEM PANEL 2019-01-23 08:47:00 Test Item Value Reference Range Interpretation Comments A/G Ratio (test code = A/G Ratio) 0.9 1 0.7-1.6 [facility]annCHEM EWCUS8004-62-69 08:47:003.8[facility] HermannCHEM PANEL 2019-01-23 08:47:0015[facility] HermannCHEM QSQGZ8591-80-23 08:47:003.5[facility]annCHEM TJBOG2369-80-71 08:47:009.0[facility] HermannCHEM JFNNU7744-18-73 08:47:0083[facility]annCHEM UEKAB0297-48-69 08:47:001.0[facility]annCHEM UHUVP0653-77-38 08:47:000.94[facility]annCHEM LYXTD2669-66-64 08:47:92237 [facility]annCHEM UGPBB3612-13-15 08:47:003.4[facility] HermannCHEM PANEL 2019-01-23 08:47:73767Urqninkj HermannCHEM JRIZS2877-41-70 08:47:56903Yuaohuvm HermannCHEM SYXGK3103-81-29 08:47:0032[facility]annCHEM GGWAC1460-02-99 08:47:0041[facility]annCHEM SKUTT3261-86-13 08:47:0045[facility] HermannCHEM CNNPH8127-58-43 08:47:0056[facility]annCHEM RKZUB5464-08-67 08:47:007.3 [facility]annCHEM ZUUOC1247-39-62 08:47:001.8[facility] HermannCHEM PANEL 2019-01-23 08:47:002.8[facility] TkjmsruIUMSYXFZZH9399-13-85 08:47:008.0[facility] CwslxebTPNQIRUUDU7098-69-92 08:47:0013.2[facility] GffhgrqVXOMXZEAJB6036-62-69 08:47:0091.4[facility] DqyfytvAKOESDBWGG1118-08-87 08:47:004.42[facility] Jun ERGJARXWHL0269-95-37 08:47:0040.4[facility] AgjfwxqSIHOVUMDMP5827-17-44 08:47:00 Test Item Value Reference Range Interpretation Comments MCH (test code = MCH) 29.9 pg 27.0-31.0 [facility] MibyfnnVDASRGPDOL0437-97-20 08:47:80944Jaquxtau HermannHEMATOLOGY 2019-01-23 08:47:0014.6[facility] BymywuzUTASFGUCBP8139-47-39 08:47:0032.7[facility] ScpttboIFKXJYCJSN8226-01-74 08:47:0011.5[facility] ZdrquziNLVHJFUKCZ9992-09-97 08:47:0010.0[facility] ZdmearvVAPDFBHNME1348-13-28 08:47:000.5[facility] Jun NJPJNFSERM6918-87-58 08:47:003.5[facility] RiribdoNYJQKTULUF9899-81-54 08:47:005.4 [facility] FkkgprfBPSPDLOGMO7816-75-28 08:47:000.8[facility]annHEMATOLOGY 2019-01-23 08:47:001.5[facility] CfxzmngUOFHXCQMPH7792-18-84 08:47:000.3[facility] KvjehpmIPOEUGYXWW9580-95-05 08:47:0018.7[facility] HqoyetaISFDISBIBR1038-54-96 08:47:0067.3[facility] HermannCARDIAC SNOZJBY7361-81-63 20:17:70210Nipgsksu HermannCARDIAC CTQRUHB2102-22-82 20:15:000.02[facility] HermannSPECIAL CHEMISTRY 2019-01-22 15:47:007.6[facility] HermannCARDIAC JODRAAB2906-13-85 15:44:91187 [facility]annCARDIAC QEWYTUS9762-89-99 15:44:000.02[facility] HermannCARDIAC GPXYOZT5520-89-61 15:44:66046Amoyyklz HermannCHEM TRXTI6439-09-50 15:44:0042 [facility]annCHEM YANGA7499-49-56 15:44:0063[facility] HermannCHEM PANEL 2019-01-22 15:44:0078[facility] HermannCHEM FLKAJ5527-68-85 15:44:000.99[facility] HermannCHEM FEVMW0914-63-45 15:44:0042[facility] HermannCHEM JESRA5177-84-56 15:44:000.7[facility] HermannCHEM URDYK5414-05-44 15:44:007.7[facility] HermannCHEM FIKWK1676-40-19 15:44:0017[facility] HermannCHEM ZTWMO1017-72-12 15:44:0029 [facility]annCHEM NAYPB6576-87-56 15:44:009.2[facility] HermannCHEM PANEL 2019-01-22 15:44:003.7[facility] HermannCHEM XQZCY4010-45-21 15:44:22822Pfmtmter HermannCHEM CFGFM5726-49-25 15:44:64662Vpejllae HermannCHEM QUBHD5968-32-61 15:44:004.3[facility] HermannCHEM HEHDC2042-55-14 15:44:17102Gzwrqoic HermannCHEM TWHDD3171-64-88 15:44:00 Test Item Value Reference Range Interpretation Comments B/C Ratio (test code = B/C Ratio) 17 1 6-25 [facility]2019-06-16 15:44:00 Test Item Value Reference Range Interpretation Comments A/G Ratio (test code = A/G Ratio) 0.9 1 0.7-1.6 [facility]2019-06-16 15:44:004.0[facility] HermannCHEM PANEL 2019-01-22 15:44:0010.3[facility] YoxzppcPHPETIJDQQ2647-97-64 15:44:00 Test Item Value Reference Range Interpretation Comments PTT (test code = PTT) 36.9 s 22.9-35.8 [facility] 15:44:00 Test Item Value Reference Range Interpretation Comments PT (test code = PT) 18.6 s 12.0-14.7 [facility]AuwurjrECHOBEKHGE1343-37-74 15:44:00 Test Item Value Reference Range Interpretation Comments INR (test code = INR) 1.59 1 0.85-1.17 [facility]PhwveloULKZRSNTKR9478-04-74 15:44:00 Test Item Value Reference Range Interpretation Comments MCH (test code = MCH) 29.7 pg 27.0-31.0 [facility] DmaccqfBUSLZGSXSM8172-94-64 15:44:0032.5[facility] HermannHEMATOLOGY 2019-01-22 15:44:0091.3[facility] ZhjidsoELHYZGPCCB0770-19-94 15:44:0041.4[facility] VkcisiiMUSCQIDUJS4080-21-02 15:44:004.53[facility] TccbxgrYJVRTWBJGE7718-86-77 15:44:0013.5[facility] OuhhcnpQSOVEDUDRD5923-47-02 15:44:007.7[facility] Jun FDKPZPYIWH3353-21-32 15:44:09341Cqxmevox ZpeklmdKEVXGKCCBC3097-82-26 15:44:00 11.2[facility] ZpptpftRHLIKHMBUX8260-03-08 15:44:0014.9[facility] HermannHEMATOLOGY 2019-01-22 15:44:001.2[facility] WqnppplMRXQCSXJZD8594-48-69 15:44:000.1[facility] PgvqlicTTXIJPJNPV9199-07-26 15:44:000.8[facility] MoyyptgNMZOYAHPZB4791-78-76 15:44:000.1[facility] CchuxujRFNJUGFGME2112-32-08 15:44:005.5[facility] DKPFAKLGOA1140-81-81 15:44:001.1[facility] ZuqczluJSAIJUUIIT8143-48-95 15:44:001.6 [facility] IzpocgxHJHVQLZQXD4656-51-63 15:44:0015.0[facility] HermannHEMATOLOGY 2019-01-22 15:44:0010.3[facility] RhraqvqOLIWEHIPTY6631-38-34 15:44:0072.0[facility][U] XRAY KNEE 3 VWS LEFT [id number] 10:12:00Images acquired, not reported on this accession number.[facility] EN[facility]YM[facility] 2016-12-06 10:14:002.3[facility] HermannCARDIAC EYPBGSA2268-20-11 10:14:001.0 [facility]annCARDIAC XHIHHER0883-26-04 10:14:000.02[facility] HermannCARDIAC FUTRTSP1018-63-03 10:14:50148Vzgowsei HermannCARDIAC BNQTILM3622-64-48 07:00:00 0.8[facility] HermannCARDIAC TMESJMC6802-23-72 07:00:002.0[facility]annCARDIAC VAIVTIM8604-62-41 07:00:000.02[facility]annCARDIAC RCXRZKR7528-12-67 07:00:00 255[facility] HermannCHEM QQTMV5930-25-74 07:00:002.2[facility] HermannCHEM PANEL 2016-12-06 07:00:002.8[facility] NvsvgveYIXGHWLTOJNE4360-08-71 07:00:0013.3 [facility] RckqvqjSNNECIWBXSQL6334-63-82 07:00:0092[facility] HermannELECTROLYTES 2016-12-06 07:00:000.80[facility] EbsjhypUEFNIKJLHKHV0309-84-19 07:00:73321 [facility] XwfprbtDDTZVJSJQEGQ3022-86-09 07:00:0015[facility] HermannELECTROLYTES 2016-12-06 07:00:77162Srchwmrr SckdgfsJKYEYAFIIWZB3834-87-37 07:00:05090Nitxaqsy OwlwywlNXGAZYFQBJKD8787-04-74 07:00:004.3[facility] CxtapytXSBVFSUPLJGG0568-44-07 07:00:009.3[facility] RaettsqWVNQAZHQJVBG0704-06-10 07:00:0029[facility] Jun BSQKDRQBBO3449-54-13 07:00:006.9[facility] WaukugvPNDRUQRFKC9331-00-66 07:00:00 4.50[facility] CuuarcuYHTHGBAUIZ9542-26-32 07:00:0014.5[facility] HermannHEMATOLOGY 2016-12-06 07:00:0013.8[facility] DojtkggCLXMZZXTJU7367-31-18 07:00:84992Zbqrzgcd LcwpbjwGQNHMHZVQE8540-18-70 07:00:0010.9[facility] TgjswutWTXWWWPUQY1406-76-72 07:00:0041.3[facility] OmrjuniNKGFXIEUFG1196-94-08 07:00:0091.8[facility] Jun LCYWQICAMM6806-38-57 07:00:00 Test Item Value Reference Range Interpretation Comments MCH (test code = MCH) 30.6 pg 27.0-31.0 [facility] EpcayibVVFKWMVEUM8866-83-24 07:00:0033.3[facility]annHEMATOLOGY 2016-12-06 07:00:001.03[facility] XduyfbzLLEWOIQOZR1892-65-76 07:00:00 Test Item Value Reference Range Interpretation Comments PTT (test code = PTT) 34.0 s 22.9-35.8 [facility] FglpzclXSHCCISQEO4736-36-13 07:00:00 Test Item Value Reference Range Interpretation Comments PT (test code = PT) 13.7 s 12.0-14.7 [facility] TkgxcatZCRPLIMCWS1627-27-51 07:00:0050.4[facility] HermannHEMATOLOGY 2016-12-06 07:00:0034.5[facility] TyanhpmNGBUPEDIYW9762-28-86 07:00:002.4[facility] UzroxsrBMRVERPLLZ0972-34-23 07:00:004.1[facility] BngkgsmOSOFPLONAN6547-49-11 07:00:000.9[facility] LexloilKWBLUBSRDO6147-13-51 07:00:003.5[facility] Jun ZSRBPNQRBH9328-58-92 07:00:0010.1[facility] EojqlwnWRHDMNOKRW2478-62-86 07:00:00 0.1[facility] VxbzqwxIMNNZHDMSL4524-16-64 07:00:000.7[facility] HermannHEMATOLOGY 2016-12-06 07:00:000.3[facility] AjgbjvnSMZASW7757-86-13 07:00:0031[facility] YgxjiveNVRFJU2496-25-69 07:00:38690Rjtzrthb YqrraqxKAFHSD9675-18-21 07:00:67674 [facility] FghmmmpPUIEGT1354-17-17 07:00:0044[facility] TasaokgLNKSLX8832-48-09 07:00:49231Wvcfucbg DwaptfwZKNYUS2598-18-25 07:00:006.32Melauren Barahona
[2020-10-10 17:12] LABS: Absolute Lymphocytes (CBC) 0.9 K/uL (0.7-4.9); Basophils % 0.7 % (0-1.3); Hematocrit 40.1 % (39.6-49.0); Lymphocytes % 8.9 % (15.3-44.8); MPV 10.5 fL (7.6-11.3); Protime INR 1.21
[2020-10-10 17:18] LABS: ALT/SGPT 41 U/L (12-78); AST/SGOT 33 U/L (15-37); Albumin 3.9 g/dL (3.4-5.0); Alkaline Phosphatase 94 U/L (45-117); BUN Blood Urea Nitrogen 18 mg/dL (7-18); Bicarbonate 26 mmol/L (21-32); Bilirubin Direct 0.1 mg/dL (0-0.2); Bilirubin Total 0.5 mg/dL (0.2-1.0); Glucose Level 85 mg/dL (74-106); Magnesium 2.4 mg/dL (1.8-2.4); NT PRO-BNP 280 pg/mL (<125); Potassium 4.3 mmol/L (3.5-5.1); Protein, Total 7.5 g/dL (6.4-8.2); Sodium Level 142 mmol/L (136-145); Troponin (Emerg Dept Use Only) < 0.02 ng/mL (0.0-0.045)
--- NOTE | 2020-10-10 17:19 | RAD REPORT ---
EXAM DESCRIPTION: RAD - Chest Single View - 10/10/2020 4:59 pm CLINICAL HISTORY: weakness Chest pain. COMPARISON: Chest Single View dated 12/05/2016; CHEST PA AND LAT 2 VIEW dated 03/03/2012; CHEST PA AND LAT 2 VIEW dated 07/06/2011; CHEST PA AND LAT 2 VIEW dated 11/20/2010 FINDINGS: Portable technique limits examination quality. The lungs are grossly clear. The heart is upper limit normal in size. No displaced fractures. IMPRESSION: No acute intrathoracic process suspected.
--- NOTE | 2020-10-10 17:58 | EDPHYS ---
Physician Documentation [facility] Name: Bony Santos Age: 69 yrs Sex: Male : 1950 Arrival Date: 10/10/2020 Time: 15:38 Bed 7 Private MD: Clint Matute T ED Physician Vasquez Gotti HPI: 10/10 16:28 This 69 yrs old Male presents to ER via Ambulatory with complaints of kdr Dizziness, Doesn't Feel Right. 16:29 The patient had been doing his usual activities today and then started potting some kdr plants and shortly afterwards, became weak and tremulous. Onset: The symptoms/episode began/occurred suddenly, just prior to arrival. Severity of symptoms: At their worst the symptoms were mild just prior to arrival, in the emergency department the symptoms are unchanged. The patient has not experienced similar symptoms in the past. The patient has been recently seen by a physician: The patient was recently taken off of Amiodarone and started on Metoprolol.. Historical: - Allergies: 15:50 No Known Allergies; ll1 - PMHx: 15:50 acid reflux; Prediabetic; Gout; Atrial Fib; fluid retention; Hypertension; ll1 - PSHx: 15:50 Tonsillectomy; colon resection; Knee surgery; bariatric surgery; Heart stents; ll1 - Immunization history:: Flu vaccine is up to date. - Social history:: Smoking status: Patient/guardian denies using tobacco, the patient reports quitting approximately 30 years ago. ROS: 17:13 Constitutional: Negative for fever, chills, and weight loss, Eyes: Negative for injury, kdr pain, redness, and discharge, Neck: Negative for injury, pain, and swelling, Cardiovascular: Negative for chest pain, palpitations, and edema, Respiratory: Negative for shortness of breath, cough, wheezing, and pleuritic chest pain, Abdomen/GI: Negative for abdominal pain, nausea, vomiting, diarrhea, and constipation, Back: Negative for injury and pain, : Negative for injury, bleeding, discharge, and swelling, MS/Extremity: Negative for injury and deformity, Skin: Negative for injury, rash, and discoloration, Neuro: Negative for headache, weakness, numbness, tingling, and seizure activity. Psych: Negative for depression, anxiety, suicide ideation, homicidal ideation, and hallucinations, Allergy/Immunology: Negative for hives, rash, and allergies, Endocrine: Negative for neck swelling, polydipsia, polyuria, polyphagia, and marked weight changes. 17:13 Neuro: Positive for weakness, general tremors. Exam: 17:20 Constitutional: This is a well developed, well nourished patient who is awake, alert, kdr and in no acute distress. Head/Face: Normocephalic, atraumatic. Eyes: Pupils equal round and reactive to light, extra-ocular motions intact. Lids and lashes normal. Conjunctiva and sclera are non-icteric and not injected. Cornea within normal limits. Periorbital areas with no swelling, redness, or edema. Neck: Trachea midline, no thyromegaly or masses palpated, and no cervical lymphadenopathy. Supple, full range of motion without nuchal rigidity, or vertebral point tenderness. No Meningismus. Chest/axilla: Normal chest wall appearance and motion. Nontender with no deformity. No lesions are appreciated. Cardiovascular: Regular rate and rhythm with a normal S1 and S2. No gallops, murmurs, or rubs. Normal PMI, no JVD. No pulse deficits. Respiratory: Lungs have equal breath sounds bilaterally, clear to auscultation and percussion. No rales, rhonchi or wheezes noted. No increased work of breathing, no retractions or nasal flaring. Abdomen/GI: Soft, non-tender, with normal bowel sounds. No distension or tympany. No guarding or rebound. No evidence of tenderness throughout. Back: No spinal tenderness. No costovertebral tenderness. Full range of motion. Skin: Warm, dry with normal turgor. Normal color with no rashes, no lesions, and no evidence of cellulitis. MS/ Extremity: Pulses equal, no cyanosis. Neurovascular intact. Full, normal range of motion. Psych: Awake, alert, with orientation to person, place and time. Behavior, mood, and affect are within normal limits. 17:20 Neuro: Motor: The patient has a mild fine tremor. 19:04 ECG was reviewed by the Attending Physician. kdr Vital Signs: 15:50 BP 171 / 92; Pulse 52; Resp 17; Temp 98.1; Pulse Ox 99% ; Weight 87.09 kg; Height 5 ft. ll1 8 in. (172.72 cm); Pain 0/10; 15:50 Body Mass Index 29.19 (87.09 kg, 172.72 cm) ll1 MDM: 17:20 Data reviewed: vital signs, nurses notes, lab test result(s), radiologic studies. kdr 17:57 Patient medically screened. kdr 03/04 16:28 Order name: Basic Metabolic Panel kdr / 16:28 Order name: CBC with Diff kdr 10/10 16:28 Order name: LFT's kdr 10/10 16:28 Order name: Magnesium kdr 10/10 16:28 Order name: NT PRO-BNP kdr 10/10 16:28 Order name: PT-INR kdr / 16:28 Order name: Troponin (emerg Dept Use Only); Complete Time: 17:36 kdr 10/10 16:28 Order name: XRAY Chest (1 view); Complete Time: 17:36 kdr 10/10 16:28 Order name: Basic Metabolic Panel; Complete Time: 17:36 EDMS /04 16:28 Order name: CBC with Automated Diff; Complete Time: 17:36 EDMS /04 16:28 Order name: Liver (Hepatic) Function; Complete Time: 17:36 EDMS 03/04 16:28 Order name: Magnesium; Complete Time: 17:36 EDMS 03/04 16:28 Order name: NT PRO-BNP; Complete Time: 17:36 EDMS 03/04 16:28 Order name: Protime (+INR); Complete Time: 17:36 EDMS 03/04 16:28 Order name: EKG; Complete Time: 16:29 kdr 10/10 16:28 Order name: Cardiac monitoring; Complete Time: 17:16 kdr 03/04 16:28 Order name: EKG - Nurse/Tech; Complete Time: 17:16 kdr 03/04 16:28 Order name: IV Saline Lock; Complete Time: 16:58 kdr 0304 16:28 Order name: Labs collected and sent; Complete Time: 16:59 kdr 10/10 16:28 Order name: O2 Per Protocol; Complete Time: 16:59 kdr 10/10 16:28 Order name: O2 Sat Monitoring; Complete Time: 16:59 kdr EC:04 Rate is 52 beats/min. Rhythm is regular, Sinus bradycardia with No ectopy. QRS [place] is kdr Normal. AL interval is normal. QRS interval is normal. QT interval is normal. Clinical impression: Sinus bradycardia and No evidence of ischemia. Administered Medications: No medications were administered Disposition: 10/10/20 17:57 Discharged to Home. Impression: Weakness. - Condition is Stable. - Discharge Instructions: Fatigue, Weakness, Gnhe-od-Vuws. - Medication Reconciliation Form, Thank You Letter form. - Follow up: Clint Matute MD; When: 1 - 2 days; Reason: If symptoms return, Further diagnostic work-up, Recheck today's complaints, Continuance of care, Re-evaluation by your physician. - Problem is new. - Symptoms have improved. - Notes: This may be a reaction to the new medicatoin you have started. Plesae call your doctor in the morning Signatures: Dispatcher [employer] EDMS Vasquez Gotti MD MD kdr Nicole Cuevas RN RN ss Oskar Mendez RN RN ll1 Corrections: (The following items were deleted from the chart) 18:15 17:57 10/10/2020 17:57 Discharged to Home. Impression: Weakness. Condition is Stable. ss Forms are Medication Reconciliation Form, Thank You Letter, Antibiotic Education, Prescription Opioid Use. Follow up: Clint Matute; When: 1 - 2 days; Reason: If symptoms return, Further diagnostic work-up, Recheck today's complaints, Continuance of care, Re-evaluation by your physician. Problem is new. Symptoms have improved. kdr
--- NOTE | 2020-10-10 17:58 | ER ---
Nurse's Notes [facility] Name: Bony Santos Age: 69 yrs Sex: Male : 1950 Arrival Date: 10/10/2020 Time: 15:38 Bed 7 Private MD: Clint Matute T Diagnosis: Weakness Presentation: 10/10 15:50 Chief complaint: Patient states: Working in the yard today at 1400. Sudden onset of ll1 dizziness, weakness, and just not feeling right. No cough or fever. Coronavirus screen: Client denies travel out of the [place] in the last 14 days. At this time, the client does not indicate any symptoms associated with coronavirus-19. Ebola Screen: Patient denies travel to an Ebola-affected area in the 21 days before illness onset. Initial Sepsis Screen: Does the patient meet any 2 criteria? No. Patient's initial sepsis screen is negative. Does the patient have a suspected source of infection? No. Patient's initial sepsis screen is negative. Risk Assessment: Do you want to hurt yourself or someone else? Patient reports no desire to harm self or others. Onset of symptoms was October 10, 2020. 15:50 Method Of Arrival: Ambulatory ll1 15:50 Acuity: MAVERICK 3 ll1 Historical: - Allergies: 15:50 No Known Allergies; ll1 - PMHx: 15:50 acid reflux; Prediabetic; Gout; Atrial Fib; fluid retention; Hypertension; ll1 - PSHx: 15:50 Tonsillectomy; colon resection; Knee surgery; bariatric surgery; Heart stents; ll1 - Immunization history:: Flu vaccine is up to date. - Social history:: Smoking status: Patient/guardian denies using tobacco, the patient reports quitting approximately 30 years ago. Screenin:25 Abuse screen: Denies threats or abuse. Denies injuries from another. Nutritional ss screening: No deficits noted. Tuberculosis screening: Never had TB. Fall Risk None identified. Assessment: 16:25 General: Appears in no apparent distress. comfortable, Behavior is calm, cooperative, ss Reports fatigue for 0-12 hours, Denies fever, feeling ill, chills. Pain: Denies pain. Neuro: Level of Consciousness is awake, alert, obeys commands, Oriented to person, place, time, situation, [employer] Development Specialist Manager are equal bilaterally Moves all extremities. Full function Gait is steady, Speech is normal, Facial symmetry appears normal, Pupils are PERRLA. Cardiovascular: Denies chest pain, diaphoresis, lightheadedness, palpitations, shortness of breath, syncope, Capillary refill < 3 seconds is brisk in bilateral fingers Chest pain is denied. Respiratory: Airway is patent Respiratory effort is even, unlabored, Respiratory pattern is regular, symmetrical. GI: Abdomen is non-distended, Patient currently denies abdominal pain, diarrhea, nausea, vomiting. : No signs and/or symptoms were reported regarding the genitourinary system. Denies burning with urination, urinary frequency. EENT: Oral mucosa is moist. Derm: Skin is intact, is healthy with good turgor, Skin is dry, Skin is pink, warm \T\ dry. normal. Musculoskeletal: Circulation, motion, and sensation intact. Range of motion: intact in all extremities, Swelling absent. 17:32 Reassessment: Patient appears in no apparent distress at this time. Patient and/or ss family updated on plan of care and expected duration. Pain level reassessed. Vital Signs: 15:50 BP 171 / 92; Pulse 52; Resp 17; Temp 98.1; Pulse Ox 99% ; Weight 87.09 kg; Height 5 ft. ll1 8 in. (172.72 cm); Pain 0/10; 15:50 Body Mass Index 29.19 (87.09 kg, 172.72 cm) ll1 ED Course: 15:38 Patient arrived in ED. am2 15:38 Clint Matute MD is Private Physician. am2 15:50 Arm band placed on. ll1 15:52 Triage completed. ll1 15:56 Vasquez Gotti MD is Attending Physician. kdr 16:25 Patient has correct armband on for positive identification. Bed in low position. Call ss light in reach. 16:50 Inserted saline lock: 22 gauge in left forearm, using aseptic technique. Blood ds4 collected. 16:59 XRAY Chest (1 view) In Process Unspecified. EDMS 17:16 Nicole Cuevas, SONYA is Primary Nurse. ss 17:54 Clint Matute MD is Referral Physician. kdr 18:14 No provider procedures requiring assistance completed. IV discontinued, intact, ss bleeding controlled, No redness/swelling at site. Pressure dressing applied. Administered Medications: No medications were administered Outcome: 17:57 Discharge ordered by . rudy 18:14 Discharged to home ambulatory. 18:14 Condition: good 18:14 Discharge instructions given to patient, Instructed on discharge instructions, follow up and referral plans. Demonstrated understanding of instructions, follow-up care. 18:15 Patient left the ED. Signatures: Dispatcher [employer] EDMS Vasquez Gotti MD MD kdr Smirch, Shelby, RN RN Tab Ariza ds4 [place] Lynsay, SONYA RN ll1
[2020-10-10 19:10] VITALS: BP 171/92; TEMP 98.1; O2SAT 99
== END 2020-10-10 18:15 | disposition home or self-care (01) ==
LOC: ER 15:36
DX: R53.1 Weakness (principal); R42 Dizziness and giddiness; K21.9 Gastro-esophageal reflux disease without esophagitis; M10.9 Gout, unspecified; I48.91 Unspecified atrial fibrillation; I10 Essential (primary) hypertension; R73.03 Prediabetes; Z87.891 Personal history of nicotine dependence; Z95.5 Presence of coronary angioplasty implant and graft; Z98.84 Bariatric surgery status
CPT/HCPCS: 36415; 71045; 80048; 80076; 83735; 83880; 84484; 85025; 85610; 93005; 99283

== ENCOUNTER 2021-01-08 21:24 | Observation (INO) | payer OTHER ==
--- OUTSIDE RECORDS SUMMARY | 2021-01-08 21:31 | XMS REPORT | Continuity of Care Document ---
:1950 Author Organization [facility] t Address [address] [place] [address] Care Team Providers Name Role Phone Ashley Graves Attending Clinician Clarissa Avalos Attending Clinician CO19 Attending Clinician Unavailable 2, Lab Attending Clinician Unavailable Javier Ohara Attending Clinician Ap Og Attending [...] 00:00: Jun PCI 00 CIRCUMFLEX Active 09/07/[address] [facility] [id number], Diagnosis Active 2018-082019-06-16 Mem oria MORBID 0-22 22:12:00 l OBESITY 24884, 00:00: Jun MORBID 00 OBESITY Active 05/30/[address] [facility] DX;ABN Diagnosis Active 2019-03-01 Mem oria STRESS - 06:29:00 l TEST DX;ABN 00:00: Jun STRESS 00 TEST Active 02/24/[address] [facility] RIGHT FOOT Diagnosis Active 2019-03-22 Memoria PAIN 7- 15:14:00 l RIGHT 00:00: Jun FOOT PAIN 00 Active 02/06/[address] [facility] SHORTNESS Diagnosis Active 2019-01-24 Memoria OF BREATH 6-16 09:31:00 l 00:00: [place] SHORTNESS 00 OF BREATH Active 01/22/[address] [facility] AFIB W/RVR Diagnosis Active 2016-12-16 Memoria 12-05 21:56:00 l AFIB 00:00: Jun W/RVR 00 Active 12/05/[address] [facility] NEW ONSET Diagnosis Active 2016-12-05 Memoria AFIB/FLUTT 12-05 23:52:00 l ER NEW 00:00: [place] ONSET 00 AFIB/FLUTT ER Active [address] [facility] CAD-I25.10 Diagnosis Active 2014-082015-05-21 Memoria 0-02 09:19:00 l 00:00: Jun CAD-I25.10 00 Active 05/10/[address] [facility] Final: Problem 2015-05-24 Memor ia Atheroscle 04:22:07 l rotic Final: Jun heart Atheroscle disease of rotic [place] de[place]-ni' heart coronary disease of artery tolowa dee-ni' without coronary angina artery pectoris without angina pectoris 05/24/[address] [facility] Congestive Problem Resolve 2021-01-01 Memoria heart d 22:21:45 l failure Jun (disorder) Congestive heart failure (disorder) Resolved Problem 01/01/2021 [facility] Edema of Problem Resolve 2021-01-01 Me moria extremity d 22:21:45 l (finding) Edema of Her patel extremity (finding) Resolved Problem 01/01/2021 [facility] Gastroesop Problem Resolve 2021-01-01 Memoria hageal d 22:21:45 l reflux Jun disease Gastroesop (disorder) hageal reflux disease (disorder) Resolved Problem 01/01/2021 [facility] Gout Problem Resolve 2021-01-01 Alexei elmira (disorder) d 22:21:45 l Gout [place] (disorder) Resolved Problem 01/01/2021 [facility] Hyperchole Problem Resolve 2021-01-01 Memoria sterolemia d 22:21:45 l (disorder) Tobias n Hyperchole sterolemia (disorder) Resolved Problem 01/01/2021 [facility] Male Problem Resolve 2021-01-01 Alexei elmira urinary d 22:21:45 l stress Male Jun incontinen urinary ce stress (finding) incontinen ce (finding) Resolved Problem 01/01/2021 [facility] Hypertensi Problem Active 2018-08-26 M emoria on 03:07:19 l Jun Hypertensi on Active Problem 9 [facility] Morbid Problem Active 2018-08-26 Memor ia obesity 03:07:19 l Morbid Jun obesity Active Problem 08/26/2018 [facility] Coronary Problem Active 2018-08-26 Mem oria atheroscle 03:07:19 l rosis of Coronary Herm melinda tolowa dee-ni' atheroscle vessel rosis of tolowa dee-ni' vessel Active Problem 08/26/2018 [facility] Cardiomega Problem Active 2018-08-26 M emoria ly 03:07:19 l [place] Cardiomega ly Active Problem 9 [facility] Malignant Problem Active 2018-09-24 Me moria hypertensi 03:03:14 l on [place] Malignant hypertensi on Active Problem 9 [facility] Peripheral Problem Active 2018-09-24 M emoria edema 03:03:14 l Jun Peripheral edema Active Problem 09/24/2018 [facility] Coronary Problem Active 2018-09-24 Mem oria atheroscle 03:03:14 l rosis of Coronary Herm melinda [place]a dee-ni' atheroscle coronary rosis of artery tolowa dee-ni' coronary artery Active Problem 09/24/2018 [facility] Personal Problem Active 2018-09-24 Mem oria history of 03:03:14 l nicotine Personal Herm melinda dependence history of nicotine dependence Active Problem 09/24/2018 [facility] Venous Problem Active 2018-08-26 Memor ia (periphera 03:07:19 l l) Venous [place] insufficie (periphera ncy, l) unspecifie insufficie d ncy, unspecifie d Active Problem 08/26/2018 [facility] Venous Problem Active 2018-09-24 Memor ia insufficie 03:03:14 l ncy Venous [place] insufficie ncy Active Problem 09/24/2018 [facility] Hyperlipid Problem Active 2018-09-24 M emoria emia, 03:03:14 l unspecifie Tobias n d Hyperlipid emia, unspecifie d Active Problem 09/24/2018 [facility] Atheroscle Problem Active 2018-09-24 M emoria rotic 03:03:14 l heart Jun disease of Atheroscle [place]a dee-ni' rotic coronary heart artery disease of with tolowa dee-ni' unspecifie coronary d angina artery pectoris with unspecifie d angina pectoris Active Problem 09/24/2018 [facility] Cardiac Problem Active 2018-09-24 Alexei elmira arrhythmia 03:03:14 l , Cardiac Jun unspecifie arrhythmia d cardiac , arrhythmia unspecifie type d cardiac arrhythmia type Active Problem 09/24/2018 [facility] Hyperchole Problem Active 2018-09-24 M emoria steremia 03:03:14 l [place] Hyperchole steremia Active Problem 09/24/2018 [facility] Body mass Problem Active 2018-09-24 Me moria index 03:03:14 l (BMI) of Body [place] 40.0-44.9 mass index in adult (BMI) of 40.0-44.9 in adult Active Problem 09/24/2018 [facility] Paroxysmal Problem Active 2018-09-24 M emoria atrial 03:03:14 l fibrillati Tobias n on Paroxysmal atrial fibrillati on Active Problem 9 [facility] Arterioscl Problem Active 2018-09-24 M emoria erosis of 03:03:14 l both Jun carotid Arterioscl arteries erosis of both carotid arteries Active Problem 09/24/2018 [facility] Chronic Diagnosis Active 2018-09-24 Me moria diastolic 03:03:14 l (congestiv Chronic Her patel e) heart diastolic failure (congestiv e) heart failure Active Diagnosis 09/24/2018 [facility] Atheroscle Problem Active 2015-11-07 M emoria rotic 03:20:51 l heart Jun disease of Atheroscle [place] de[place]-ni' rotic coronary heart artery disease of without tolowa dee-ni' angina coronary pectoris artery without angina pectoris Active Problem 11/07/2015 [facility] Venous Diagnosis Active 2016-03-12 Mem oria insufficie 02:41:46 l ncy Venous [place] (chronic) insufficie (periphera ncy l) (chronic) (periphera l) Active Diagnosis 03/12/2016 [facility] Varicose Diagnosis Active 2016-03-12 M emoria veins of 02:41:46 l unspecifie Varicose He rmann d lower veins of extremitie unspecifie s with d lower other extremitie complicati s with ons other complicati ons Active Diagnosis 03/12/2016 [facility] Edema Diagnosis Active 2016-03-12 Mem oria 02:41:46 l Edema Jun Active Diagnosis 03/12/2016 [facility] Atrial Problem Active 2021-01-01 Memor ia fibrillati 22:21:45 l on Atrial Jun (disorder) fibrillati on (disorder) Active Problem 01/01/2021 [facility] Bleeds Problem Active 2021-01-01 Memor ia profusely 22:21:45 l (finding) Bleeds Terri nn profusely (finding) Active Problem 01/01/2021 [facility] Coronary Problem Active 2021-01-01 Mem oria arterioscl 22:21:45 l erosis Coronary Tobias n (disorder) arterioscl erosis (disorder) Active Problem 01/01/2021 [facility] Diastolic Problem Active 2021-01-01 Me moria heart 22:21:45 l failure [place] (disorder) Diastolic heart failure (disorder) Active Problem 01/01/2021 [facility] Hypertensi Problem Active 2021-01-01 M emoria ve 22:21:45 l disorder, Jun systemic Hypertensi arterial ve (disorder) disorder, systemic arterial (disorder) Active Problem 01/01/2021 [facility] Morbid Problem Active 2021-01-01 Memor ia obesity 22:21:45 l (disorder) Morbid Herm melinda obesity (disorder) Active Problem 01/01/2021 [facility] Prediabete Problem Active 2021-01-01 M emoria s 22:21:45 l (finding) [place] Prediabete s (finding) Active Problem 01/01/2021 [facility] Sleep Problem Active 2021-01-01 Memor ia apnea 22:21:45 l (finding) Sleep Tobisa n apnea (finding) Active Problem 01/01/2021 [facility] ILLNESS, Diagnosis Active 2019-06-16 M emoria UNSPECIFIE 22:12:00 l D ILLNESS, Tobias n UNSPECIFIE D Active [facility] PAROXYSMAL Diagnosis Active 2016-12-16 Memoria ATRIAL 21:56:00 l FIBRILLATI Tobias n ON PAROXYSMAL ATRIAL FIBRILLATI ON Active [facility] ATHSCL Diagnosis Active 2015-05-21 Mem oria HEART 09:19:00 l DISEASE OF ATHSCL Herm melinda [place] HEART CORONARY DISEASE OF [place] CORONARY Active [facility] UNSPECIFIE Diagnosis Active 2019-01-24 Memoria D ATRIAL 09:31:00 l FIBRILLATI Tobias n ON UNSPECIFIE D ATRIAL FIBRILLATI ON Active [facility] HEART Diagnosis Active 2019-01-24 Mem oria FAILURE, 09:31:00 l UNSPECIFIE HEART Terri nn D FAILURE, UNSPECIFIE D Active [facility] BMI BMI Problem Active [facility] 45.0-49.9, 45.0-49.9, it y of adult adult [place] [facility] Obesity, Obesity, Problem Active Unive rs morbid morbid ity of [place] [facility] Patellofem Patellofem Problem Active U [...] Not Alexei elmira Available 1-17 l 00:00: Jun 00 No Known No Known Active Memori a Medicati Medicati l on on Jun Allergie Allergangelica s s Social History Social Habit Start Date Stop Date Quantity Comments Source Social History 2020-01-04 2020-01-04 [facility] H ermann 16:19:38 16:19:38 Caffeine: 2016-06-11 2016-06-11 [facility] Terri nn 00:00:00 00:00:00 Smoking Status Start Date Stop Date Source Never smoked tobacco (finding) [facility] Medications Ordered Filled Start Stop Current Ordering Indication Dosage Frequency Signature Comments Components Source Medication Medication Date Date Medication? Clinician (SIG) Name Name olmesartan Yes 40 mg = 1 Me moria 40 mg oral 5-23 tab, PO, l tablet 21:43: Daily, # Jun 00 90 tab, 3 Refill(s), Pharmacy: [id number] #[id number], 175.26, cm, 12/10/20 11:13:00 CDT, Height, 91.875, kg, 12/10/20 11:13:00 CDT, Weight Multi Yes 1, PO, Memoria Vitamin+ 5-04 Daily, 0 l 16:17: Refill(s) [place] 00 metoprolol Yes 25 mg = 1 Me moria 25 mg oral 5-04 tab, PO, l tablet, 16:17: Daily, 0 Tobias n extended 00 Refill(s) release clopidogrel Yes See Memori a 75 mg oral 1-25 Instructio l tablet 16:34: ns, TAKE 1 Terri nn 00 TABLET BY MOUTH DAILY, # 90 tab, 3 Refill(s), Pharmacy: [facility] #[id number], 175.26, cm, 06/13/20 10:49:00 [employer], Height, 87.727, kg, 06/13/20 10:49:00 [employer], Weight rivaroxaban Yes See Memori a 20 MG Oral 8-10 Instructio l Tablet 17:56: ns, TAKE 1 Terri nn [Xarelto] 00 TABLET BY MOUTH EVERY DAY, # 30 tab, 5 Refill(s), Pharmacy: [facility] #[id number], 175.26, cm, 12/11/19 9:38:00 CDT, Height, 93.409, kg, 01/04/20 11:14:00 CDT, Weight olmesartan 2020-0 Yes 20 mg = 1 Me moria 20 mg oral 5-28 tab, PO, l tablet 19:39: BID, # 180 Terri nn 00 tab, 4 Refill(s), Pharmacy: [facility] #[id number] amLODIPine 2020-0 Yes 5 mg = 1 Mem oria 5 mg oral 5-28 tab, PO, l tablet 19:39: Daily, # [place] 00 90 tab, 4 Refill(s), Pharmacy: [facility] #[id number] rosuvastati 2020-0 Yes See Memori a n 10 mg 3-31 Instructio l oral tablet 17:51: ns, # 30 He rmann 41 tab, Refill(s) 5, TAKE 1 TABLET BY MOUTH EVERY DAY, Pharmacy: [facility] #[id number] AMIODarone 2019-0 Yes See Memoria 200 mg oral 2-26 Instructio l tablet 17:46: ns, # 30 [place] 58 tab, Refill(s) 2, TAKE 1 TABLET BY MOUTH EVERY DAY, Pharmacy: [facility] #[id number] clopidogrel 2020-0 Yes 75 mg = 1 M emoria 75 mg oral 2-11 tab, PO, l tablet 17:41: Daily, # Jun 00 90 tab, 3 Refill(s), Pharmacy: [facility] #[id number] Hydralazine 2020-0 No 10 mg, Alexei elmira 09-19 Route: l 15:11: IVP, Q4H, Jun 00 Dosing Weight 107.727, kg, PRN, Start date: 09/19/19 9:11:00 [employer], Duration: 30 day, Stop date: 10/19/19 9:10:00 CDT, systolic 170 Nitroglycer 2019-0 No 0.4 mg, Mem oria in 09-19 Route: SL, l 15:08: Drug form: Jun 00 TAB, Q5Min, Dosing Weight 107.727, kg, PRN Chest Pain, Start date: 09/19/19 9:08:00 [employer], Duration: 3 doses or times, Stop date: Limited # of times Bariatric Yes Bariatric Mem oria Multivitami 2-07 Multivitam [...] tab, Tobias n 12 0 Refill(s), [id number], THE PATIENT NEEDS AN APPOINTMEN T WITH DR GRAVES olmesartan 2018-08 No 20 mg = 1 Me moria 20 mg oral 2-19 tab, PO, l tablet 01:28: Daily, # Jun 00 30 tab, 0 Refill(s), other carvedilol 2018-08 Yes 6.25 mg = Me moria 6.25 mg 2-19 1 tab, PO, l oral tablet 00:32: BID, # 180 Jun 00 tab, 0 Refill(s), Pharmacy: [facility] #[id number] olmesartan 2018-08 No 20 mg = 1 Me moria 20 mg oral 2-19 tab, PO, l tablet 00:32: Daily, # Jun 00 30 tab, 0 Refill(s), Pharmacy: [facility] #[id number] Centrum 2018-08 Yes PO, Daily, Alexei elmira Silver 2-18 0 l Men's 20:29: Refill(s) [place] 00 Vitamin D3 2018-08 Yes Daily, 0 Mem oria 2-18 Refill(s) l 20:29: Jun 00 Acetaminoph 2018-08 No Notes: Do M emoria en 0-30 not exceed l 21:07: 4 gm/day. Jun 00 (Same as: Tylenol) Fenofibrate 2018-08 No 160 mg, 1 M emoria 160 MG Oral 0-30 tab, l Tablet 14:00: Route: PO, Terri nn Drug form: TAB, Daily, Dosing Weight 129.091, kg, Start date: 06/07/19 9:00:00 CDT, Duration: 30 day, Stop date: 07/06/19 9:00:00 [employer] oxybutynin 2018-08 No Notes: Memor ia 0-30 (Same as: l 14:00: Ditropan Jun 00 XL) "Do Not Crush" fenofibrate 2018-08 No Notes: Alexei elmira 0-30 (Same as: l 14:00: Tricor) [place] 00 Protonix 2018-08 No Notes: For Mem oria 0-30 IV push l 14:00: reconstitu [place] 00 te with 10 ml 0.9% sodium chloride and push over 2 minutes. (Same as: Protonix) carvedilol 2018-08 No Notes: Memor ia 0-30 Give with l 02:00: food. Jun 00 (Same As: Coreg) rosuvastati 2018-08 No Notes: Alexei elmira n 0-30 (Same As: l 02:00: Crestor) Ofirmev 2018-08 No Notes: Max Alexei elmira 0-29 acetaminop l 23:00: hen 4000 Jun 00 mg/day (4 gm/day). (Same as: Tylenol Extra Strength) Allopurinol 2018-08 No Notes: Alexei elmira 0-29 (Same as: l 22:00: Zyloprim) Amiodarone 2018-08 No Notes: Memor ia 0-29 (Same as: l 22:00: Cordarone) Jun 00 Lovenox 2018-08 No Notes: Memoria 0-29 (Same as: l 22:00: Lovenox) [place] 00 72 HR 2018-08 No Notes: Memoria Scopolamine 0-29 Change l 0.0139 22:00: patch [place] MG/HR 00 every 72 Transdermal hours Patch (Same as: Transderm- Scop) pantoprazol 2018-08 Yes 40 mg = 1 M emoria e 40 mg 0-29 tab, PO, l oral 21:10: Daily, # [place] enteric 00 30 tab, 1 coated Refill(s) tablet tramadol 2018-08 No 50 mg, PO, Mem oria hydrochlori 0-29 Q4H, PRN l de 50 MG 21:10: Pain Score Her patel Oral Tablet 00 4-6, X 3 day, # 18 tab, 0 Refill(s) Sucralfate 2018-08 Yes 1 gm = 1 Mem oria 1000 MG 0-29 tab, PO, l Oral Tablet 21:10: QID-Before [place] [Carafate] 00 Meals, crush and mix with 5-10mL water, # 56 tab, 0 Refill(s) ondansetron 2018-08 No Route: IV, Memoria (ANES) 0-29 Drug form: l 21:07: INJ, ONCE, Stop date: 06/06/19 16:07:00 CDT sugammadex 2018-08 No Route: IV, M emoria (ANES) 0-29 Drug form: l 21:07: SOLN, 00 ONCE, Stop date: 06/06/19 16:07:00 CDT [...] Duration: 30 day, Stop date: 07/06/19 16:06:00 [employer], 2.51, m2, 0 tramadol 2018-08 No Notes: Not Mem oria hydrochlori 0-29 to exceed l de 50 MG 21:07: 400mg/day. Her patel Oral Tablet 00 (Same As: Ultram) Dilaudid 2018-08 No Notes: Memoria 0-29 Same as l 21:07: Dilaudid Labetalol 2018-08 No Notes: Memori a 0-29 (Same as: l 21:07: Normodyne, Trandate) Push over 2 minutes Give bolus over 2-3 minutes. Hydralazine 2018-08 No Notes: Alexei elmira 0-29 (Same as: l 21:07: Apresoline ) Push over 5 minutes Insulin 2018-08 [...] Jun 00 Stop date: 06/06/19 14:25:00 CDT ondansetron 2018-08 No Route: IV, Memoria (ANES) 0-29 Drug form: l 19:25: INJ, ONCE, [place] 00 Stop date: 06/06/19 14:25:00 CDT dexamethaso 2018-08 No Route: IV, Memoria ne (ANES) 0-29 Drug form: l 19:25: INJ, ONCE, Jun 00 Stop date: 06/06/19 14:25:00 CDT famotidine 2018-08 No Route: IV, M emoria (ANES) 0-29 Drug form: l 19:25: INJ, ONCE, [place] 00 Stop date: 06/06/19 14:25:00 CDT Sodium 2018-08 No 500 mL, Memoria Chloride 0-29 1500 l 0.9% 18:54: ml/hr, Jun (Bolus) IV 00 Infuse Over: 20 minutes, Route: IV, 500, Drug form: INJ, ONCE, Dosing Weight 129.091 kg, Start date: 06/06/19 13:54:00 CDT, Stop date: 06/06/19 13:54:00 CDT, 0 Hydralazine 2018-08 No Notes: Alexei elmira 0-29 (Same as: l 18:54: Apresoline [place] 00 ) Push over 5 minutes Labetalol 2018-08 No Notes: Memori a 0-29 (Same as: l 18:54: Normodyne, Jun 00 Trandate) Push over 2 minutes Give [...] 2018-08 No Notes: Do M emoria e 0- not give l 18:54: IV push. (Same as: Phenergan) Sodium 2018-08 No Route: IV, Memor ia Chloride 0-29 Total l 0.9% IV 18:23: Volume: [place] (ANES) 1000 00 1,000, mL Start date: 06/06/19 13:23:00 CDT, Stop date: 06/06/19 14:23:00 CDT ceFAZolin + 2018-08 No Notes: Alexei elmira sterile 0-29 (Same As: l water 30 mL 03:00: Ancef, Herm Kefzol) MEDICATION WASTE Product Size: 1000 mg Product Wasted: ___ mg Nitroglycer No 0.4 mg, Mem oria in 03-01 Route: SL, l 15:37: Drug form: TAB, Q5Min, Dosing Weight 136.364, kg, PRN Chest Pain, Start date: 03/01/19 10:37:00 CDT, Duration: 3 doses or times, Stop date: Limited # of times Allopurinol Yes 100 mg, Mem oria 7-24 PO, BID, 0 l 12:22: Refill(s) AMIODarone Yes 200 mg = 1 M emoria 200 mg oral 7-22 tab, PO, l tablet 18:03: BID [place] 00 Hydralazine No 25 mg = 1 M emoria Hydrochlori 7-22 tab, PO, l de 25 MG 16:46: TID Jun Oral Tablet 00 carvedilol Yes 12.5 mg = Me moria 12.5 mg 6-18 1 tab, PO, l oral tablet 19:34: Q12H, # 60 [place] 00 tab, 0 Refill(s), Pharmacy: [facility] amLODIPine Yes 10 mg = 1 Me moria 10 mg oral 6-18 tab, PO, l tablet 19:34: Daily, # Jun 00 30 tab, 0 Refill(s), Pharmacy: [facility] AMIODarone Yes 400 mg = 2 M emoria 200 mg oral 6-18 tab, PO, l tablet 19:34: TID, # 180 Terri nn 00 tab, 0 Refill(s), Pharmacy: [facility] Benzocaine No Notes: Memor ia 140 MG/ML / 18 (Same As: l butamben 20 16:00: Cetacaine) [place] MG/ML / 00 Cetacaine Tetracaine (benzocain 20 MG/ML e-tetracai Mucosal ne-butambe Barto n 14-2-2%) [Cetacaine] Amiodarone No 400 mg, Alexei elmira 17 Route: PO, l 22:00: Drug form: Jun [...] s with feeding tube less than 14 [place] (Dobhoff, J-tube etc) and pediatric and patients. [...] 9:00:00 CDT Amlodipine No Notes: Memor ia -17 (Same as: l 14:00: Norvasc) AMIODarone No [...] mg Acetaminoph No Notes: Max Memoria en -17 acetaminop l 11:32: hen = 00 4000mg/day (4 gm/day). (Same as: Tylenol) Potassium No Notes: Memori a Chloride 6-17 Infuse at l 11:00: a rate of 10 mEq/hr. (Same as: KCL) Digoxin No Notes: Memoria 6-17 (Same as: l 04:00: Lanoxin) Saline No 10 ml, Memoria Flush 0.9% 01-23 Route: l 02:00: IVP, Drug Form: INJ, Dosing Weight 144.091, kg, Q12H, Start date: 01/22/19 21:00:00 CDT, Duration: 30 day, Stop date: 02/21/19 9:00:00 CDT Furosemide No Notes: Memor ia 6-17 (Same as: l 02:00: Lasix) [place] 00 MEDICATION WASTE Product Size: 40 mg Product Wasted: ___ mg rosuvastati No Notes: Alexei elmira n -17 (Same As: l 02:00: Crestor) Jun 00 Xarelto No Notes: Memoria 6-16 (Same as: l 22:00: Xarelto) Administer with food pantoprazol No Notes: Alexei elmira e 6-16 Tablet l 21:30: should not [place] 00 be chewed or crushed. (Same as: Protonix) Digoxin No Notes: Memoria 6-16 (Same as: l 21:27: Lanoxin) Jun fenofibrate No Notes: Alexei elmira 6-16 (Same as: l 20:00: Tricor) Jun 00 Aspirin 81 No Notes: Do Me moria MG Enteric -16 not crush l Coated 20:00: or chew. [place] Tablet 00 (Same As: Ecotrin) oxybutynin No Notes: Memor ia 6-16 (Same as: l 20:00: Ditropan Jun 00 XL) "Do Not Crush" olmesartan No 20 mg, 1 Mem oria 6-16 tab, l 20:00: Route: PO, Jun 00 Drug form: TAB, Daily, Dosing Weight 144.091, kg, Start date: 01/22/19 15:00:00 CDT, Duration: 30 day, Stop date: 02/21/19 9:00:00 CDT Centrum No Notes: Memoria 6-16 (Same l 20:00: as:Thera-M [place] 00 , Theragran- M) WASTE: F/P - Black; E - Municipal Trash Bin Give with food. 24 HR No Notes: Memoria Metoprolol 6-16 (Same as: l Tartrate 50 20:00: Toprol XL) Jun MG Extended December split Release tab, but Tablet do not [Toprol] crush. Insulin No Notes: Memoria Lispro 6-16 (Same as: l 18:28: Humalog) Roll in palms of hands gently; Do not shake vigorously . WASTE: F/P - Black; E - Prepair Trash Bin Stable for 28 days at room temperatur e. Expires in days from ____Date Dextrose No 12.5 gm, Memor ia 50% Syringe 6-16 25 mL, l 18:28: Route: IVP, Drug Form: INJ, Dosing Weight 144.091, kg, PRN, PRN Blood Glucose Results, Start date: 01/22/19 13:28:00 CDT, Duration: 30 day, Stop date: 02/21/19 13:27:00 CDT Glucagon No 1 mg, Memoria -16 Route: IM, l 18:28: Drug form: PDR/INJ, PRN, Dosing Weight 144.091, kg, PRN Blood Glucose Results, Start date: 01/22/19 13:28:00 CDT, Duration: 30 day, Stop date: 02/21/19 13:27:00 CDT Sodium No 25 mL, Memoria Chloride -16 Route: IV, l 0.9% IV 17:55: Start date: 01/22/19 12:55:00 CDT, Duration: 30 day, Stop date: 02/21/19 12:54:00 CDT, PRN Line Flush BD Normal No Notes: Memori a Saline -16 (Same as: l Flush 17:55: BD Posiflush) Saline No 10 ml, Memoria Flush 0.9% 6-16 Route: l 16:45: IVP, Drug Form: INJ, Dosing Weight 144.091, kg, PRN, PRN Line Flush, Start date: 01/22/19 11:45:00 CDT, Duration: 30 day, Stop date: 02/21/19 11:44:00 CDT Aspirin 81 Yes 81 mg = 1 Me moria MG Enteric 6-16 tab, PO, l Coated 16:37: Daily [place] Tablet 00 oxybutynin Yes 10 mg = 1 Me moria 10 mg oral 6-16 tab, PO, l tablet, 16:37: Daily [place] extended 00 release Furosemide Yes 40 mg = 1 Me moria 40 MG Oral 6-16 tab, PO, l Tablet 16:37: Daily Jun 00 pantoprazol Yes 40 mg = 1 M emoria e 40 mg 6-16 tab, PO, l oral 16:37: Daily [place] enteric 00 coated tablet Fenofibrate Yes 160 mg = 1 Memoria 160 MG Oral 6-16 tab, PO, l Tablet 16:37: Daily Jun 00 olmesartan Yes 20 mg = Alexei elmira 40 mg oral 6-16 0.5 tab, l tablet 16:36: PO, Daily Tobias n 00 potassium Yes 20 mEq = 1 Me moria chloride 20 6-16 tab, PO, l mEq oral 16:36: Daily [place] tablet, 00 extended release rivaroxaban Yes 20 mg = 1 M emoria 20 MG Oral 6-16 tab, PO, l Tablet 16:35: QPM [place] [Xarelto] 00 Metoprolol No 50 mg = 1 Me moria Succinate 6-16 tab, PO, l ER 50 mg 16:35: Daily [place] oral 00 tablet, extended release rosuvastati Yes 10 mg = 1 M emoria n 10 mg 6-16 tab, PO, l oral tablet 16:35: Bedtime Her patel 00 Metformin Yes 500 mg = 1 Me moria hydrochlori 6-16 tab, PO, l de 500 MG 16:35: Before Tobias n Oral Tablet 00 Dinner Lasix No Notes: Memoria 6-16 (Same as: l 16:28: Lasix) MEDICATION WASTE Product Size: 40 mg Product Wasted: ___ mg Diltiazem No Notes: Memori a 16 (Same as: l 16:28: Cardizem) Diltiazem 2019-0 No 10 mg, Memori a 6-16 Route: l 16:27: IVP, ONCE, Dosing Weight 144.091, kg, Priority: STAT, Start date: 01/22/19 11:27:00 CDT, Stop date: 01/22/19 11:27:00 CDT Diltiazem 2019-0 No 10 mg, Memori a 6-16 Route: l 15:35: IVP, ONCE, Dosing Weight 144.091, kg, Priority: STAT, Start date: 01/22/19 10:35:00 CDT, Stop date: 01/22/19 10:35:00 CDT Centrum [id number] Yes Jass Huff tab(s) Memor ia Silver 2-16 Eloy l 03:03: Crestor [id number] Yes Jass Huff tab(s) Memor ia 2-16 Eloy l 03:03: Xarelto 2019-0 Yes Jass 1 tab Memoria 2-16 Eloy l 03:03: aspirin 2019-0 Yes Jass 1 tab(s) Memor ia 2-16 Eloy l 03:03: pantoprazol 2019-0 Yes Jass Huff tab(s) M emoria e 2-16 Eloy l 03:03: Amlodipine 2019-0 Yes Jass Huff tab(s) Me moria Besylate 2-16 Eloy l 03:03: metformin 2019-0 Yes Jass 1 tab(s) Mem oria 2-16 Eloy l 03:03: furosemide 2019-0 Yes Jass 1 tab(s) Me moria 2-16 Eloy l 03:03: fenofibrate 2019-0 Yes Jass 1 tab(s) M emoria 2-16 Eloy l 03:03: losartan 20190 Yes Jass 1 tab(s) Alexei elmira 2-16 Eloy l 03:03: Olmesartan 2019-0 Yes Jass 1 tab(s) Me moria Medoxomil 1-17 Eloy l 00:00: allopurinol 2018- Yes Jass 1 tab(s) M emoria 2-07 Eloy l 03:14: Jun 11 Metoprolol 2017- Yes Jass 1 tab(s) Me moria Succinate 1-29 Eloy l ER 00:00: [place] 00 K-Tab 2018-0 Yes Saji 1 tab(s) Memoria 9-14 Martin l 02:04: Jun 20 Klor-Con 2018-0 Yes Jass 1 tab(s) Alexei elmira M20 9-13 Eloy l 00:00: [place] 00 verapamil 2018-0 Yes Saji 1 cap(s) Alexei elmira 4-03 Martin l 00:00: losartan 2017 Yes Saji 1 tab(s) Memor ia 1-18 Martin l 03:04: [place] 35 Nexium 2016-08 Yes Saji 1 cap(s) Memoria 1-18 Martin l 03:04: 35 Crestor 2016-08 Yes Saji 1 tab(s) Memori a 1-16 Martin l 00:00: Xarelto 2017 Yes Saji 1 tab Memoria 1-08 Martin l 00:00: verapamil 2017-0 Yes Jass 1 tab(s) Mem oria 8-25 Eloy l 00:00: verapamil 2017-0 Yes Saji 1 cap(s) Alexei elmira 8-25 Martin l 00:00: Xarelto 2017-0 Yes Saji TAKE 1 Memoria 8-08 Martin TABLET BY l 02:02: MOUTH [place] 59 EVERY EVENING flecainide 2017-0 Yes Jass 1 tab(s) Me moria 8-07 Eloy l 00:00: flecainide 2017-0 Yes Saji 1 tab(s) Mem oria 8-07 Martin l 00:00: flecainide 2017-0 Yes Saji 1 tab(s) Mem oria 8-07 Martin l 00:00: [place] 00 verapamil 2017-0 Yes Saji 1 cap(s) Alexei elmira 5-30 Martin l 00:00: [place] 00 Xarelto 2017-0 Yes Saji 1 tab Memoria 5-30 Martin l 00:00: Jun 00 verapamil 2017-0 No Notes: Do Mem oria 24 hour 12-08 not crush l extended 02:00: or chew. Terri nn release 00 (Same As: Calan SR, Isoptin SR) "Avoid grapefruit and grapefruit juice" Xarelto No Notes: Memoria 5-01 (Same as: l 22:00: Xarelto) [place] 00 Administer with food Protonix No Notes: Memoria 5-01 Tablet l 21:30: should not Jun 00 [...] = 1 Me moria 50 mg oral 5 tab, PO, l tablet 14:35: Q12H, # [place] 00 180 tab, 0 Refill(s) Pravastatin No Notes: Alexei elmira - (Same as: l 14:00: Pravachol) potassium No Notes: Memori a chloride 12-07 (Same as: l 14:00: K-Dur 20) "Do Not Crush" With food and full glass of water Fenofibrate No Notes: Alexei elmira - Non-Formul l 14:00: elise Drug (Same as: Tricor) Furosemide No Notes: Memor ia - (Same as: l 14:00: Lasix) [place] 00 May cause GI upset. Give with food or milk. Esomeprazol No 40 mg, Alexei elmira e - Route: PO, l 14:00: Daily, [place] 00 Dosing Weight 138.002, kg, Start date: 12/07/16 9:00:00 CDT, Duration: 30 day, Stop date: 01/05/17 9:00:00 CDT Aspirin No Notes: Memoria 5-01 Take with l 14:00: food. Allopurinol No Notes: Alexei elmira 5-01 (Same as: l 14:00: Zyloprim) Coreg No Notes: Memoria 5-01 Give with l 02:00: food. (Same As: Coreg) Sodium No 25 mL, Memoria Chloride 4-30 Route: IV, l 0.9% IV 18:02: Start date: 12/06/16 13:02:00 CDT, Duration: 30 day, Stop date: 01/05/17 13:01:00 CDT, PRN Line Flush BD Normal No Notes: Memori a Saline 4-30 (Same as: l Flush 18:02: BD Posiflush) [...] 4-30 Daily, 0 l 03:48: Refill(s) Fenofibrate Yes 160 mg, Mem oria 4-30 PO, Daily, l 03:48: 0 Refill(s) Centrum Yes PO, Daily, Alexei elmira 4-30 0 l 03:48: Refill(s) Aspirin No 81 mg, PO, Alexei elmira 4-30 Daily, 0 l 03:48: Refill(s) Allopurinol Yes 200 mg, Mem oria 4-30 PO, Daily, l 03:48: 0 Refill(s) Pravastatin 2017 Yes 40 mg, PO, Memoria 4-30 Daily, # l 03:48: 30 tab, 0 Refill(s) lansoprazol 2015-08 Yes Saji 1 tab(s) Me moria e 1-08 Martin l 03:24: Centrum 2015-08 Yes Saji 1 tab(s) Memori a Silver -08 Martin l 03:24: aspirin 2015-08 Yes Saji 1 tab(s) Memori a 1-08 Martin l 03:24: 34 Zyrtec 2015- Yes Saji 1 tab(s) Memoria 1-08 Martin l 03:24: fenofibrate 2015-08 Yes Saji 1 tab(s) Me moria 0-27 Martin l 00:00: K-Tab 2016-0 Yes Saji 1 tab(s) Memoria 3-31 Martin l 00:00: Amlodipine 2016-0 Yes Saji 1 tab(s) Mem oria Besylate 3-31 Martin l 00:00: furosemide 0 Yes Saji 1 tab(s) Mem oria 3-31 Martin l 00:00: K-Tab 2015-0 Yes Saji 1 tab(s) Memoria 3-31 Martin l 00:00: Amlodipine 0 Yes Saji 1 tab(s) Mem oria Besylate 3-31 Martin l 00:00: furosemide 0 Yes Saji 1 tab(s) Mem oria 3-31 Martin l 00:00: Cephalexin 0 Yes Saji 1 cap(s) Mem oria Monohydrate 3-31 Martin l 00:00: allopurinol 2015-0 Yes Saji 1 tab(s) Me moria 1-07 Martin l 00:00: allopurinol 2014-0 Yes Saji 1 tab(s) Me moria 7-15 Martin l 02:25: Tekturna 2014-0 No Saji 1 tab(s) Memor ia HCT 7-15 Martin l 02:25: Tricor 2014-0 No Saji 1 tab(s) Memoria 7-15 Martin l 02:25: Edarbyclor 2014-0 Yes Saji 1 tab(s) Mem oria 6-04 Martin l 00:00: carvedilol 2013-08 No Saji 1 tab(s) Mem oria 2-25 Martin l 03:34: amlodipine 2013-08 No Saij 1 tab(s) Mem oria 2-25 Martin l 03:34: 12 Sectral 2014-1 Yes Booker 1 cap(s) Memor ia 08-11 Martin l 00:00: NIFEdipine 2013-08 No Saji 1 tab(s) Mem oria ER 08-11 Martin l 00:00: Pravachol 2012-08 Yes Saji 1 tab(s) Alexei elmira 1- Martin l 00:00: Pravachol 2012-08 Yes Saji 1 tab(s) Alexei elmira 1-19 Martin l 00:00: clonidine No Saji 1 tab(s) Alexei elmira 05-02 Martin l 00:00: Aspirin Aspirin Yes QD TAKE 1 [facility] Adult Low Adult Low TABLET ity of Strength 81 Strength 81 DAILY [place] MG Oral MG Oral DIRECTED. Phys ici Tablet Tablet ans Delayed Delayed Release Release Allopurinol Allopurinol Yes Q0.5D TAKE 1 [facility] 100 MG Oral 100 MG Oral TABLET ity of Tablet Tablet TWICE [place] DAILY. Physici ans amLODIPine amLODIPine Yes QD TAKE 1 U nivers Besylate 10 Besylate 10 TABLET ity of MG Oral MG Oral DAILY [place] Tablet Tablet BLOOD Physici PRESSURE. ans Fenofibrate Fenofibrate Yes 1 QD TAKE 1 [facility] 160 MG Oral 160 MG Oral TABLET ity of Tablet Tablet DAILY. [place] Physici ans Flecainide Flecainide Yes Q0.5D TAKE 1 [facility] Acetate 50 Acetate 50 TABLET i ty of MG Oral MG Oral TWICE [place] Tablet Tablet DAILY. Physici ans Furosemide Furosemide Yes QD TAKE 1 U nivers 40 MG Oral 40 MG Oral TABLET i ty of Tablet Tablet DAILY [place] DIRECTED. Physici ans Losartan Losartan Yes QD TAKE 1 Unive rs Potassium Potassium TABLET ity of 100 MG Oral 100 MG Oral ONCE [place] Tablet Tablet DAILY. Physici ans metFORMIN metFORMIN Yes QD TAKE 1 Uni vers HCl - 500 HCl - 500 TABLET ity of MG Oral MG Oral DAILY [place] Tablet Tablet DIRECTED. Physic i ans Pantoprazol Pantoprazol Yes 1 QD TAKE 1 Univers e Sodium 40 e Sodium 40 TABLET ity of MG Oral MG Oral DAILY. [place] Tablet Tablet Physici Delayed Delayed ans Release Release Potassium Potassium Yes QD TAKE 2 Uni vers Chloride 20 Chloride 20 TABLETS ity of MEQ TBCR MEQ TBCR DAILY. [place] Physici ans Rosuvastati Rosuvastati Yes 1 QD TAKE 1 Univers n Calcium n Calcium TABLET ity of 10 MG Oral 10 MG Oral DAILY. [place] Tablet Tablet Physici ans Verapamil Verapamil Yes QD TAKE 1 Uni vers HCl ER 180 HCl ER 180 CAPSULE ity of MG Oral MG Oral DAILY [place] Capsule Capsule BEFORE Physici Extended Extended EATING. ans Release 24 Release 24 Hour Hour Xarelto 20 Xarelto 20 Yes QD TAKE 1 U nivers MG Oral MG Oral TABLET ity of Tablet Tablet DAILY [place] Physici ans Immunizations Ordered Immunization Filled Immunization Date Status Commen ts Source Name Name [facility] 2020-10-03 Completed [facility]it y of COVID-19 Vacc 30 09:26:00 [place] [facility] MCG/0.3ML Intramuscular Suspension Vital Signs Vital Name Observation Time Observation Value Comments Source Systolic (mm Hg) 2020-12-10 [facility] rmann 16:13:00 Diastolic (mm Hg) 2020-12-10 [facility] ermann 16:13:00 Heart Rate 2020-12-10 Greta Collado n 16:13:00 Height 2020-12-10 175.26 cm Greta Collado n 16:13:00 Weight 2020-12-10 [facility] n 16:13:00 BMI Calculated 2020-12-10 [facility] 16:13:00 Systolic (mm Hg) 2020-06-13 [facility] rmann 16:49:00 Diastolic (mm Hg) 2020-06-13 [facility] ermann 16:49:00 Heart Rate 2020-06-13 [facility] Tobias n 16:49:00 Height 2020-06-13 175.26 cm Greta Cannonan n 16:49:00 Weight 2020-06-13 Greta Cannonan n 16:49:00 BMI Calculated 2020-06-13 [facility] melinda 16:49:00 Systolic (mm Hg) 2020-01-04 [facility] rmann 16:14:00 Diastolic (mm Hg) 2020-01-04 [facility] ermann 16:14:00 Weight 2020-01-04 [facility] Tobias n 16:14:00 Height 2019-12-08 175.26 cm Greta Cannonan n 20:40:00 Weight 2019-12-08 [facility] Tobias n 20:40:00 BMI Calculated 2019-12-08 [facility] melinda 20:40:00 Systolic (mm Hg) 2019-10-05 [facility] rmann 18:06:00 Diastolic (mm Hg) 2019-10-05 [facility] ermann 18:06:00 Heart Rate 2019-10-05 [facility] Tobias [...] ermann 17:18:00 Temperature Oral 2019-06-07 98.0 F Greta Carpenter rmann (F) 11:18:00 Heart Rate 2019-06-07 [facility] [...] 13:00:00 Temperature Oral 2019-01-23 98.3 F [facility] Jayden rmann (F) 21:00:00 Temperature Oral 2019-01-23 97.6 F [facility] Jayden rmann (F) 17:00:00 Temperature Oral 2019-01-23 98.3 F [facility] rmann (F) 13:00:00 BMI Calculated 2019-01-22 [facility] 18:34:00 Weight 2019-01-22 [facility] Tobias n 18:34:00 Height 2019-01-22 172.72 cm [facility] Tobias n 18:34:00 Weight 2019-01-22 [facility] n 14:54:00 Height 2019-01-22 172.72 cm [facility] Tobias n 14:54:00 BMI Calculated 2019-01-22 [facility] 14:54:00 Heart Rate 2019-01-22 [facility]ias n 14:54:00 Weight 2018-08-25 [facility]ias n 16:30:00 Height 2018-08-25 [facility]ias n 16:30:00 Diastolic (mm Hg) 2018-08-25 [facility] ermann 16:30:00 Systolic (mm Hg) 2018-08-25 [facility] rmann 16:30:00 Diastolic (mm Hg) 2018-07-07 [facility] [...] Systolic 2017-10-25 168 mm[Hg] Location: [facility] 10:09:00 Position: [place] Physician s Sitting BP Diastolic 2017-10-25 88 mm[Hg] Location: [facility] 10:09:00 Position: [place] Physician s Sitting Height 2017-10-25 68 [in_us] [facility] 10:09:00 [place] Physician s Weight 2017-10-25 314.5 [lb_av] [facility] 10:09:00 [place] Physician s Body Mass Index 2017-10-25 47.82 kg/m2 University o f Calculated 10:09:00 [place] Physician s Heart Rate 2017-10-25 72 /min Location: L [facility] 10:09:00 Radial; [place] Physician s Diastolic (mm Hg) 2017-06-17 [facility] [...] XRAY KNEE 3 VWS LEFT 2017-10-25 00:00:00 [facility] [id number] Physicians Cardiac catheterization, Essence Barahona left heart Card[facility] Colon [facility] [place] Gastric bypass<sup>1</sup> Memor ial Jun Lithotripsy [facility] Tonsillectomy [facility] Transesophageal [facility] echocardiogram Encounters Start End Encounter Admission Attending Care Care Encounter Source Date/Time Date/Time Type Type Clinicians Facility Department ID 2019-06-06 Inpatient [facility] JUANI [id number] Mem oria 09:39:00 l Jun Lowry l [facility] 2020-12-29 2020-12-30 Outpatient [facility] [id number] 16:43:17 16:43:17 13 2020-12-10 2020-12-10 Outpatient Darrell [facility] [id number] 11:00:00 23:59:59 Jass Ramirez 18 2020-11-04 2020-11-04 Refill Gramm, [facility]UST [id number] 00:00:00 00:00:00 Angelica Sood [id number] Pili [id number] Professio [phone] [address] 2020-10-03 2020-10-03 Appointmen CO19, [facility] UTP [id number] Univers 13:40:00 13:40:00 t; CO19, NURSE-COOLE i ty of NURSE-COOL Y [place] EY Physici ans 2020-09-08 2020-09-08 Appointmen CO19, 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 2020-08-28 2020-08-28 Office [facility], RUST [id number] 08:48:10 09:19:30 Visit Angelica Sood [id number] [place] [id number] Profdenise [phone] [facility] 204 [facility] 2020-06-13 2020-06-13 Outpatient Eloy, [facility] [id number] 11:00:00 23:59:59 Jass Ramirez 17 2020-03-18 2020-03-19 Outpatient [facility] [id number] 12:56:18 12:56:18 11 2020-01-04 2020-01-04 Outpatient Eloy, [facility] [id number] 11:00:00 23:59:59 Jass Ramirez 15 2019-12-22 2019-12-23 Outpatient [facility] [id number] 08:48:13 08:48:13 10 2019-12-11 2019-12-11 Outpatient Primomo, [facility] [id number] 10:45:00 23:59:59 Luis Myron Javier 2019-12-11 2019-12-11 Outpatient Primomo, [facility] [id number] 13:00:00 13:00:00 Luis Rico Javier 2019-11-07 2019-11-08 Outpatient [facility] [id number] 12:51:38 12:51:38 09 2019-10-05 2019-10-05 Outpatient Eloy, [facility] [id number] 10:45:00 23:59:59 Jass Ramirez 14 2019-10-04 2019-10-05 Outpatient [facility] [id number] 11:46:50 11:46:50 08 2019-09-19 2019-09-19 Outpatient Eloy, [facility] [id number] 05:54:00 15:25:00 Jass Ramirez Maribell 2019-09-19 2019-09-19 Outpatient [facility] CAR [id number] Memoria 05:54:00 05:54:00 araceli Lowry [facility] 2019-09-11 2019-09-11 Outpatient Primomo, [facility] [id number] 10:00:00 23:59:59 Luis Herrera 2019-09-07 2019-09-07 Outpatient Eloy, [facility] [id number] 11:15:00 23:59:59 Jass Ramirez 12 2019-08-15 2019-08-15 Outpatient [facility] MG [id number] 09:00:00 23:59:59 Kenisha 2019-07-26 2019-07-26 Outpatient Eloy, [facility] [id number] 14:30:00 23:59:59 Jass Ramirez 11 2019-06-06 2019-06-07 Outpatient Primjuanpablo, [facility] [id number] 09:39:00 20:00:00 Luis Herrera 2019-03-13 2019-03-13 Outpatient Eloy, MG [facility] [id number] 14:00:00 23:59:59 Jass Ramirez 03 2019-03-13 2019-03-13 Outpatient Earle MG MG [id number] 14:00:00 14:00:00 Domo De Souza 2019-03-01 2019-03-01 Outpatient Eloy, [facility] [id number] 06:18:00 13:29:00 Jass Ramirez 03 2019-03-01 2019-03-01 Outpatient [facility] CAR [id number] Memoria 06:18:00 06:18:00 l [facility] 2019-02-06 2019-02-06 Outpatient Nelida, [facility] [id number] 11:37:42 17:49:00 Ebelechukwu 02 Raman 2019-02-06 2019-02-06 Emergency E [facility] [id number] Memoria 11:37:00 11:37:00 l Jun [facility] 2019-01-22 2019-01-24 Outpatient Jennifer [facility] [id number] 09:48:29 16:41:00 Juan Deena Luiz 2019-01-22 2019-01-22 Inpatient E [facility] [id number] Memoria 11:48:00 09:48:00 l Jun [facility] 2018-08-29 2018-08-29 Outpatient Comprehen Comprehensi [id number] eClinic 11:41:00 11:41:00 [facility] 2018-08-26 2018-08-26 Outpatient Comprehen Comprehensi [id number] eClinic 13:50:00 13:50:00 [facility] 2018-08-25 2018-08-25 Outpatient Comprehen Comprehensi 7 [id number] eClinic 10:30:00 10:30:00 [facility] 2018-07-22 2018-07-22 Outpatient Comprehen Comprehensi 7 [id number] eClinic 13:22:00 13:22:00 [facility] 2018-07-07 2018-07-07 Outpatient Comprehen Comprehensi 7 [id number] eClinic 10:30:00 10:30:00 [facility] 2018-06-03 2018-06-03 Outpatient Comprehen Comprehensi 7 [id number] eClinic 13:00:00 13:00:00 [facility] 2018-04-13 2018-04-13 Outpatient Comprehen Comprehensi 7 [id number] eClinic 17:46:00 17:46:00 [facility] 2018-01-10 2018-01-10 Outpatient Comprehen Comprehensi [id number] eClinic 14:40:00 14:40:00 [facility] 2017-12-21 2017-12-21 Outpatient Comprehen Comprehensi [id number] eClinic 09:55:00 09:55:00 [facility] 2017-12-16 2017-12-16 Outpatient Comprehen Comprehensi 6 [id number] eClinic 10:20:00 10:20:00 [facility] 2017-12-13 2017-12-13 Outpatient Comprehen Comprehensi [id number] eClinic 16:53:00 16:53:00 [facility] 2017-11-29 2017-11-29 Outpatient Comprehen Comprehensi [id number] eClinic 13:34:00 13:34:00 [facility] 2017-11-09 2017-11-09 Outpatient Comprehen Comprehensi [id number] eClinic 16:33:00 16:33:00 [facility] 2017-10-25 [facility] [id number] [facility] 09:45:00 09:45:00 t; ISAMAR CULP [facility] ISAMAR CULP Physi ci ans 2017-08-27 2017-08-27 Outpatient Comprehen Comprehensi [id number] eClinic 08:24:00 08:24:00 [facility] 2017-07-21 2017-07-21 Outpatient Comprehen Comprehensi [id number] eClinic 17:22:00 17:22:00 [facility] 2017-06-24 2017-06-24 Outpatient Comprehen Comprehensi [id number] eClinic 13:33:00 13:33:00 [facility] 2017-06-17 2017-06-17 Outpatient Comprehen Comprehensi 5 [id number] eClinic 10:30:00 10:30:00 [facility] 2017-06-16 2017-06-16 Outpatient Comprehen Comprehensi [id number] eClinic 16:07:00 16:07:00 [facility] 2017-03-15 2017-03-15 Outpatient Comprehen Comprehensi 5 [id number] eClinic 17:18:00 17:18:00 [facility] 2017-03-04 2017-03-04 Outpatient Comprehen Comprehensi [id number] eClinic 09:19:00 09:19:00 [facility] 2017-01-08 2017-01-08 Outpatient MH [facility] [id number] eClinic 08:23:00 08:23:00 [facility] 2017-01-07 2017-01-07 Outpatient MH [facility] [id number] eClinic 17:59:00 17:59:00 [facility] 2016-12-31 2016-12-31 Outpatient Comprehen Comprehensi [id number] eClinic 16:50:00 16:50:00 [facility] 2016-12-15 2016-12-15 Outpatient Comprehen Comprehensi 5 [id number] eClinic 15:29:00 15:29:00 [facility] 2016-12-07 2016-12-07 Outpatient Comprehen Comprehensi 5 [id number] eClinic 13:57:00 13:57:00 [facility] 2016-12-06 2016-12-07 Outpatient Saravia, [facility] [id number] 11:01:00 12:42:00 Jennifer 19 2016-12-07 2016-12-07 Outpatient Comprehen Comprehensi 5 [id number] eClinic 10:39:00 10:39:00 [facility] 2016-08-25 2016-08-25 Outpatient Comprehen Comprehensi [id number] eClinic 15:44:00 15:44:00 [facility] Care PA 2016-08-07 2016-08-07 Outpatient Comprehen Comprehensi 5 [id number] eClinic 13:32:00 13:32:00 [facility] Care PA 2016-06-11 2016-06-11 Outpatient Comprehen Comprehensi [id number] eClinic 09:30:00 09:30:00 [facility] Care PA 2016-06-10 2016-06-10 Outpatient Comprehen Comprehensi [id number] eClinic 08:56:00 08:56:00 [facility] Care PA 2016-06-04 2016-06-04 Outpatient Comprehen Comprehensi [id number] eClinic 16:45:00 16:45:00 [facility] Care PA 2015-12-12 2015-12-12 Outpatient Comprehen Comprehensi [id number] eClinic 09:00:00 09:00:00 [facility] Care PA 2015-12-11 2015-12-11 Outpatient Comprehen Comprehensi [id number] eClinic 13:33:00 13:33:00 [facility] Care PA 2015-12-03 2015-12-03 Outpatient Comprehen Comprehensi [id number] eClinic 09:48:00 09:48:00 [facility] Care PA 2015-11-18 2015-11-18 Outpatient Comprehen Comprehensi [id number] eClinic 11:30:00 11:30:00 [facility] Care PA 2015-11-15 2015-11-15 Outpatient Comprehen Comprehensi [id number] eClinic 10:48:00 10:48:00 [facility] Care PA 2015-11-07 2015-11-07 Outpatient Comprehen Comprehensi [id number] eClinic 10:00:00 10:00:00 [facility] Care PA 2015-11-06 2015-11-06 Outpatient Comprehen Comprehensi [id number] eClinic 17:20:00 17:20:00 [facility] Care PA 2015-07-25 2015-07-25 Outpatient Comprehen Comprehensi [id number] eClinic 16:32:00 16:32:00 [facility] Care PA 2015-05-21 2015-05-21 Outpatient Martin, [facility] [id number] [facility] 08:40:00 23:59:00 Demarcus 00 2015-01-18 2015-01-18 Outpatient Comprehen Comprehensi [id number] eClinic 09:58:00 09:58:00 [facility] Care PA 2015-01-16 2015-01-16 Outpatient Comprehen Comprehensi [id number] eClinic 18:09:00 18:09:00 [facility] Care PA 2015-01-16 2015-01-16 Outpatient Comprehen Comprehensi [id number] eClinic 17:20:00 17:20:00 [facility] Care PA 2015-01-10 2015-01-10 Outpatient Comprehen Comprehensi 3 [id number] eClinic 10:00:00 10:00:00 [facility] Care PA 2014-07-10 2014-07-10 Outpatient Comprehen Comprehensi [id number] eClinic 15:21:00 15:21:00 [facility] Care PA 2014-06-11 2014-06-11 Outpatient Comprehen Comprehensi 3 eClinic 15:30:00 15:30:00 [facility] al[facility] [...] code = PT) 13.6 s 12.0-14.7 [facility] [id number] 12:25:00 Test Item Value Reference Range Interpretation Comments INR (test code = INR) 1.04 1 0.85-1.17 [facility] [id number] 12:25:006.2[facility] 2019-09-19 12:25:004.82[facility] StptjmeWGYOHJUZDY6089-05-06 12:25:0014.7[facility] [id number] 12:25:0043.9[facility] [id number] 12:25:0091.1[facility] [id number] 12:25:00 Test Item Value Reference Range Interpretation Comments MCH (test code = MCH) 30.4 pg 27.0-31.0 [facility] [id number] 12:25:0033.4[facility]ann[facility]MATOLOGY 2019-09-19 12:25:0015.8[facility] [id number] 12:25:96917Ghuxytod YngkrlxUAREGFNGIA0914-26-47 12:25:0010.1[facility] KevhmsfFUBBKSQEOZVQ2552-74-03 09:35:53887Dromekpq LtidddhNAYQSSVHCKQZ4253-37-55 09:35:003.6[facility] Jun [id number] 09:35:71118Szhrwxur YumwjcsAZGXHHGJULCZ4725-82-70 09:35:009.3[facility] JimkioeETGKASIXLCSR4664-97-13 09:35:67789Xhqvbjme Jun [id number] 09:35:0013[facility] NkvtfrhNFAQANJBTPWB7928-14-94 09:35:00 25[facility] VfengqqJSRGTRBVLSWG9148-34-81 09:35:000.78[facility] [place] OXLXMLBPMKXM8617-34-44 09:35:0092[facility] NhspikbIFDSIOGCVCXJ7394-24-49 09:35:00 16.6[facility] FaelxpzIRMTLGCXVE5226-30-40 09:35:009.5[facility]annHEMATOLOGY 2019-06-07 09:35:004.19[facility] HdxmrigCENMICBYIG9319-64-13 09:35:0013.1[facility] GrvcsztBAJGKTDQEK8364-04-47 09:35:0038.6[facility] FautuuoZNPBVHZFSL2256-47-78 09:35:0092.0[facility] OvrsugtYHAGPMVRHV0661-79-19 09:35:00 Test Item Value Reference Range Interpretation Comments MCH (test code = MCH) 31.3 pg 27.0-31.0 [facility] KznziicWQXFEPWFEB6989-50-06 09:35:0034.0[facility]annHEMATOLOGY 2019-06-07 09:35:0014.4[facility] TjptczxTOXFZMRLKG1132-01-24 09:35:96416Jimhyncs UiezzkfTZDCUQGARK8105-76-96 09:35:0010.9[facility] NvqvjneIILKGJFEBG5975-06-43 09:35:0088.2[facility] LmigymsMQBTUELGWS0385-42-01 09:35:006.0[facility] Jun TDRVCFDKPV8131-20-80 09:35:005.7[facility] ErmtoykWXRDNVNJGT8253-61-99 09:35:000.1 [facility] UvrmausVTEFMIQLWJ9540-25-05 09:35:008.3[facility]annHEMATOLOGY 2019-06-07 09:35:000.6[facility] TnuvrzbBRNVUFIIIA6362-22-90 09:35:000.5[facility]annBL[facility] IHRGGTK8521-41-18 15:38:00Negative (06/06/19 10:38 AM)[facility]annCHEM VMYEC8295-54-90 16:43:0046.1[facility]annCHEM YSEKQ3197-21-24 16:43:68933.6[facility] RvyejpjOYSIMTSOQKBB6579-23-07 16:43:97555Rrtzgkyx Jun YEJHLFGKELJQ1221-56-17 16:43:003.8[facility] EwxevmyYWPLMVLWGNZS8165-72-27 16:43:61041Bonrpqld GsouporGRUMIOZCLHEK3098-72-60 16:43:0010.1[facility] [place] YKPGTKJVYBOB8030-02-64 16:43:84305Ycjohyrp JxdmplsQWLBPHZZVWQS3418-35-82 16:43:0021[facility] RvgswecXQLTRMCPXSGS1593-12-09 16:43:0029[facility] Jun VPUTCAGRAJFB7277-48-23 16:43:004.4[facility] UdlrbplHDBYFPMCAKBS9306-25-93 16:43:000.97[facility] NpixdbrUHESZEECDSUV9443-96-35 16:43:0044[facility] YXMIZWEIAGYD9812-23-49 16:43:0034[facility] DhvntbnNIMHBYKDMALB9654-24-13 16:43:00 79[facility] WzqcghvPFVBYUONEJOU8145-10-72 16:43:008.2[facility]annELECTROLYTES 2019-06-02 16:43:000.6[facility] MtieiaoKYMQWLAUPZXM5269-03-96 16:43:0062[facility] XcosdgkAHWVRNUNJFRN5373-27-66 16:43:0010.8[facility] UegmuvjDALGVMZRQPKD9732-57-31 16:43:00 Test Item Value Reference Range Interpretation Comments B/C Ratio (test code = B/C Ratio) 22 1 6-25 [facility] TomqnjmFWRDQWHFRCVG8904-37-47 16:43:003.8[facility] HermannELECTROLYTES 2019-06-02 16:43:00 Test Item Value Reference Range Interpretation Comments A/G Ratio (test code = A/G Ratio) 1.2 1 0.7-1.6 [facility]QzrfygaCPEVIHMBKD5672-33-01 16:43:005.6[facility]annHEMATOLOGY 2019-06-02 16:43:004.59[facility] YfyebwmUZSDIPFIBH5294-71-25 16:43:0014.1[facility] SxxkjkpIBURWBUOOD9271-41-07 16:43:0042.5[facility] DndgqasSBFSZTVSLW3572-50-93 16:43:0092.7[facility] BdjpfvxXPQBFDXOBF4082-58-44 16:43:00 Test Item Value Reference Range Interpretation Comments MCH (test code = MCH) 30.7 pg 27.0-31.0 [facility] HospitalQerajevEQWHEBNJQC3021-97-14 16:43:0033.1[facility]annHEMATOLOGY 2019-06-02 16:43:0015.1[facility] MoolvpzCWWKKIRBZV0426-93-80 16:43:32277Ynxiuwmv QliwwyqUSHQWPGCZW2342-12-04 16:43:0010.5[facility] YwvxprxRJXAODQSPY0185-54-90 16:43:00 Test Item Value Reference Range Interpretation Comments INR (test code = INR) 1.11 1 0.85-1.17 [facility] HospitalAsdcdujPRYPDQBOCW5646-31-56 16:43:00 Test Item Value Reference Range Interpretation Comments PT (test code = PT) 14.1 s 12.0-14.7 [facility] HospitalLxqdprtIXPPECOXAZ2901-63-53 16:43:00 Test Item Value Reference Range Interpretation Comments PTT (test code = PTT) 31.4 s 22.9-35.8 [facility] AmericaYtbahyqQIQNEENBLS4102-63-53 16:43:0064.5[facility]annHEMATOLOGY 2019-06-02 16:43:0021.2[facility] GqdlovpEGSMOGVXGT3874-93-81 16:43:0010.6[facility] CbjwdowLUYJIWUQFH1434-06-14 16:43:002.5[facility] TgfxcsnSXOMIGHKMH9112-99-90 16:43:001.2[facility] DshvtbsCDTVJIQFKN5626-02-27 16:43:003.6[facility] DSNJFHYEGA6417-24-34 16:43:001.2[facility] HzmhowjQMSSGRFBRO0037-95-84 16:43:000.6 [facility] JnsrxwxKPGEVXFIKD4213-46-22 16:43:000.1[facility] HermannHEMATOLOGY 2019-06-02 16:43:000.1[facility]annURINE AND YMSZA6751-07-15 16:43:00Yellow *NA*(06/02/19 11:43 AM)[facility] CDAKU9914-91-07 16:43:00Clear (06/02/19 11:43 AM)[facility] XXNCS6630-91-47 16:43:00 Test Item Value Reference Range Interpretation Comments UA Spec Grav (test code = UA Spec 1.009 1 Grav) [facility] QYAID5396-98-99 16:43:00 Test Item Value Reference Range Interpretation Comments UA pH (test code = UA pH) 7.0 1 5.0-8.0 [facility] XRDCP4340-45-50 16:43:00Negative *NA*(06/02/19 11:43 AM)[facility] LYJLN6144-17-47 16:43:00Negative (06/02/19 11:43 AM)[facility] CHKFG3198-01-61 16:43:00Negative (06/02/19 11:43 AM)[facility] TOSEF1787-18-38 16:43:00Negative (06/02/19 11:43 AM)[facility] OZBQJ1251-93-72 16:43:00<1[facility] MSNAW0964-56-85 16:43:00Performed *NA*(06/02/19 11:43 AM)[facility] IYTWQXVCZHQV8114-33-28 11:45:38086Mffnfqei WxeuxpbORJRLGUKKPXF8333-56-60 11:45:49932Shrpfage HlkjvyhLIPPLRZLWTIC7192-56-24 11:45:004.0[facility] KMOWKBMLWQNR7720-55-60 11:45:009.6[facility] IenbognZJQFCNDUIDOY1222-76-39 11:45:0070[facility] XcenmrqNUPKWILCXDNG3886-36-24 11:45:001.08[facility] YPLNPJZCEYDX8906-90-99 11:45:68858Nbfwbtgk YobbyyzTAMTAMAKEGOO8228-57-83 11:45:0029[facility] VehybmsNKGYQMJZORNP2458-15-81 11:45:0016[facility] BLWOYPEHHHIC5680-14-74 11:45:0013.0[facility] LutwlvsMHODSNFFHY3172-13-44 11:45:00 7.4[facility] VkmpzqjQZDAXRNGPL6483-24-89 11:45:004.49[facility]annHEMATOLOGY 2019-03-01 11:45:0013.4[facility] TujltqoZAZNMYRIDT0251-54-93 11:45:0041.0[facility] SqijttyJGGLJSNFDZ8467-41-76 11:45:0032.8[facility] SlkjfzvRNIXONQAJK8166-29-63 11:45:0091.3[facility] IqcwljrCKRCCCAUSP6521-71-24 11:45:00 Test Item Value Reference Range Interpretation Comments MCH (test code = MCH) 29.9 pg 27.0-31.0 [facility] NyctbysPAJEJYOBXU2735-90-62 11:45:0011.0[facility] HermannHEMATOLOGY 2019-03-01 11:45:0015.5[facility] YwhlxumFJUCRHFRLN8655-99-00 11:45:43407Btibgnoz CscgddaZDNBWHGCOF2167-06-49 11:45:00 Test Item Value Reference Range Interpretation Comments PT (test code = PT) 13.6 s 12.0-14.7 [facility] NzuixrpZTOOSXAXRC3220-67-12 11:45:00 Test Item Value Reference Range Interpretation Comments INR (test code = INR) 1.06 1 0.85-1.17 [facility] HermannCHEM KEJTN6358-94-51 08:00:003.7[facility] HermannCHEM PANEL 2019-01-24 08:00:00 Test Item Value Reference Range Interpretation Comments B/C Ratio (test code = B/C Ratio) 18 1 6-25 [facility] HermannCHEM KEUTY7550-57-67 08:00:00 Test Item Value Reference Range Interpretation Comments A/G Ratio (test code = A/G Ratio) 0.8 1 0.7-1.6 [facility]annCHEM TUHVQ2472-18-40 08:00:003.9[facility] HermannCHEM PANEL 2019-01-24 08:00:0070[facility] HermannCHEM LWOVW9318-27-24 08:00:0041[facility] HermannCHEM GRJPR4026-53-51 08:00:001.08[facility] HermannCHEM VCTTZ8863-30-24 08:00:0054[facility] HermannCHEM SQXNP7953-66-90 08:00:0048[facility] HermannCHEM ANUIY9365-98-47 08:00:007.2[facility] HermannCHEM PXWPV2094-92-57 08:00:001.1 [facility]annCHEM VQWEI5975-46-84 08:00:05814Ffuuodis HermannCHEM PANEL 2019-01-24 08:00:0010.6[facility] HermannCHEM IVIFA3520-33-28 08:00:004.6[facility] HermannCHEM SVVJW9921-14-55 08:00:01462Jqomroov HermannCHEM KAHGA7323-36-64 08:00:009.4[facility] HermannCHEM IFDDH0323-89-73 08:00:003.3[facility] HermannCHEM GIGQY3625-99-40 08:00:0032[facility] HermannCHEM EZBAC6579-17-64 08:00:0019 [facility]annCHEM VNHTO2865-13-42 08:00:33436Xzqolhmc HermannCHEM PANEL 2019-01-24 08:00:002.0[facility] FwgcuxtNTISUHXBFT6593-31-60 08:00:0032.6[facility] VxfvacrXLUECZDJCV5275-64-95 08:00:00 Test Item Value Reference Range Interpretation Comments MCH (test code = MCH) 29.8 pg 27.0-31.0 [facility] QxgdyvkBXYTKWLEMF6407-31-33 08:00:59545Zihsjpww HermannHEMATOLOGY 2019-01-24 08:00:0015.1[facility] HlwwjxaCBIPJGHLBY6257-74-77 08:00:0091.4[facility] ZhkdomsNDCMCQCYWT8874-34-85 08:00:0010.3[facility] UyiledxDCADMDZGBT7981-66-89 08:00:004.52[facility] UeakulbYLWCGFBWHB9366-68-49 08:00:008.0[facility] Jun VXXAJNETNI7197-74-65 08:00:0041.3[facility] TfopfciMMBLJKGXHX0793-49-94 08:00:00 13.5[facility] CiliqtkDAFVGWNFVN3830-48-66 08:00:005.2[facility] HermannHEMATOLOGY 2019-01-24 08:00:000.9[facility] YkbmtcuPOUTAFMXTP9755-44-31 08:00:004.4[facility] NgjmsniCSKRJSPYOB9695-74-62 08:00:0010.9[facility] McvnwgyCJUQBGBURH1128-59-43 08:00:000.1[facility] UyvlczfLGLATSLTJD6288-93-07 08:00:001.5[facility] ZDNLVSAANG4957-97-80 08:00:000.4[facility] WsgqhsrRTKQADXCEJ4379-81-28 08:00:000.9 [facility] EiefcmbJBNHIYTQFV4242-73-23 08:00:0018.4[facility] HermannHEMATOLOGY 2019-01-24 08:00:0065.4[facility] HermannCHEM QMWLS6421-18-89 08:47:00 Test Item Value Reference Range Interpretation Comments B/C Ratio (test code = B/C Ratio) 16 1 6-25 [facility] HermannCHEM BEIHV3309-33-69 08:47:0011.4[facility] HermannCHEM PANEL 2019-01-23 08:47:00 Test Item Value Reference Range Interpretation Comments A/G Ratio (test code = A/G Ratio) 0.9 1 0.7-1.6 [facility] HermannCHEM QQKCJ3659-22-22 08:47:003.8[facility] HermannCHEM PANEL 2019-01-23 08:47:0015[facility] HermannCHEM JLYGD0413-09-33 08:47:003.5[facility] HermannCHEM XHEQZ3749-47-20 08:47:009.0[facility] HermannCHEM FPRTK5799-57-42 08:47:0083[facility] HermannCHEM AWFIM4979-04-03 08:47:001.0[facility] HermannCHEM SRGVH9136-79-38 08:47:000.94[facility] HermannCHEM DBCZW1015-48-17 08:47:76314 [facility] HermannCHEM JFZAZ0503-25-07 08:47:003.4[facility] HermannCHEM PANEL 2019-01-23 08:47:06327Bedppqkk HermannCHEM QZPTE7760-52-58 08:47:70391Ihjzidmo HermannCHEM ZELAO9897-34-14 08:47:0032[facility] HermannCHEM WLJAD2861-04-20 08:47:0041[facility] HermannCHEM TXFAN0892-67-23 08:47:0045[facility] HermannCHEM OTBHP8453-57-98 08:47:0056[facility] HermannCHEM PWIJD8175-67-36 08:47:007.3 [facility] HermannCHEM SQJUC0551-83-12 08:47:001.8[facility] HermannCHEM PANEL 2019-01-23 08:47:002.8[facility] DzlucafUOQSPGWSDK5595-77-20 08:47:008.0[facility] OupsvafRNFUWSQWCL9421-60-96 08:47:0013.2[facility] BtfmfwqBRRHHIHDZF9969-62-44 08:47:0091.4[facility] DkchfbhERVUYVAZYM6361-22-42 08:47:004.42[facility] LDBOUIAAVE9392-83-00 08:47:0040.4[facility] ZgksmkvTZNNSYGYKS8001-47-69 08:47:00 Test Item Value Reference Range Interpretation Comments MCH (test code = MCH) 29.9 pg 27.0-31.0 [facility] LoqssybCIUHULTIXE0463-80-09 08:47:46870Nvyqparb HermannHEMATOLOGY 2019-01-23 08:47:0014.6[facility] JjbrfohLQAMQOMLME3777-12-58 08:47:0032.7[facility] VznobnrRBUHXEMKMG3732-23-56 08:47:0011.5[facility] ZkdtrqeOFFUVUJYTE6142-91-45 08:47:0010.0[facility] UwczwjnBAKXMDOXMX1103-56-31 08:47:000.5[facility] VNPEQHQZDX0422-47-73 08:47:003.5[facility] MqhaqewUVIMHNIRWD1640-65-60 08:47:005.4 [facility] YqyicumHKJTRQPSFK6028-03-66 08:47:000.8[facility] HermannHEMATOLOGY 2019-01-23 08:47:001.5[facility] VzjzrcrHBUAQHPWRL1137-27-86 08:47:000.3[facility] GvdtddnNGUYCEHDNN1503-91-71 08:47:0018.7[facility] PcjskvtRBYETHXRYD4413-13-82 08:47:0067.3[facility] HermannCARDIAC OCJNCIZ4859-52-43 20:17:80198Rjbuxxxm HermannCARDIAC THJOZFR2386-81-28 20:15:000.02[facility] HermannSPECIAL CHEMISTRY 2019-01-22 15:47:007.6[facility] HermannCARDIAC OMFGKWK3059-87-07 15:44:48895 [facility]annCARDIAC VOYGRGK7917-72-99 15:44:000.02[facility] HermannCARDIAC TAAPHAK1699-40-04 15:44:24936Ypvbrtij HermannCHEM WIBDP7864-16-37 15:44:0042 [facility] HermannCHEM TQYII2431-51-38 15:44:0063[facility] HermannCHEM PANEL 2019-01-22 15:44:0078[facility] HermannCHEM XICTV7152-00-45 15:44:000.99[facility] HermannCHEM GGKZN8011-67-72 15:44:0042[facility] HermannCHEM ARSHR9965-04-32 15:44:000.7[facility] HermannCHEM DYMHL5038-01-49 15:44:007.7[facility] HermannCHEM JHNXQ1796-92-35 15:44:0017[facility] HermannCHEM IKKUU1590-40-10 15:44:0029 [facility] HermannCHEM WBQEN6294-21-18 15:44:009.2[facility] HermannCHEM PANEL 2019-01-22 15:44:003.7[facility] HermannCHEM XFNDF9633-10-98 15:44:29050Vmhwtfnh HermannCHEM VLTJW8445-53-98 15:44:73570Bstjruaz HermannCHEM EPLSB7310-89-96 15:44:004.3[facility] HermannCHEM TEJQU8785-02-62 15:44:81992Pienkfyo HermannCHEM OPJYN5035-71-26 15:44:00 Test Item Value Reference Range Interpretation Comments B/C Ratio (test code = B/C Ratio) 17 1 6-25 [facility] RUMIW1300-45-90 15:44:00 Test Item Value Reference Range Interpretation Comments A/G Ratio (test code = A/G Ratio) 0.9 1 0.7-1.6 [facility]annCHE[facility] RCMJO2694-63-88 15:44:004.0[facility] HermannCHEM PANEL 2019-01-22 15:44:0010.3[facility] IskmrnfOYOLFOOGOV3739-23-07 15:44:00 Test Item Value Reference Range Interpretation Comments PTT (test code = PTT) 36.9 s 22.9-35.8 [facility] HospitalLvprmiwEQTRTMSZOW4906-80-91 15:44:00 Test Item Value Reference Range Interpretation Comments PT (test code = PT) 18.6 s 12.0-14.7 [facility] HospitalGfkvmaeXPPGSDMZFT9210-36-34 15:44:00 Test Item Value Reference Range Interpretation Comments INR (test code = INR) 1.59 1 0.85-1.17 [facility] AmericaSnlsvebEXKHNCLUIA1654-01-00 15:44:00 Test Item Value Reference Range Interpretation Comments MCH (test code = MCH) 29.7 pg 27.0-31.0 [facility] HospitalLquclpiWMNZDFWACT4484-41-00 15:44:0032.5Menjrial HermannHEMATOLOGY 2019-01-22 15:44:0091.3[facility] LhpspewTLFLYQJQGL5785-22-58 15:44:0041.4[facility] WuzxcnqKHAYXEPHWA1628-03-93 15:44:004.53[facility] AmhqiwyNHYHXXRGZN5540-15-95 15:44:0013.5[facility] XvucughFUKSAVKXCG1000-15-83 15:44:007.7[facility] Jun BSJWIXGPIN0934-67-18 15:44:79928Ktckcdfe SeatmxcCNEIDBMNLF3301-60-72 15:44:00 11.2[facility] BmfppdiGOZLAZIUNP9688-04-08 15:44:0014.9[facility] HermannHEMATOLOGY 2019-01-22 15:44:001.2[facility] HduyjynOGGUXTIUGX3967-52-99 15:44:000.1[facility] KzxacexEZOCZMOPYN0704-36-80 15:44:000.8[facility] GjaqhrkMVBPDQDFUX6339-45-48 15:44:000.1[facility] VclvlhzSWMRHHUKPV8452-94-21 15:44:005.5[facility] SILEVUVGJW8634-87-58 15:44:001.1[facility] DpfpdvpLXTYXWOJQM2055-29-21 15:44:001.6 [facility] CbyyeraBDNTKTXNMF8222-00-11 15:44:0015.0[facility] HermannHEMATOLOGY 2019-01-22 15:44:0010.3[facility] UrfvahlAEXTSMUVHD2672-71-95 15:44:0072.0[facility][U] XRAY KNEE 3 VWS LEFT [id number] 10:12:00Images acquired, not reported on this accession number.[facility]iciansCARDIAC ENZYMES 2016-12-06 10:14:002.3[facility] HermannCARDIAC EZMSBYP3583-38-61 10:14:001.0 [facility] HermannCARDIAC PEDEEFE5919-14-82 10:14:000.02[facility] HermannCARDIAC BJDFLCZ7028-96-70 10:14:40733Ruzimkst HermannCARDIAC MRUHDTY9339-06-48 07:00:00 0.8[facility] HermannCARDIAC SBGYZAF3195-26-14 07:00:002.0[facility] HermannCARDIAC KMKFUQY7992-15-10 07:00:000.02[facility] HermannCARDIAC ZPQWNLH7295-26-80 07:00:00 255[facility] HermannCHEM SUVFL0732-07-06 07:00:002.2[facility] HermannCHEM PANEL 2016-12-06 07:00:002.8[facility] JuuheezNHBQXOBHUIPO6510-15-53 07:00:0013.3 [facility] UidsgkbYYNFUMNXAYQM3871-54-94 07:00:0092[facility] HermannELECTROLYTES 2016-12-06 07:00:000.80[facility] XhbbmwiMKRUNPJTJBOL6766-78-00 07:00:90556 [facility] NgdmllnRXZNIHGMCVDZ6736-70-71 07:00:0015[facility] HermannELECTROLYTES 2016-12-06 07:00:57594Rigihofd RyyawmaGQTOTGUBOIZV4673-90-21 07:00:12609Gmobzxbp KbzeagoWJXWUYQVDVPY3285-66-36 07:00:004.3[facility] EzhbgukNYBUPAODZGSK8186-29-94 07:00:009.3[facility] NipsgzkJUDQKHSSKHYO3522-00-88 07:00:0029[facility] Jun CISWHOKHOS5474-50-39 07:00:006.9[facility] SigjaekHSOSCMXCCL7323-27-50 07:00:00 4.50[facility] LfchpkoKFVBRAZWBG5937-78-42 07:00:0014.5[facility] HermannHEMATOLOGY 2016-12-06 07:00:0013.8[facility] UgpqfvjBBHHGUTAIJ9159-04-27 07:00:54624Sriknhey JttogtjJXNQXEVDHK8713-39-61 07:00:0010.9[facility] LorghjpJQEQXOBBWT1032-40-09 07:00:0041.3[facility] ZljbvguJDZZJKKKCQ1529-41-39 07:00:0091.8[facility] Jun YLIDFHGFMZ5604-86-99 07:00:00 Test Item Value Reference Range Interpretation Comments MCH (test code = MCH) 30.6 pg 27.0-31.0 [facility] KbyzcwfIKZKTNANPP1933-91-91 07:00:0033.3[facility] HermannHEMATOLOGY 2016-12-06 07:00:001.03[facility] XpasykxHWFOJYRKJK1215-59-36 07:00:00 Test Item Value Reference Range Interpretation Comments PTT (test code = PTT) 34.0 s 22.9-35.8 [facility] IdnenzsDHXDMGXTPW4305-57-40 07:00:00 Test Item Value Reference Range Interpretation Comments PT (test code = PT) 13.7 s 12.0-14.7 [facility] TiuqfnuIZODVGIPAD1876-26-13 07:00:0050.4[facility] HermannHEMATOLOGY 2016-12-06 07:00:0034.5[facility] MobpfdeDREPUFOQMA4263-95-98 07:00:002.4[facility] OeqhbfuUCRMVQDOAV1324-56-28 07:00:004.1[facility] WbaflqgGDPFVUFCPX9986-93-71 07:00:000.9[facility] HmmpdcuQPPDOKKLBV0401-74-22 07:00:003.5[facility] Jun BDGIYRTIQL3697-14-59 07:00:0010.1[facility] CkyzuywAKDLOOMTFJ4298-98-24 07:00:00 0.1[facility] UzdgbmfYHIUHTMRLS7721-65-67 07:00:000.7[facility] HermannHEMATOLOGY 2016-12-06 07:00:000.3[facility] JaykhfdLSFKYR0829-03-84 07:00:0031[facility] QwukimnYQUJMM1070-24-35 07:00:64899Inypwkcv XqkuuasXPRKGX3285-06-15 07:00:70495 [facility] MpeknxeTQQWEV5468-07-58 07:00:0044[facility] XkjwzflOMRIYC5665-82-17 07:00:38756Aelkygck RszxrdtZFXSVS1609-38-77 07:00:006.32[facility] Jun
[2021-01-08 22:39] LABS: Absolute Lymphocytes (CBC) 1.2 K/uL (0.7-4.9); Basophils % 0.7 % (0-1.3); Hematocrit 38.1 % (39.6-49.0); Lymphocytes % 12.3 % (15.3-44.8); MPV 10.2 fL (7.6-11.3); RBC Red Blood Cell Count 4.26 M/uL (4.33-5.43)
[2021-01-08 22:42] LABS: Protime INR 1.88
[2021-01-08 22:50] LABS: BUN Blood Urea Nitrogen 14 mg/dL (7-18); Bicarbonate 30 mmol/L (21-32); Glucose Level 82 mg/dL (74-106); Magnesium 2.2 mg/dL (1.8-2.4); Potassium 3.6 mmol/L (3.5-5.1); Sodium Level 144 mmol/L (136-145); Troponin (Emerg Dept Use Only) < 0.02 ng/mL (0.0-0.045)
--- NOTE | 2021-01-09 00:49 | ER ---
Nurse's Notes [facility] Name: Bony Santos Age: 70 yrs Sex: Male : 1950 Arrival Date: 01/08/2021 Time: 21:29 Bed 7 Private MD: Clint Matute T Diagnosis: Altered mental status, unspecified;Bradycardia, unspecified;Transient cerebral ischemic attacks and related syndromes Presentation: 01/08 21:37 Chief complaint: Patient states: I was watching television and I just got confused and ca1 a little light headed Spouse and/or significant other states: An hour ago, he was just confused and I need to prompt him a lot. He didn't know where he is at, what he was going to do like go to the restroom. After he went, he was shaky. Pt A\T\Ox4. VAN negative. Coronavirus screen: Client denies travel out of the [place] in the last 14 days. At this time, the client does not indicate any symptoms associated with coronavirus-19. Ebola Screen: Patient negative for fever greater than or equal to 101.5 degrees Fahrenheit, and additional compatible Ebola Virus Disease symptoms Patient denies exposure to infectious person. Patient denies travel to an Ebola-affected area in the 21 days before illness onset. No symptoms or risks identified at this time. Initial Sepsis Screen: Does the patient meet any 2 criteria? No. Patient's initial sepsis screen is negative. Does the patient have a suspected source of infection? No. Patient's initial sepsis screen is negative. Risk Assessment: Do you want to hurt yourself or someone else? Patient reports no desire to harm self or others. Onset of symptoms was January 08, 2021. 21:37 Method Of Arrival: Ambulatory ca1 21:37 Acuity: MAVERICK 2 ca1 Historical: - Allergies: 21:47 No Known Allergies; ca1 - Home Meds: 21:47 clopidogrel 75 mg Oral tab 1 tab once daily [Active]; allopurinol 100 mg Oral tab 1 tab ca1 once daily [Active]; metoprolol succinate 25 mg oral Tb24 1 tab once daily [Active]; oxybutynin chloride 5 mg Oral tr24 1 tab twice a day [Active]; amlodipine 5 mg oral tab 1 tab once daily [Active]; rosuvastatin 10 mg Oral tab 1 tab once daily [Active]; olmesartan oral 40 mg oral 1 tab once daily [Active]; Xarelto 20 mg oral tab 1 tab once daily [Active]; - PMHx: 21:47 acid reflux; Atrial Fib; fluid retention; Gout; Hypertension; Prediabetic; ca1 - PSHx: 21:47 Tonsillectomy; colon resection; Knee surgery; bariatric surgery; Heart stents; ca1 - Immunization history:: Client reports receiving the 2nd dose of the Covid vaccine, Client reports receiving the 1st dose of the Covid vaccine, Pneumococcal vaccine is up to date, Flu vaccine is up to date. - Social history:: Smoking status: Patient/guardian denies using tobacco, the patient reports quitting approximately 30 years ago. - Family history:: not pertinent. - Hospitalizations: : No recent hospitalization is reported. Screenin:34 The patient has not been NPO before screening. The patient is alert, able to follow ea commands. The patient does not exhibit slurred or garbled speech The patient is not exhibiting difficulty speaking. The patient does not exhibit difficulty understanding words. The patient is able to swallow own secretions with no drooling or need for suction. Patient tolerated one teaspoon of water. No drooling, immediate coughing, gurgling, or clearing of the throat was noted. The patient tolerated 90mL of water. No drooling, immediate coughing, gurgling, or clearing of the throat was noted. The patient passed the bedside swallow screening. Oral medications may be given as ordered. Contact Physician for further diet orders. 22:58 Abuse screen: Denies threats or abuse. Nutritional screening: No deficits noted. ea Tuberculosis screening: No symptoms or risk factors identified. Fall Risk None identified. Assessment: 21:55 Reassessment: Dr. Foster at bedside. ca1 22:12 General: Appears in no apparent distress. Behavior is calm, cooperative, appropriate ea for age. Pain: Denies pain. Neuro: Level of Consciousness is awake, alert, obeys commands, Oriented to person, place, time. Cardiovascular: Patient's skin is warm and dry. Respiratory: No deficits noted. Derm: Skin is pink, warm \T\ dry. 01/09 00:22 Reassessment: Patient and/or family updated on plan of care and expected duration. Pain ea level reassessed. Patient is alert, oriented x 3, equal unlabored respirations, skin warm/dry/pink. Provider at bedside updating pt on plan of care. 01:36 Reassessment: Patient and/or family updated on plan of care and expected duration. Pain ea level reassessed. Patient is alert, oriented x 3, equal unlabored respirations, skin warm/dry/pink. Awaiting on covid swab results. 02:27 Reassessment: Patient and/or family updated on plan of care and expected duration. Pain ea level reassessed. Patient is alert, oriented x 3, equal unlabored respirations, skin warm/dry/pink. Pt admitted to second floor, pt left ED via wheelchair per ED nurse. Pt tolerating well. Vital Signs: 01/08 21:37 BP 146 / 81; Pulse 57; Resp 16 S; Temp 97.6(TE); Pulse Ox 100% on R/A; Weight 89.36 kg ca1 (R); Height 5 ft. 9 in. (175.26 cm) (R); Pain 0/10; 21:49 Pulse 44; ca1 23:45 BP 133 / 82; Pulse 55; Resp 18; Pulse Ox 99% ; ea 01/09 01:37 BP 143 / 79; Pulse 53; Resp 17; Pulse Ox 99% on R/A; ea 02:29 BP 141 / 80; Pulse 62; Resp 18; Pulse Ox 97% on R/A; ea 01/08 21:37 Body Mass Index 29.09 (89.36 kg, 175.26 cm) ca1 NIH Stroke Scale Scores: 01/08 22:34 NIHSS Score: 0 ea ED Course: 21:29 Patient arrived in ED. es 21:29 Clint Matute MD is Private Physician. es 21:43 Triage completed. ca1 21:47 Arm band placed on right wrist. ca1 21:52 Nilesh Foster MD is Attending Physician. rn 21:54 Patient placed in an exam room, on a stretcher. ca1 22:12 Elisabeth Son RN is Primary Nurse. ea 22:25 Inserted saline lock: 20 gauge in right antecubital area, using aseptic technique. ea Blood collected. 22:58 Patient has correct armband on for positive identification. Bed in low position. Call ea light in reach. 23:19 CT Head Brain wo Cont In Process Unspecified. EDMS 23:19 CT Head Angio In Process Unspecified. EDMS 23:22 CT Neck Angio In Process Unspecified. EDMS 01/09 00:24 No provider procedures requiring assistance completed. Patient admitted, IV remains in ea place. 00:48 Sharmaine Zamora MD is Hospitalizing Provider. rn Administered Medications: No medications were administered Outcome: 00:49 Decision to Hospitalize by Provider. rn 01:37 Instructed on the need for admit, Demonstrated understanding of instructions. ea 02:21 Admitted to Med/surg accompanied by nurse, via wheelchair, Report called to SONYA Negrete ad5 02:21 Condition: stable 02:50 Patient left the ED. ea NIH Stroke Scale - NIH Stroke Score Date: 01/08/2021 Time: 22:34 Total Score = 0 1a. Level of Consciousness (LOC) - 0(Alert) 1b. Level of Consciousness (LOC) (Year \T\ Age) - 0(Both) 1c. LOC Commands (Open \T\ Closes Eyes/Senior Vice President [employer] Chief Information Officer) - 0(Both) 2. Best Gaze (Lateral Gaze Paresis) - 0(Normal) 3. Visual Field Loss - 0(No visual loss) 4. Facial Palsy - 0(Normal) 5a. Left Arm: Motor (10-second hold) - 0(No drift) 5b. Right Arm: Motor (10-second hold) - 0(No drift) 6a. Left Leg: Motor (5-second hold - always test supine) - 0(No drift) 6b. Right Leg: Motor (5-second hold - always test supine) - 0(No drift) 7. Limb Ataxia (finger/nose \T\ heel/strong - test with eyes open) - 0(Absent) 8. Sensory Loss (pinprick arms/legs/face) - 0(Normal) 9. Best Language: Aphasia (description/naming/reading) - 0(No aphasia) 10. Dysarthria (speech clarity - read or repeat words) - 0(Normal) 11. Extinction and Inattention (visual/tactile/auditory/spatial/personal) - 0(No abnormality) Initials: ea Signatures: Dispatcher [employer] Margarita Grove Roman, MD MD rn Antunez, Elena, RN RN ea Acob, Cheryl, RN RN ca1 Davidson, Andrea ad5
--- NOTE | 2021-01-09 00:49 | EDPHYS ---
Physician Documentation [facility] Name: Bony Santos Age: 70 yrs Sex: Male : 1950 Arrival Date: 01/08/2021 Time: 21:29 Bed 7 Private MD: Clint Matute T ED Physician Nilesh Foster HPI: 01/08 23:18 This 70 yrs old Male presents to ER via Ambulatory with complaints of rn CONFUSION. 23:18 The patient presents with confusion, disorientation. Onset: The symptoms/episode rn began/occurred 1 hour(s) ago. Possible causes: unknown. Associated signs and symptoms: Pertinent positives: confusion, lightheadedness, Pertinent negatives: abdominal pain, chest pain, diarrhea, headache, seizure, shortness of breath, vertigo, vomiting, weakness. Current symptoms: In the emergency department the patient's symptoms have resolved. The patient has not experienced similar symptoms in the past. The patient has not recently seen a physician. Reports 1 hour prior to arrival experienced an episode while sitting and watching tv, described he seemed confused and disoriented, had trouble getting his thoughts out, and patient adds that he felt lightheaded. No headache/chest pain/unilateral or focal weakness. Gradually improved and now back to baseline. Has not felt ill recently. On metoprolol and xarelto for Afib. . Historical: - Allergies: 21:47 No Known Allergies; ca1 - Home Meds: 21:47 clopidogrel 75 mg Oral tab 1 tab once daily [Active]; allopurinol 100 mg Oral tab 1 tab ca1 once daily [Active]; metoprolol succinate 25 mg oral Tb24 1 tab once daily [Active]; oxybutynin chloride 5 mg Oral tr24 1 tab twice a day [Active]; amlodipine 5 mg oral tab 1 tab once daily [Active]; rosuvastatin 10 mg Oral tab 1 tab once daily [Active]; olmesartan oral 40 mg oral 1 tab once daily [Active]; Xarelto 20 mg oral tab 1 tab once daily [Active]; - PMHx: 21:47 acid reflux; Atrial Fib; fluid retention; Gout; Hypertension; Prediabetic; ca1 - PSHx: 21:47 Tonsillectomy; colon resection; Knee surgery; bariatric surgery; Heart stents; ca1 - Immunization history:: Client reports receiving the 2nd dose of the Covid vaccine, Client reports receiving the 1st dose of the Covid vaccine, Pneumococcal vaccine is up to date, Flu vaccine is up to date. - Social history:: Smoking status: Patient/guardian denies using tobacco, the patient reports quitting approximately 30 years ago. - Family history:: not pertinent. - Hospitalizations: : No recent hospitalization is reported. ROS: 23:18 Constitutional: Negative for fever, chills, and weight loss, Eyes: Negative for injury, rn pain, redness, and discharge, Neck: Negative for injury, pain, and swelling, Cardiovascular: Negative for chest pain, palpitations, and edema, Respiratory: Negative for shortness of breath, cough, wheezing, and pleuritic chest pain, Abdomen/GI: Negative for abdominal pain, nausea, vomiting, diarrhea, and constipation, Back: Negative for injury and pain, : Negative for injury, bleeding, discharge, and swelling, MS/Extremity: Negative for injury and deformity, Skin: Negative for injury, rash, and discoloration, Neuro: Negative for headache, weakness, numbness, tingling, and seizure. Exam: 23:18 Constitutional: This is a well developed, well nourished patient who is awake, alert, rn and in no acute distress. Able to get into bed without assistance. Head/Face: Normocephalic, atraumatic. Eyes: Pupils equal round and reactive to light, extra-ocular motions intact. Periorbital areas with no swelling, redness, or edema. ENT: MMM Neck: No Meningismus. Cardiovascular: Irregular rhythm, bradycardic. No pulse deficits. Respiratory: No increased work of breathing, no retractions or nasal flaring. Abdomen/GI: soft, non-tender Skin: Warm, dry MS/ Extremity: Pulses equal, no cyanosis. Neuro: Awake and alert, GCS 15, oriented to person, place, time, and situation. Cranial nerves II-XII grossly intact. Motor strength 5/5 in all extremities. Sensory grossly intact. Cerebellar exam normal. Normal gait. Vital Signs: 21:37 BP 146 / 81; Pulse 57; Resp 16 S; Temp 97.6(TE); Pulse Ox 100% on R/A; Weight 89.36 kg ca1 (R); Height 5 ft. 9 in. (175.26 cm) (R); Pain 0/10; 21:49 Pulse 44; ca1 23:45 BP 133 / 82; Pulse 55; Resp 18; Pulse Ox 99% ; ea 01/09 01:37 BP 143 / 79; Pulse 53; Resp 17; Pulse Ox 99% on R/A; ea 02:29 BP 141 / 80; Pulse 62; Resp 18; Pulse Ox 97% on R/A; ea 01/08 21:37 Body Mass Index 29.09 (89.36 kg, 175.26 cm) ca1 NIH Stroke Scale Scores: 01/08 22:34 NIHSS Score: 0 ea MDM: 21:52 Patient medically screened. rn 01/09 00:45 Differential Diagnosis: CVA, electrolyte abnormality, intracranial bleed, TIA, volume rn depletion. Differential Diagnosis: symptomatic bradycardia. Data reviewed: vital signs, nurses notes, lab test result(s), EKG, radiologic studies, CT scan, and as a result, I will admit patient. Counseling: I had a detailed discussion with the patient and/or guardian regarding: the historical points, exam findings, and any diagnostic results supporting the discharge/admit diagnosis, lab results, radiology results, the need for further work-up and treatment in the hospital. Response to treatment: the patient's symptoms have resolved after treatment, the patient's condition has returned to base line, the patient is now symptom free, and as a result, I will admit patient. Admission orders: after a detailed discussion of the patient's condition and case, the admit orders are written by me. ED course: Unclear if patient had TIA with trouble with speech, or possibly symptomatic bradycardia given global confusion and no focal complaints. Pt has had trouble with bradycardia recently, taken off amiodarone, and states HR was in 40s. Now asymptomatic, HR in 60s. Will admit for further studies. + Incidental Anterior communicating artery aneurysm but no leak or bleeding, would not explain patient's symptoms and resolution.. 01/08 22:12 Order name: Magnesium; Complete Time: 23:03 rn 01/08 22:12 Order name: Troponin (emerg Dept Use Only); Complete Time: 23:03 rn 01/08 22:12 Order name: Basic Metabolic Panel; Complete Time: 23:03 rn 01/08 22:12 Order name: CBC with Diff; Complete Time: 23: rn 01/08 22:12 Order name: Protime (+inr); Complete Time: 23:03 rn 01/08 22:12 Order name: Ptt, Activated; Complete Time: 23:03 rn 01/08 22:12 Order name: EKG; Complete Time: 22:12 rn 01/08 22:12 Order name: CT Head Brain wo Cont rn 01/08 22:12 Order name: CT Head Angio rn 01/08 22:12 Order name: CT Neck Angio rn 01/08 22:40 Order name: Glucose, Ancillary Testing; Complete Time: 23:03 EDMS 01/09 01:10 Order name: CONS Physician Consult EDKS 01/09 01:56 Order name: SARS-COV-2 RT PCR EDMS 01/08 22:12 Order name: Accucheck; Complete Time: 22:28 rn 01/08 22:12 Order name: Cardiac monitoring; Complete Time: 22:25 rn 01/08 22:12 Order name: EKG - Nurse/Tech; Complete Time: 22:25 rn 01/08 22:12 Order name: IV Saline Lock; Complete Time: :25 rn 01/08 22:12 Order name: Labs collected and sent; Complete Time: :25 rn 01/08 22:12 Order name: O2 Per Protocol; Complete Time: :25 rn 01/08 22:12 Order name: O2 Sat Monitoring; Complete Time: : rn 01/08 22:12 Order name: Stroke Swallow Screen; Complete Time: 22:34 rn Administered Medications: No medications were administered Disposition: 01/09/21 00:49 Hospitalization ordered by Sharmaine Zamora for Observation. Preliminary diagnosis are Altered mental status, unspecified, Bradycardia, unspecified, Transient cerebral ischemic attacks and related syndromes. - Bed requested for Telemetry/MedSurg (observation). - Status is Observation. ea - Condition is Stable. - Problem is new. - Symptoms are resolved. NIH Stroke Scale - NIH Stroke Score Date: 01/08/2021 Time: :34 Total Score = 0 1a. Level of Consciousness (LOC) - 0(Alert) 1b. Level of Consciousness (LOC) (Year \T\ Age) - 0(Both) 1c. LOC Commands (Open \T\ Closes Eyes/Aircraft Stress Analyst) - 0(Both) 2. Best Gaze (Lateral Gaze Paresis) - 0(Normal) 3. Visual Field Loss - 0(No visual loss) 4. Facial Palsy - 0(Normal) 5a. Left Arm: Motor (10-second hold) - 0(No drift) 5b. Right Arm: Motor (10-second hold) - 0(No drift) 6a. Left Leg: Motor (5-second hold - always test supine) - 0(No drift) 6b. Right Leg: Motor (5-second hold - always test supine) - 0(No drift) 7. Limb Ataxia (finger/nose \T\ heel/strong - test with eyes open) - 0(Absent) 8. Sensory Loss (pinprick arms/legs/face) - 0(Normal) 9. Best Language: Aphasia (description/naming/reading) - 0(No aphasia) 10. Dysarthria (speech clarity - read or repeat words) - 0(Normal) 11. Extinction and Inattention (visual/tactile/auditory/spatial/personal) - 0(No abnormality) Initials: ea Signatures: Dispatcher [employer] EDKS Nilesh Foster MD MD rn Lasagna, Tonya RN RN tl1 Elisabeth Son RN RN ea AcFallon wade RN RN ca1 Corrections: (The following items were deleted from the chart) 00:53 00:25 CORONAVIRUS+MR.LAB.BRZ ordered. [facility] 02:03 00:49 Hospitalization Ordered by Sharmaine Zamora MD for Observation. Preliminary tl1 diagnosis is Altered mental status, unspecified; Bradycardia, unspecified; Transient cerebral ischemic attacks and related syndromes. Bed requested for Telemetry/MedSurg (observation). Status is Observation. Condition is Stable. Problem is new. Symptoms are resolved. rn 02:50 02:03 01/09/2021 00:49 Hospitalization Ordered by Sharmaine Zamora MD for ea Observation. Preliminary diagnosis is Altered mental status, unspecified; Bradycardia, unspecified; Transient cerebral ischemic attacks and related syndromes. Bed requested for Telemetry/MedSurg (observation). Status is Observation. Condition is Stable. Problem is new. Symptoms are resolved. tl1
--- NOTE | 2021-01-09 01:19 | P.HP ---
Certification for Inpatient Patient admitted to: Observation With expected LOS: <2 Midnights Patient will require the following post-hospital care: None Practitioner: I am a practitioner with admitting privileges, knowledge of patient current condition, hospital course, and medical plan of care. Services: Services provided to patient in accordance with Admission requirements found in Title 42 Section 412.3 of the Code of Federal Regulations Patient History Date of Service: 01/09/21 Primary Care Provider: Giovani Reason for admission: confusion History of Present Illness: Mr. Santos is a 70 yo M with afib on xarelto, HTN and HLd here today for an episode of confusion. His said he couldn't focus on anything and wasn't following commands. She says he was also mumbling his words. Denies weakness, facial droop. Says he remembers feeling confused. Symptoms now resolved. His metoprolol dose has recently been decreased due to episodes of bradycardia discovered when on Holter monitor. He is scheduled to have a cardiac ablation in [place] in February. Admitted from ED for suspected TIA vs global hypoperfusion due to bradycardia. Allergies No Known Allergies Allergy (Unverified 12/05/16 20:30) - Past Medical/Surgical History Diabetic: No -: afib -: htn -: hld -: tonsillectomy -: colon resection -: knee surgery -: bariatric surgery -: cardiac stent - Family History Father -: Heart disease - Social History Smoking Status: Former smoker Alcohol use: No CD- Drugs: No Caffeine use: Yes Place of Residence: Home Review of Systems 10-point ROS is otherwise unremarkable Neurological: Confusion Physical Examination - Physical Exam General: Alert, In no apparent distress, Oriented x3, Cooperative HEENT: Atraumatic, Normocephalic, PERRLA, Mucous membr. moist/pink, EOMI, Sclerae nonicteric Neck: Supple, 2+ carotid pulse no bruit, JVD not distended, No Thyromegaly, No LAD Capillary refill: <2 Seconds Gastrointestinal: Normal bowel sounds, Soft and benign, Non-distended, No ascites, No tenderness, No masses, No rebound, No guarding Musculoskeletal: No clubbing, No swelling, No contractures, No erythema, No tenderness, No warmth Integumentary: No rashes, No breakdown, No significant lesion, No tenderness/swelling, No erythema, No warmth, No cyanosis Neurological: Normal speech, Normal strength at 5/5 x4 extr, Normal tone, Sensation intact, Cranial nerves 3-12 intact, Normal affect Lymphatics: No axilla or inguinal lymphadenopathy - Studies Laboratory Data (last 24 hrs) 01/08/21 22:20: PT 21.7 H, INR 1.88, APTT 42.2 H 01/08/21 22:20: WBC 9.90, Hgb 12.8 L, Hct 38.1 L, Plt Count 114 L 01/08/21 05:44: Sodium 144, Potassium 3.6, BUN 14, Creatinine 0.70, Glucose 82, Magnesium 2.2 Assessment and Plan - Problems (Diagnosis) (1) Afib Current Visit: Yes Status: Chronic Qualifiers: Atrial fibrillation type: unspecified Qualified Code(s): I48.91 - Unspecified atrial fibrillation (2) HTN (hypertension) Current Visit: Yes Status: Chronic Qualifiers: Hypertension type: essential hypertension Qualified Code(s): I10 - Essential (primary) hypertension (3) HLD (hyperlipidemia) Current Visit: Yes Status: Chronic Qualifiers: Hyperlipidemia type: unspecified Qualified Code(s): E78.5 - Hyperlipidemia, unspecified (4) Confusion Current Visit: Yes Status: Acute - Plan neurology consulted MRI stroke protocol in the AM, ECHO in the AM daily folic acid, statin, ASA lipid panel pending speech consult, PT consult pending on telemetry BP stable, continue to monitor reconcile and continue home medications Discharge Plan: Home Plan to discharge in: 24 Hours - Advance Directives Does patient have a Living Will: No Does patient have a Durable POA for Healthcare: No - Code Status/Comfort Care Code Status Assessed: Yes (full code) Critical Care: No Time Spent Managing Pts Care (In Minutes): 70
[2021-01-09 02:53] VITALS: BMI 29.9
[2021-01-09] MEDS ORDERED: ONDANSETRON 4 MG/2 ML VIAL IV PRN (03:00)
[2021-01-09] MEDS ORDERED: ACETAMINOPHEN 500 MG TAB PO PRN (03:00)
[2021-01-09 04:40] LABS: Absolute Lymphocytes (CBC) 1.4 K/uL (0.7-4.9); Basophils % 0.6 % (0-1.3); Hematocrit 36.8 % (39.6-49.0); Lymphocytes % 19.4 % (15.3-44.8); MPV 10.7 fL (7.6-11.3); RBC Red Blood Cell Count 4.14 M/uL (4.33-5.43)
[2021-01-09 05:07] LABS: ALT/SGPT 27 U/L (12-78); AST/SGOT 20 U/L (15-37); Albumin 3.6 g/dL (3.4-5.0); Alkaline Phosphatase 80 U/L (45-117); BUN Blood Urea Nitrogen 11 mg/dL (7-18); Bicarbonate 31 mmol/L (21-32); Bilirubin Total 0.5 mg/dL (0.2-1.0); Glucose Level 180 mg/dL (74-106); HDL Cholesterol 55 mg/dL (40-60); LDL Cholesterol, Calculated 54 (<130); Potassium 4.1 mmol/L (3.5-5.1); Protein, Total 7.1 g/dL (6.4-8.2); Sodium Level 142 mmol/L (136-145)
[2021-01-09 06:08] VITALS: O2SAT 97
--- NOTE | 2021-01-09 07:50 | EKG ---
Test Date: 2021-01-08 Test Time: 22:16:22 Batch Tester: SUE MEASUREMENT RESULTS: Intervals: Rate: 59 [place]: QRSD: 94 QT: 484 QTc: 479 [place]: P: WA: QRS: 31 T: 20 INTERPRETIVE STATEMENTS: Atrial fibrillation with slow ventricular response Abnormal ECG Compared to ECG 10/10/2020 17:07:28 Sinus bradycardia no longer present Electronically Signed On 01-09-21 07:50:22 CDT by Kermit Ross
[2021-01-09 08:34] VITALS: TEMP 98.4
[2021-01-09] MEDS ORDERED: FOLIC ACID 1 MG TABLET PO SCH (09:00)
[2021-01-09] MEDS ORDERED: ASPIRIN EC 81 MG TAB PO SCH (09:00)
--- NOTE | 2021-01-09 11:49 | RAD REPORT ---
EXAM DESCRIPTION: CTNeck Angio01/09/2021 6:49 am CLINICAL HISTORY: Confused;Dizziness;Slurred speech COMPARISON: CT head January 08, 2021 TECHNIQUE: Multiple helical axial tomographic images were obtained of the head and neck following ad ministration of intravenous contrast per angiographic protocol. Coronal and sagittal reformatted imag es were obtained. This exam was performed according to our departmental dose-optimization program, wh ich includes automated exposure control, adjustment of the mA and/or kV according to patient size and /or use of iterative reconstruction technique. FINDINGS: Head: Mild atherosclerosis involving both intracranial segments of the ICAs noted. Intracranial segments of the bilateral internal carotid arteries appear patent without significant stenosis or occlusion. Ronald ateral anterior and middle cerebral arteries appear patent without significant stenosis or occlusion. Mild atherosclerosis involving the vertebral arteries noted. Intracranial segments of the bilateral vertebral arteries, basilar artery, and posterior cerebral arteries appear patent without significant stenosis or occlusion. There is a 6 mm aneurysm in the region of the anterior communicating artery ( series 505, image 70). There is no acute intracranial hemorrhage. No mass. No midline shift. No ventriculomegaly. Best-white matter differentiation is maintained. Paranasal sinuses are clear. Mastoid air cells and middle ear spaces are clear. Orbits and orbital co ntents are unremarkable. Osseous structures are unremarkable. Surrounding soft tissues are unremarkable. Neck: Aortic atherosclerosis is present. Mild atherosclerosis involving both carotid bulbs is demonstrated. Carotid and vertebral arterial vas culature of the neck appears patent without significant stenosis or occlusion. There is a 1.3 cm hypodense structure in the left thyroid lobe. Salivary glands appear unremarkable. No evidence of adenopathy. Retropharyngeal space appears normal. Epiglottis appears normal. Larynx an d vocal folds appear unremarkable. Visualized lungs are clear. Degenerative changes of the cervical spine are present. Prominent anterior osteophytes at C5-C6 and C 6-C7 noted. IMPRESSION: 1. No evidence of significant arterial stenosis or occlusion within the head or neck. 2. 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 3. Left thyroid lobe 1.3 cm nodule versus cyst. No follow-up imaging is recommended. Reference: J Am Jacey Radiol. 2015 Sep;12(2): 143-50 THIS REPORT CONTAINS FINDINGS THAT MAY BE CRITICAL TO PATIENT CARE: The findings were verbally discu ssed via telephone conference with Dr. Foster by Dr. Mabry at 0004 hours central time on January 09, 2021. T he results were acknowledged and understood. Electronically signed by: Luiz Mabry MD 01/09/2021 12:05 AM CDT Due to temporary technical issues with the PACS/Fluency reporting system, reports are being signed by the in house radiologist without review as a courtesy to ensure prompt reporting. The interpreting r adiologist is fully responsible for the content of the report.
--- NOTE | 2021-01-09 11:51 | RAD REPORT ---
EXAM DESCRIPTION: CT - Head Brain Wo Cont - 01/09/2021 6:50 am CLINICAL HISTORY: Dizziness;Slurred speech. TECHNIQUE: Axial, coronal, and sagittal images through the brain were performed in the absence of in travenous contrast. This exam was performed according to our departmental dose-optimization program w hich includes use of Automated Exposure Control, adjustment of the mA and/or kV according to patient size and/or use of iterative reconstruction technique. COMPARISON: None. FINDINGS: There is diffuse age-appropriate atrophy throughout the brain parenchyma. Mild periventric ular white matter changes are present, and there is mild ex vacuo dilatation of the ventricular syste m. There is no intra-axial or extra-axial bleed. There is no mass or mass effect. Calcific atheroscle rosis. The visualized paranasal sinuses and mastoid air cells are patent. No acute fracture is identified. IMPRESSION: 1. No acute intracranial abnormality identified. 2. Chronic age-related and microvascular ischemic changes. Electronically signed by: Sailaja Street MD 01/08/2021 11:25 PM CDT Due to temporary technical issues with the PACS/Fluency reporting system, reports are being signed by the in house radiologist without review as a courtesy to ensure prompt reporting. The interpreting r adiologist is fully responsible for the content of the report.
[2021-01-09 12:13] VITALS: BP 159/81
--- NOTE | 2021-01-09 12:13 | P.DS ---
Admission Date: 01/09/21 Discharge Date: 01/09/21 Primary Care Provider: Giovani Disposition: ROUTINE DISCHARGE Discharge Condition: FAIR Reason for Admission: confusion - Problems (1) Seizure-like activity Current Visit: Yes Status: Acute (2) AMS (altered mental status) Current Visit: Yes Status: Acute (3) Chronic anticoagulation Current Visit: Yes Status: Acute (4) Afib Current Visit: Yes Status: Chronic Qualifiers: Atrial fibrillation type: unspecified Qualified Code(s): I48.91 - Unspeci fied atrial fibrillation (5) HLD (hyperlipidemia) Current Visit: Yes Status: Chronic Qualifiers: Hyperlipidemia type: unspecified Qualified Code(s): E78.5 - Hyperlipidemia, unspecified (6) HTN (hypertension) Current Visit: Yes Status: Chronic Qualifiers: Hypertension type: essential hypertension Qualified Code(s): I10 - Essential (primary) hypertension Brief History of Present Illness: 70-year-old gentleman with a history of atrial fibrillation on Xarelto presented to the emergency department due to an episode of confusion, altered mental status. Spouse reports patient developed transient confusion and altered mental status, was not able focus and was mumbling his words. Spouse also reported shaking movement in his upper extremities during the confusion episode. Patient had his metoprolol reduced due to bradycardia noted on Holter monitor. states patient symptoms occurred after taking his metoprolol. His symptoms resolved in the ED. CT head done in the emergency department unremarkable. CTA head and neck was done given his history of brain aneurysm and a bit shows 6 mm anterior communicating artery aneurysm. EKG showed atrial fibrillation with slow ventricular response. Initial troponin negative. Patient is hospitalized for further management. Hospital Course: Patient placed under observation. He was asymptomatic during the hospital stay. Patient remained alert oriented, no focal motor deficit, no speech problem, no visual problems. Patient was supposed to complete an MRI of the brain but I am told the MRI machine is down today. Case was discussed with Dr. Kolb who recommended prophylactic antiseizure medication for possible seizures. Low dose Keppra 350 mg b.i.d. recommended. Patient will follow with Dr. Kolb in the office next week for arrangement to complete the MRI of the brain and EEG. Patient usual home medications were continued during the hospital stay. Vital Signs/Physical Exam: Temp Pulse Resp BP Pulse Ox 98.4 F 63 16 156/74 H 98 01/09/21 08:00 01/09/21 08:00 01/09/21 08:00 01/09/21 08:00 01/09/21 08:00 General: Alert, In no apparent distress, Oriented x3 HEENT: Mucous membr. moist/pink Neck: Supple, 2+ carotid pulse no bruit, JVD not distended Respiratory: Clear to auscultation bilaterally, Normal air movement Cardiovascular: No edema, Regular rate/rhythm, Normal S1 S2 Gastrointestinal: Soft and benign, Non-distended, No tenderness Musculoskeletal: No swelling, No tenderness Integumentary: No rashes, No erythema Neurological: Normal speech, Normal strength at 5/5 x4 extr, Cranial nerves 3-12 intact Laboratory Data at Discharge: WBC 7.30 K/uL (4.3-10.9) D 01/09/21 04:01 Hgb 12.6 g/dL (13.6-17.9) L 01/09/21 04:01 Hct 36.8 % (39.6-49.0) L 01/09/21 04:01 Plt Count 108 K/uL (152-406) L 01/09/21 04:01 PT 21.7 SECONDS (9.5-12.5) H 01/08/21 22:20 INR 1.88 01/08/21 22:20 APTT 42.2 SECONDS (24.3-36.9) H 01/08/21 22:20 Sodium 142 mmol/L (136-145) 01/09/21 04:01 Potassium 4.1 mmol/L (3.5-5.1) 01/09/21 04:01 BUN 11 mg/dL (7-18) 01/09/21 04:01 Creatinine 0.73 mg/dL (0.55-1.3) 01/09/21 04:01 Glucose 180 mg/dL (74-106) H 01/09/21 04:01 Magnesium 2.2 mg/dL (1.8-2.4) 01/08/21 05:44 Total Bilirubin 0.5 mg/dL (0.2-1.0) 01/09/21 04:01 AST 20 U/L (15-37) 01/09/21 04:01 ALT 27 U/L (12-78) 01/09/21 04:01 Alkaline Phosphatase 80 U/L (45-117) 01/09/21 04:01 Triglycerides 36 mg/dL (<150) 01/09/21 04:01 Cholesterol 116 mg/dL (<200) 01/09/21 04:01 HDL Cholesterol 55 mg/dL (40-60) 01/09/21 04:01 Cholesterol/HDL Ratio 2.11 01/09/21 04:01 Home Medications: Allopurinol 100 mg PO DAILY 01/09/21 Amlodipine [Norvasc*] 5 mg PO DAILY 01/09/21 Clopidogrel Bisulfate [Plavix*] 75 mg PO DAILY 01/09/21 Folic Acid 1 mg PO DAILY #30 tablet 01/09/21 Metoprolol Succinate 25 mg PO DAILY 01/09/21 Olmesartan Medoxomil [Benicar] 40 mg PO DAILY 01/09/21 Oxybutynin Chloride [Ditropan*] 5 mg PO BEDTIME 01/09/21 Rivaroxaban [Xarelto] 20 mg PO BEDTIME 01/09/21 Rosuvastatin [Crestor*] 10 mg PO DAILY 01/09/21 levETIRAcetam [Keppra*] 250 mg PO BID #60 tab 01/09/21 New Medications: Folic Acid 1 mg PO DAILY #30 tablet levETIRAcetam [Keppra*] 250 mg PO BID #60 tab Diet: AHA Activity: Do not drive until you follow up with Dr. Kolb. Followup: Clint Matute MD [Primary Care Provider] - Naveed Kolb MD [ASSOCIATE-ACTIVE - CAN ADMIT] - 1 Week (Please call Dr. Kolb's office at [phone] for apointment next week for MRI, EEG and office follow up.)
[2021-01-09] MEDS ORDERED: levETIRAcetam 500 MG TAB PO SCH (13:00)
[2021-01-09 16:05] LABS: Urine Appearance CLEAR (Clear); Urine Bilirubin NEGATIVE (Negative); Urine Blood NEGATIVE (Negative); Urine Color YELLOW (Yellow); Urine Glucose NEGATIVE (Negative); Urine Protein NEGATIVE (Negative); Urine Specific Gravity 1.015 (1.005-1.030); Urine Urobilinogen 0.2 mg/dL (0.2-1.0)
[2021-01-09 16:22] LABS: Urine Microscopic Reflex NO UMIC
[2021-01-09] MEDS ORDERED: ROSUVASTATIN 10 MG TAB PO SCH (21:00)
--- NOTE | 2021-01-09 22:23 | CON ---
Reason For Consultation: Consultation called because of altered mental status. History Of Present Illness: Mr. Santos is a 70-year-old right-handed patient, who comes to [facility] with transient confusion. The patient's is at bedside and provided info rmation. She said he was watching television and suddenly felt like he was inside the television and his was also there. From her perspective, she said he appeared confused, would speak gibberish , did not make, was kind of looking through her, did not have any obvious changes to his face in term s of weakness in the face, arm, or leg, but there were some shaking of the hands during the episode. Emergency medical services were contacted and he actually began to improve and he said by the time h e got to the hospital, he felt he was back to his normal self. He did have a head CT scan, which patricia wed no acute ischemic or hemorrhagic changes. 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 CT angiogram of his head was unremarkable except there was a possibility of a 6 mm ante rior communicating artery aneurysm, which did not explain the patient's symptoms and there was a left thyroid lobe 1.3 cm nodule versus cyst. The CT angiogram of his head showed no intracranial abnorma lities in terms of his blood vessels otherwise as well as in the neck. laboratory studies showed a m ildly low hemoglobin and hematocrit, otherwise unremarkable in terms of complete blood count with dif ferential. Coagulation panel with INR 1.88. Chemistries unremarkable. Glucose was 82, did range up to 180. LDL cholesterol 54, HDL 55. Liver function studies are normal. Urinalysis was normal. CO VID-19 test was negative. His electrocardiogram showed atrial fibrillation with a slow ventricular r esponse. Past Medical History: Gastroesophageal reflux, atrial fibrillation, gout, hypertension. Past Surgical History: Tonsillectomy, colon resection, knee surgery, bariatric surgery, cardiac sten ts. Allergies: NO KNOWN DRUG ALLERGIES. Medications: At home, Plavix 75 mg daily, allopurinol 100 mg daily, metoprolol 25 mg daily, oxybutyn in 5 mg daily, amlodipine 5 mg daily, rosuvastatin 10 mg daily, olmesartan 40 mg daily, Xarelto 20 mg daily. Family History: Noncontributory. Social History: The patient does not drink alcohol or smoke cigarettes. Currently quit that 30 year s ago. Review of Systems: The patient had no recent fevers, chills, nausea, vomiting, myalgias, arthralgias, headache, weight c hange, rash. No psychiatric issues. No gastrointestinal or genitourinary issues. No other positive s on a 10 point systems review. Physical Examination: Vital Signs: Blood pressure 159/81, pulse 69, respiratory rate 16, temperature 98.4, oxygen saturati on 97%. Weight 197 pounds, height 5 feet 8 inches, BMI 30. General: Mr. Santos is resting comfortably in his bed. He is actually ready to be discharged octavia e. HEENT: He is normocephalic, atraumatic. Sclerae anicteric. Oropharynx is pink and moist. Neck: Supple. Chest: Clear. Heart: Irregular. Extremities: No edema, cyanosis, or clubbing. Neurological: He is alert, oriented to person, place, situation, time. Follows all commands appropr iately. Cranial nerves 2 through 12 intact by exam. Motor examination intact in the upper and lower extremities. Coordination intact in the upper and lower extremities. Reflexes symmetric in upper a nd lower extremities. Gait with good stance, right arm swing. Assessment: Mr. Santos is a 70-year-old patient with 30 minute episode of transient confusion of unclear etiology. The possibility of it being a transient ischemic attack is considered. Possibilit y also of it being a seizure was considered and he is actually placed on Keppra 250 mg twice daily, t hat may be continued for a month and he should have a brain MRI and EEG after his discharge from the hospital today. He may follow up with Dr. Kolb for those studies. Currently, no evidence of an infection, metabolic derangement, or other abnormalities, and no additional immediate neurological workup is required. LB/MODL Voice ID: [id number] Report ID: [id number]
--- NOTE | 2021-01-10 10:27 | ECHO ---
HEIGHT: 5 ft 8 in WEIGHT: 197 lb 0 oz DATE OF STUDY: 01/09/[address]: Nj Espana 2-DIMENSIONAL: YES M.MODE: YES DOPPLER: YES COLOR FLOW: YES TDS: PORTABLE: DEFINITY: BUBBLE STUDY: DIAGNOSIS: ATRIAL FIBRILLATION CARDIAC HISTORY: CATHERIZATION: YES SURGERY: NO PROSTHETIC VALVE: NO PACEMAKER: NO MEASUREMENTS (cm) DIASTOLIC (NORMALS) SYSTOLIC (NORMALS) IVSd 1.1 (0.6-1.2) LA Diam 3.3 (1.9-4.0) LVEF 60-65% LVIDd 4.0 (3.5-5.7) LVIDs 2.2 (2.0-3.5) %FS 46% LVPWd 1.1 (0.6-1.2) Ao Diam 2.9 (2.0-3.7) 2 DIMENSIONAL ASSESSMENT: RIGHT ATRIUM: NORMAL LEFT ATRIUM: NORMAL RIGHT VENTRICLE: NORMAL LEFT VENTRICLE: NORMAL TRICUSPID VALVE: MILD TRICUSPID REGURGITATION MITRAL VALVE: MILD MITRAL REGURGITATION, MITRAL ANNULAR CALCIFICATION PULMONIC VALVE: NORMAL AORTIC VALVE: NORMAL PERICARDIAL EFFUSION: NONE AORTIC ROOT: NORMAL LEFT VENTRICULAR WALL MOTION: NORMAL DOPPLER/COLOR FLOW: SEE BELOW COMMENTS: NORMAL LEFT VENTRICULAR EJECTION FRACTION 60-65% WITH NORMAL WALL MOTION. MILD MITRAL REGURGITATION. MILD TRICUSPID REGURGITATION. TECHNOLOGIST: DARYL BRENNER
== END 2021-01-09 15:40 | disposition home or self-care (01) ==
LOC: ER 21:24 → ERHOLD 01-09 01:08 → 2ND 01-09 02:35
PROVIDERS: ADMIT Internal Medicine; ATTEND Internal Medicine
DX: R41.82 Altered mental status, unspecified (principal); I48.20 Chronic atrial fibrillation, unspecified; R00.1 Bradycardia, unspecified; I10 Essential (primary) hypertension; E78.5 Hyperlipidemia, unspecified; M10.9 Gout, unspecified; K21.9 Gastro-esophageal reflux disease without esophagitis; Z95.5 Presence of coronary angioplasty implant and graft; Z79.01 Long term (current) use of anticoagulants; Z79.02 Long term (current) use of antithrombotics/antiplatelets; Z87.891 Personal history of nicotine dependence; Z90.49 Acquired absence of other specified parts of digestive tract; Z98.84 Bariatric surgery status; Z20.822 Contact with and (suspected) exposure to COVID-19; Z82.49 Family history of ischemic heart disease and other diseases of the circulatory system
CPT/HCPCS: 93005; 93306; 85025 ×2; 80048; 36415; 83735; 85610; 80061; 82947; 85730; 81003; 84484; 80053; 70450; 70496; 70498; 97116; 97162; 94760 ×2; 99285; U0003; Q9967

== ENCOUNTER 2021-05-24 23:32 | Observation (INO) | payer OTHER ==
[2021-05-25 02:28] LABS: Protime INR 1.04
[2021-05-25 02:30] LABS: Absolute Lymphocytes (CBC) 0.9 K/uL (0.7-4.9); Hematocrit 36.8 % (39.6-49.0); Lymphocytes % 13.4 % (15.3-44.8); MPV 9.5 fL (7.6-11.3); RBC Red Blood Cell Count 4.24 M/uL (4.33-5.43)
[2021-05-25 02:41] LABS: ALT/SGPT 26 U/L (12-78); AST/SGOT 21 U/L (15-37); Albumin 3.5 g/dL (3.4-5.0); Alkaline Phosphatase 91 U/L (45-117); BUN Blood Urea Nitrogen 17 mg/dL (7-18); Bicarbonate 30 mmol/L (21-32); Bilirubin Direct 0.1 mg/dL (0-0.2); Bilirubin Total 0.4 mg/dL (0.2-1.0); Glucose Level 107 mg/dL (74-106); Magnesium 2.2 mg/dL (1.8-2.4); NT PRO-BNP 873 pg/mL (<125); Protein, Total 6.9 g/dL (6.4-8.2); Sodium Level 144 mmol/L (136-145); Troponin (Emerg Dept Use Only) < 0.02 ng/mL (0.0-0.045)
[2021-05-25] MEDS ORDERED: CEFTRIAXONE 1000 MG/VIAL ONE (05:03)
[2021-05-25] MEDS ORDERED: NA CHLORIDE 0.9% 250 ML ONE (05:04)
[2021-05-25] MEDS ORDERED: AZITHROMYCIN 500 MG INJ IVPB ONE (05:04)
[2021-05-25] MEDS ORDERED: NA CHLORIDE 0.9% 50 ML ONE (05:04)
--- NOTE | 2021-05-25 05:16 | P.HP ---
Certification for Inpatient Patient admitted to: Inpatient With expected LOS: >2 Midnights Patient will require the following post-hospital care: None Practitioner: I am a practitioner with admitting privileges, knowledge of patient current condition, hospital course, and medical plan of care. Services: Services provided to patient in accordance with Admission requirements found in Title 42 Section 412.3 of the Code of Federal Regulations Patient History Date of Service: 05/25/21 Primary Care Provider: Dr. Matute, cardiology- Dr. Ramírez Reason for admission: Hemoptysis, multifocal pneumonia History of Present Illness: 70-year-old male with history of atrial fibrillation with recent watchman procedure, hypertension presents emergency department for hemoptysis. Patient reports this morning he woke up and had a coughing fit and coughed up a small amount of bright red blood into the sink. Patient reports over the course next 10 to 15 minutes he had a few more episodes of coughing with small amounts of bright red sputum. Patient has not had any more hemoptysis since then. Patient was evaluated the emergency department labs were significant for hemoglobin 12.0 hematocrit 36.8 platelet [address] chest demonstrates multifocal pneumonia throughout the right upper and right middle lobe. Patient also fully vaccinated with booster. Room air saturations good around 97% at this time, ED provider wishes to admit to observation for hemoptysis/multifocal pneumonia. Allergies No Known Allergies Allergy (Unverified 12/05/16 20:30) Home Medications: Allopurinol 100 mg PO DAILY 01/09/21 Amlodipine [Norvasc*] 5 mg PO DAILY 01/09/21 Clopidogrel Bisulfate [Plavix*] 75 mg PO DAILY 01/09/21 Folic Acid 1 mg PO DAILY #30 tablet 01/09/21 Metoprolol Succinate 25 mg PO DAILY 01/09/21 Olmesartan Medoxomil [Benicar] 40 mg PO DAILY 01/09/21 Oxybutynin Chloride [Ditropan*] 5 mg PO BEDTIME 01/09/21 Rivaroxaban [Xarelto] 20 mg PO BEDTIME 01/09/21 Rosuvastatin [Crestor*] 10 mg PO DAILY 01/09/21 levETIRAcetam [Keppra*] 250 mg PO BID #60 tab 01/09/21 - Past Medical/Surgical History Diabetic: No -: Atrial fibrillation status post watchman procedure -: Hypertension -: tonsillectomy -: colon resection -: knee surgery -: bariatric surgery -: cardiac stent -: Watchman February 2021 Psychosocial/ Personal History: Retired, lives with his - Family History Father -: Heart disease - Social History Smoking Status: Never smoker Alcohol use: No CD- Drugs: No Caffeine use: Yes Place of Residence: Home Review of Systems 10-point ROS is otherwise unremarkable Respiratory: Cough, Hemoptysis Physical Examination - Physical Exam General: Alert, In no apparent distress HEENT: Atraumatic, PERRLA, Mucous membr. moist/pink, EOMI, Sclerae nonicteric Neck: Supple, 2+ carotid pulse no bruit, No LAD, Without JVD or thyroid abnormality Respiratory: Clear to auscultation bilaterally, Crackles/rales Cardiovascular: Irregular heart rate/rhythm (A. fib, rate controlled), Systolic murmur Gastrointestinal: Normal bowel sounds, No tenderness Musculoskeletal: No tenderness Integumentary: No rashes Neurological: Normal gait, Normal speech, Normal strength at 5/5 x4 extr, Normal tone, Normal affect Lymphatics: No axilla or inguinal lymphadenopathy - Studies Laboratory Data (last 24 hrs) 05/25/21 01:57: PT 12.0, INR 1.04 05/25/21 01:57: WBC 6.80, Hgb 12.0 L, Hct 36.8 L, Plt Count 127 L 05/25/21 01:57: Sodium 144, Potassium 4.0, BUN 17, Creatinine 0.68, Glucose 107 H, Magnesium 2.2, Total Bilirubin 0.4, AST 21, ALT 26, Alkaline Phosphatase 91 Microbiology Data (last 24 hrs): 05/25/21 02:59 Nasopharnyx Influenza Type A Antigen Screen - Final 05/25/21 02:59 Nasopharnyx Influenza Type B Antigen Screen - Final Assessment and Plan - Plan Assessment: Hemoptysis likely secondary to multifocal pneumonia involving right upper and middle lobes Atrial fibrillation status post watchman procedure February 2021 no longer on anticoagulation therapy Hypertension CAD Plan: Hemoptysis likely secondary to multifocal pneumonia involving right upper and middle lobes: Patient on Rocephin/Zithromax, sputum culture and AFB ordered. Pulmonology consulted, patient on room air at this time. Patient fully vaccinated for Covid, denies history of known Covid infection. Incentive spirometry Atrial fibrillation status post watchman procedure February 2021 no longer on anticoagulation therapy: Patient had echo to confirm functioning watchman, was taken off of Xarelto few months ago. Patient still on aspirin/Plavix for CAD. Monitor on telemetry, rate controlled. Hypertension: Obtain and continue medications CAD: Obtain and continue medication, will hold aspirin/Plavix at this time given hemoptysis. DVT PPX: SCDs Code status: Full Discharge Plan: Home Plan to discharge in: 24 Hours - Advance Directives Does patient have a Living Will: No Does patient have a Durable POA for Healthcare: No - Code Status/Comfort Care Code Status Assessed: Yes (Full code) Critical Care: No Time Spent Managing Pts Care (In Minutes): 55
--- NOTE | 2021-05-25 05:20 | ER ---
Nurse's Notes [facility] Name: Bony Santos Age: 70 yrs Sex: Male : 1950 Arrival Date: 05/24/2021 Time: 23:35 Bed 16 Private MD: Diagnosis: Pneumonia, Multifocal;Hemoptysis Presentation: 05/25 00:02 Chief complaint: Patient states: Began coughing prior to arrival and reported spitting lp1 up blood; Denies any chest pain, shortness of breath, abdominal pain, change in stools. Coronavirus screen: At this time, the client does not indicate any symptoms associated with coronavirus-19. Ebola Screen: No symptoms or risks identified at this time. Risk Assessment: Do you want to hurt yourself or someone else? Patient reports no desire to harm self or others. Onset of symptoms was May 25, 2021. 00:02 Method Of Arrival: Ambulatory lp1 00:02 Acuity: MAVERICK 3 lp1 00:07 Initial Sepsis Screen: Does the patient meet any 2 criteria? No. Patient's initial lp1 sepsis screen is negative. Does the patient have a suspected source of infection? No. Patient's initial sepsis screen is negative. Triage Assessment: 02:44 General: Appears in no apparent distress. comfortable, Behavior is calm, cooperative, bc5 appropriate for age. Historical: - Allergies: 00:04 No Known Allergies; lp1 - Home Meds: 00:04 allopurinol 100 mg Oral tab 1 tab once daily [Active]; aspirin 325 mg Oral TbEC 1 tab lp1 once daily [Active]; oxybutynin chloride 5 mg Oral tr24 1 tab twice a day [Active]; metoprolol succinate 25 mg Oral Tb24 1 tab twice a day [Active]; rosuvastatin 10 mg Oral tab 1 tab nightly [Active]; olmesartan 20 mg oral tab once daily [Active]; clopidogrel 75 mg Oral tab 1 tab once daily [Active]; - PMHx: 00:04 acid reflux; Atrial Fib; fluid retention; Gout; Hypertension; Prediabetic; lp1 - PSHx: 00:04 Gastric Bypass; Heart Stent; Watchmen; lp1 - Immunization history:: Adult Immunizations up to date, Client reports receiving the 2nd dose of the Covid vaccine, [employer]ating [employer]. - Social history:: Smoking status: Patient/guardian denies using tobacco, the patient reports quitting approximately 30 years ago. Screenin:06 Abuse screen: Denies threats or abuse. Denies injuries from another. Nutritional lp1 screening: No deficits noted. Tuberculosis screening: No symptoms or risk factors identified. Fall Risk None identified. Assessment: 02:44 Pain: Denies pain. Neuro: No deficits noted. Cardiovascular: No deficits noted. bc5 Respiratory: No deficits noted. Vital Signs: 00:06 BP 164 / 90; Pulse 56; Resp 18; Temp 98(O); Pulse Ox 93% on R/A; Weight 92.99 kg (R); lp1 Height 5 ft. 9 in. (175.26 cm); Pain 0/10; 02:44 BP 150 / 87; Pulse 60; Resp 16; Temp 98; Pulse Ox 98% on R/A; Pain 0/10; bc5 05:13 BP 161 / 89; Pulse 59; Resp 17; Temp 98(O); Pulse Ox 100% on R/A; Pain 0/10; bc5 00:06 Body Mass Index 30.27 (92.99 kg, 175.26 cm) lp1 ED Course: 05/24 23:35 Patient arrived in ED. ja2 05/25 00:03 Triage completed. lp1 00:03 Arm band placed on left wrist. lp1 00:21 Sarina Duncan, SONYA is Primary Nurse. bc5 00:57 Tres Maldonado MD is Attending Physician. 7 02:01 Inserted saline lock: 18 gauge in left forearm, using aseptic technique. Blood ds4 collected. 02:07 XRAY Chest (1 view) In Process Unspecified. EDMS 02:43 LFT's Sent. bc5 02:43 CBC with Diff Sent. bc5 02:43 Basic Metabolic Panel Sent. bc5 02:44 No provider procedures requiring assistance completed. bc5 02:45 Patient has correct armband on for positive identification. Bed in low position. Call 5 light in reach. Adult w/ patient. 03:51 CT Chest Angio In Process Unspecified. EDMS 04:32 Blood Culture Sent. ds4 04:40 Blood Culture Adult (2) Sent. bc5 05:19 Tadeo Rod DO is Hospitalizing Provider. 7 Administered Medications: 04:46 Drug: Rocephin (cefTRIAXone) 1 grams Route: IV; Rate: per protocol; Site: left bc5 antecubital; 05:13 Follow up: IV Status: Completed infusion; IV Intake: 50ml bc5 05:13 Drug: AZITHromycin 500 mg Route: IVPB; Infused Over: 1 hrs; Site: left antecubital; [facility] Intake: 05:13 IV: 50ml; Total: 50ml. [facility] Outcome: 05:20 Decision to Hospitalize by Provider. [facility] 16:28 Patient left the ED. tc5 Signatures: Dispatcher [employer] EDMS Deidre Schilling, RN RN lp1 Tab Ariza4 Tres Maldonado MD MD 7 Odessa Guerrier Bella, RN RN bc5 Juany Gil RN RN tc5 Corrections: (The following items were deleted from the chart) 00:10 00:06 Resp 18bpm; Temp 98F Oral; 92.99 kg Reported; Height 5 ft. 9 in.; BMI: 30.2; Pain lp1 0/10; lp1
--- NOTE | 2021-05-25 05:20 | EDPHYS ---
Physician Documentation [facility] Name: Bony Santos Age: 70 yrs Sex: Male : 1950 Arrival Date: 05/24/2021 Time: 23:35 Bed 16 Private MD: ED Physician Tres Maldonado HPI: 05/25 01:00 This 70 yrs old Male presents to ER via Ambulatory with complaints of mh7 SPITTING UP BLOOD. 01:00 The patient or guardian reports cough, that is intermittent, described as mild, with mh7 productive sputum, that is bloody. Onset: The symptoms/episode began/occurred last night, at 23:00. Severity of symptoms: At their worst the symptoms were mild, last night, in the emergency department the symptoms have improved, moderately. Modifying factors: The symptoms are alleviated by nothing, the symptoms are aggravated by nothing. Associated signs and symptoms: Pertinent negatives: chest pain, diarrhea, ear ache, fever, nausea, rhinorrhea, sore throat, vomiting. Historical: - Allergies: 00:04 No Known Allergies; lp1 - Home Meds: 00:04 allopurinol 100 mg Oral tab 1 tab once daily [Active]; aspirin 325 mg Oral TbEC 1 tab lp1 once daily [Active]; oxybutynin chloride 5 mg Oral tr24 1 tab twice a day [Active]; metoprolol succinate 25 mg Oral Tb24 1 tab twice a day [Active]; rosuvastatin 10 mg Oral tab 1 tab nightly [Active]; olmesartan 20 mg oral tab once daily [Active]; clopidogrel 75 mg Oral tab 1 tab once daily [Active]; - PMHx: 00:04 acid reflux; Atrial Fib; fluid retention; Gout; Hypertension; Prediabetic; lp1 - PSHx: 00:04 Gastric Bypass; Heart Stent; Watchmen; lp1 - Immunization history:: Adult Immunizations up to date, Client reports receiving the 2nd dose of the Covid vaccine, Pfizer. - Social history:: Smoking status: Patient/guardian denies using tobacco, the patient reports quitting approximately 30 years ago. ROS: 01:00 Constitutional: Negative for fever, chills, and weight loss, Eyes: Negative for injury, mh7 pain, redness, and discharge, ENT: Negative for injury, pain, and discharge, Neck: Negative for injury, pain, and swelling, Cardiovascular: Negative for chest pain, palpitations, and edema, Abdomen/GI: Negative for abdominal pain, nausea, vomiting, diarrhea, and constipation, Back: Negative for injury and pain, : Negative for injury, bleeding, discharge, and swelling, MS/Extremity: Negative for injury and deformity, Skin: Negative for injury, rash, and discoloration, Neuro: Negative for headache, weakness, numbness, tingling, and seizure, Psych: Negative for depression, anxiety, suicide ideation, homicidal ideation, and hallucinations, Allergy/Immunology: Negative for hives, rash, and allergies, Endocrine: Negative for neck swelling, polydipsia, polyuria, polyphagia, and marked weight changes, Hematologic/Lymphatic: Negative for swollen nodes, abnormal bleeding, and unusual bruising. Exam: 01:00 Constitutional: This is a well developed, well nourished patient who is awake, alert, mh7 and in no acute distress. Head/Face: Normocephalic, atraumatic. Eyes: Pupils equal round and reactive to light, extra-ocular motions intact. Lids and lashes normal. Conjunctiva and sclera are non-icteric and not injected. Cornea within normal limits. Periorbital areas with no swelling, redness, or edema. Neck: Trachea midline, no thyromegaly or masses palpated, and no cervical lymphadenopathy. Supple, full range of motion without nuchal rigidity, or vertebral point tenderness. No Meningismus. Chest/axilla: Normal chest wall appearance and motion. Nontender with no deformity. No lesions are appreciated. Cardiovascular: Regular rate and rhythm with a normal S1 and S2. No gallops, murmurs, or rubs. Normal PMI, no JVD. No pulse deficits. Respiratory: Lungs have equal breath sounds bilaterally, clear to auscultation and percussion. No rales, rhonchi or wheezes noted. No increased work of breathing, no retractions or nasal flaring. Abdomen/GI: Soft, non-tender, with normal bowel sounds. No distension or tympany. No guarding or rebound. No evidence of tenderness throughout. Back: No spinal tenderness. No costovertebral tenderness. Full range of motion. Skin: Warm, dry with normal turgor. Normal color with no rashes, no lesions, and no evidence of cellulitis. MS/ Extremity: Pulses equal, no cyanosis. Neurovascular intact. Full, normal range of motion. Neuro: Awake and alert, GCS 15, oriented to person, place, time, and situation. Cranial nerves II-XII grossly intact. Motor strength 5/5 in all extremities. Sensory grossly intact. Cerebellar exam normal. Normal gait. Psych: Awake, alert, with orientation to person, place and time. Behavior, mood, and affect are within normal limits. Vital Signs: 00:06 BP 164 / 90; Pulse 56; Resp 18; Temp 98(O); Pulse Ox 93% on R/A; Weight 92.99 kg (R); lp1 Height 5 ft. 9 in. (175.26 cm); Pain 0/10; 02:44 BP 150 / 87; Pulse 60; Resp 16; Temp 98; Pulse Ox 98% on R/A; Pain 0/10; bc5 05:13 BP 161 / 89; Pulse 59; Resp 17; Temp 98(O); Pulse Ox 100% on R/A; Pain 0/10; bc5 00:06 Body Mass Index 30.27 (92.99 kg, 175.26 cm) lp1 MDM: 05:18 Differential Diagnosis: Obstructed Airway Bronchitis Influenza Upper Respiratory mh7 Infection Viral Syndrome Pneumonia. Data reviewed: vital signs, nurses notes, old medical records, lab test result(s), cardiac enzymes, CBC, electrolytes, EKG, radiologic studies, CT scan, plain films. Data interpreted: Pulse oximetry: on room air is 98 %. Interpretation: normal. Counseling: I had a detailed discussion with the patient and/or guardian regarding: the historical points, exam findings, and any diagnostic results supporting the discharge/admit diagnosis, the presence of at least one elevated blood pressure reading (>120/80) during this emergency department visit, lab results, radiology results, the need for further work-up and treatment in the hospital. Response to treatment: the patient's symptoms have markedly improved after treatment. 05:20 Patient medically screened. [facility] 05/25 01:21 Order name: Basic Metabolic Panel [facility] 05/25 01: Order name: CBC with Diff [facility] 05/25 01: Order name: LFT's [facility] 05/25 01: Order name: Magnesium; Complete Time: 02:47 [facility] 10/17 01:21 Order name: NT PRO-BNP; Complete Time: 02:47 [facility] 05/25 01:21 Order name: PT-INR; Complete Time: 02:47 [facility] 05/25 01:21 Order name: Troponin (emerg Dept Use Only); Complete Time: 02:47 [facility] 05/25 01:21 Order name: Basic Metabolic Panel; Complete Time: 02:47 [facility] 05/25 01:21 Order name: CBC with Automated Diff; Complete Time: 02:47 [facility] 05/25 01:22 Order name: Liver (Hepatic) Function; Complete Time: 02:47 [facility] 05/25 01:22 Order name: Influenza Screen (a \T\ B); Complete Time: 03:47 [facility] 05/25 03:12 Order name: SARS-COV-2 RT PCR; Complete Time: 04:12 [facility] 05/25 03:29 Order name: Blood Culture Adult (2) [facility] 05/25 01:21 Order name: XRAY Chest (1 view) [facility] 05/25 01:21 Order name: EKG; Complete Time: 01:22 [facility] 05/25 01:21 Order name: Cardiac monitoring; Complete Time: 02:43 [facility] 05/25 01:21 Order name: EKG - Nurse/Tech; Complete Time: 03:03 [facility] 05/25 01:21 Order name: IV Saline Lock; Complete Time: 02:15 [facility] 05/25 01:21 Order name: Labs collected and sent; Complete Time: 02:15 [facility] 05/25 01:21 Order name: O2 Per Protocol; Complete Time: 02:15 [facility] 05/25 01:21 Order name: O2 Sat Monitoring; Complete Time: 02:15 [facility] 05/25 02:58 Order name: CT Chest Angio [facility] 05/25 03:30 Order name: Blood Culture [facility] 05/25 08:34 Order name: Procalcitonin [facility] 05/25 12:01 Order name: Hemoglobin [facility] 05/25 12:01 Order name: Hematocrit [facility] Administered Medications: 04:46 Drug: Rocephin (cefTRIAXone) 1 grams Route: IV; Rate: per protocol; Site: left bc5 antecubital; 05:13 Follow up: IV Status: Completed infusion; IV Intake: 50ml bc5 05:13 Drug: AZITHromycin 500 mg Route: IVPB; Infused Over: 1 hrs; Site: left antecubital; bc5 Disposition Summary: 05/25/21 05:20 Hospitalization Ordered Hospitalization Status: Inpatient Admission [facility] Provider: Tadeo Rod Location: Telemetry/MedSurg (Inpatient) [facility] Condition: Stable [facility] Problem: new [facility] Symptoms: have improved [facility] Bed/Room Type: Standard [facility] Room Assignment: (05/25/21 14:42) antwan Diagnosis - Pneumonia, Multifocal 7 - Hemoptysis [facility] Forms: - Medication Reconciliation Form [facility] - SBAR form [facility] Signatures: Dispatcher [employer] EDMS Deidre Schilling, RN RN lp1 Riki Jorgensen FNP-C OIL SPRAYING MACHINE OPERATOR-Cla1 Jame Haney RN RN ja1 Imani Broussard Maurice, MD MD 7 Sarina Duncan RN RN bc5 Corrections: (The following items were deleted from the chart) 03:12 01:22 CORONAVIRUS+MR.LAB.BRZ ordered. EDIL EDMS 14:34 05:20 [facility] eb 14:42 14:[address] [place] [address]
--- NOTE | 2021-05-25 06:14 | P.DS ---
Admission Date: 05/25/21 Discharge Date: 05/25/21 Primary Care Provider: Dr. Matute, Cardiology- Dr. Ramírez Disposition: ROUTINE DISCHARGE Discharge Condition: GOOD Reason for Admission: Hemoptysis, multifocal pneumonia Consultations: Pulmonary-Dr. العراقي Procedures: COVID: negative CT Scan: No pulmonary emboli. Multifocal pneumonia involving the right upper and middle lobes Medical Problem List Hemoptysis likely secondary to multifocal pneumonia involving right upper and middle lobes Atrial fibrillation status post watchman procedure February 2021 no longer on anticoagulation therapy Hypertension CAD Hyperlipidemia Brief History of Present Illness: 70-year-old male with history of atrial fibrillation with recent watchman procedure, hypertension presents emergency department for hemoptysis. Patient reports this morning he woke up and had a coughing fit and coughed up a small amount of bright red blood into the sink. Patient reports over the course next 10 to 15 minutes he had a few more episodes of coughing with small amounts of bright red sputum. Patient has not had any more hemoptysis since then. Patient was evaluated the emergency department labs were significant for hemoglobin 12.0 hematocrit 36.8 platelet [address] chest demonstrates multifocal pneumonia throughout the right upper and right middle lobe. Patient also fully vaccinated with booster. Room air saturations good around 97% at this time, ED provider wishes to admit to observation for hemoptysis/multifocal pneumonia. Allergies No Known Allergies Allergy (Unverified 12/05/16 20:30) Home Medications: Allopurinol 100 mg PO DAILY 01/09/21 Amlodipine [Norvasc*] 5 mg PO DAILY 01/09/21 Clopidogrel Bisulfate [Plavix*] 75 mg PO DAILY 01/09/21 Folic Acid 1 mg PO DAILY #30 tablet 01/09/21 Metoprolol Succinate 25 mg PO DAILY 01/09/21 Olmesartan Medoxomil [Benicar] 40 mg PO DAILY 01/09/21 Oxybutynin Chloride [Ditropan*] 5 mg PO BEDTIME 01/09/21 Rivaroxaban [Xarelto] 20 mg PO BEDTIME 01/09/21 Rosuvastatin [Crestor*] 10 mg PO DAILY 01/09/21 levETIRAcetam [Keppra*] 250 mg PO BID #60 tab 01/09/21 - Past Medical/Surgical History Diabetic: No -: Atrial fibrillation status post watchman procedure -: Hypertension -: tonsillectomy -: colon resection -: knee surgery -: bariatric surgery -: cardiac stent -: Watchman February 2021 Psychosocial/ Personal History: Retired, lives with his - Family History Father -: Heart disease - Social History Smoking Status: Never smoker Alcohol use: No CD- Drugs: No Caffeine use: Yes Place of Residence: Home Review of Systems 10-point ROS is otherwise unremarkable Respiratory: Cough, Hemoptysis Physical Examination - Physical Exam General: Alert, In no apparent distress HEENT: Atraumatic, PERRLA, Mucous membr. moist/pink, EOMI, Sclerae nonicteric Neck: Supple, 2+ carotid pulse no bruit, No LAD, Without JVD or thyroid abnormality Respiratory: Clear to auscultation bilaterally, Crackles/rales Cardiovascular: Irregular heart rate/rhythm (A. fib, rate controlled), Systolic murmur Gastrointestinal: Normal bowel sounds, No tenderness Musculoskeletal: No tenderness Integumentary: No rashes Neurological: Normal gait, Normal speech, Normal strength at 5/5 x4 extr, Normal tone, Normal affect Lymphatics: No axilla or inguinal lymphadenopathy - Studies Laboratory Data (last 24 hrs) 05/25/21 01:57: PT 12.0, INR 1.04 05/25/21 01:57: WBC 6.80, Hgb 12.0 L, Hct 36.8 L, Plt Count 127 L 05/25/21 01:57: Sodium 144, Potassium 4.0, BUN 17, Creatinine 0.68, Glucose 107 H, Magnesium 2.2, Total Bilirubin 0.4, AST 21, ALT 26, Alkaline Phosphatase 91 Microbiology Data (last 24 hrs): 05/25/21 02:59 Nasopharnyx Influenza Type A Antigen Screen - Final 05/25/21 02:59 Nasopharnyx Influenza Type B Antigen Screen - Final Assessment and Plan - Plan Hospital Course: Patient presented with hemoptysis. Patient found to have multifocal pneumonia involving the right upper and middle lobes. This was confirmed on CT scan. Patient did not have a pulmonary embolism. White count within normal range. Procalcitonin negative. Patient with history of atrial fibrillation with prior watchman procedure no longer on anticoagulation therapyXarelto. Patient takes Plavix for CAD. Patient also with underlying hypertension. The patient did well overnight. Patient without any significant shortness of breath. No further hemoptysis noted. Case discussed in detail with pulmonology. No intervention needed at this time. At discharge patient will continue with Augmentin 500 mg 1 pill twice daily and doxycycline 100 mg 1 pill twice daily both for 7 days. Recommend follow-up with pulmonology within 1 week to follow- up his hospitalization. Recommend to recheck chest x-ray in 2 to 4 weeks to monitor resolution. Recommend follow-up with PCP within 1 week to follow-up this hospitalization. Patient with history of atrial fibrillation with prior watchman procedure February 2021. He no longer takes Xarelto. Patient will continue with his current medications including Plavix 75 mg daily, folic acid 1 mg daily, metoprolol 25 mg daily, Crestor 10 mg daily and Norvasc 5 mg daily. Recommend follow-up with cardiology as directed. Patient with hypertension. Overall stable. At discharge patient will continue with current medication Norvasc 5 mg daily and metoprolol 25 mg daily. Recommend to maintain blood pressure less than 130/80. Further adjustment can be done by his PCP or cardiology. Patient with hyperlipidemia. At discharge patient will continue with Crestor 10 mg daily. General: Alert, In no apparent distress, Oriented x3, Cooperative HEENT: Atraumatic Neck: Supple Respiratory: Clear to auscultation bilaterally, Normal air movement Cardiovascular: Irregular heart rate/rhythm (A. fib rate controlled ) Gastrointestinal: Normal bowel sounds, Soft and benign, Non-distended, No tenderness, No masses, No rebound, No guarding Laboratory Data at Discharge: WBC 6.80 K/uL (4.3-10.9) 05/25/21 01:57 Hgb 12.0 g/dL (13.6-17.9) L 05/25/21 01:57 Hct 36.8 % (39.6-49.0) L 05/25/21 01:57 Plt Count 127 K/uL (152-406) L 05/25/21 01:57 PT 12.0 SECONDS (9.5-12.5) 05/25/21 01:57 INR 1.04 05/25/21 01:57 Sodium 144 mmol/L (136-145) 05/25/21 01:57 Potassium 4.0 mmol/L (3.5-5.1) 05/25/21 01:57 BUN 17 mg/dL (7-18) 05/25/21 01:57 Creatinine 0.68 mg/dL (0.55-1.3) 05/25/21 01:57 Glucose 107 mg/dL (74-106) H 05/25/21 01:57 Magnesium 2.2 mg/dL (1.8-2.4) 05/25/21 01:57 Total Bilirubin 0.4 mg/dL (0.2-1.0) 05/25/21 01:57 AST 21 U/L (15-37) 05/25/21 01:57 ALT 26 U/L (12-78) 05/25/21 01:57 Alkaline Phosphatase 91 U/L (45-117) 05/25/21 01:57 Home Medications: Amlodipine [Norvasc*] 5 mg PO DAILY 01/09/21 Clopidogrel Bisulfate [Plavix*] 75 mg PO DAILY 01/09/21 Folic Acid 1 mg PO DAILY #30 tablet 01/09/21 Metoprolol Succinate 25 mg PO DAILY 01/09/21 Rosuvastatin [Crestor*] 10 mg PO DAILY 01/09/21 Amox/Clavulanate [Augmentin 500-125 mg Tab] 500 mg PO BID #14 tab 05/25/21 Doxycycline Hyclate 100 mg PO BID #14 tablet 05/25/21 New Medications: Amox/Clavulanate [Augmentin 500-125 mg Tab] 500 mg PO BID #14 tab Doxycycline Hyclate 100 mg PO BID #14 tablet Physician Discharge Instructions: Patient presented with hemoptysis. Patient found to have multifocal pneumonia involving the right upper and middle lobes. This was confirmed on CT scan. Patient did not have a pulmonary embolism. White count within normal range. Procalcitonin negative. Patient with history of atrial fibrillation with prior watchman procedure no longer on anticoagulation therapyXarelto. Patient takes Plavix for CAD. Patient also with underlying hypertension. The patient did well overnight. Patient without any significant shortness of breath. No further hemoptysis noted. Case discussed in detail with pulmonology. No inter vention needed at this time. At discharge patient will continue with Augmentin 500 mg 1 pill twice daily and doxycycline 100 mg 1 pill twice daily both for 7 days. Recommend follow-up with pulmonology within 1 week to follow-up his hospitalization. Recommend to recheck chest x-ray in 2 to 4 weeks to monitor resolution. Recommend follow-up with PCP within 1 week to follow-up this hospitalization. Patient with history of atrial fibrillation with prior watchman procedure February 2021. He no longer takes Xarelto. Patient will continue with his current medications including Plavix 75 mg daily, folic acid 1 mg daily, metoprolol 25 mg daily, Crestor 10 mg daily and Norvasc 5 mg daily. Recommend follow-up with cardiology as directed. Patient with hypertension. Overall stable. At discharge patient will continue with current medication Norvasc 5 mg daily and metoprolol 25 mg daily. Recommend to maintain blood pressure less than 130/80. Further adjustment can be done by his PCP or cardiology. Patient with hyperlipidemia. At discharge patient will continue with Crestor 10 mg daily. Diet: AHA Activity: Ad melo Followup: Clint Matute MD [Primary Care Provider] - Time spent managing pt's care (in minutes): 55
[2021-05-25] MEDS ORDERED: ACETAMINOPHEN 500 MG TAB PO PRN (08:29)
[2021-05-25] MEDS ORDERED: ONDANSETRON 4 MG/2 ML VIAL IV PRN (08:29)
[2021-05-25] MEDS ORDERED: CLOPIDOGREL 75 MG TABLET PO SCH (09:00)
[2021-05-25] MEDS ORDERED: FOLIC ACID 1 MG TABLET PO SCH (09:00)
[2021-05-25] MEDS ORDERED: ROSUVASTATIN 10 MG TAB PO SCH (09:00)
[2021-05-25] MEDS ORDERED: AMLODIPINE 5 MG TAB PO SCH (09:00)
[2021-05-25] MEDS ORDERED: METOPROLOL XL 25 MG TAB PO SCH (09:00)
[2021-05-25] MEDS ORDERED: AMLODIPINE 5 MG TAB ONE (09:03)
[2021-05-25] MEDS ORDERED: CLOPIDOGREL 75 MG TABLET ONE (09:03)
[2021-05-25] MEDS ORDERED: FOLIC ACID 1 MG TABLET ONE (09:03)
[2021-05-25 12:00] LABS: Hematocrit 34.9 % (39.6-49.0)
[2021-05-25 16:08] VITALS: BP 165/90; TEMP 98.3
[2021-05-25 16:35] VITALS: O2SAT 100
[2021-05-26] MEDS ORDERED: CEFTRIAXONE 1 GM/NS 50 ML 1 GM/50 ML BAG IV SCH (09:00)
[2021-05-26] MEDS ORDERED: AZITHROMYCIN IV 500 MG in NA CHLORIDE 0.9% 250 ML IVPB SCH (09:00)
--- NOTE | 2021-05-26 09:00 | EKG ---
Test Date: 2021-05-25 Test Time: 01:56:58 [employer] Sales Supervisor: PRERNA MEASUREMENT RESULTS: Intervals: Rate: 48 ID: [id number] QRSD: 90 QT: 466 QTc: 416 [place]: P: 49 ID: [id number] QRS: 44 T: 45 INTERPRETIVE STATEMENTS: Marked sinus bradycardia Abnormal ECG Compared to ECG 01/08/2021 22:16:22 Atrial fibrillation no longer present Electronically Signed On 05-26-21 08:57:30 CDT by Kermit Ross
--- NOTE | 2021-05-26 11:29 | RAD REPORT ---
EXAM DESCRIPTION: Chela Single View05/25/2021 2:07 am CLINICAL HISTORY: 70 years, Male, COUGH COMPARISON: 10/10/2020 FINDINGS: Single view of the chest was obtained portable. Prior films were compared. There has avail able the presence of airspace opacity within the right mid lower lung zone suspicious for pneumonia p erhaps involving the superior posterior segment of the right lower lobe The cardiomediastinal silho uette demonstrate to be unremarkable. The heart is not enlarged. The thoracic aorta is tortuous wit h intimal calcification. There are no pleural effusions. The rest of the soft tissue and bony structu res demonstrate to be unremarkable. IMPRESSION: Probable right lower lobe pneumonia. Electronically signed by: Luis Flores MD 05/25/2021 2:34 AM CDT Due to temporary technical issues with the PACS/Fluency reporting system, reports are being signed by the in house radiologist without review as a courtesy to ensure prompt reporting. The interpreting r adiologist is fully responsible for the content of the report.
--- NOTE | 2021-05-26 12:15 | RAD REPORT ---
EXAM DESCRIPTION: CT - Chest Angio - 05/25/2021 5:54 am COMPARISON: None. CLINICAL HISTORY: Cough;Hemoptysis TECHNIQUE: CT images through the chest with IV contrast using the pulmonary embolus protocol. Multip lanar reformats. MIPS reformats are provided. Automated exposure control was utilized on this exami nation as a dose lowering technique. FINDINGS: Pulmonary arteries and vascular: Diagnostic quality bolus. No filling defects. Moderate at herosclerosis. Heart and mediastinum: Heart size is normal. There is a 2.0 cm lymph node or cystic structure at the diaphragmatic hiatus on series 401 image 121. Thyroid gland: Small right thyroid nodules are noted. No dedicated follow-up is necessary. Lungs: Ground glass opacities are present throughout the right upper lobe and right middle lobe. Airways: No filling defects. No bronchiectasis. Pleura: No pneumothorax. No significant pleural effusion. Subphrenic structures: Surgical changes of the stomach. Small dependent gallstone. Small right renal cysts. 1.8 cm left adrenal adenoma. Small nonobstructing left renal calculus. Musculoskeletal and soft tissues: Flowing anterior osteophytes are noted in the thoracic spine. IMPRESSION: 1. No evidence of pulmonary embolus. 2. Multifocal pneumonia. Commonly reported imaging features of COVID-19 pneumonia are present. Other processes such as influenza pneumonia and organizing pneumonia, as can be seen with drug toxicity and connective tissue disease, can cause similar imaging pattern. 3. Moderate atherosclerosis. 4. A 2.0 cm lymph node or cystic structure is noted at the diaphragmatic hiatus. Electronically signed by: Sajan Wall MD 05/25/2021 4:12 AM CDT Due to temporary technical issues with the PACS/Fluency reporting system, reports are being signed by the in house radiologist without review as a courtesy to ensure prompt reporting. The interpreting r adiologist is fully responsible for the content of the report.
== END 2021-05-25 16:20 | disposition home or self-care (01) ==
LOC: ER 23:32 → ERHOLD 05-25 05:09
PROVIDERS: ADMIT Family Medicine; ATTEND Family Medicine
DX: J18.8 Other pneumonia, unspecified organism (principal); R04.2 Hemoptysis; I48.91 Unspecified atrial fibrillation; I10 Essential (primary) hypertension; I25.10 Atherosclerotic heart disease of native coronary artery without angina pectoris; E78.5 Hyperlipidemia, unspecified; K21.9 Gastro-esophageal reflux disease without esophagitis; M10.9 Gout, unspecified; R73.03 Prediabetes; Z20.822 Contact with and (suspected) exposure to COVID-19; Z98.84 Bariatric surgery status; Z98.890 Other specified postprocedural states; Z79.02 Long term (current) use of antithrombotics/antiplatelets; Z95.5 Presence of coronary angioplasty implant and graft; Z87.891 Personal history of nicotine dependence; Z90.49 Acquired absence of other specified parts of digestive tract; Z82.49 Family history of ischemic heart disease and other diseases of the circulatory system
CPT/HCPCS: 36415; 71045; 71275; 80048; 80076; 83735; 83880; 84145; 84484; 85014; 85018; 85025; 85610; 87040; 87804; 93005; 96375; 99284; G0378; J0456; J7050; Q9967; U0003

== ENCOUNTER 2021-07-07 08:47 | Observation (INO) | payer OTHER ==
--- OUTSIDE RECORDS SUMMARY | 2021-07-07 08:51 | XMS REPORT | Continuity of Care Document ---
:1950 Author Organization [facility] t Address [address] [place] [address] Care Team Providers Name Role Phone Clarissa CHAKRABORTY Attending Clinician Unavailable Clarissa Avalos Attending Clinician CO84 Attending Clinician Unavailable 2, Lab Attending Clinician Unavailable ADAM Attending Clinician Unavailable NILO Attending Clinician Unavailable Payers Payer Name Policy Type Policy Number Effective Date Expiration Date S [facility] MEDICARE PART A \T\ [id number] 2014 B 00:00:00 [employer] TRADITIONAL [id number] 2014 00:00:00 Problems Condition Condition Condition Status Onset Resolution Last Treating Co mments Source Name Details Category Date Date Treatment Clinician Date BMI BMI Problem Active Univers 45.0-49.9, 45.0-49.9, it y of adult adult [place] [facility] Obesity, Obesity, Problem Active Unive rs morbid morbid ity of [place] [facility] Patellofem Patellofem Problem Active U [...] ents Source Name Type Date Date Clinician NO KNOWN Drug Active Univers ALLERGIE Class ity of S [place] [facility] [place] Social History Smoking Status Start Date Stop Date Source [facility]finding[facility]ations Ordered Filled Start Stop Current Ordering Indication Dosage Frequency Signature Comments Components Source Medication Medication Date Date Medication? Clinician (SIG) Name Name Aspirin Aspirin Yes QD TAKE 1 Univers Adult Low Adult Low TABLET ity of Strength 81 Strength 81 DAILY [place] MG Oral MG Oral DIRECTED. Phys ici Tablet Tablet ans Delayed Delayed Release Release Allopurinol Allopurinol Yes Q0.5D TAKE 1 Univers 100 MG Oral 100 MG Oral TABLET ity of Tablet Tablet TWICE [place] DAILY. Physici ans amLODIPine amLODIPine Yes QD TAKE 1 U nivers Besylate 10 Besylate 10 TABLET ity of MG Oral MG Oral DAILY [place] Tablet Tablet BLOOD Physici PRESSURE. ans Fenofibrate Fenofibrate Yes 1 QD TAKE 1 Univers 160 MG Oral 160 MG Oral TABLET ity of Tablet Tablet DAILY. [place] [facility] Flecainide Flecainide Yes Q0.5D TAKE 1 Univers Acetate 50 Acetate 50 TABLET i ty of MG Oral MG Oral TWICE [place] Tablet Tablet DAILY. Physici ans Furosemide Furosemide Yes QD TAKE 1 U nivers 40 MG Oral 40 MG Oral TABLET i ty of Tablet Tablet DAILY [place] DIRECTED. Physici ans Losartan Losartan Yes QD TAKE 1 Unive rs Potassium Potassium TABLET ity of 100 MG Oral 100 MG Oral ONCE [place] Tablet Tablet DAILY. Physici ans metFORMIN metFORMIN Yes QD TAKE 1 Uni vers HCl - 500 HCl - 500 TABLET ity of MG Oral MG Oral DAILY [place] Tablet Tablet DIRECTED. Physic i ans Pantoprazol Pantoprazol Yes 1 QD TAKE 1 Univers e Sodium 40 e Sodium 40 TABLET ity of MG Oral MG Oral DAILY. [place] Tablet Tablet Physici Delayed Delayed ans Release Release Potassium Potassium Yes QD TAKE 2 Uni vers Chloride 20 Chloride 20 TABLETS ity of MEQ TBCR MEQ TBCR DAILY. [place] [facility] Rosuvastati Rosuvastati Yes 1 QD [...] Date Status Commen ts Source Name Name [employer] 2020-10-03 Completed Universit y of COVID-19 Vacc 30 09:26:00 [place] [facility] MCG/0.3ML Intramuscular Suspension Vital Signs Vital Name Observation Time Observation Value Comments Source BP Systolic 2017-10-25 168 mm[Hg] Location: [facility] 10:09:00 Position: [place] [facility] Sitting BP Diastolic 2017-10-25 88 mm[Hg] Location: [facility] 10:09:00 Position: [place] [facility] Sitting Height 2017-10-25 68 [in_us] [facility] 10:09:00 [place] [facility] Weight 2017-10-25 314.5 [lb_av] [facility] 10:09:00 [place] [facility] s Body Mass Index 2017-10-25 47.82 kg/m2 [place] [facility] Calculated 10:09:00 [place] [facility] Heart Rate 2017-10-25 72 /min Location: [facility] 10:09:00 Radial; [place] [facility] Procedures Procedure Date / Time Performed Performing Clinician Sour e [U] XRAY KNEE 3 VWS 2017-10-25 00:00:00 [facility] LEFT [id number] Physicians History of [place] [facility] [place] surgery Physicians Encounters Start End Encounter Admission Attending Care Care Encounter Source Date/Time Date/Time Type Type Clinicians Facility Department ID 2021-03-03 Inpatient [id number] 10:33:00 [facility] 2019-06-06 Inpatient [facility] [id number] [facility] 09:39:00 [facility] 2021-09-03 2021-09-03 Outpatient Mynor CHAKRABORTY [facility] [id number] Univers 09:00:00 09:00:00 ANGELICA [id number] ity of [facility] 2021-04-18 2021-04-18 Outpatient [id number] [facility] 09:15:00 09:15:00 l Jun [facility] 2020-11-04 2020-11-04 Refill Mylene [facility] [id number] 00:00:00 00:00:00 Angelica Sood [id number] [place] [id number] Professio [phone] [facility] 204 [facility] 2020-10-03 2020-10-03 Appointmen CO19, UTP UTP [id number] Univers 13:40:00 13:40:00 t; CO19, NURSE-COOLE i ty of NURSE-COOL Y [place] EY Physici ans 2020-09-08 2020-09-08 Appointmen CO19, UTP UTP [id number] Univers 14:50:00 14:50:00 t; CO19, NURSE-COOLE i ty of NURSE-COOL Y [place] EY [facility]ici ans 2020-08-28 2020-08-28 Outpatient R [facility] [id number] Univers 09:45:00 09:45:00 [id number] [facility] [place] [facility] 2020-08-28 2020-08-28 Acid Regenerator 2, Adc Lab [facility] [id number] 09:24:39 09:39:39 Visit Barrie [id number] [place] [id number] Professio [phone] [address] 2020-08-28 2020-08-28 [facility] [id number] 08:48:10 09:19:30 Visit Angelica Sood [id number] [place] [id number] Professio [phone] [facility] 204 [facility] 2020-08-28 2020-08-28 Outpatient R MYLENE [facility] [id number] Univers 09:00:00 09:00:00 [facility]13 2019-11-13 Outpatient R ADAM [facility] [id number] Univers 09:00:00 09:00:00 [facility] [place] [facility] 2019-11-13 2019-11-13 Outpatient R ADAM [facility] [id number] Univers 09:00:00 09:00:00 ANGELA [facility] [place] [facility] 2019-09-19 2019-09-19 Outpatient [id number] 05:54:00 05:54:00 [facility] 2019-03-01 2019-03-01 Outpatient [id number] 06:18:00 06:18:00 [facility] 2019-02-06 2019-02-06 Emergency E [facility] [id number] [facility] 11:37:00 11:37:00 [facility] 2019-01-22 2019-01-22 Inpatient E [id number] 11:48:00 09:48:00 [facility] [place] [facility] 2017-10-25 2017-10-25 Appointmen VALARIE CORCORAN [place] [id number] [place] [facility] 09:45:00 09:45:00 t; ISAMAR CULP Orthopedics ity of [facility] ISAMAR CULP Physi ci ans Results Test Description Test Time Test Comments Results Result Sour e Comments [U] XRAY KNEE 3 2017-10-25 Images Universit y of VWS LEFT [id number] 10:12:00 acquired, not [place] reported on Physicians this accession number.
[2021-07-07 09:27] LABS: Basophils % 0.9 % (0-1.3); Hematocrit 40.7 % (39.6-49.0); Lymphocytes % 15.3 % (15.3-44.8); MPV 9.2 fL (7.6-11.3); RBC Red Blood Cell Count 4.88 M/uL (4.33-5.43)
[2021-07-07 09:28] LABS: Protime INR 0.99
[2021-07-07] MEDS ORDERED: HEPARIN 5000 UNIT/ML 1 ML VIAL ONE (09:37)
[2021-07-07] MEDS ORDERED: METOPROLOL TAR 50 MG TAB ONE (09:37)
[2021-07-07] MEDS ORDERED: HEPARIN/D5W 25,000 UNIT/500 ML BAG IV ONE (09:38)
[2021-07-07] MEDS ORDERED: FAMOTIDINE 20 MG/2 ML VIAL IV ONE (09:38)
[2021-07-07] MEDS ORDERED: METOPROLOL TARTRATE 5 MG/5 ML INJ IV ONE (09:38)
[2021-07-07] MEDS ORDERED: NA CHLORIDE 0.9% 1,000 ML ONE (09:38)
[2021-07-07] MEDS ORDERED: DIGOXIN 0.25 MG/ML AMP ONE (09:38)
[2021-07-07 09:52] LABS: ALT/SGPT 51 U/L (12-78); AST/SGOT 36 U/L (15-37); Albumin 3.9 g/dL (3.4-5.0); Alkaline Phosphatase 105 U/L (45-117); BUN Blood Urea Nitrogen 15 mg/dL (7-18); Bicarbonate 27 mmol/L (21-32); Bilirubin Direct 0.1 mg/dL (0-0.2); Bilirubin Total 0.5 mg/dL (0.2-1.0); Glucose Level 71 mg/dL (74-106); Magnesium 2.1 mg/dL (1.8-2.4); NT PRO-BNP 624 pg/mL (<125); Potassium 3.5 mmol/L (3.5-5.1); Protein, Total 8.2 g/dL (6.4-8.2); Sodium Level 142 mmol/L (136-145); Troponin (Emerg Dept Use Only) < 0.02 ng/mL (0.0-0.045)
[2021-07-07 10:54] LABS: Urine Blood Trace-intact (Negative); Urine Glucose Negative (Negative); Urine Protein 3+ (Negative)
--- NOTE | 2021-07-07 10:55 | RAD REPORT ---
EXAM DESCRIPTION: RAD - Chest Single View - 07/07/2021 9:58 am CLINICAL HISTORY: CHEST PAIN COMPARISON: June 19 TECHNIQUE: AP portable chest image was obtained 07/07/2021 9:58 am . FINDINGS: No peripheral mass or consolidation. Pulmonary vasculature within range of normal for port able examination. Heart size is upper normal. Trachea is in the midline. No measurable pleural effusi on and no pneumothorax. No acute bony abnormality seen. No acute aortic findings suspected. IMPRESSION: No acute cardiopulmonary process.
--- NOTE | 2021-07-07 11:15 | ER ---
Nurse's Notes [facility] Name: Bony Santos Age: 70 yrs Sex: Male : 1950 Arrival Date: 07/07/2021 Time: 08:48 Bed 5 Private MD: Diagnosis: Chest pain, unspecified;Persistent atrial fibrillation-with RVR Presentation: 07/07 08:56 Chief complaint: Patient states: chest pain since this morning. feels like pressure, iw also feels like he has gas, no previous heart attack, has hx of AFIB and heart stent , pain is constant. Coronavirus screen: At this time, the client does not indicate any symptoms associated with coronavirus-19. Ebola Screen: Patient negative for fever greater than or equal to 101.5 degrees Fahrenheit, and additional compatible Ebola Virus Disease symptoms Patient denies exposure to infectious person. Patient denies travel to an Ebola-affected area in the 21 days before illness onset. No symptoms or risks identified at this time. Initial Sepsis Screen: Does the patient meet any 2 criteria? No. Patient's initial sepsis screen is negative. Does the patient have a suspected source of infection? No. Patient's initial sepsis screen is negative. Risk Assessment: Do you want to hurt yourself or someone else? Patient reports no desire to harm self or others. Onset of symptoms was July 07, 2021. 08:56 Method Of Arrival: Wheelchair iw 08:56 Acuity: MAVERICK 2 iw Historical: - Allergies: 08:57 No Known Allergies; iw - Home Meds: 08:57 allopurinol 100 mg Oral tab 1 tab once daily [Active]; aspirin 325 mg Oral TbEC 1 tab iw once daily [Active]; metoprolol tartrate 25 mg Oral tab 1 tab once daily [Active]; olmesartan 20 mg oral tab twice a day [Active]; rosuvastatin 10 mg oral tab 1 tab once daily [Active]; clopidogrel 75 mg oral tab 1 tab once daily [Active]; - PMHx: 08:57 acid reflux; Atrial Fib; fluid retention; Gout; Hypertension; Prediabetic; iw - PSHx: 08:57 Gastric Bypass; heart stent; Watchmen; iw - Immunization history:: Adult Immunizations up to date. - Social history:: Smoking status: Patient/guardian denies using tobacco, the patient reports quitting approximately 21 years ago. - Family history:: not pertinent. Screenin:22 Abuse screen: Denies threats or abuse. Denies injuries from another. Nutritional ss screening: No deficits noted. Tuberculosis screening: Never had TB. Fall Risk None identified. Assessment: 10:28 General: Appears in no apparent distress. comfortable, well groomed, Behavior is calm, jd3 cooperative, appropriate for age. Pain: Complains of pain in chest Pain does not radiate. Quality of pain is described as aching, pressure, Pain began suddenly. Neuro: Level of Consciousness is awake, alert, obeys commands, Oriented to person, place, time, situation. Cardiovascular: Capillary refill < 3 seconds Patient's skin is warm and dry. Rhythm is atrial fibrillation. Respiratory: Airway is patent Respiratory effort is even, unlabored, Respiratory pattern is regular, symmetrical, Denies cough, shortness of breath. GI: No signs and/or symptoms were reported involving the gastrointestinal system. : No signs and/or symptoms were reported regarding the genitourinary system. EENT: No signs and/or symptoms were reported regarding the EENT system. Derm: No signs and/or symptoms reported regarding the dermatologic system. Musculoskeletal: Circulation, motion, and sensation intact. Range of motion: intact in all extremities. 11:30 Reassessment: Patient appears in no apparent distress at this time. No changes from jd3 previously documented assessment. Patient and/or family updated on plan of care and expected duration. Pain level reassessed. Patient is alert, oriented x 3, equal unlabored respirations, skin warm/dry/pink. 12:39 Reassessment: Patient appears in no apparent distress at this time. Patient and/or jd3 family updated on plan of care and expected duration. Pain level reassessed. Patient is alert, oriented x 3, equal unlabored respirations, skin warm/dry/pink. Patient denies pain at this time. 13:30 Reassessment: Patient appears in no apparent distress at this time. Patient and/or jd3 family updated on plan of care and expected duration. Pain level reassessed. Patient is alert, oriented x 3, equal unlabored respirations, skin warm/dry/pink. Patient denies pain at this time. 14:44 Reassessment: Patient appears in no apparent distress at this time. Patient and/or jd3 family updated on plan of care and expected duration. Pain level reassessed. Patient is alert, oriented x 3, equal unlabored respirations, skin warm/dry/pink. Patient denies pain at this time. Vital Signs: 08:56 BP 156 / 100; Pulse 146; Resp 16; Temp 99.3(TE); Pulse Ox 100% on R/A; Weight 95.25 kg; iw Height 5 ft. 8 in. (172.72 cm); Pain 5/10; 10:26 BP 161 / 96; Pulse 97; Resp 18 S; Pulse Ox 98% on R/A; jd3 11:30 BP 157 / 102; Pulse 97; Resp 17 S; Pulse Ox 98% on R/A; jd3 12:39 BP 151 / 103; Pulse 65; Resp 17 S; Pulse Ox 99% on R/A; jd3 13:30 BP 153 / 101; Pulse 94; Resp 18 S; Pulse Ox 98% on R/A; jd3 14:43 BP 160 / 90; Pulse 85; Resp 20 S; Pulse Ox 98% on R/A; jd3 08:56 Body Mass Index 31.93 (95.25 kg, 172.72 cm) iw ED Course: 08:48 Patient arrived in ED. ds1 08:57 Triage completed. iw 08:59 Arm band placed on. iw 09:02 Johnnie Goode MD is Attending Physician. yoni 09:22 Patient has correct armband on for positive identification. Placed in gown. Bed in low ss position. Side rails up X 1. color matcher on. Pulse ox on. NIBP on. 09:22 Inserted saline lock: 20 gauge in right antecubital area, using aseptic technique. ss Blood collected. Patient maintains SpO2 saturation greater than 95% on room air. 09:29 Mahendra Alvarenga RN is Primary Nurse. jd3 09:57 XRAY Chest (1 view) In Process Unspecified. EDMS 10:05 Inserted saline lock: 22 gauge in left forearm, using aseptic technique. jd3 11:13 Nikos Foster MD is Hospitalizing Provider. yoni 14:44 No provider procedures requiring assistance completed. Patient admitted, IV remains in jd3 place. Administered Medications: 09:53 Drug: NS 0.9% 1000 ml Route: IV; Rate: 125 ml/hr; Site: right antecubital; jd3 10:53 Follow up: Response: No adverse reaction; IV Status: Infusion continued upon admission jd3 09:55 Drug: Lopressor (metoprolol) 5 mg Route: IVP; Site: right antecubital; jd3 10:55 Follow up: Response: No adverse reaction jd3 09:55 Drug: Pepcid (famotidine) 20 mg Route: IVP; Site: right antecubital; jd3 10:55 Follow up: Response: No adverse reaction jd3 09:57 Drug: Digoxin 0.5 mg Route: IVP; Site: right antecubital; jd3 10:57 Follow up: Response: No adverse reaction jd3 10:00 Drug: Lopressor (metoprolol) 5 mg Route: IVP; Site: right antecubital; jd3 11:00 Follow up: Response: No adverse reaction jd3 10:14 Drug: Lopressor (metoprolol) 5 mg Route: IVP; Site: right antecubital; jd3 11:14 Follow up: Response: No adverse reaction jd3 10:17 Drug: Heparin (DC-Bolus No thrombolytic) - HEParin 60 units/kg {Co-Signature: vg1 jd3 (Juliana Cordero RN).} Route: IVP; Site: right antecubital; 11:17 Follow up: Response: No adverse reaction jd3 10:17 Drug: Heparin (DC Drip) 12 units/kg/hr - (HEParin 81373 units, D5W 500 ml) jd3 {Co-Signature: vg1 (Juliana Cordero RN).} Route: IV; Rate: calculated rate; Site: right antecubital; 11:17 Follow up: Response: No adverse reaction; IV Status: Infusion continued upon admission jd3 10:21 Not Given (Physician Discretion): Lopressor (metoprolol TARTRATE) 50 mg PO once jd3 11:32 Drug: Aspirin Chewable Tablet 324 mg Route: PO; as6 12:32 Follow up: Response: No adverse reaction jd3 Outcome: 11:15 Decision to Hospitalize by Provider. yoni 14:46 Admitted to Tele accompanied by jose, via wheelchair, room 211, with chart, Report jd3 called to Bernadette HASSAN 14:46 Condition: stable 14:46 Instructed on the need for admit, Demonstrated understanding of instructions. 15:07 Patient left the ED. al4 Signatures: Dispatcher [employer] Johnnie Landa MD MD cha Sanford, Demi ds1 Lizy Denton RN RN iw Nicole Cuevas RN RN ss Davies, Jonathon, RN RN jSamm Valladares RN RN as6 David Waterman4 Juliana Cordero RN vg1 Corrections: (The following items were deleted from the chart) 08:59 08:56 Resp 16bpm; 95.25 kg; Height 5 ft. 8 in.; BMI: 31.9; Pain 5/10; iw iw 09:01 08:56 Resp 16bpm; 95.25 kg; Height 5 ft. 8 in.; BMI: 31.9; Pain 5/10; iw iw
--- NOTE | 2021-07-07 11:15 | EDPHYS ---
Physician Documentation [facility] Name: Bony Santos Age: 70 yrs Sex: Male : 1950 Arrival Date: 07/07/2021 Time: 08:48 Bed 5 Private MD: ED Physician Johnnie Goode HPI: 07/07 11:01 This 70 yrs old Male presents to ER via Wheelchair with complaints of Chest yoni Pain. 11:01 The patient or guardian reports chest pain that is located primarily in the substernal yoni area, anterior chest wall, bilaterally. Onset: just prior to arrival, this morning. The pain does not radiate. Associated signs and symptoms: Pertinent positives: dizziness, lightheadedness, shortness of breath. The chest pain is described as a pressure. Duration: The patient or guardian reports a single episode, that is now resolved. Modifying factors: The symptoms are alleviated by nothing. the symptoms are aggravated by nothing. Severity of pain: At its worst the pain was moderate in the emergency department the pain has resolved and did so just prior to arrival. The patient has experienced similar episodes in the past, multiple times. Historical: - Allergies: 08:57 No Known Allergies; iw - Home Meds: 08:57 allopurinol 100 mg Oral tab 1 tab once daily [Active]; aspirin 325 mg Oral TbEC 1 tab iw once daily [Active]; metoprolol tartrate 25 mg Oral tab 1 tab once daily [Active]; olmesartan 20 mg oral tab twice a day [Active]; rosuvastatin 10 mg oral tab 1 tab once daily [Active]; clopidogrel 75 mg oral tab 1 tab once daily [Active]; - PMHx: 08:57 acid reflux; Atrial Fib; fluid retention; Gout; Hypertension; Prediabetic; iw - PSHx: 08:57 Gastric Bypass; heart stent; Watchmen; iw - Immunization history:: Adult Immunizations up to date. - Social history:: Smoking status: Patient/guardian denies using tobacco, the patient reports quitting approximately 21 years ago. - Family history:: not pertinent. ROS: 11:01 Constitutional: Negative for fever, chills, and weight loss, Eyes: Negative for injury, yoni pain, redness, and discharge, ENT: Negative for injury, pain, and discharge, Neck: Negative for injury, pain, and swelling, Respiratory: Negative for shortness of breath, cough, wheezing, and pleuritic chest pain, Abdomen/GI: Negative for abdominal pain, nausea, vomiting, diarrhea, and constipation, Back: Negative for injury and pain, : Negative for injury, bleeding, discharge, and swelling, MS/Extremity: Negative for injury and deformity, Skin: Negative for injury, rash, and discoloration, Psych: Negative for depression, anxiety, suicide ideation, homicidal ideation, and hallucinations, Allergy/Immunology: Negative for hives, rash, and allergies, Endocrine: Negative for neck swelling, polydipsia, polyuria, polyphagia, and marked weight changes, Hematologic/Lymphatic: Negative for swollen nodes, abnormal bleeding, and unusual bruising. 11:01 Cardiovascular: Positive for chest pain, of the chest. 11: MS/extremity: Positive for injury or acute deformity. Exam: 11: Constitutional: This is a well developed, well nourished patient who is awake, alert, yoni and in no acute distress. Head/Face: Normocephalic, atraumatic. Eyes: Pupils equal round and reactive to light, extra-ocular motions intact. Lids and lashes normal. Conjunctiva and sclera are non-icteric and not injected. Cornea within normal limits. Periorbital areas with no swelling, redness, or edema. ENT: Nares patent. No nasal discharge, no septal abnormalities noted. Tympanic membranes are normal and external auditory canals are clear. Oropharynx with no redness, swelling, or masses, exudates, or evidence of obstruction, uvula midline. Mucous membranes moist. Neck: Trachea midline, no thyromegaly or masses palpated, and no cervical lymphadenopathy. Supple, full range of motion without nuchal rigidity, or vertebral point tenderness. No Meningismus. Chest/axilla: Normal chest wall appearance and motion. Nontender with no deformity. No lesions are appreciated. Respiratory: Lungs have equal breath sounds bilaterally, clear to auscultation and percussion. No rales, rhonchi or wheezes noted. No increased work of breathing, no retractions or nasal flaring. Abdomen/GI: Soft, non-tender, with normal bowel sounds. No distension or tympany. No guarding or rebound. No evidence of tenderness throughout. Back: No spinal tenderness. No costovertebral tenderness. Full range of motion. Male : Normal genitalia with no discharge or lesions. Skin: Warm, dry with normal turgor. Normal color with no rashes, no lesions, and no evidence of cellulitis. MS/ Extremity: Pulses equal, no cyanosis. Neurovascular intact. Full, normal range of motion. Neuro: Awake and alert, GCS 15, oriented to person, place, time, and situation. Cranial nerves II-XII grossly intact. Motor strength 5/5 in all extremities. Sensory grossly intact. Cerebellar exam normal. Normal gait. Psych: Awake, alert, with orientation to person, place and time. Behavior, mood, and affect are within normal limits. 11:01 Cardiovascular: Rate: tachycardic, Rhythm: irregularly irregular, Pulses: Pulses are 4+ in bilateral radial, brachial, femoral, popliteal, posterior tibial and and dorsalis pedis arteries.. Heart sounds: normal, Edema: is not appreciated, JVD: is not appreciated. 11:01 ECG was reviewed by the Attending Physician. 12:09 ECG was reviewed by the Attending Physician. yoni Vital Signs: 08:56 BP 156 / 100; Pulse 146; Resp 16; Temp 99.3(TE); Pulse Ox 100% on R/A; Weight 95.25 kg; iw Height 5 ft. 8 in. (172.72 cm); Pain 5/10; 10:26 BP 161 / 96; Pulse 97; Resp 18 S; Pulse Ox 98% on R/A; jd3 11:30 BP 157 / 102; Pulse 97; Resp 17 S; Pulse Ox 98% on R/A; jd3 12:39 BP 151 / 103; Pulse 65; Resp 17 S; Pulse Ox 99% on R/A; jd3 13:30 BP 153 / 101; Pulse 94; Resp 18 S; Pulse Ox 98% on R/A; jd3 14:43 BP 160 / 90; Pulse 85; Resp 20 S; Pulse Ox 98% on R/A; jd3 08:56 Body Mass Index 31.93 (95.25 kg, 172.72 cm) iw MDM: 09:03 Patient medically screened. yoni 12:05 Differential diagnosis: abnormal EKG, anxiety, coronary artery disease chest wall pain, yoni congestive heart failure stable angina, unstable angina. HEART Score: History: Slightly Suspicious (0), ECG: Non specific repolarization disturbance / LBTB / PM (1), Age: > or = 65 years (2), Risk Factors: > or = 3 Risk factors for atherosclerotic disease (2), [Hypercholesterolemia] [Hypertension] [+ Family HX] [Obesity] Troponin: < or = 1 x Normal Limit (0). The patient was given aspirin in the Emergency Department. The patient's deep vein thrombosis risk score was calculated as follows: Total Score: 0. This patient was found to be at low risk for a deep vein thrombosis by using the Well's assessment criteria. The patient's pulmonary embolism risk score was calculated as follows: the patients heart rate is greater than 100 beats per minute (1.5 Pts) Total Score: 0-2 points. This patient was found to be at low risk for a pulmonary embolism by using the Well's assessment criteria. RADHA Risk Score: 1 - patient's age is greater or equal to 65 years, 1 - Three or more CAD risk factors, 1- Known CAD, 1 - ASA use in past 7 days, TOTAL SCORE = 4. Data reviewed: vital signs, nurses notes. Data interpreted: monitoring engineer: rate is 87 beats/min, rhythm is atrial fibrillation, Pulse oximetry: on room air is 98 %. Test interpretation: by ED physician or midlevel provider: ECG, plain radiologic studies. Counseling: I had a detailed discussion with the patient and/or guardian regarding: the historical points, exam findings, and any diagnostic results supporting the discharge/admit diagnosis, lab results, radiology results, the need for further work-up and treatment in the hospital. 07/07 09:02 Order name: Basic Metabolic Panel; Complete Time: 10:50 07/07 09:02 Order name: CBC with Diff; Complete Time: 10:50 07/07 09:02 Order name: LFT's; Complete Time: 10:50 07/07 09:02 Order name: Magnesium; Complete Time: 10:50 07/07 09:02 Order name: NT PRO-BNP; Complete Time: 10:50 07/07 09:02 Order name: PT-INR; Complete Time: 10:50 07/07 09:02 Order name: Troponin (emerg Dept Use Only); Complete Time: 10:50 07/07 09:02 Order name: XRAY Chest (1 view); Complete Time: 11:17 07/07 09:05 Order name: TSH; Complete Time: 10:50 [facility] 07/07 09:06 Order name: SARS-COV-2 RT PCR (Document "Date of Onset" if Symptomatic) [facility] 07/07 10:53 Order name: Urine Dipstick-Ancillary [facility] 07/07 14:28 Order name: Ptt, Activated jd3 07/07 15:05 Order name: PTT, Activated Partial Thromb [facility] 07/07 09:02 Order name: EKG; Complete Time: 09:03 07/07 09:02 Order name: Cardiac monitoring; Complete Time: 09:20 07/07 09:02 Order name: EKG - Nurse/Tech; Complete Time: 09:20 07/07 09:02 Order name: IV Saline Lock; Complete Time: 09:20 07/07 09:02 Order name: Labs collected and sent; Complete Time: 09:20 07/07 11:16 Order name: EKG; Complete Time: 11:17 [facility] 07/07 12:56 Order name: CONS Physician Consult [facility] 07/07 09:02 Order name: O2 Per Protocol; Complete Time: 09:20 07/07 09:02 Order name: O2 Sat Monitoring; Complete Time: 09:20 07/07 09:05 Order name: Urine Dipstick-Ancillary (obtain specimen); Complete Time: 10:54 [facility] 07/07 10:50 Order name: PO challenge: JUICE; Complete Time: 12:38 [facility] 07/07 11:16 Order name: EKG - Nurse/Tech; Complete Time: 12:08 [facility] EC:01 Rate is 146 beats/min. Rhythm is irregularly irregular. QRS [place] is Normal. AR interval yoni is normal. QRS interval is normal. QT interval is normal. No Q waves. T waves are Normal. No ST changes noted. Clinical impression: Atrial Fibrillation and No evidence of ischemia. Interpreted by me. Reviewed by me. 12:09 Rate is 87 beats/min. Rhythm is irregularly irregular. QRS [place] is Normal. AR interval yoni is normal. QRS interval is normal. QT interval is normal. No Q waves. T waves are Normal. No ST changes noted. Clinical impression: Atrial Fibrillation and No evidence of ischemia. Interpreted by me. Reviewed by me. Administered Medications: :53 Drug: NS 0.9% 1000 ml Route: IV; Rate: 125 ml/hr; Site: right antecubital; jd3 10:53 Follow up: Response: No adverse reaction; IV Status: Infusion continued upon admission jd3 09:55 Drug: Lopressor (metoprolol) 5 mg Route: IVP; Site: right antecubital; jd3 10:55 Follow up: Response: No adverse reaction jd3 09:55 Drug: Pepcid (famotidine) 20 mg Route: IVP; Site: right antecubital; jd3 10:55 Follow up: Response: No adverse reaction jd3 09:57 Drug: Digoxin 0.5 mg Route: IVP; Site: right antecubital; jd3 10:57 Follow up: Response: No adverse reaction jd3 10:00 Drug: Lopressor (metoprolol) 5 mg Route: IVP; Site: right antecubital; jd3 11:00 Follow up: Response: No adverse reaction jd3 10:14 Drug: Lopressor (metoprolol) 5 mg Route: IVP; Site: right antecubital; jd3 11:14 Follow up: Response: No adverse reaction jd3 10:17 Drug: Heparin (CT-Bolus No thrombolytic) - HEParin 60 units/kg {Co-Signature: vg1 jd3 (Juliana Cordero RN).} Route: IVP; Site: right antecubital; 11:17 Follow up: Response: No adverse reaction jd3 10:17 Drug: Heparin (CT Drip) 12 units/kg/hr - (HEParin 90039 units, D5W 500 ml) jd3 {Co-Signature: vg1 (Juliana Cordero RN).} Route: IV; Rate: calculated rate; Site: right antecubital; 11:17 Follow up: Response: No adverse reaction; IV Status: Infusion continued upon admission jd3 10:21 Not Given (Physician Discretion): Lopressor (metoprolol TARTRATE) 50 mg PO once jd3 11:32 Drug: Aspirin Chewable Tablet 324 mg Route: PO; as6 12:32 Follow up: Response: No adverse reaction jd3 Disposition Summary: 07/07/21 11:15 Hospitalization Ordered Hospitalization Status: Observation yoni Provider: Nikos Foster cha Location: Telemetry/MedSurg (Inpatient) yoni Condition: Fair yoni Problem: new yoni Symptoms: have improved yoni Bed/Room Type: Standard yoni Room Assignment: 211(07/07/21 14:21) bd Diagnosis - Chest pain, unspecified yoni - Persistent atrial fibrillation - with RVR yoni Forms: - Medication Reconciliation Form yoni - SBAR form yoni Signatures: Dispatcher [employer] EDRaquel Martinez Corey, MD MD cha Williams, Irene, RN RN iw Smirch, Shelby, RN RN ss Davies, Jonathon, RN RN jd3 Samm Temple RN RN as6 Juliana Cordero RN vg1 Corrections: (The following items were deleted from the chart) 14: 11:15 yoni bd
[2021-07-07] MEDS ORDERED: ASPIRIN 81 MG CHEWABLE TABLET ONE (11:24)
--- NOTE | 2021-07-07 13:02 | P.HP ---
Certification for Inpatient Patient admitted to: Observation With expected LOS: <2 Midnights Practitioner: I am a practitioner with admitting privileges, knowledge of patient current condition, hospital course, and medical plan of care. Services: Services provided to patient in accordance with Admission requirements found in Title 42 Section 412.3 of the Code of Federal Regulations Patient History Date of Service: 07/07/21 Reason for admission: A. fib with RVR, chest tightness History of Present Illness: 70-year-old male, PMH: A. fib s/p watchman procedure 2 months ago, hypertension, gastric bypass, CAD s/p stent. Presents to the ED after sudden onset of shortness of breath, chest tightness, belching, and generally not feeling well. Symptoms began around 7:30 AM while p christina was showering. Patient also reports he may be worked up today because his was gone for first treatment for a skin lesion. Patient took blood pressure at home which he states that the diastolic pressures all remained greater than 100. He was feeling palpitations chest tightness which is different than his prior A. fib episodes. For this reason, he presented to the closest ER. In the ED, he was noted to be A. fib with RVR, received Lopressor 5 mg IV x3, digoxin with some improvement. Labs are rather unremarkable. Patient's inside sales advisor was contacted, requested patient to be transferred to his facility, however [facility] was full. ED physician requested patient to be admitted here. Allergies No Known Allergies Allergy (Unverified 12/05/16 20:30) Home Medications: Clopidogrel Bisulfate [Plavix*] 75 mg PO DAILY 01/09/21 Metoprolol Succinate 25 mg PO BID 01/09/21 Rosuvastatin [Crestor*] 10 mg PO DAILY 01/09/21 Allopurinol 100 mg PO DAILY 05/25/21 Aspirin [Aspirin EC 325 MG] 1 tab PO DAILY 05/25/21 Olmesartan Medoxomil 20 mg PO BID 05/25/21 Oxybutynin Chloride [Ditropan*] 5 mg PO BID 05/25/21 Multivit-Min/FA/Lycopen/Lutein [Centrum Silver Men Tablet] 1 tab PO DAILY 07/07/21 - Past Medical/Surgical History Diabetic: No -: Atrial fibrillation status post watchman procedure -: Hypertension -: hld -: tonsillectomy -: colon resection -: knee surgery -: bariatric surgery -: cardiac stent -: Watchman February 2021 Psychosocial/ Personal History: Retired, lives with his - Family History Father -: Heart disease - Social History Smoking Status: Former smoker (Quit over 20 years ago) Alcohol use: No CD- Drugs: No Caffeine use: Yes Place of Residence: Home Review of Systems 10-point ROS is otherwise unremarkable Physical Examination - Physical Exam General: Alert, In no apparent distress, Oriented x3 HEENT: Mucous membr. moist/pink, Sclerae nonicteric Neck: Supple Respiratory: Clear to auscultation bilaterally Cardiovascular: Edema (Trace to bilateral ankles), Irregular heart rate/rhythm Gastrointestinal: Soft and benign, Non-distended, No tenderness Musculoskeletal: No erythema, No tenderness Integumentary: No rashes, No significant lesion Neurological: Normal speech, Normal strength at 5/5 x4 extr, Normal affect - Studies Laboratory Data (last 24 hrs) 07/07/21 09:17: PT 11.4, INR 0.99 07/07/21 09:17: WBC 6.50, Hgb 13.3 L, Hct 40.7, Plt Count 135 L 07/07/21 09:17: Sodium 142, Potassium 3.5, BUN 15, Creatinine 0.83, Glucose 71 L, Magnesium 2.1, Total Bilirubin 0.5, AST 36, ALT 51, Alkaline Phosphatase 105 Assessment and Plan - Advance Directives Does patient have a Living Will: No Does patient have a Durable POA for Healthcare: No Physician Review Additional Text: Problem list A. fib with RVR s/p Watchman procedure Hypertension Acid reflux Gout Gastric bypass CAD s/p CABG Patient's inside sales advisor aware that patient with regard to stay here. He stated patient may need medical cardioversion so that he may be discharged home and follow-up in their office to set up follow-up with the architecture manager as he may likely need an ablation. Admit patient, cardiology consulted, recommended initiation of sotalol twice daily Monitor on telemetry Daily EKGs Obtain echocardiogram Patient's inside sales advisor also stated prior difficulty with medications for his A. fib as when patient is in sinus rhythm he is typically very bradycardic. We will monitor vitals closely Confirm home medications restart as appropriate Patient was previously also on Norvasc 5 mg which was discontinued, may need to restart this given his current hypertension Patient is on aspirin and Plavix since the procedure, does not need Xarelto Code: Full Dispo: Anticipate DC home in 1-2 days Time Spent Managing Pts Care (In Minutes): 60
--- NOTE | 2021-07-07 14:50 | CON ---
Date of Consultation: 07/07/2021 Reason For Consultation: Chest pain and atrial fibrillation with RVR. History Of Present Illness: This is a 70-year-old male with history of atrial fibrillation, status p ost left atrial appendage closure about 2 months ago, history of coronary artery disease, status post 1 stent placement about 3 years ago, hypertension, dyslipidemia, presented with an episode of palpit ations, then started to have chest pressure that would not get better. Checked his blood pressure and noticed that his heart rate was high, so presented to the emergency room, was found to be in atrial fibrillation with RVR. The patient claimed that he had the atrial fibrillation episodes about 5 time s so far. He denies having any chest pain now, once the heart rate is below 100. Denies having any exertional chest pain. He follows up with a diesel plant operator at [facility]. Completely comfortabl e at the present time and no symptoms. Past Medical History: As outlined above in HPI. Medications: Refer reconciliation sheet for detailed list. Allergies: NO KNOWN DRUG ALLERGIES. Family History: No premature coronary artery disease or cancer. Social History: Does not smoke or drink. Does not use any drugs. Review of Systems: All systems reviewed and they were negative except mentioned in HPI. Physical Examination: Vital Signs: All vital signs were reviewed. Heart rate is in the low 90s and blood pressure is 154/ 94, temperature is 97.4, breathing at 16. General: Pleasant elderly male, in no apparent distress. Head and Neck: Pupils are equal, reactive to light. Intact eye movements. No JVD. No cervical lym phadenopathy. Neck: Supple. Thyroid is not enlarged. Lungs: Clear to auscultation bilaterally. No rhonchi, rales, or crackles. No accessory muscle use. Heart: Irregularly regular. No extra sounds. Abdomen: Soft, nontender. Bowel sounds positive. No organomegaly. No masses or hernia. No rigidi ty or rebound. Extremities: No edema, clubbing, cyanosis. Intact pulses. Skin: No rash was noted. Neuro: Alert, awake, oriented x3. No acute focal deficits appreciated. Investigations: Troponin less than 0.02. Creatinine is 0.83, potassium 3.5, hemoglobin is 13.3. Assessment And Recommendation: 1.Atrial fibrillation with rapid ventricular response. It was controlled with IV Lopressor, now it is below 100. Recommend to start sotalol 80 mg by mouth twice a day and admit with daily EKG and can use Lopressor IV for rate control as needed as long as the blood pressure allows and please obtain a n echocardiogram. 2.Chest pain with known history of coronary artery disease. First set of cardiac enzymes are negati ve. It is probably demand related. However, patient is known to have coronary artery disease. Obse rve with serial sets of cardiac enzymes, to do 2 more sets at least and obtain an echocardiogram. Fu rther plan will be determined accordingly. Thank you for the consult. /ZHANNA Voice ID: [id number] Report ID: [id number]
[2021-07-07] MEDS ORDERED: ONDANSETRON 4 MG/2 ML VIAL IV PRN (15:16)
[2021-07-07 15:27] VITALS: BMI 31.9
[2021-07-07 16:49] LABS: Thyroid Stimulating Hormone 1.06 uIU/mL (0.360-3.740); Troponin I 0.02 ng/mL (0.0-0.045)
[2021-07-07] MEDS ORDERED: AMLODIPINE 5 MG TAB PO ONE (17:00)
[2021-07-07] MEDS: SOTALOL HCL 80 MG TAB PO SCH (18:44)
[2021-07-07] MEDS ORDERED: ROSUVASTATIN 10 MG TAB PO SCH (21:00)
[2021-07-08 02:35] VITALS: O2SAT 96
[2021-07-08 03:01] LABS: Absolute Lymphocytes (CBC) 1.9 K/uL (0.7-4.9); Basophils % 1.3 % (0-1.3); Hematocrit 37.4 % (39.6-49.0); Lymphocytes % 35.6 % (15.3-44.8); MPV 9.2 fL (7.6-11.3); RBC Red Blood Cell Count 4.49 M/uL (4.33-5.43)
[2021-07-08 03:25] LABS: ALT/SGPT 41 U/L (12-78); AST/SGOT 31 U/L (15-37); Albumin 3.2 g/dL (3.4-5.0); Alkaline Phosphatase 85 U/L (45-117); BUN Blood Urea Nitrogen 12 mg/dL (7-18); Bicarbonate 30 mmol/L (21-32); Bilirubin Total 0.5 mg/dL (0.2-1.0); Glucose Level 97 mg/dL (74-106); Magnesium 1.9 mg/dL (1.8-2.4); Potassium 3.9 mmol/L (3.5-5.1); Protein, Total 6.7 g/dL (6.4-8.2); Sodium Level 144 mmol/L (136-145)
[2021-07-08] MEDS: SOTALOL HCL 80 MG TAB PO SCH (05:21)
--- NOTE | 2021-07-08 07:08 | EKG ---
Test Date: 2021-07-07 Test Time: 12:00:57 Shell Sorter: JAONN MEASUREMENT RESULTS: Intervals: Rate: 87 DC: QRSD: 90 QT: 340 QTc: 409 [place]: P: [place]: QRS: 46 T: 49 INTERPRETIVE STATEMENTS: Atrial fibrillation Abnormal ECG Compared to ECG 07/07/2021 08:57:26 Ventricular premature complex(es) no longer present ST (T wave) deviation no longer present Electronically Signed On 07-08-21 07:04:48 NEWS REPORTER by Kermit Ross
--- NOTE | 2021-07-08 07:09 | EKG ---
Test Date: 2021-07-07 Test Time: 08:57:26 Pattern Gater: JOB MEASUREMENT RESULTS: Intervals: Rate: 146 [place]: QRSD: 86 QT: 258 QTc: 402 [place]: P: [place]: QRS: 51 T: 50 INTERPRETIVE STATEMENTS: Atrial fibrillation with rapid ventricular response with premature ventricular or aberrantly conducted complexes Nonspecific ST and T wave abnormality Abnormal ECG Compared to ECG 05/25/2021 01:56:58 Ventricular premature complex(es) now present ST (T wave) deviation now present Sinus bradycardia no longer present Electronically Signed On 07-08-21 07:04:53 INDUSTRIAL ROOFER by Kermit Ross
[2021-07-08] MEDS ORDERED: ASPIRIN EC 325 MG TABLET PO SCH (09:00)
[2021-07-08] MEDS ORDERED: AMLODIPINE 5 MG TAB PO SCH (09:00)
[2021-07-08] MEDS ORDERED: CLOPIDOGREL 75 MG TABLET PO SCH (09:00)
[2021-07-08] MEDS ORDERED: VALSARTAN 160 MG TAB PO SCH (09:00)
--- NOTE | 2021-07-08 11:53 | EKG ---
Test Date: 2021-07-08 Test Time: 07:22:04 Template Cutter: IRWIN MEASUREMENT RESULTS: Intervals: Rate: 66 [place]: QRSD: 86 QT: 416 QTc: 436 [place]: P: [place]: QRS: 31 T: 16 INTERPRETIVE STATEMENTS: Atrial fibrillation Nonspecific T wave abnormality, probably digitalis effect Abnormal ECG Compared to ECG 07/07/2021 12:00:57 T-wave abnormality now present Electronically Signed On 07-08-21 11:53:26 PACKER SAUSAGE AND WIENER by Kermit Ross
--- NOTE | 2021-07-08 12:31 | P.DS ---
Admission Date: 07/07/21 Discharge Date: 07/08/21 Disposition: ROUTINE DISCHARGE Discharge Condition: FAIR Reason for Admission: A. fib with RVR, chest tightness Consultations: Cardiology - Problems (1) Rapid atrial fibrillation Current Visit: Yes Status: Acute (2) HLD (hyperlipidemia) Current Visit: No Status: Chronic Qualifiers: Hyperlipidemia type: unspecified Qualified Code(s): E78.5 - Hyperlipidemia, unspecified (3) HTN (hypertension) Current Visit: No Status: Chronic Qualifiers: Hypertension type: essential hypertension Qualified Code(s): I10 - Essential (primary) hypertension (4) Gout Current Visit: Yes Status: Acute (5) CAD (coronary artery disease) Current Visit: Yes Status: Acute Brief History of Present Illness: 70-year-old male, PMH: A. fib s/p watchman procedure 2 months ago, hypertension, gastric bypass, CAD s/p stent. Presented to the ED after sudden onset of shortness of breath, chest tightness, belching, and generally not feeling well. Symptoms began while patient was showering. Patient took blood pressure at home which he states that the diastolic pressures all remained greater than 100. He was feeling palpitations and chest tightness which he stated felt different from his prior A. fib episodes. For this reason, he presented to the closest ER. In the ED, he was noted to be A. fib with RVR, received Lopressor 5 mg IV x3, digoxin with some improvement. Labs unremarkable. Patient's seafood and service meat manager was contacted, requested patient to be transferred to his facility, however [facility] was full. Patient was subsequently hospitalized her for further management. Hospital Course: Patient placed on the observation of the medical floor. Troponin trended negat raffy. Patient was placed on sotalol per cardiology recommendation. His heart rate improved and actually became bradycardic. Echocardiogram was done and patient was followed by Dr. Ross who at this time recommend patient to double his metoprolol dose. Sotalol discontinued. per Dr. Ross, echocardiogram with normal EF. Patient also advised to follow with his welder repair for further evaluation and management of the atrial fibrillation. Patient deemed stable for discharge per cardiology. Vital Signs/Physical Exam: Temp Pulse Resp BP Pulse Ox 97 F 55 17 161/103 H 98 07/08/21 04:00 07/08/21 09:26 07/08/21 04:00 07/08/21 09:26 07/08/21 04:00 General: Alert, In no apparent distress, Oriented x3 HEENT: Mucous membr. moist/pink Neck: JVD not distended Respiratory: Clear to auscultation bilaterally, Normal air movement Cardiovascular: No edema, Normal S1 S2, Irregular heart rate/rhythm Gastrointestinal: Normal bowel sounds, Soft and benign, Non-distended, No tenderness Musculoskeletal: No swelling, No tenderness Integumentary: No rashes, No erythema Neurological: Normal strength at 5/5 x4 extr, Cranial nerves 3-12 intact Laboratory Data at Discharge: WBC 5.50 K/uL (4.3-10.9) D 07/08/21 02:42 Hgb 12.2 g/dL (13.6-17.9) L 07/08/21 02:42 Hct 37.4 % (39.6-49.0) L 07/08/21 02:42 Plt Count 121 K/uL (152-406) L 07/08/21 02:42 PT 11.4 SECONDS (9.5-12.5) 07/07/21 09:17 INR 0.99 07/07/21 09:17 APTT 51.0 SECONDS (24.3-36.9) H 07/07/21 21:05 Sodium 144 mmol/L (136-145) 07/08/21 02:42 Potassium 3.9 mmol/L (3.5-5.1) 07/08/21 02:42 BUN 12 mg/dL (7-18) 07/08/21 02:42 Creatinine 0.74 mg/dL (0.55-1.3) 07/08/21 02:42 Glucose 97 mg/dL (74-106) 07/08/21 02:42 Magnesium 1.9 mg/dL (1.8-2.4) 07/08/21 02:42 Total Bilirubin 0.5 mg/dL (0.2-1.0) 07/08/21 02:42 AST 31 U/L (15-37) 07/08/21 02:42 ALT 41 U/L (12-78) 07/08/21 02:42 Alkaline Phosphatase 85 U/L (45-117) 07/08/21 02:42 Troponin I < 0.02 ng/mL (0.0-0.045) 07/08/21 02:42 Home Medications: Clopidogrel Bisulfate [Plavix*] 75 mg PO DAILY 01/09/21 Rosuvastatin [Crestor*] 10 mg PO DAILY 01/09/21 Allopurinol 100 mg PO DAILY 05/25/21 Aspirin [Aspirin EC 325 MG] 1 tab PO DAILY 05/25/21 Olmesartan Medoxomil 20 mg PO BID 05/25/21 Oxybutynin Chloride [Ditropan*] 5 mg PO BID 05/25/21 Multivit-Min/FA/Lycopen/Lutein [Centrum Silver Men Tablet] 1 tab PO DAILY 07/07/21 Metoprolol Succinate [Toprol Xl] 50 mg PO BID #60 tab 07/08/21 New Medications: Metoprolol Succinate [Toprol Xl] 50 mg PO BID #60 tab Diet: AHA Activity: Ad melo Followup: Clint Matute MD [Primary Care Provider] -
[2021-07-08 13:45] VITALS: BP 168/94; TEMP 98
--- NOTE | 2021-07-08 14:43 | ECHO ---
HEIGHT: 5 ft 8 in WEIGHT: 210 lb 0 oz DATE OF STUDY: 07/08/[address]: Nikos Foster MD 2-DIMENSIONAL: YES M.MODE: YES DOPPLER: YES COLOR FLOW: YES TDS: NO PORTABLE: NO DEFINITY: NO BUBBLE STUDY: NO DIAGNOSIS: CHEST PAIN CARDIAC HISTORY: CATHERIZATION: SURGERY: PROSTHETIC VALVE: PACEMAKER: MEASUREMENTS (cm) DIASTOLIC (NORMALS) SYSTOLIC (NORMALS) IVSd 1.1 (0.6-1.2) LA Diam 3.8 (1.9-4.0) LVEF 52% LVIDd 4.8 (3.5-5.7) LVIDs 3.5 (2.0-3.5) %FS 27% LVPWd 1.2 (0.6-1.2) Ao Diam 3.4 (2.0-3.7) 2 DIMENSIONAL ASSESSMENT: RIGHT ATRIUM: NORMAL LEFT ATRIUM: NORMAL RIGHT VENTRICLE: NORMAL LEFT VENTRICLE: NORMAL TRICUSPID VALVE: NORMAL MITRAL VALVE: MITRAL ANNULAR CALCIFICATION PULMONIC VALVE: NORMAL AORTIC VALVE: SCLEROSIS PERICARDIAL EFFUSION: NONE AORTIC ROOT: NORMAL LEFT VENTRICULAR WALL MOTION: NORMAL. DOPPLER/COLOR FLOW: NORMAL. COMMENTS: ATRIAL FIBRILLATION. MITRAL ANNULAR CALCIFICATION. AORTIC SCLEROSIS. NORMAL EJECTION FRACTION. TECHNOLOGIST: MARY ROTHMAN
--- NOTE | 2021-07-14 10:45 | PN ---
Date of Progress Note: 07/08/2021 Mr. Santos was seen by Dr. Ramos for atrial fibrillation with rapid ventricular response. He was treated with IV Lopressor, sotalol 80 b.i.d. He has a history of coronary artery disease. Echocard iogram which was done was normal. He is in sinus rhythm, now asymptomatic, heart rate of 68. Presen t regimen includes aspirin and Plavix and sotalol. I would continue those. Continue his Crestor. C ontinue his olmesartan. Stop metoprolol. Continue sotalol. Continue aspirin and Plavix. We will s ee him in the office in the very near future and consider further anticoagulation. KATHERINE/ZHANNA Voice ID: [id number] Report ID: [id number]
== END 2021-07-08 13:27 | disposition home or self-care (01) ==
LOC: ER 08:47 → ERHOLD 12:54 → 2ND 14:45
PROVIDERS: ADMIT Hospitalist; ATTEND Hospitalist
DX: I48.91 Unspecified atrial fibrillation (principal); E78.5 Hyperlipidemia, unspecified; I10 Essential (primary) hypertension; M10.9 Gout, unspecified; I25.10 Atherosclerotic heart disease of native coronary artery without angina pectoris; Z95.5 Presence of coronary angioplasty implant and graft; Z20.822 Contact with and (suspected) exposure to COVID-19; Z98.84 Bariatric surgery status
CPT/HCPCS: 96365; 93005 ×3; 93306; 85025 ×2; 80048; 36415; 83735 ×2; 85610; 80076; 85730 ×2; 84443 ×2; 81003; 84484 ×4; 84439; 80053; 83880; 71045; 94760 ×2; 96375; 99285; U0003; J1160; J1644 ×2; J7030; G0378 ×3